=== PATIENT | male | born 1965 | race Caucasian/White ===

== ENCOUNTER 2021-05-13 19:44 | Emergency (ER) | payer MEDICAID, SELFPAY ==
--- NOTE | ~2021-05-13 | CT_ITS ---
EXAMINATION: CT ABDOMEN AND PELVIS WITHOUT CONTRAST CLINICAL INFORMATION: Pain COMPARISON: 12/14/2014 TECHNIQUE: Multidetector volumetric imaging was performed from the superior aspect of the liver through the pubic symphysis. Sagittal and coronal reformatted images were obtained on the technologist's workstation. This CT examination was performed using dose optimization techniques as appropriate, variously including the following: *Automated exposure control *Adjustment of mA and/or kV according to patient size (this includes techniques or standardized protocols for targeted exams where dose is matched to indication/reason for exam; i.e. extremities or head) *Use of iterative reconstruction technique DLP: 420 mGy-cm FINDINGS: LUNG BASES: The visualized lung bases are unremarkable. LIVER, GALLBLADDER, AND BILIARY TREE: The liver is normal in size, shape, and attenuation. No focal hepatic lesion or biliary ductal dilatation is present. Gallstone noted in the gallbladder PANCREAS: Unremarkable. SPLEEN: Unremarkable. ADRENAL GLANDS: Unremarkable. KIDNEYS AND URETERS: The kidneys are normal in size, shape, and attenuation. No hydronephrosis, hydroureter, or calculi seen. No perinephric stranding. BLADDER: Unremarkable. GASTROINTESTINAL TRACT: Nonobstructive bowel pattern. No free fluid. A normal appendix is not seen but no definitive suspicion around the cecum. ABDOMINAL WALL: No significant hernia is appreciated. Hernia repair on left noted LYMPH NODES: Normal. VASCULAR: Unremarkable. PELVIC VISCERA: Mildly prominent prostate OSSEOUS STRUCTURES: Unchanged. Degenerative change in the right hip CT/CT abdomen pelvis wo con IMPRESSION: No acute finding. The bowel pattern is nonobstructing. There is no free fluid. A normal appendix is not seen but no suspicion around the cecum No evidence of renal or ureteral stone or obstruction. Gallstone in the gallbladder. Fleischner guidelines were followed.
--- NOTE | ~2021-05-13 | XR_ITS ---
EXAMINATION: XR RIBS, RIGHT CLINICAL INFORMATION: Right chest wall pain COMPARISON: None TECHNIQUE: 3 views of the right ribs were obtained. Detail views of the right ribs FINDINGS: Chest film is demonstrating no evidence for pneumothorax. No effusion. The right lung is grossly clear. Mediastinal contours are within normal limits. Detail views the right ribs does not demonstrate evidence for fracture. XR/XR ribs RT min 3V w CXR1V IMPRESSION: No evidence for rib fracture. No effusion or pneumothorax. The underlying lung field is grossly clear.
[2021-05-13 19:52] VITALS: BP 124/72; PULSE 82; RESP 20; TEMP 36.3; O2SAT 99; BMI 31.6
[2021-05-13] MEDS: 0.9 % Sodium Chloride 1,000 ML 999 ML IVCONT (20:10)
[2021-05-13 20:14] LABS: MANUAL DIFF FLAG NO
[2021-05-13 20:16] LABS: Basophils Percent Auto 0.3 % (0-2); Eosinophils Absolute Auto 0.1 X10*3/uL (0.0-0.4); Eosinophils Percent Auto 0.9 % (0-4); Hematocrit 46.2 % (42.0-52.0); Imm Gran Abs Auto 0.04 X10*3/uL (0.00-0.03); Imm Gran Pct Auto 0.4 % (0.0-0.4); Lymphocytes Percent Auto 35.4 % (20-40); Mean Corpuscular HGB Conc 34.6 g/dl (31.0-36.0); Mean Corpuscular Hemoglobin 32.7 pg (27.0-33.0); Mean Corpuscular Volume 94.5 fL (80.0-98.0); Mean Platelet Volume 9.9 fL (9.4-12.4); Monocytes Absolute Auto 1.2 X10*3/uL (0.1-1.2); Monocytes Percent Auto 10.3 % (2-11); Neutrophils Absolute Auto 5.9 x10*3/uL (2.0-8.3); Neutrophils Percent Auto 52.7 % (45-73); Platelet Count 279 X10*3/uL (160-400); Red Blood Count 4.89 X10*6/uL (4.60-5.80); Red Cell Distribution Width 11.2 % (11.0-16.0); White Blood Count 11.2 X10*3/uL (4.8-10.8)
[2021-05-13] MEDS: Ketorolac Tromethamine 30 MG/ML VIAL IVPUSH (20:26)
--- NOTE | 2021-05-13 20:26 | ED.MALEGU ---
HPI - Male Genitourinary General Chief complaint: Urogenital-Male Stated complaint: rt side abd pain Time Seen by Provider: 05/13/21 19:52 Source: patient Mode of arrival: ambulatory Limitations: no limitations History of Present Illness HPI Narrative: 55-year-old male came in for evaluation of right flank pain. 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 No nausea, no vomiting, no fever, no chills. Related Data Previous Rx's Medication Instructions Recorded cyclobenzaprine 10 mg tablet 10 mg PO TID PRN #10 tab 05/13/21 ibuprofen 800 mg tablet 800 mg PO Q8H PRN #20 tab 05/13/21 Allergies Allergy/AdvReac Type Severity Reaction Status Date / Time No Known Allergies Allergy Unverified 02/22/20 16:30 Review of Systems Review of Systems: All other systems are reviewed and are negative Constitutional: Reports as per HPI and Reports no additional constitutional complaints Eyes: Reports as per HPI and Reports no additional eye complaints Reports system reviewed and no additional complaints, except as documented Cardiovascular: Reports as per HPI and Reports no additional cardiovascular complaints Respiratory: Reports as per HPI and Reports no additional respiratory complaints Gastrointestinal: Reports as per HPI and Reports no additional gastrointestinal complaints Genitourinary: Reports no additional female genitourinary complaints Musculoskeletal: Reports no additional musculoskeletal complaints Skin/Breast: Reports system reviewed and no additional complaints, except as docu Psychiatric: Reports no additional psychiatric complaints Endocrine: Reports no additional endocrine complaints Hematologic/Lymphatic: Reports no additional hematologic/lymphatic complaints Allergic/Immunologic: Reports no additional allergic/immunologic complaints Reports system reviewed and no additional complaints, except as documented and Reports Abnormal speech present [facility] Social History Social History Advance Directives: No Physical Exam Vital Signs: Vital Signs: Last Vital Signs Temp 97.4 F 05/13/21 19:52 Pulse 82 05/13/21 19:52 Resp 20 05/13/21 19:52 BP 124/72 05/13/21 19:52 Pulse Ox 99 05/13/21 19:52 BMI result Body Mass Index 31.6 Vital signs have been reviewed as appeared to be correct. Blood pressure normal. Heart rate normal. Respiration rate normal. Temperature normal. Oxygen saturation normal. Appearance: Alert. Oriented X3. No acute distress. Head: Normal external exam. Normocephalic. Atraumatic. No Pereyra signs noted. No raccoon eyes noted Eyes: PERRLA. EOMI. Conjunctiva and sclera normal. Eyelids normal. ENT: TM's Normal. Pharynx normal. Uvula midline. Moist mucous membranes. No trismus noted. No drooling noted. No muffled voice noted. Neck: Normal inspection. Neck supple. FROM. No adenopathy. Thyroid Normal. No meningeal signs. No neck mass noted. CVS: Normal heart rate and rhythm. Heart sound normal. No murmurs noted. Pulses normal throughout. Respiratory: No respiratory distress. Painless inspiration. Breath sounds normal. No wheezes/rales/rhonchi noted. Chest nontender. No accessory muscle usage noted or decreased air movement noted. Abdomen: Soft and nontender. Bowel sounds normal in all 4 quadrants. No distention noted. No organomegaly noted. No visible injury noted. Back: Right CVA tenderness. Full range of motion noted. Skin: Skin warm and dry. Normal skin color. Normal skin turgor. No rashes/lesions/lacerations noted. Extremities: No lower extremity edema. Extremities exhibit normal range of motion. Extremities nontender. Neuro: Oriented X 3. Cranial nerve exam: II-XII are grossly intact No motor deficit. No sensory deficit. Reflexes normal. Course Course Course Narrative: Assessment and plan. 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 Will discharge patient home on NSAIDs/muscle relaxant/rest. MDM - Male Genitourinary Medical Records Attestation: I reviewed the patient's medical records. Lab Data Attestation: I reviewed the patient's lab results. Result diagrams: 05/13/21 20:10 05/13/21 20:10 Labs: Lab Results 05/13/21 05/13/21 05/13/21 Range/Units 20:00 20:10 20:10 WBC 11.2 H (4.8-10.8) X10*3/uL RBC 4.89 (4.60-5.80) X10*6/uL Hgb 16.0 (14.0-18.0) g/dl Hct 46.2 (42.0-52.0) % MCV 94.5 (80.0-98.0) fL MCH 32.7 (27.0-33.0) pg MCHC 34.6 (31.0-36.0) g/dl RDW 11.2 (11.0-16.0) % Plt Count 279 (160-400) X10*3/uL MPV 9.9 (9.4-12.4) fL Immature Gran % (Auto) 0.4 (0.0-0.4) % Neut % (Auto) 52.7 (45-73) % Lymph % (Auto) 35.4 (20-40) % [place] % (Auto) 10.3 (2-11) % Eos % (Auto) 0.9 (0-4) % Baso % (Auto) 0.3 (0-2) % Lymph # (Auto) 4.0 (1.2-4.9) X10*3/uL [place] # (Auto) 1.2 (0.1-1.2) X10*3/uL Eos # (Auto) 0.1 (0.0-0.4) X10*3/uL Baso # (Auto) 0.0 (0.0-0.2) X10*3/uL Abs Immat Gran (auto) 0.04 H (0.00-0.03) X10*3/uL Absolute Neuts (auto) 5.9 (2.0-8.3) x10*3/uL Absolute Nucleated RBC 0.000 (0.0-0.012) X10*3/uL Nucleated RBC % (auto) 0.0 (0.0-0.2) /100WBC Sodium 137 (135-145) mmol/L Potassium 4.3 (3.3-5.1) mmol/L Chloride 105 (96-108) mmol/L Carbon Dioxide 21 L (22-29) mmol/L Anion Gap 15 (12-20) BUN 11 (9-16) mg/dL Creatinine 0.88 (0.5-1.4) mg/dL Estim Creat Clear Calc 96.8 Estimated GFR > 60 Random Glucose 241 H (60-115) mg/dL Calcium 9.8 (8.4-10.2) mg/dL Total Bilirubin 0.4 (0.0-1.0) mg/dL Direct Bilirubin 0.2 (0.0-0.5) mg/dL AST 18 (5-37) U/L ALT 14 (0-40) U/L Alkaline Phosphatase 82 (39-117) U/L Troponin I High Sens (<3.5-35.0) ng/L Total Protein 7.3 (6.5-8.0) g/dL Albumin 4.2 (3.5-5.0) g/dL Lipase 293 H (8-78) U/L Urine Color YELLOW Urine Appearance CLEAR Urine pH 6.0 (5.0-8.0) Ur Specific [place] >= 1.030 H (1.005-1.025) Urine Protein NEG (NEG-TRACE) MG/DL Urine Glucose (UA) >=1000 H (NEG) MG/DL Urine Ketones NEG (NEG) MG/DL Urine Blood NEG (NEG) Urine Nitrite NEG (NEG) Ur Leukocyte Esterase NEG (NEG) Urine RBC 0-2 (0) /HPF Urine WBC 0-2 (0-4) /HPF Ur Squamous Epith Cells TRACE /LPF Calcium Oxalate Crystal TRACE /LPF Urine Bacteria TRACE /LPF Urine Mucus TRACE /LPF 05/13/21 Range/Units 20:10 WBC (4.8-10.8) X10*3/uL RBC (4.60-5.80) X10*6/uL Hgb (14.0-18.0) g/dl Hct (42.0-52.0) % MCV (80.0-98.0) fL MCH (27.0-33.0) pg MCHC (31.0-36.0) g/dl RDW (11.0-16.0) % Plt Count (160-400) X10*3/uL MPV (9.4-12.4) fL Immature Gran % (Auto) (0.0-0.4) % Neut % (Auto) (45-73) % Lymph % (Auto) (20-40) % [place] % (Auto) (2-11) % Eos % (Auto) (0-4) % Baso % (Auto) (0-2) % Lymph # (Auto) (1.2-4.9) X10*3/uL [place] # (Auto) (0.1-1.2) X10*3/uL Eos # (Auto) (0.0-0.4) X10*3/uL Baso # (Auto) (0.0-0.2) X10*3/uL Abs Immat Gran (auto) (0.00-0.03) X10*3/uL Absolute Neuts (auto) (2.0-8.3) x10*3/uL Absolute Nucleated RBC (0.0-0.012) X10*3/uL Nucleated RBC % (auto) (0.0-0.2) /100WBC Sodium (135-145) mmol/L Potassium (3.3-5.1) mmol/L Chloride (96-108) mmol/L Carbon Dioxide (22-29) mmol/L Anion Gap (12-20) BUN (9-16) mg/dL Creatinine (0.5-1.4) mg/dL Estim Creat Clear Calc Estimated GFR Random Glucose (60-115) mg/dL Calcium (8.4-10.2) mg/dL Total Bilirubin (0.0-1.0) mg/dL Direct Bilirubin (0.0-0.5) mg/dL AST (5-37) U/L ALT (0-40) U/L Alkaline Phosphatase (39-117) U/L Troponin I High Sens < 3.5 (<3.5-35.0) ng/L Total Protein (6.5-8.0) g/dL Albumin (3.5-5.0) g/dL Lipase (8-78) U/L Urine Color Urine Appearance Urine pH (5.0-8.0) Ur Specific [place] (1.005-1.025) Urine Protein (NEG-TRACE) MG/DL Urine Glucose (UA) (NEG) MG/DL Urine Ketones (NEG) MG/DL Urine Blood (NEG) Urine Nitrite (NEG) Ur Leukocyte Esterase (NEG) Urine RBC (0) /HPF Urine WBC (0-4) /HPF Ur Squamous Epith Cells /LPF Calcium Oxalate Crystal /LPF Urine Bacteria /LPF Urine Mucus /LPF Imaging Data Chest x-ray: Radiologist's impression: No evidence for rib fracture. No effusion or pneumothorax. The underlying lung field is grossly clear. ? CT scan - abdomen: Radiologist's impression: No acute finding. The bowel pattern is nonobstructing. There is no free fluid. A normal appendix is not seen but no suspicion around the cecum ?No evidence of renal or ureteral stone or obstruction. Gallstone in the gallbladder. ? Discharge Plan Discharge Clinical Impression: Chest wall pain, Pulled muscle Patient Disposition: Home, Self-Care Instructions: Chest Wall Pain (ED) Prescriptions: New ibuprofen 800 mg tablet 800 mg PO Q8H PRN (Reason: pain) Qty: 20 RF: 0 cyclobenzaprine 10 mg tablet 10 mg PO TID PRN (Reason: muscle spasm) Qty: 10 RF: 0 Referrals: Aminata Jung DO [Primary Care Provider] - 2 days Stand Alone Forms: Work/School Release
[2021-05-13] MEDS: Morphine Sulfate 2 MG/ML CARTRIDGE 1 MG IVPUSH (20:27)
[2021-05-13 20:29] LABS: Appearance Urine CLEAR; Color Urine YELLOW; Glucose Urine UA >=1000 MG/DL (NEG); Leukocyte Esterase Urine NEG (NEG); Nitrite Urine NEG (NEG); Specific Gravity - Urine >= 1.030 (1.005-1.025); Urine Blood NEG (NEG); Urine Ketones NEG (NEG); Urine Protein NEG (NEG-TRACE)
[2021-05-13 20:40] LABS: Alanine Aminotransferase 14 U/L (0-40); Albumin Level 4.2 g/dL (3.5-5.0); Alkaline Phosphatase 82 U/L (39-117); Anion Gap 15 (12-20); Aspartate Amino Transferase 18 U/L (5-37); Bilirubin Direct 0.2 mg/dL (0.0-0.5); Bilirubin Total 0.4 mg/dL (0.0-1.0); Blood Urea Nitrogen 11 mg/dL (9-16); Calcium 9.8 mg/dL (8.4-10.2); Carbon Dioxide 21 mmol/L (22-29); Chloride 105 mmol/L (96-108); Creatinine Clr Calc Pharmacy 96.8; Estimated Glomerular Filt Rate > 60; Glucose Random 241 mg/dL (60-115); Lipase 293 U/L (8-78); Potassium 4.3 mmol/L (3.3-5.1); Sodium 137 mmol/L (135-145); Total Protein 7.3 g/dL (6.5-8.0); Troponin-I High Sensitivity < 3.5 ng/L (<3.5-35.0)
[2021-05-13 21:02] LABS: Bacteria Urine TRACE /LPF; Calcium Oxalate Crystals Urine TRACE /LPF; Mucus Urine TRACE /LPF; RBC Urine 0-2 /HPF (0); Squamous Epithelial Cell Urine TRACE /LPF; WBC Urine 0-2 /HPF (0-4)
== END 2021-05-13 23:05 | disposition home or self-care (01) ==
PROVIDERS: Emergency Provider Emergency Medicine; PCP Family Medicine
DX: R07.89 Other chest pain (principal); R07.81 Pleurodynia; R10.9 Unspecified abdominal pain; Z79.899 Other long term (current) drug therapy
CPT/HCPCS: 36415; 71101; 74176; 80048; 80076; 81001; 83690; 84484; 85025; 96361; 96374; 96375; 99283; 99284; J1885; J2270

== ENCOUNTER 2021-05-14 23:19 | Inpatient (IN) | payer MEDICAID, SELFPAY ==
--- NOTE | ~2021-05-14 | US_ITS ---
EXAMINATION: US ABDOMEN LIMITED CLINICAL INFORMATION: Right upper quadrant pain. COMPARISON: CT 05/13/2021 TECHNIQUE: Real-time imaging of the right upper quadrant abdominal viscera. FINDINGS: PANCREAS: Not well seen due to bowel gas. LIVER: Normal. The liver is normal in size. The liver contour is normal. Parenchymal echogenicity is normal. No focal hepatic lesion. There is no intrahepatic biliary duct dilatation seen. GALLBLADDER: The gallbladder wall is thick measuring up to 0.5 cm. Multiple gallstones are noted. These measure up to 0.6 cm. There is some ringdown artifact in the gallbladder wall suggestive of adenomyomatosis. No pericholecystic fluid. COMMON BILE DUCT: Normal in caliber measuring 0.3 cm in diameter. RIGHT KIDNEY: Normal. No hydronephrosis. No renal calculi or focal parenchymal lesions. The kidney measures 10.8 cm in maximum dimension. FREE FLUID: None. US/US abdomen limited IMPRESSION: Gallbladder wall thickening noted with gallstone, concerning for cholecystitis. Suggestion of adenomyomatosis of the gallbladder wall.
[2021-05-14 23:27] VITALS: BP 125/69; BP 134/81; PULSE 66; PULSE 76; RESP 22; TEMP 36.7; O2SAT 100; O2SAT 99; BMI 31.6
--- NOTE | 2021-05-14 23:30 | ED.ABDPAIN ---
HPI - Abdominal Pain General Chief Complaint: Abdominal Pain Stated Complaint: rt side abd pain Time Seen by Provider: 05/14/21 23:29 Source: patient Mode of arrival: ambulatory Limitations: no limitations History of Present Illness HPI narrative: Patient complaining of diffuse abdominal pain radiated to the back with nausea, vomiting for last 4 days was seen here yesterday and diagnosed as musculoskeletal pain and discharged on Flexeril and ibuprofen. had CT scan of the abdomen done which was which showed gallstones and lab showed elevated lipase of 283 patient is saying his pain is getting worse now unable to eat or drink anything patient denied any alcohol use no BHN melena no abdominal distension never had similar pain in the past Related Data Previous Rx's Medication Instructions Recorded cyclobenzaprine 10 mg tablet 10 mg PO TID PRN #10 tab 05/13/21 ibuprofen 800 mg tablet 800 mg PO Q8H PRN #20 tab 05/13/21 Allergies Allergy/AdvReac Type Severity Reaction Status Date / Time No Known Allergies Allergy Unverified 02/22/20 16:30 Review of Systems Review of Systems Yes all other systems are reviewed and are negative Physical Exam Vital Signs: Vital Signs: Last Vital Signs Temp 98.0 F 05/14/21 23:27 Pulse 66 05/14/21 23:27 Resp 20 05/14/21 23:50 BP 125/69 05/14/21 23:27 Pulse Ox 99 05/14/21 23:27 BMI result Body Mass Index 31.6 Appearance: Alert. Oriented X3. No acute distress. Eyes: No pallor/ icterus ENT: Pharynx normal. Oral Mucosa moist Neck: Normal inspection. Neck supple. CVS: Normal heart rate and rhythm. Pulses normal. Respiratory: No respiratory distress. Equal air entry bilateral, no wheezing/rales/rhonchi Abdomen: Soft , mid abdominal tenderness no rebound tenderness or guarding, Bowel sounds are present, no mass palpable, no CVA tenderness Skin: Skin warm and dry. Normal skin color. Normal skin turgor. Extremities: No lower extremity edema. No calf tenderness Neuro: Oriented X 3. MDM - Abdominal Pain MDM Narrative Medical decision making narrative: Patient diffuse abdominal pain more on the mid abdomen with elevated lipase with gallstones normal LFTs unable to eat or drink because of pain and vomiting all day will admit patient for pancreatitis for pain control and IV hydration patient denies use of alcohol has last year lipid profile normal etiology of pancreatitis likely idiopathic Differential Diagnosis Differential diagnosis: Likely abdominal pain Medical Records Attestation: I reviewed the patient's medical records. Lab Data Attestation: I reviewed the patient's lab results. Result diagrams: 05/15/21 00:05 05/15/21 00:05 Labs: Lab Results 05/15/21 05/15/21 Range/Units 00:05 00:05 WBC 8.4 (4.8-10.8) X10*3/uL RBC 4.64 (4.60-5.80) X10*6/uL Hgb 15.2 (14.0-18.0) g/dl Hct 44.0 (42.0-52.0) % MCV 94.8 (80.0-98.0) fL MCH 32.8 (27.0-33.0) pg MCHC 34.5 (31.0-36.0) g/dl RDW 11.2 (11.0-16.0) % Plt Count 226 (160-400) X10*3/uL MPV 9.8 (9.4-12.4) fL Immature Gran % (Auto) 0.2 (0.0-0.4) % Neut % (Auto) 61.6 (45-73) % Lymph % (Auto) 28.2 (20-40) % [place] % (Auto) 9.2 (2-11) % Eos % (Auto) 0.4 (0-4) % Baso % (Auto) 0.4 (0-2) % Lymph # (Auto) 2.4 (1.2-4.9) X10*3/uL [place] # (Auto) 0.8 (0.1-1.2) X10*3/uL Eos # (Auto) 0.0 (0.0-0.4) X10*3/uL Baso # (Auto) 0.0 (0.0-0.2) X10*3/uL Abs Immat Gran (auto) 0.02 (0.00-0.03) X10*3/uL Absolute Neuts (auto) 5.2 (2.0-8.3) x10*3/uL Absolute Nucleated RBC 0.000 (0.0-0.012) X10*3/uL Nucleated RBC % (auto) 0.0 (0.0-0.2) /100WBC Sodium 136 (135-145) mmol/L Potassium 3.9 (3.3-5.1) mmol/L Chloride 104 (96-108) mmol/L Carbon Dioxide 22 (22-29) mmol/L Anion Gap 14 (12-20) BUN 10 (9-16) mg/dL Creatinine 0.81 (0.5-1.4) mg/dL Estim Creat Clear Calc 105.2 Estimated GFR > 60 Random Glucose 231 H (60-115) mg/dL Calcium 9.2 D (8.4-10.2) mg/dL Total Bilirubin 0.6 (0.0-1.0) mg/dL AST 12 (5-37) U/L ALT 11 (0-40) U/L Alkaline Phosphatase 72 (39-117) U/L Total Protein 6.6 (6.5-8.0) g/dL Albumin 4.0 (3.5-5.0) g/dL Lipase 229 H (8-78) U/L Discharge Plan Discharge Clinical Impression: Pancreatitis Qualifiers: Chronicity: acute Pancreatitis type: idiopathic Acute pancreatitis complication: no infection or necrosis Qualified Code(s): K85.00 - Idiopathic acute pancreatitis without necrosis or infection Gallstone Qualifiers: Cholecystitis presence: without cholecystitis Biliary obstruction: without biliary obstruction Qualified Code(s): K80.20 - Calculus of gallbladder without cholecystitis without obstruction Patient Disposition: Admitted As Inpatient [facility] Social History Social History Advance Directives: No Advance Directives Information Provided: No
[2021-05-14 23:50] VITALS: RESP 20
[2021-05-14] MEDS: 0.9 % Sodium Chloride 1,000 ML 999 ML IVCONT (23:50)
[2021-05-14] MEDS: ondansetron HCL 4 MG/2 ML VIAL IVPUSH (23:50)
[2021-05-14] MEDS: Morphine Sulfate 4 MG/ML CARTRIDGE IVPUSH (23:50)
[2021-05-15] VITALS (9 sets, daily range): BP systolic 119–142; BP diastolic 55–75; PULSE 56–82; RESP 14–22; TEMP 36.3–36.4; O2SAT 96–100
[2021-05-15 00:10] LABS: Basophils Percent Auto 0.4 % (0-2); Eosinophils Percent Auto 0.4 % (0-4); Hemoglobin 15.2 g/dl (14.0-18.0); Imm Gran Abs Auto 0.02 X10*3/uL (0.00-0.03); Imm Gran Pct Auto 0.2 % (0.0-0.4); Lymphocytes Absolute Auto 2.4 X10*3/uL (1.2-4.9); Lymphocytes Percent Auto 28.2 % (20-40); MANUAL DIFF FLAG NO; Mean Corpuscular HGB Conc 34.5 g/dl (31.0-36.0); Mean Corpuscular Hemoglobin 32.8 pg (27.0-33.0); Mean Corpuscular Volume 94.8 fL (80.0-98.0); Mean Platelet Volume 9.8 fL (9.4-12.4); Monocytes Absolute Auto 0.8 X10*3/uL (0.1-1.2); Monocytes Percent Auto 9.2 % (2-11); Neutrophils Absolute Auto 5.2 x10*3/uL (2.0-8.3); Neutrophils Percent Auto 61.6 % (45-73); Platelet Count 226 X10*3/uL (160-400); Red Blood Count 4.64 X10*6/uL (4.60-5.80); Red Cell Distribution Width 11.2 % (11.0-16.0); White Blood Count 8.4 X10*3/uL (4.8-10.8)
[2021-05-15 00:41] LABS: Alanine Aminotransferase 11 U/L (0-40); Alkaline Phosphatase 72 U/L (39-117); Anion Gap 14 (12-20); Aspartate Amino Transferase 12 U/L (5-37); Bilirubin Total 0.6 mg/dL (0.0-1.0); Blood Urea Nitrogen 10 mg/dL (9-16); Calcium 9.2 mg/dL (8.4-10.2); Carbon Dioxide 22 mmol/L (22-29); Chloride 104 mmol/L (96-108); Creatinine Clr Calc Pharmacy 105.2; Estimated Glomerular Filt Rate > 60; Glucose Random 231 mg/dL (60-115); Lipase 229 U/L (8-78); Potassium 3.9 mmol/L (3.3-5.1); Sodium 136 mmol/L (135-145); Total Protein 6.6 g/dL (6.5-8.0)
--- NOTE | 2021-05-15 01:06 | PM.IMHP ---
History of Present Illness Date of Service: 05/15/21 Chief Complaint: abdominal pain 55-year-old male with a past medical history of diabetes presented to the hospital with a chief complaint of abdominal pain. Patient reports that over the past 4 days he has been having abdominal pain in the epigastrium, nonradiating associated with nausea and vomiting denies any blood in the vomitus. Denies any diarrhea. Denies any recent alcohol use. Mentioned that he is not able to eat anything and has reduced oral intake Presented to the hospital yesterday and had a CT abdomen done which showed no acute finding except for a Gall stone; subsequently discharged home. After he went home patient reported that he continued to have abdominal discomfort hence presented back to the hospital for further evaluation. denies any alcohol use. Denies any chest pain palpitations lightheadedness or dizziness. Review of all other systems is negative except mentioned above ER course: Per ER team patient noted a abdominal tenderness, no guarding noted he; lipase elevated in 200; admitted for acute pancreatitis PMFSH Pertinent family history: Reviewed Social History Advance Directives: No Advance Directives Information Provided: No Meds Allergies Allergy/AdvReac Type Severity Reaction Status Date / Time No Known Allergies Allergy Unverified 02/22/20 16:30 Physical Exam Vital Signs and Narrative: Vital Signs: Last Vital Signs Temp 98.0 F 05/14/21 23:27 Pulse 66 05/14/21 23:27 Resp 20 05/14/21 23:50 BP 125/69 05/14/21 23:27 Pulse Ox 99 05/14/21 23:27 BMI result Body Mass Index 31.6 Gen: Appears be in no acute distress HEENT: NCAT, Moist mucosa. Pulmonary: Vesicular breath sounds, fair air entry CVS: Normal S1-S2 Abdomen: BS+, Soft, tender in epigastrium, no guarding no rigidity. Extremities: Warm well perfused Neuro: Alert and awake. Results Labs CBC and Chem 7: 05/15/21 00:05 05/15/21 00:05 Labs: Laboratory Results - last 24 hr 05/15/21 05/15/21 00:05 00:05 MCV 94.8 MCH 32.8 MCHC 34.5 RDW 11.2 Plt Count 226 MPV 9.8 Immature Gran % (Auto) 0.2 Neut % (Auto) 61.6 Lymph % (Auto) 28.2 [place] % (Auto) 9.2 Eos % (Auto) 0.4 Baso % (Auto) 0.4 Lymph # (Auto) 2.4 [place] # (Auto) 0.8 Eos # (Auto) 0.0 Baso # (Auto) 0.0 Abs Immat Gran (auto) 0.02 Absolute Neuts (auto) 5.2 Absolute Nucleated RBC 0.000 Nucleated RBC % (auto) 0.0 Anion Gap 14 Estim Creat Clear Calc 105.2 Estimated GFR > 60 Random Glucose 231 H Calcium 9.2 D Total Bilirubin 0.6 AST 12 ALT 11 Alkaline Phosphatase 72 Total Protein 6.6 Albumin 4.0 Lipase 229 H Assessment and Plan (1) Pancreatitis: Qualifiers: Acute pancreatitis complication: no infection or necrosis Chronicity: acute Pancreatitis type: idiopathic Qualified Code(s): K85.00 - Idiopathic acute pancreatitis without necrosis or infection Status: Acute (2) Gallstone: Qualifiers: Biliary obstruction: without biliary obstruction Cholecystitis presence: without cholecystitis Qualified Code(s): K80.20 - Calculus of gallbladder without cholecystitis without obstruction Status: Acute (3) Diabetes: Status: Acute 55-year-old male with a past medical history of diabetes presented to the hospital with a chief complaint of abdominal pain. noted to elevated lipase. Admitted for acute pancreatitis. Acute pancreatitis: Patient denies alcohol use. Will obtain lipid panel to check for triglycerides. Calcium within normal limits. CT abdomen showed gallstone - question gallstone related. But LFTs within normal limits. Gastroenterology consult for further evaluation Pain control IV fluids History of diabetes: Insulin sliding scale. Monitor fingerstick glucose. DVT prophylaxis: SCD boots Code status: Full code Quality Stroke Does the patient have a stroke diagnosis?: No VTE Prior VTE?: No VTE Risk Level:: Medical - moderate - high VTE Device Contraindication: N/A - Device Ordered VTE Drug Contraindication: Treatment Not Indicated
[2021-05-15 01:22] LABS: COVID-19 Test Negative (Negative)
[2021-05-15] MEDS: Dextrose 5 % and 0.45 % NaCl 1,000 ML 100 ML IVCONT ×3 (01:25→23:43)
--- NOTE | 2021-05-15 02:11 | PC.NURSE ---
PT med rec completed using list of recent refills recorded in PT's medical record. PT able to confirm some meds, but admits that he does not know the names and doses of most of his meds.
[2021-05-15] MEDS: HYDROmorphone HCl 0.5 MG/0.5 ML SYRINGE IVPUSH ×3 (06:15→21:23)
[2021-05-15 07:38] LABS: Glucose, Whole Blood 211 mg/dL (60-115)
[2021-05-15 07:49] LABS: MANUAL DIFF FLAG NO
[2021-05-15 07:53] LABS: Basophils Percent Auto 0.2 % (0-2); Eosinophils Absolute Auto 0.1 X10*3/uL (0.0-0.4); Eosinophils Percent Auto 0.7 % (0-4); Hematocrit 44.7 % (42.0-52.0); Hemoglobin 15.1 g/dl (14.0-18.0); Imm Gran Abs Auto 0.03 X10*3/uL (0.00-0.03); Imm Gran Pct Auto 0.4 % (0.0-0.4); Lymphocytes Absolute Auto 2.2 X10*3/uL (1.2-4.9); Lymphocytes Percent Auto 27.5 % (20-40); Mean Corpuscular HGB Conc 33.8 g/dl (31.0-36.0); Mean Corpuscular Hemoglobin 32.4 pg (27.0-33.0); Mean Corpuscular Volume 95.9 fL (80.0-98.0); Monocytes Absolute Auto 0.8 X10*3/uL (0.1-1.2); Monocytes Percent Auto 9.7 % (2-11); Neutrophils Percent Auto 61.5 % (45-73); Platelet Count 237 X10*3/uL (160-400); Red Blood Count 4.66 X10*6/uL (4.60-5.80); Red Cell Distribution Width 11.1 % (11.0-16.0); White Blood Count 8.1 X10*3/uL (4.8-10.8)
--- NOTE | 2021-05-15 08:28 | MHC.CM.PN ---
pt reports that he is homeless and has been staying at [facility], friends of the homeless. he says that sometimes he stays at a freinds place but mostly at the nursing home. he reports he has no family in the area, no s.o. and does not have a car. he denies the need for vna at [place]. his pcp is Guido husain. he will need help c transportation back to the nursing home [place]. cm to cont. to follow.
[2021-05-15 08:32] LABS: Anion Gap 10 (12-20); Blood Urea Nitrogen 8 mg/dL (9-16); Calcium 9.3 mg/dL (8.4-10.2); Carbon Dioxide 25 mmol/L (22-29); Chloride 105 mmol/L (96-108); Cholesterol 171 mg/dL; Creatinine Clr Calc Pharmacy 103.9; Estimated Glomerular Filt Rate > 60; Glucose Random 241 mg/dL (60-115); HDL Cholesterol 31 mg/dL; LDL Cholesterol Calculated 119 mg/dl; Potassium 4.1 mmol/L (3.3-5.1); Sodium 136 mmol/L (135-145); Triglycerides 109 mg/dL
[2021-05-15] MEDS: Insulin Lispro 100 UNIT/ML 3 ML VIAL SUBCUT ×2 (08:45→20:24)
[2021-05-15] MEDS: HYDROmorphone HCl 1 MG/ML SYRINGE IVPUSH ×2 (09:31→16:49)
[2021-05-15 12:17] LABS: Glucose, Whole Blood 141 mg/dL (60-115)
--- NOTE | 2021-05-15 15:59 | P.EN_ITS ---
Event Note Date of Service: 05/15/21 Event Note: Continues with right upper quadrant pain requiring Dilaudid. Con tinues NPO status. Exam unchanged; abdomen tender right upper quadrant along the costal margin. Ultrasound demonstrates question of acute cholecystitis. Will await GI input and talar therapies based on findings.
[2021-05-15 16:35] LABS: Glucose, Whole Blood 137 mg/dL (60-115)
[2021-05-15] MEDS: 0.9 % Sodium Chloride Flush 3 ML SYRINGE IVFLUSH (16:57)
[2021-05-15] MEDS: ondansetron HCL 4 MG/2 ML VIAL IVPUSH (17:43)
[2021-05-15] MEDS: Nicotine 21 MG PATCH.TD24 TRANSDERMA (17:43)
[2021-05-15 17:52] LABS: Lipase 34 U/L (8-78)
[2021-05-15 19:58] LABS: Glucose, Whole Blood 201 mg/dL (60-115)
--- NOTE | 2021-05-15 21:34 | PC.NURSE ---
P patient vomited 200 ml of green liquid,c/o burning,stomache acidity I Dr. Simon notified,medicated for pain,repositioned E will monitor
[2021-05-15] MEDS: Famotidine/PF 20 MG/2 ML VIAL IVPUSH (21:54)
[2021-05-16] VITALS (11 sets, daily range): BP systolic 132–160; BP diastolic 54–77; PULSE 65–100; RESP 18–28; TEMP 36–37.2; O2SAT 97–99
[2021-05-16] MEDS: HYDROmorphone HCl 0.5 MG/0.5 ML SYRINGE IVPUSH ×3 (00:07→09:19)
[2021-05-16] MEDS: ondansetron HCL 4 MG/2 ML VIAL IVPUSH ×4 (02:02→18:29)
[2021-05-16 05:42] LABS: MANUAL DIFF FLAG NO
[2021-05-16 05:49] LABS: Basophils Percent Auto 0.1 % (0-2); Eosinophils Percent Auto 0.2 % (0-4); Hematocrit 44.8 % (42.0-52.0); Hemoglobin 15.4 g/dl (14.0-18.0); Imm Gran Abs Auto 0.03 X10*3/uL (0.00-0.03); Imm Gran Pct Auto 0.4 % (0.0-0.4); Lymphocytes Absolute Auto 1.7 X10*3/uL (1.2-4.9); Lymphocytes Percent Auto 20.5 % (20-40); Mean Corpuscular HGB Conc 34.4 g/dl (31.0-36.0); Mean Corpuscular Hemoglobin 32.6 pg (27.0-33.0); Mean Corpuscular Volume 94.7 fL (80.0-98.0); Mean Platelet Volume 9.9 fL (9.4-12.4); Monocytes Absolute Auto 0.7 X10*3/uL (0.1-1.2); Neutrophils Absolute Auto 5.6 x10*3/uL (2.0-8.3); Neutrophils Percent Auto 69.8 % (45-73); Platelet Count 233 X10*3/uL (160-400); Red Blood Count 4.73 X10*6/uL (4.60-5.80); Red Cell Distribution Width 10.8 % (11.0-16.0); White Blood Count 8.1 X10*3/uL (4.8-10.8)
[2021-05-16 06:25] LABS: Alanine Aminotransferase 11 U/L (0-40); Alkaline Phosphatase 68 U/L (39-117); Anion Gap 13 (12-20); Aspartate Amino Transferase 13 U/L (5-37); Bilirubin Total 0.8 mg/dL (0.0-1.0); Blood Urea Nitrogen 7 mg/dL (9-16); Calcium 9.6 mg/dL (8.4-10.2); Carbon Dioxide 24 mmol/L (22-29); Chloride 103 mmol/L (96-108); Creatinine Clr Calc Pharmacy 105.2; Estimated Glomerular Filt Rate > 60; Glucose Fasting 206 mg/dL (60-99); Potassium 3.9 mmol/L (3.3-5.1); Sodium 136 mmol/L (135-145); Total Protein 6.7 g/dL (6.5-8.0)
[2021-05-16 07:40] LABS: Glucose, Whole Blood 210 mg/dL (60-115)
[2021-05-16] MEDS: Nicotine 21 MG PATCH.TD24 TRANSDERMA (09:19)
[2021-05-16] MEDS: Famotidine/PF 20 MG/2 ML VIAL IVPUSH ×2 (09:19→19:48)
[2021-05-16] MEDS: Gabapentin 100 MG CAPSULE PO ×2 (09:20→19:48)
[2021-05-16] MEDS: Dextrose 5 % and 0.45 % NaCl 1,000 ML 100 ML IVCONT (09:34)
[2021-05-16 11:32] LABS: Glucose, Whole Blood 215 mg/dL (60-115)
[2021-05-16] MEDS: HYDROmorphone HCl 1 MG/ML SYRINGE IVPUSH (11:42)
--- NOTE | 2021-05-16 11:55 | PM.CNGS ---
History of Present Illness Consult details Consult date: 05/16/21 Reason for consult: gallstones Requesting physician: Lazaro Madsen Narrative: This is a 55-year-old gentleman with a history of diabetes mellitus who was feeling well until about a week ago when he had acute onset of right flank pain and abdominal pain associated with nausea and vomiting. He does not report fever, chills, dysuria or change in the color of his urine. He does not give a history of experiencing similar pain in the past. He presented to the emergency department for evaluation on 05/13/2021. A CT scan of the abdomen and pelvis was obtained. Demonstrated a stone within the gallbladder but no evidence of acute cholecystitis and no other acute changes. He ultimately was discharged home but returned the following day with the same complaint. Lipase was noted to be elevated and the possibility of gallstone pancreatitis was entertained, though CT scan done the previous day did not demonstrate any evidence of pancreatic or peripancreatic inflammatory change. Liver function studies were normal. White blood count was mildly elevated at 11.2 at the time of his presentation on 05/13/2021, with no left shift. The following day, when he return to the emergency department, white blood count was normal at 8.4. It has remained normal. Liver function studies have also remained normal. Follow-up imaging with ultrasound done yesterday demonstrated multiple gallstones measuring up to 0.6 cm, thickening of the gallbladder wall to 0.5 cm and evidence of some possible ring down artifact suggesting the presence of adenomyomatosis. The possibility of acute cholecystitis was also raised. Review of Systems Review of Systems: Yes all other systems are reviewed and are negative Cardiovascular: Cardiovascular: Reports dyspnea ( due to current pain) Respiratory: Respiratory: Reports dyspnea ( due to current pain) Gastrointestinal: Gastrointestinal: Reports as per HPI Genitourinary: Comments: urinary frequency Musculoskeletal: Comments: right shoulder pain Endocrine: Endocrine: Reports polyuria Hematologic/Lymphatic: Hematologic/Lymphatic: Denies easy bleeding Comments: no history of blood clots PMFSH Past Medical History Medical History (Updated 05/15/21 @ 17:23 by Yolanda Meza RN) Patient denies medical problems Surgical History Surgical History (Updated 05/15/21 @ 17:24 by Yolanda Meza RN) History of appendectomy History of hernia surgery Social History Social History Household Members: None Housing Other:: patient states homeless Do you presently have visiting nurse or other home services: No Patient Tobacco Use Status: Current everyday Tobacco user Tobacco use type: Cigarette Cigarette Packs Per Day: 1 Cigarettes Per Day: 20.0 Years Smoked: 30 Substance Use Type: Marijuana service: No Current occupational status: unemployed Meds Allergies Allergy/AdvReac Type Severity Reaction Status Date / Time No Known Allergies Allergy Verified 05/15/21 02:13 Active Medications: Current Medications Atorvastatin Calcium (Atorvastatin Calcium 20 Mg Tablet) 20 mg PO BEDTIME [facility] Baclofen (Baclofen 10 Mg Tablet) 10 mg PO TID PRN PRN Reason: muscle spasm Dextrose (Dextrose 50 % 25 Gm/50 Ml Vial) 25 gm IVPUSH Q15M PRN; Protocol PRN Reason: per Hypoglycemia Standing Ord. Dolutegravir Sodium (Dolutegravir Sodium 50 Mg Tablet) 50 mg PO DAILY [facility] Last Admin: 05/16/21 09:20 Dose: Not Given Documented by: Emtricitabine/Tenofovir Alafenamide (Emtricitabine/Tenofov Alafenam Tablet) 1 tab PO DAILY [facility] Last Admin: 05/16/21 09:20 Dose: Not Given Documented by: Famotidine (Famotidine/Pf 20 Mg/2 Ml Vial) 20 mg IVPUSH BID [facility] Last Admin: 05/16/21 09:19 Dose: 20 mg Documented by: Gabapentin (Gabapentin 100 Mg Capsule) 100 mg PO TID [facility] Last Admin: 05/16/21 09:20 Dose: 100 mg Documented by: Glipizide (Glipizide 10 Mg Tablet) 10 mg PO BID [facility] Last Admin: 05/16/21 09:20 Dose: Not Given Documented by: Glucose (Glucose Gel 15 Gm Gel..Gram.) 15 gm PO Q15M PRN; Protocol PRN Reason: per Hypoglycemia Standing Ord. Dextrose/Sodium Chloride (D51/2ns) 1,000 mls @ 100 mls/hr IVCONT .Q10H [facility] Last Admin: 05/16/21 09:34 Dose: 100 mls/hr Documented by: Piperacillin Sod/Tazobactam (Sod 3.375 gm/ Sodium Chloride) 100 mls @ 200 mls/hr IV Q6H [facility] Last Admin: 05/16/21 11:42 Dose: 200 mls/hr Documented by: Insulin Glargine (Insulin Glargine,Hum.Rec.Anlog 100 Unit/Ml 10 Ml Vial) 16 unit SUBCUT DAILY [facility] Last Admin: 05/16/21 09:20 Dose: Not Given Documented by: Insulin Human Lispro (Insulin Lispro 100 Unit/Ml 3 Ml Vial) 0 unit SUBCUT QIDACHS [facility]; Protocol Last Admin: 05/16/21 11:43 Dose: Not Given Documented by: Melatonin (Melatonin 3 Mg Tablet) 6 mg PO BEDTIME PRN PRN Reason: Insomnia Metformin HCl (Metformin Hcl 1,000 Mg Tablet) 1,000 mg PO BID [facility] Last Admin: 05/16/21 09:20 Dose: Not Given Documented by: Nicotine (Nicotine 21 Mg Patch.Td24) 21 mg TRANSDERMA DAILY [facility] Last Admin: 05/16/21 09:19 Dose: 21 mg Documented by: Ondansetron HCl (Ondansetron Hcl 4 Mg/2 Ml Vial) 4 mg IVPUSH Q4H PRN PRN Reason: Nausea and Vomiting Last Admin: 05/16/21 09:19 Dose: 4 mg Documented by: Senna (Sennosides 8.6 Mg Tablet) 17.2 mg PO BEDTIME PRN PRN Reason: Constipation Sodium Chloride (0.9 % Sodium Chloride Flush 3 Ml Syringe) 3 ml IVFLUSH QSHIFT [facility] Last Admin: 05/16/21 09:20 Dose: Not Given Documented by: Vitamin D (Cholecalciferol (Vitamin D3) 25 Mcg Tablet) 50 mcg PO DAILY [facility] Last Admin: 05/16/21 09:20 Dose: Not Given Documented by: Home Medications Medication Instructions Recorded Confirmed Last Taken Type atorvastatin 20 mg tablet 1 tab PO BEDTIME 05/15/21 05/15/21 Unknown History baclofen 10 mg tablet 1 tab PO TID PRN 05/15/21 05/15/21 Unknown History cholecalciferol (vitamin D3) 50 1 cap PO DAILY 05/15/21 05/15/21 Unknown History mcg (2,000 unit) capsule dolutegravir 50 mg tablet (Tivicay) 1 tab PO DAILY 05/15/21 05/15/21 Unknown History emtricitabine 200 mg-tenofovir 1 tab PO DAILY 05/15/21 05/15/21 Unknown History alafenamide fumarate 25 mg tablet (Descovy) gabapentin 100 mg capsule 1 cap PO TID 05/15/21 05/15/21 Unknown History glipizide 5 mg tablet 2 tab PO BID 05/15/21 05/15/21 Unknown History insulin glargine 100 unit/mL (3 16 unit SUBCUT DAILY 05/15/21 05/15/21 Unknown History mL) subcutaneous pen (Lantus Solostar U-100 Insulin) metformin 500 mg tablet 2 tab PO BID 05/15/21 05/15/21 Unknown History nystatin 100,000 unit/gram topical 1 appl TOPICAL TID PRN 05/15/21 05/15/21 Unknown History cream Physical Exam Vital Signs: Vital Signs: Last Vital Signs Temp 98 F 05/16/21 07:21 Pulse 65 05/16/21 07:21 Resp 18 05/16/21 07:21 BP 132/54 L 05/16/21 07:21 Pulse Ox 99 05/16/21 07:21 BMI result Body Mass Index 31.6 Const: General: cooperative, alert and anxious Orientation/consciousness: patient oriented x3 HENMT: Head: Yes atraumatic and Yes abrasion Eyes: General: appearance normal, both eyes and all related structures Neck: Neck: Yes trachea midline and Yes supple Resp: Effort & Inspection: normal respiratory effort Auscultation: clear to auscultation bilaterally Cardio: Rate: regular rate GI: Other: soft, nondistended, normal bowel sounds, no palpable masses, mild to moderatediffuse right-sided abdominal tenderness more significant and right upper quadrant, no rebound Rectal Exam - Male: Yes deferred Skin: Other: warm and dr General skin exam: no rashes or lesions noted Neuro: General: patient oriented x3 Results Labs Result diagrams: 05/16/21 05:14 05/16/21 05:14 Labs: Abnormal lab results 05/15/21 05/15/21 05/15/21 Range/Units 12:13 16:25 19:43 RDW (11.0-16.0) % BUN (9-16) mg/dL POC Glucose 141 H 137 H 201 H (60-115) mg/dL Fasting Glucose (60-99) mg/dL 05/16/21 05/16/21 05/16/21 Range/Units 05:14 05:14 07:19 RDW 10.8 L (11.0-16.0) % BUN 7 L (9-16) mg/dL POC Glucose 210 H (60-115) mg/dL Fasting Glucose 206 H (60-99) mg/dL 05/16/21 Range/Units 11:06 RDW (11.0-16.0) % BUN (9-16) mg/dL POC Glucose 215 H (60-115) mg/dL Fasting Glucose (60-99) mg/dL Short CBC 05/16/21 Range/Units 05:14 WBC 8.1 (4.8-10.8) X10*3/uL Hgb 15.4 (14.0-18.0) g/dl Hct 44.8 (42.0-52.0) % Plt Count 233 (160-400) X10*3/uL BMP 05/16/21 05:14 Sodium 136 Potassium 3.9 Chloride 103 Carbon Dioxide 24 BUN 7 L Creatinine 0.81 Calcium 9.6 Liver Function 05/16/21 Range/Units 05:14 Total Bilirubin 0.8 (0.0-1.0) mg/dL AST 13 (5-37) U/L ALT 11 (0-40) U/L Alkaline Phosphatase 68 (39-117) U/L Albumin 4.0 (3.5-5.0) g/dL All other labs normal. Imaging Abdomen CT scan report/results: report reviewed and image reviewed CT scan - pelvis: report reviewed and image reviewed Abdominal ultrasound report/results: report reviewed and image reviewed Assessment and Plan (1) Gallstone: Qualifiers: Biliary obstruction: without biliary obstruction Cholecystitis presence: without cholecystitis Qualified Code(s): K80.20 - Calculus of gallbladder without cholecystitis without obstruction Status: Acute (2) Pancreatitis: Qualifiers: Acute pancreatitis complication: no infection or necrosis Chronicity: acute Pancreatitis type: idiopathic Qualified Code(s): K85.00 - Idiopathic acute pancreatitis without necrosis or infection Status: Acute 55-year-old male presenting with right flank and right-sided abdominal pain and imaging findings of gallstones with some thickening of the gallbladder wall, which may be due to cholecystitis or adenomyomatosis. Lipase was elevated on presentation, as high as 293, but symptoms are persistent without imaging evidence of pancreatitis or dilated bile ducts. LFTs have been normal and lipase has normalized. His symptoms abdominal and flank pain have been persistent. Findings are consistent with symptomatic cholelithiasis and cholecystitis, unclear whether acute or chronic. Doubt gallstone pancreatitis. Have discussed treatment options including antibiotics and observation or surgery, laparoscopic cholecystectomy with potential need to convert to open cholecystectomy. He is at higher risk of requiring conversion based upon his history of ruptured appendicitis and laparotomy as well as subsequent repair of incisional hernias x2. We have reviewed the technique of surgery and anticipated course of recovery and have reviewed risks including but not limited to infection, bleeding, DVT and PE, chronic diarrhea, retained stones, bile duct stones, injuries to the bile ducts or adjacent structures potentially requiring further surgery and bile leak. He wishes to proceed with surgery. That has been planned for later today. Of note, he smokes marijuana routinely, and his nausea and vomiting could be related to this, but his symptoms of right-sided abdominal pain and flank pain are most suggestive of cholecystitis as the etiology and the nausea and vomiting most likely are related to this as well. Discussed with him. Case reviewed with Dr. Montalvo and Dr. Madsen. Procedures Date of Service Date of Service: 05/16/21
--- NOTE | 2021-05-16 14:14 | P.PNIM_ITS ---
Subjective Subjective Date of Service: 05/16/21 Interval History: continues to be any significant pain requiring IV Dilaudid. Nausea also a big factor. Remains NPO Review of Systems denies chest pain Denies shortness of breath Admits to cyclic nausea and vomiting Physical Exam Vital Signs: Vital Signs: Last Vital Signs Temp 98 F 05/16/21 07:21 Pulse 65 05/16/21 07:21 Resp 18 05/16/21 07:21 BP 132/54 L 05/16/21 07:21 Pulse Ox 99 05/16/21 07:21 BMI result Body Mass Index 31.6 Const: Other: awake uncomfortable Resp: Other: clear to auscultation bilaterally. No rales rhonchi or wheezes Cardio: Other: no S4; positive S1-S2; no S3 murmurs rubs down GI: Other: soft, normal bowel sounds all 4 quadrants; diffusely tender right upper quadrant right flank without rebound. Mild voluntary guarding Neuro: Other: cranial nerves 2-12 grossly intact as tested. Motor is 5/5 all extremities. Sensation intact. Gait stable. Cognition appropriate Extrem: Other: no edema bilaterally Objective Data Active Medications Atorvastatin Calcium (Atorvastatin Calcium 20 Mg Tablet) 20 mg PO BEDTIME [facility] Baclofen (Baclofen 10 Mg Tablet) 10 mg PO TID PRN PRN Reason: muscle spasm Dextrose (Dextrose 50 % 25 Gm/50 Ml Vial) 25 gm IVPUSH Q15M PRN; Protocol PRN Reason: per Hypoglycemia Standing Ord. Dolutegravir Sodium (Dolutegravir Sodium 50 Mg Tablet) 50 mg PO DAILY [facility] Last Admin: 05/16/21 09:20 Dose: Not Given Documented by: ALEKSANDR Non-Admin Reason: NPO Emtricitabine/Tenofovir Alafenamide (Emtricitabine/Tenofov Alafenam Tablet) 1 tab PO DAILY [facility] Last Admin: 05/16/21 09:20 Dose: Not Given Documented by: ALEKSANDR Non-Admin Reason: NPO Famotidine (Famotidine/Pf 20 Mg/2 Ml Vial) 20 mg IVPUSH BID [facility] Last Admin: 05/16/21 09:19 Dose: 20 mg Documented by: ALEKSANDR Gabapentin (Gabapentin 100 Mg Capsule) 100 mg PO TID [facility] Last Admin: 05/16/21 09:20 Dose: 100 mg Documented by: ALEKSANDR Glipizide (Glipizide 10 Mg Tablet) 10 mg PO BID [facility] Last Admin: 05/16/21 09:20 Dose: Not Given Documented by: ALEKSANDR Non-Admin Reason: NPO Glucose (Glucose Gel 15 Gm Gel..Gram.) 15 gm PO Q15M PRN; Protocol PRN Reason: per Hypoglycemia Standing Ord. Dextrose/Sodium Chloride (D51/2ns) 1,000 mls @ 100 mls/hr IVCONT .Q10H [facility] Last Admin: 05/16/21 09:34 Dose: 100 mls/hr Documented by: ALEKSANDR Piperacillin Sod/Tazobactam (Sod 3.375 gm/ Sodium Chloride) 50 mls @ 100 mls/hr IV Q6H [facility] Last Admin: 05/16/21 12:19 Dose: Not Given Documented by: ALEKSANDR Non-Admin Reason: Duplicate Order Insulin Glargine (Insulin Glargine,Hum.Rec.Anlog 100 Unit/Ml 10 Ml Vial) 16 unit SUBCUT DAILY [facility] Last Admin: 05/16/21 09:20 Dose: Not Given Documented by: ALEKSANDR Non-Admin Reason: NPO Insulin Human Lispro (Insulin Lispro 100 Unit/Ml 3 Ml Vial) 0 unit SUBCUT QIDACHS [facility]; Protocol Last Admin: 05/16/21 11:43 Dose: Not Given Documented by: ALEKSANDR Non-Admin Reason: NPO Melatonin (Melatonin 3 Mg Tablet) 6 mg PO BEDTIME PRN PRN Reason: Insomnia Metformin HCl (Metformin Hcl 1,000 Mg Tablet) 1,000 mg PO BID [facility] Last Admin: 05/16/21 09:20 Dose: Not Given Documented by: ALEKSANDR Non-Admin Reason: NPO Nicotine (Nicotine 21 Mg Patch.Td24) 21 mg TRANSDERMA DAILY [facility] Last Admin: 05/16/21 09:19 Dose: 21 mg Documented by: ALEKSANDR Ondansetron HCl (Ondansetron Hcl 4 Mg/2 Ml Vial) 4 mg IVPUSH Q4H PRN PRN Reason: Nausea and Vomiting Last Admin: 05/16/21 13:12 Dose: 4 mg Documented by: ALEKSANDR Senna (Sennosides 8.6 Mg Tablet) 17.2 mg PO BEDTIME PRN PRN Reason: Constipation Sodium Chloride (0.9 % Sodium Chloride Flush 3 Ml Syringe) 3 ml IVFLUSH QSHIFT [facility] Last Admin: 05/16/21 09:20 Dose: Not Given Documented by: ALEKSANDR Non-Admin Reason: IV Running Vitamin D (Cholecalciferol (Vitamin D3) 25 Mcg Tablet) 50 mcg PO DAILY [facility] Last Admin: 05/16/21 09:20 Dose: Not Given Documented by: ALEKSANDR Non-Admin Reason: NPO Labs CBC & Chem 7: 05/16/21 05:14 05/16/21 05:14 Labs: Laboratory Results - last 24 hr 05/15/21 05/15/21 05/15/21 16:25 17:18 19:43 MCV MCH MCHC RDW Plt Count MPV Immature Gran % (Auto) Neut % (Auto) Lymph % (Auto) [place] % (Auto) Eos % (Auto) Baso % (Auto) Lymph # (Auto) [place] # (Auto) Eos # (Auto) Baso # (Auto) Abs Immat Gran (auto) Absolute Neuts (auto) Absolute Nucleated RBC Nucleated RBC % (auto) Anion Gap Estim Creat Clear Calc Estimated GFR POC Glucose 137 H 201 H Fasting Glucose Calcium Total Bilirubin AST ALT Alkaline Phosphatase Total Protein Albumin Lipase 34 05/16/21 05/16/21 05/16/21 05:14 05:14 07:19 MCV 94.7 MCH 32.6 MCHC 34.4 RDW 10.8 L Plt Count 233 MPV 9.9 Immature Gran % (Auto) 0.4 Neut % (Auto) 69.8 Lymph % (Auto) 20.5 [place] % (Auto) 9.0 Eos % (Auto) 0.2 Baso % (Auto) 0.1 Lymph # (Auto) 1.7 [place] # (Auto) 0.7 Eos # (Auto) 0.0 Baso # (Auto) 0.0 Abs Immat Gran (auto) 0.03 Absolute Neuts (auto) 5.6 Absolute Nucleated RBC 0.000 Nucleated RBC % (auto) 0.0 Anion Gap 13 Estim Creat Clear Calc 105.2 Estimated GFR > 60 POC Glucose 210 H Fasting Glucose 206 H Calcium 9.6 Total Bilirubin 0.8 AST 13 ALT 11 Alkaline Phosphatase 68 Total Protein 6.7 Albumin 4.0 Lipase 05/16/21 11:06 MCV MCH MCHC RDW Plt Count MPV Immature Gran % (Auto) Neut % (Auto) Lymph % (Auto) [place] % (Auto) Eos % (Auto) Baso % (Auto) Lymph # (Auto) [place] # (Auto) Eos # (Auto) Baso # (Auto) Abs Immat Gran (auto) Absolute Neuts (auto) Absolute Nucleated RBC Nucleated RBC % (auto) Anion Gap Estim Creat Clear Calc Estimated GFR POC Glucose 215 H Fasting Glucose Calcium Total Bilirubin AST ALT Alkaline Phosphatase Total Protein Albumin Lipase Assessment and Plan (1) Acute cholecystitis: Status: Acute Assessment and Plan: 55-year-old male with a past medical history of diabetes presented to the hospital with a chief complaint of abdominal pain with mildly elevated lipase. Ultrasound consistent with acute / chronic cholecystitis. 1. Abd pain( Cholecystitis) Zosyn started. Seen by both surgery/GI. Decision made for cholecystectomy later today, Moderate but acceptable CV risk for planned procedure; no medically prohibitive issues. 2. DM II Continue SS as ordered. Adjust as indicated. DVT prophylaxis: SCD boots Code status: Full code Quality Stroke Does the patient have a stroke diagnosis?: No VTE Prior VTE?: No VTE Risk Level:: Medical - moderate - high VTE Device Contraindication: N/A - Device Ordered VTE Drug Contraindication: Treatment Not Indicated
--- NOTE | 2021-05-16 14:55 | CONS_ITS ---
DATE OF SERVICE: 05/16/2021 REFERRING PHYSICIAN: Richie Simon MD REASON FOR CONSULTATION: Abdominal pain and abnormal imaging of the gallbladder. HISTORY OF PRESENT ILLNESS: The patient is a pleasant 55-year-old man, who was admitted to the hospital on May 15 after presenting to the emergency room with abdominal pain. He states he had 4 days prior to admission developed epigastric pain and right upper quadrant pain with associated nausea and nonbloody vomitus. The pain seems worse after eating. He was seen in the emergency department and CT scanning was done, which was interpreted as showing no acute abnormalities. Laboratory studies at that time showed an elevated lipase without any changes of pancreatitis on CT scanning. He was discharged and returned the day of admission with recurrent symptoms of pain. Repeat laboratory studies again showed an elevated lipase. Liver function tests were normal. Imaging of the abdomen was obtained with ultrasound, which is reviewed as is a CT scan. This showed gallbladder wall thickening concerning for cholecystitis. No pericholecystic fluid was noted. Changes of adenomyomatosis were also reportedly present. The patient was admitted to the hospital and has had persistent symptoms. He has been seen in consultation by Dr. Burch and is planning to undergo cholecystectomy. The patient denies any prior history of pancreatitis. He states he does not drink alcohol or use substances except for marijuana. Imaging of his common bile duct with ultrasound was normal. The pancreas was not well seen. PAST MEDICAL HISTORY: 1. Diabetes mellitus. 2. HIV infection. 3. Neuropathy. 4. Elevated cholesterol. CURRENT MEDICATIONS: His current medication list is reviewed in the chart. ALLERGIES: THERE ARE NONE REPORTED. FAMILY HISTORY: This is reviewed with the patient and is positive for gallbladder disease. SOCIAL HISTORY: Marijuana use is positive. He denies tobacco, alcohol, and other substances. There was a history of substance abuse in the past. REVIEW OF SYSTEMS: SKIN: No pruritus. HEENT: Negative. CARDIOPULMONARY: No shortness of breath or chest pain. GASTROINTESTINAL: As above. GENITOURINARY: Negative. NEUROPSYCHIATRIC: Negative. PHYSICAL EXAMINATION: GENERAL: Shows a pleasant male, complaining of right upper quadrant pain. VITAL SIGNS: Reviewed in electronic medical record. SKIN: Anicteric. HEENT: Shows no scleral icterus. NECK: Without lymphadenopathy or thyromegaly. LUNGS: Clear. HEART: Shows a regular rate and rhythm. S1, S2. No murmur. ABDOMEN: Obese. Bowel sounds are present. There is tenderness to palpation on the right upper quadrant. There is no guarding or rebound. EXTREMITIES: Without edema. LABORATORY DATA: Shows a white blood cell count of 8.1. Chemistries show a normal liver profile and lipase of [address] scanning and ultrasound imaging reviewed with Dr. Caraballo IMPRESSION: Right upper quadrant abdominal pain. It seems likely that this is related to a gallbladder problem based on his imaging and studies. His elevated lipase may have reflected a passed gallstone prior to his initial ER evaluation on May 13, although this returned to normal quickly and his liver tests have remained normal as is his common duct on imaging. Therefore, I do not recommend ERCP at this time. He is on H2 receptor antagonist prophylaxis for stomach problems, but denies a prior history of peptic ulcer disease and does not use NSAIDs, alcohol or significant tobacco. Therefore, I think the possibility of peptic ulcer disease is less likely. Thanks for asking me to see him. I will follow him in the hospital with you. MD ARIANA Bose/CUCA / [phone]
[2021-05-16] MEDS: HYDROmorphone HCl 2 MG/ML VIAL 1.5 MG IVPUSH (15:03)
--- NOTE | 2021-05-16 15:21 | P.CONAN_ITS ---
[facility] Active Problems Active Problems: All Active Problems (Updated 05/16/21 @ 14:23 by Lazaro Madsen DO) Acute cholecystitis (Acute) Pancreatitis (Acute) Gallstone (Acute) Diabetes (Acute) Past Medical History Medical History Patient denies medical problems Functional capacity: independent ambulation Surgical History Surgical History (Updated 05/15/21 @ 17:24 by Yolanda Meza RN) History of appendectomy History of hernia surgery History of Problems with Anesthesia: No Social History Social History Household Members: None Housing Other:: patient states homeless Do you presently have visiting nurse or other home services: No Patient Tobacco Use Status: Current everyday Tobacco user Tobacco use type: Cigarette Cigarette Packs Per Day: 1 Cigarettes Per Day: 20.0 Years Smoked: 30 Substance Use Type: Marijuana service: No Current occupational status: unemployed Meds Allergies Allergy/AdvReac Type Severity Reaction Status Date / Time No Known Allergies Allergy Verified 05/15/21 02:13 Active Medications: Current Medications Atorvastatin Calcium (Atorvastatin Calcium 20 Mg Tablet) 20 mg PO BEDTIME [facility] Baclofen (Baclofen 10 Mg Tablet) 10 mg PO TID PRN PRN Reason: muscle spasm Dextrose (Dextrose 50 % 25 Gm/50 Ml Vial) 25 gm IVPUSH Q15M PRN; Protocol PRN Reason: per Hypoglycemia Standing Ord. Dolutegravir Sodium (Dolutegravir Sodium 50 Mg Tablet) 50 mg PO DAILY [facility] Last Admin: 05/16/21 09:20 Dose: Not Given Documented by: Emtricitabine/Tenofovir Alafenamide (Emtricitabine/Tenofov Alafenam Tablet) 1 tab PO DAILY [facility] Last Admin: 05/16/21 09:20 Dose: Not Given Documented by: Famotidine (Famotidine/Pf 20 Mg/2 Ml Vial) 20 mg IVPUSH BID [facility] Last Admin: 05/16/21 09:19 Dose: 20 mg Documented by: Gabapentin (Gabapentin 100 Mg Capsule) 100 mg PO TID [facility] Last Admin: 05/16/21 14:20 Dose: Not Given Documented by: Glipizide (Glipizide 10 Mg Tablet) 10 mg PO BID [facility] Last Admin: 05/16/21 09:20 Dose: Not Given Documented by: Glucose (Glucose Gel 15 Gm Gel..Gram.) 15 gm PO Q15M PRN; Protocol PRN Reason: per Hypoglycemia Standing Ord. Dextrose/Sodium Chloride (D51/2ns) 1,000 mls @ 100 mls/hr IVCONT .Q10H [facility] Last Admin: 05/16/21 09:34 Dose: 100 mls/hr Documented by: Piperacillin Sod/Tazobactam (Sod 3.375 gm/ Sodium Chloride) 50 mls @ 100 mls/hr IV Q6H [facility] Last Admin: 05/16/21 12:19 Dose: Not Given Documented by: Insulin Glargine (Insulin Glargine,Hum.Rec.Anlog 100 Unit/Ml 10 Ml Vial) 16 unit SUBCUT DAILY [facility] Last Admin: 05/16/21 09:20 Dose: Not Given Documented by: Insulin Human Lispro (Insulin Lispro 100 Unit/Ml 3 Ml Vial) 0 unit SUBCUT QIDACHS [facility]; Protocol Last Admin: 05/16/21 11:43 Dose: Not Given Documented by: Melatonin (Melatonin 3 Mg Tablet) 6 mg PO BEDTIME PRN PRN Reason: Insomnia Metformin HCl (Metformin Hcl 1,000 Mg Tablet) 1,000 mg PO BID [facility] Last Admin: 05/16/21 09:20 Dose: Not Given Documented by: Nicotine (Nicotine 21 Mg Patch.Td24) 21 mg TRANSDERMA DAILY [facility] Last Admin: 05/16/21 09:19 Dose: 21 mg Documented by: Ondansetron HCl (Ondansetron Hcl 4 Mg/2 Ml Vial) 4 mg IVPUSH Q4H PRN PRN Reason: Nausea and Vomiting Last Admin: 05/16/21 13:12 Dose: 4 mg Documented by: Senna (Sennosides 8.6 Mg Tablet) 17.2 mg PO BEDTIME PRN PRN Reason: Constipation Sodium Chloride (0.9 % Sodium Chloride Flush 3 Ml Syringe) 3 ml IVFLUSH QSHIFT [facility] Last Admin: 05/16/21 14:20 Dose: Not Given Documented by: Vitamin D (Cholecalciferol (Vitamin D3) 25 Mcg Tablet) 50 mcg PO DAILY [facility] Last Admin: 05/16/21 09:20 Dose: Not Given Documented by: Home Medications Medication Instructions Recorded Confirmed Last Taken Type atorvastatin 20 mg tablet 1 tab PO BEDTIME 05/15/21 05/15/21 Unknown History baclofen 10 mg tablet 1 tab PO TID PRN 05/15/21 05/15/21 Unknown History cholecalciferol (vitamin D3) 50 1 cap PO DAILY 05/15/21 05/15/21 Unknown History mcg (2,000 unit) capsule dolutegravir 50 mg tablet (Tivicay) 1 tab PO DAILY 05/15/21 05/15/21 Unknown History emtricitabine 200 mg-tenofovir 1 tab PO DAILY 05/15/21 05/15/21 Unknown History alafenamide fumarate 25 mg tablet (Descovy) gabapentin 100 mg capsule 1 cap PO TID 05/15/21 05/15/21 Unknown History glipizide 5 mg tablet 2 tab PO BID 05/15/21 05/15/21 Unknown History insulin glargine 100 unit/mL (3 16 unit SUBCUT DAILY 05/15/21 05/15/21 Unknown History mL) subcutaneous pen (Lantus Solostar U-100 Insulin) metformin 500 mg tablet 2 tab PO BID 05/15/21 05/15/21 Unknown History nystatin 100,000 unit/gram topical 1 appl TOPICAL TID PRN 05/15/21 05/15/21 Unknown History cream Exam Exam Date and Time: May 16, 2021 152 Height,Weight and Vital Signs: Height 5 ft 5 in Weight 86.183 kg Last Vital Signs Temp 98 F 05/16/21 07:21 Pulse 65 05/16/21 07:21 Resp 18 05/16/21 07:21 BP 132/54 L 05/16/21 07:21 Pulse Ox 99 05/16/21 07:21 Pertinent Lab Results Pertinent Lab Results: Laboratory Tests 05/15/21 05/15/21 05/15/21 00:05 00:05 00:58 WBC 8.4 RBC 4.64 Hgb 15.2 Hct 44.0 MCV 94.8 MCH 32.8 MCHC 34.5 RDW 11.2 Plt Count 226 MPV 9.8 Immature Gran % (Auto) 0.2 Neut % (Auto) 61.6 Lymph % (Auto) 28.2 [place] % (Auto) 9.2 Eos % (Auto) 0.4 Baso % (Auto) 0.4 Lymph # (Auto) 2.4 [place] # (Auto) 0.8 Eos # (Auto) 0.0 Baso # (Auto) 0.0 Abs Immat Gran (auto) 0.02 Absolute Neuts (auto) 5.2 Absolute Nucleated RBC 0.000 Nucleated RBC % (auto) 0.0 Sodium 136 Potassium 3.9 Chloride 104 Carbon Dioxide 22 Anion Gap 14 BUN 10 Creatinine 0.81 Estim Creat Clear Calc 105.2 Estimated GFR > 60 POC Glucose Random Glucose 231 H Fasting Glucose Calcium 9.2 D Total Bilirubin 0.6 AST 12 ALT 11 Alkaline Phosphatase 72 Total Protein 6.6 Albumin 4.0 Triglycerides Cholesterol LDL Cholesterol, Calc HDL Cholesterol Lipase 229 H COVID-19 ([facility]) Negative COVID-19 Clin Com See Note 05/15/21 05/15/21 05/15/21 07:22 07:22 07:22 WBC 8.1 RBC 4.66 Hgb 15.1 Hct 44.7 MCV 95.9 MCH 32.4 MCHC 33.8 RDW 11.1 Plt Count 237 MPV 10.0 Immature Gran % (Auto) 0.4 Neut % (Auto) 61.5 Lymph % (Auto) 27.5 [place] % (Auto) 9.7 Eos % (Auto) 0.7 Baso % (Auto) 0.2 Lymph # (Auto) 2.2 [place] # (Auto) 0.8 Eos # (Auto) 0.1 Baso # (Auto) 0.0 Abs Immat Gran (auto) 0.03 Absolute Neuts (auto) 5.0 Absolute Nucleated RBC 0.000 Nucleated RBC % (auto) 0.0 Sodium 136 Potassium 4.1 Chloride 105 Carbon Dioxide 25 Anion Gap 10 L BUN 8 L Creatinine 0.82 Estim Creat Clear Calc 103.9 Estimated GFR > 60 POC Glucose Random Glucose 241 H Fasting Glucose Calcium 9.3 Total Bilirubin AST ALT Alkaline Phosphatase Total Protein Albumin Triglycerides 109 Cholesterol 171 LDL Cholesterol, Calc 119 HDL Cholesterol 31 Lipase COVID-19 ([facility]) COVID-19 Clin Com 05/15/21 05/15/21 05/15/21 07:29 12:13 16:25 WBC RBC Hgb Hct MCV MCH MCHC RDW Plt Count MPV Immature Gran % (Auto) Neut % (Auto) Lymph % (Auto) [place] % (Auto) Eos % (Auto) Baso % (Auto) Lymph # (Auto) [place] # (Auto) Eos # (Auto) Baso # (Auto) Abs Immat Gran (auto) Absolute Neuts (auto) Absolute Nucleated RBC Nucleated RBC % (auto) Sodium Potassium Chloride Carbon Dioxide Anion Gap BUN Creatinine Estim Creat Clear Calc Estimated GFR POC Glucose 211 H 141 H 137 H Random Glucose Fasting Glucose Calcium Total Bilirubin AST ALT Alkaline Phosphatase Total Protein Albumin Triglycerides Cholesterol LDL Cholesterol, Calc HDL Cholesterol Lipase COVID-19 ([facility]) COVID-19 Clin Com 05/15/21 05/15/21 05/16/21 17:18 19:43 05:14 WBC 8.1 RBC 4.73 Hgb 15.4 Hct 44.8 MCV 94.7 MCH 32.6 MCHC 34.4 RDW 10.8 L Plt Count 233 MPV 9.9 Immature Gran % (Auto) 0.4 Neut % (Auto) 69.8 Lymph % (Auto) 20.5 [place] % (Auto) 9.0 Eos % (Auto) 0.2 Baso % (Auto) 0.1 Lymph # (Auto) 1.7 [place] # (Auto) 0.7 Eos # (Auto) 0.0 Baso # (Auto) 0.0 Abs Immat Gran (auto) 0.03 Absolute Neuts (auto) 5.6 Absolute Nucleated RBC 0.000 Nucleated RBC % (auto) 0.0 Sodium Potassium Chloride Carbon Dioxide Anion Gap BUN Creatinine Estim Creat Clear Calc Estimated GFR POC Glucose 201 H Random Glucose Fasting Glucose Calcium Total Bilirubin AST ALT Alkaline Phosphatase Total Protein Albumin Triglycerides Cholesterol LDL Cholesterol, Calc HDL Cholesterol Lipase 34 COVID-19 ([facility]) COVID-19 Clin Com 05/16/21 05/16/21 05/16/21 05:14 07:19 11:06 WBC RBC Hgb Hct MCV MCH MCHC RDW Plt Count MPV Immature Gran % (Auto) Neut % (Auto) Lymph % (Auto) [place] % (Auto) Eos % (Auto) Baso % (Auto) Lymph # (Auto) [place] # (Auto) Eos # (Auto) Baso # (Auto) Abs Immat Gran (auto) Absolute Neuts (auto) Absolute Nucleated RBC Nucleated RBC % (auto) Sodium 136 Potassium 3.9 Chloride 103 Carbon Dioxide 24 Anion Gap 13 BUN 7 L Creatinine 0.81 Estim Creat Clear Calc 105.2 Estimated GFR > 60 POC Glucose 210 H 215 H Random Glucose Fasting Glucose 206 H Calcium 9.6 Total Bilirubin 0.8 AST 13 ALT 11 Alkaline Phosphatase 68 Total Protein 6.7 Albumin 4.0 Triglycerides Cholesterol LDL Cholesterol, Calc HDL Cholesterol Lipase COVID-19 ([facility]) COVID-19 Clin Com Airway Mallampati Class: II TM Dist: >3cm Neck ROM: Full Heart: RRR Lungs: CTA Assessment and Plan Final Anesthetic Review History of Problems with Anesthesia: No NPO: Yes ASA Class: III and Emergency Patient Risk: Intermediate Procedure Risk: Intermediate Anesthetic Plan Anesthetic Plan: GA Disposition: Standard PACU
[2021-05-16 15:26] LABS: Glucose, Whole Blood 178 mg/dL (60-115)
[2021-05-16] MEDS: Lactated Ringers 1,000 ML 50 ML IVCONT (15:29)
--- NOTE | 2021-05-16 17:45 | W.PM.OPN ---
Operative Note Operative Note Date of Service: 05/16/21 Narrative: Preoperative diagnosis: Acute cholecystitis, cholelithiasis Postoperative diagnosis: Same Procedure: Laparoscopic cholecystectomy Infection Prevention Coordinator: Fidel Jiménez MD Anesthesia: General endotracheal Specimen: Gallbladder Estimated blood loss: 15 cc Immediate complications: None Indications Mr. Richardson is a 55-year-old with an approximately 1 week history of persistent right flank and right-sided abdominal pain, nausea and vomiting. Workup revealed gallstones and thickening of the gallbladder wall without pericholecystic fluid. Findings were consistent with cholecystitis, possibly acute versus adenomyomatosis, and cholelithiasis. After discussing treatment options, patient elected to proceed with surgery. Procedure in detail: With the patient in the supine position following the induction of adequate general anesthesia, the abdomen was prepped with ChloraPrep and was draped sterilely. A time-out procedure was performed. 2 g of cefotetan were infused for antibiotic prophylaxis and each trocar site was infiltrated with local anesthetic prior to making incisions. The patient had a history of perforated appendicitis and had an old short midline incision extending to just above the umbilicus. He had a history of incisional hernia repair using mesh. Initial trocar placement therefore was in the medial aspect of the right upper quadrant. A transverse incision was made just to the right of the midline about 4 cm below the xiphoid process. Incision was carried down to the level of the fascia which was split in a transverse fashion. The rectus muscle was then split in line with its fibers in the posterior sheath and peritoneum were elevated using chacon it clamps. The fashion peritoneum were incised in the peritoneal cavity was entered. The Tatyana trocar was positioned and the abdomen was insufflated with carbon dioxide to pressure 15 mmHg. The 0 degree 5 mm scope was inserted. The peritoneal cavity was visualized. The gallbladder appeared tensely distended and mildly inflamed. There were some adhesions to the midline and to the left abdominal wall, but the area of the umbilicus was clear. A 5 mm trocar was placed just to the right of the umbilicus through the patient's old scar and 2 5 mm trocars were placed in the right upper quadrant, 1 in the midclavicular line about 3 cm below the costal margin and 1 in the anterior axillary line just below the costal margin. the patient was positioned in reverse Trendelenburg and was rotated slightly left side down. The gallbladder was then grasped using a blunt grasper along the fundus. When this was done, the gallbladder wrap ruptured and bile was spilled. The grasper was repositioned to occlude the tear in the gallbladder wall and bile was suctioned out of the peritoneal cavity. A 2nd grasper was placed along the fundus. There were adhesions between omentum and gallbladder and these were taken down using gentle blunt dissection with the Frida dissector. The 2nd blunt grasper was then moved more proximally onto the infundibulum. Dissection then proceeded along the infundibulum moving medially to identify the gallbladder cystic duct junction. The junction was dissected free circumferentially along with adjacent portions of gallbladder and cystic duct. The cystic artery was identified running just superiorly to the cystic duct and was also dissected free circumferentially. Dissection was carried posteriorly and the critical view was obtained. A small amount of bleeding was encountered during posterior dissection and was controlled using the cautery. Once the critical view was obtained, the cystic duct was doubly clipped just medial to the junction with the gallbladder, singly clipped at the junction with the gallbladder and divided between clips. The cystic artery was treated in the same fashion. The gallbladder was then dissected free from the liver bed using a combination of blunt and cautery dissection. No significant bleeding was encountered. Once the gallbladder was completely freed from the liver bed, the specimen pouch was inserted through the Tatyana trocar and the gallbladder was placed into the pouch. The pouch was closed and withdrawn along with the Tatyana. The Tatyana was then reinserted and the operative site was visualized. clips were noted to be intact on the cystic duct and cystic artery stumps. There was no evidence of bleeding. The right upper quadrant was copiously irrigated with saline solution and was again inspected for bleeding. None was seen. The laparoscopic was placed through the Warner and 5 mm trocars removed under direct vision. There was no bleeding from trocar sites. Insufflation was discontinued. Patient was returned to the supine position. Gas was allowed to escape from the peritoneal cavity. The Tatyana trocar was then removed. Posterior sheath and peritoneum at the Tatyana site were closed with [id number] suture of 0 Polysorb. Anterior sheath was also closed with a [id number] suture of 0 Polysorb. Skin incisions were closed with subcuticular sutures of 4-0 Polysorb and Steri-Strips and dry sterile dressings were applied. He tolerated the procedure well and was transported to the recovery room in stable condition. There were no immediate complications.
[2021-05-16] MEDS: oxyCODONE HCl Immed Release 5 MG TABLET PO (18:10)
[2021-05-16] MEDS: Piperacillin Sodium/Tazobactam 3.375 GM in 0.9 % Sodium Chloride 50 ML IV (19:47)
[2021-05-16] MEDS: Atorvastatin Calcium 20 MG TABLET PO (19:48)
[2021-05-16 20:07] LABS: Glucose, Whole Blood 244 mg/dL (60-115)
[2021-05-16] MEDS: Melatonin 3 MG TABLET 6 MG PO (22:13)
[2021-05-16] MEDS: Morphine Sulfate 4 MG/ML CARTRIDGE IVPUSH (22:13)
[2021-05-17] VITALS: BP 147/66; PULSE 79; RESP 16; TEMP 36.8; O2SAT 98
[2021-05-17] MEDS: Piperacillin Sodium/Tazobactam 3.375 GM in 0.9 % Sodium Chloride 50 ML IV ×2 (00:56→06:01)
[2021-05-17] MEDS: Dextrose 5 % and 0.45 % NaCl 1,000 ML 100 ML IVCONT (00:58)
[2021-05-17 04:00] VITALS: BP 123/60; PULSE 72; RESP 16; TEMP 37.2; O2SAT 97
[2021-05-17] MEDS: Morphine Sulfate 4 MG/ML CARTRIDGE IVPUSH (06:00)
[2021-05-17] MEDS: Acetaminophen 325 MG TABLET 650 MG PO ×2 (06:09→12:07)
[2021-05-17 07:48] VITALS: BP 114/58; PULSE 92; RESP 18; TEMP 36.6; O2SAT 97
[2021-05-17 07:56] LABS: Glucose, Whole Blood 188 mg/dL (60-115)
[2021-05-17] MEDS: Nicotine 21 MG PATCH.TD24 TRANSDERMA (08:08)
[2021-05-17] MEDS: Famotidine/PF 20 MG/2 ML VIAL IVPUSH (08:08)
[2021-05-17] MEDS: 0.9 % Sodium Chloride Flush 3 ML SYRINGE IVFLUSH (08:08)
[2021-05-17] MEDS: Emtricitabine/Tenofov Alafenam TABLET 1 TAB PO (08:09)
[2021-05-17] MEDS: Dolutegravir Sodium 50 MG TABLET PO (08:09)
[2021-05-17] MEDS: Gabapentin 100 MG CAPSULE PO (08:09)
[2021-05-17] MEDS: Insulin Lispro 100 UNIT/ML 3 ML VIAL SUBCUT (08:09)
[2021-05-17] MEDS: metFORMIN HCl 1,000 MG TABLET 1000 MG PO (08:09)
[2021-05-17] MEDS: Cholecalciferol (Vitamin D3) 25 MCG TABLET 50 MCG PO (08:09)
[2021-05-17] MEDS: Insulin Glargine,Hum.rec.anlog 100 UNIT/ML 10 ML VIAL 16 UNIT SUBCUT (08:09)
[2021-05-17] MEDS: oxyCODONE HCl Immed Release 5 MG TABLET 10 MG PO (08:10)
[2021-05-17 08:27] LABS: MANUAL DIFF FLAG NO
[2021-05-17 08:31] LABS: Basophils Percent Auto 0.2 % (0-2); Eosinophils Percent Auto 0.2 % (0-4); Hematocrit 43.9 % (42.0-52.0); Imm Gran Abs Auto 0.04 X10*3/uL (0.00-0.03); Imm Gran Pct Auto 0.3 % (0.0-0.4); Mean Corpuscular HGB Conc 34.2 g/dl (31.0-36.0); Mean Corpuscular Hemoglobin 32.3 pg (27.0-33.0); Mean Corpuscular Volume 94.4 fL (80.0-98.0); Mean Platelet Volume 9.8 fL (9.4-12.4); Monocytes Absolute Auto 1.2 X10*3/uL (0.1-1.2); Neutrophils Absolute Auto 8.4 x10*3/uL (2.0-8.3); Neutrophils Percent Auto 72.3 % (45-73); Platelet Count 245 X10*3/uL (160-400); Red Blood Count 4.65 X10*6/uL (4.60-5.80); Red Cell Distribution Width 11.2 % (11.0-16.0); White Blood Count 11.7 X10*3/uL (4.8-10.8)
[2021-05-17 08:58] LABS: Alanine Aminotransferase 17 U/L (0-40); Albumin Level 3.8 g/dL (3.5-5.0); Alkaline Phosphatase 65 U/L (39-117); Anion Gap 13 (12-20); Aspartate Amino Transferase 24 U/L (5-37); Blood Urea Nitrogen 6 mg/dL (9-16); Carbon Dioxide 24 mmol/L (22-29); Chloride 105 mmol/L (96-108); Creatinine Clr Calc Pharmacy 95.7; Estimated Glomerular Filt Rate > 60; Glucose Fasting 193 mg/dL (60-99); Potassium 3.8 mmol/L (3.3-5.1); Sodium 138 mmol/L (135-145); Total Protein 6.3 g/dL (6.5-8.0)
--- NOTE | 2021-05-17 10:11 | MHC.CM.PN ---
PLAN IS FOR DISCHARGE TODAY - SELF CARE. MAY NEED TAXI VOUCHER WHICH WILL BE COMPLETED AND GIVEN TO RN.
--- NOTE | 2021-05-17 11:03 | PM.DS ---
DS: Providers Provider Date of Service: 05/17/21 Date of admission: 05/15/21 01:04 Date of discharge: 05/17/21 Primary care physician: Aminata Jung DO Consults: 05/16/21 08:37 Consult to Gastroenterology Routine Consulting Provider: Larry Montalvo Reason for consultation: Query gallstone pancreatitis Has provider been notified: No 05/16/21 10:01 Consult to General Surgery Routine Consulting Provider: Dawn Burch Reason for consultation: Query CCY Has provider been notified: Yes DS: Diagnosis Discharge Diagnosis (1) Acute cholecystitis: Status: Acute DS: Summary Hospital Course Hospital Course: The patient is a pleasant 55-year-old man, who was admitted to the hospital on May 15 after presenting to the emergency room with abdominal pain.? He states he had 4 days prior to admission developed epigastric pain and right upper quadrant pain with associated nausea and nonbloody vomitus.? The pain seems worse after eating.? He was seen in the emergency department and CT scanning was done, which was interpreted as showing no acute abnormalities. Laboratory studies at that time showed an elevated lipase without any changes of pancreatitis on CT scanning.? He was discharged and returned the day of admission with recurrent symptoms of pain.? Repeat laboratory studies again showed an elevated lipase.? Liver function tests were normal.? Imaging of the abdomen was obtained with ultrasound, which is reviewed as is a CT scan.? This showed gallbladder wall thickening concerning for cholecystitis.? No pericholecystic fluid was noted.? Changes of adenomyomatosis were also reportedly present.. hospital course: seen in consultation by Dr. Burch; underwent laparoscopic cholecystectomy 05/16/2021 without incident. On the morning of discharge, was seen by myself and Dr. Burch was deemed stable for discharge. Patient eagerly waiting same. He will be discharge with pain meds and ibuprofen to follow-up with PCP and Dr. Burch as an outpatient Status at Discharge Overall status at discharge: patient is back to baseline Time Spent with Patient Time attestation: Total time spent providing and/or coordinating discharge services: Discharge coordination time: Greater than 30 minutes Quality: Stroke Does the patient have a stroke diagnosis?: No Physical Exam Vital Signs: Vital Signs: Last Vital Signs Temp 97.8 F 05/17/21 07:48 Pulse 92 05/17/21 07:48 Resp 18 05/17/21 07:48 BP 114/58 L 05/17/21 07:48 Pulse Ox 97 05/17/21 07:48 BMI result Body Mass Index 31.6 Const: Other: awake uncomfortable Resp: Other: clear to auscultation bilaterally. No rales rhonchi or wheezes Cardio: Other: no S4; positive S1-S2; no S3 murmurs rubs down GI: Other: soft, normal bowel sounds all 4 quadrants; lap sites clean dry and intact Neuro: Other: cranial nerves 2-12 grossly intact as tested. Motor is 5/5 all extremities. Sensation intact. Gait stable. Cognition appropriate Extrem: Other: no edema bilaterally DS: Data Data Completed and Pending Pending studies at discharge: Pending at discharge 05/16/21 17:03 Surgical [PTH] Routine Labs on day of discharge: Laboratory Results - last 24 hr 05/16/21 05/16/21 05/16/21 11:06 15:23 19:16 WBC RBC Hgb Hct MCV MCH MCHC RDW Plt Count MPV Immature Gran % (Auto) Neut % (Auto) Lymph % (Auto) [place] % (Auto) Eos % (Auto) Baso % (Auto) Lymph # (Auto) [place] # (Auto) Eos # (Auto) Baso # (Auto) Abs Immat Gran (auto) Absolute Neuts (auto) Absolute Nucleated RBC Nucleated RBC % (auto) Sodium Potassium Chloride Carbon Dioxide Anion Gap BUN Creatinine Estim Creat Clear Calc Estimated GFR POC Glucose 215 H 178 H 244 H Fasting Glucose Calcium Total Bilirubin AST ALT Alkaline Phosphatase Total Protein Albumin 05/17/21 05/17/21 05/17/21 07:46 08:23 08:23 WBC 11.7 H RBC 4.65 Hgb 15.0 Hct 43.9 MCV 94.4 MCH 32.3 MCHC 34.2 RDW 11.2 Plt Count 245 MPV 9.8 Immature Gran % (Auto) 0.3 Neut % (Auto) 72.3 Lymph % (Auto) 17.0 L [place] % (Auto) 10.0 Eos % (Auto) 0.2 Baso % (Auto) 0.2 Lymph # (Auto) 2.0 [place] # (Auto) 1.2 Eos # (Auto) 0.0 Baso # (Auto) 0.0 Abs Immat Gran (auto) 0.04 H Absolute Neuts (auto) 8.4 H Absolute Nucleated RBC 0.000 Nucleated RBC % (auto) 0.0 Sodium 138 Potassium 3.8 Chloride 105 Carbon Dioxide 24 Anion Gap 13 BUN 6 L Creatinine 0.89 Estim Creat Clear Calc 95.7 Estimated GFR > 60 POC Glucose 188 H Fasting Glucose 193 H Calcium 9.0 D Total Bilirubin 1.0 AST 24 D ALT 17 Alkaline Phosphatase 65 Total Protein 6.3 L Albumin 3.8 Discharge Plan Discharge Patient Disposition: Home, Self-Care Discharge Diagnosis: Acute cholecystitis Referrals: Aminata Jung DO [Primary Care Provider] - 1 Week Discharge Medications: New oxycodone 5 mg tablet 5 mg PO Q6H PRN (Reason: pain) Qty: 20 RF: 0 ibuprofen 600 mg tablet 600 mg PO Q8H PRN (Reason: fever or pain) Qty: 30 RF: 0 Continued metformin 500 mg tablet 2 tab PO BID RF: 0 atorvastatin 20 mg tablet 1 tab PO BEDTIME RF: 0 baclofen 10 mg tablet 1 tab PO TID PRN (Reason: muscle spasm) RF: 0 nystatin 100,000 unit/gram cream 1 appl topical TID PRN (Reason: itch) RF: 0 gabapentin 100 mg capsule 1 cap PO TID RF: 0 glipizide 5 mg tablet 2 tab PO BID RF: 0 Lantus Solostar U-100 Insulin 100 unit/mL (3 mL) insulin pen 16 unit subcut DAILY RF: 0 cholecalciferol (vitamin D3) 50 mcg (2,000 unit) capsule 1 cap PO DAILY RF: 0 Tivicay 50 mg tablet 1 tab PO DAILY RF: 0 Descovy 200-25 mg tablet 1 tab PO DAILY RF: 0 Discharge Orders: Discharge Order (Routine); Ordered 05/17/21 Ordered By: Lazaro Madsen Diet: advance to usual diet Activity on Discharge: As tolerated Stand Alone Forms: Patient Portal Discharge page Care Plan Goals: follow-up as scheduled Health Concerns: low-fat diet Plan of Treatment: pain meds as needed Assessment: improved
--- NOTE | 2021-05-17 11:12 | PM.PNGS ---
Subjective Subjective Date of Service: 05/17/21 Interval history: Feels much better. He is having some incisional pain, but pain is significantly less than his preoperative pain. Tolerating a solid diet. Feels ready to go home. Physical Exam Vital Signs: Vital Signs: Last Vital Signs Temp 97.8 F 05/17/21 07:48 Pulse 92 05/17/21 07:48 Resp 18 05/17/21 07:48 BP 114/58 L 05/17/21 07:48 Pulse Ox 97 05/17/21 07:48 BMI result Body Mass Index 31.6 Const: General: cooperative, comfortable, alert and awake Resp: Effort & Inspection: normal respiratory effort Auscultation: clear to auscultation bilaterally Cardio: Rate: regular rate Rhythm: regular rhythm GI: Other: Soft, nondistended, bowel sounds active, dressings clean dry and intact. Appropriate incisional tenderness. Objective Data Active Medications Acetaminophen (Acetaminophen 325 Mg Tablet) 650 mg PO Q6H [facility] Last Admin: 05/17/21 06:09 Dose: 650 mg Documented by: AUDREY Atorvastatin Calcium (Atorvastatin Calcium 20 Mg Tablet) 20 mg PO BEDTIME [facility] Last Admin: 05/16/21 19:48 Dose: 20 mg Documented by: AUDREY Baclofen (Baclofen 10 Mg Tablet) 10 mg PO TID PRN PRN Reason: muscle spasm Dextrose (Dextrose 50 % 25 Gm/50 Ml Vial) 25 gm IVPUSH Q15M PRN; Protocol PRN Reason: per Hypoglycemia Standing Ord. Dolutegravir Sodium (Dolutegravir Sodium 50 Mg Tablet) 50 mg PO DAILY [facility] Last Admin: 05/17/21 08:09 Dose: 50 mg Documented by: CHRISTIANO Emtricitabine/Tenofovir Alafenamide (Emtricitabine/Tenofov Alafenam Tablet) 1 tab PO DAILY [facility] Last Admin: 05/17/21 08:09 Dose: 1 tab Documented by: CHRISTIANO Famotidine (Famotidine/Pf 20 Mg/2 Ml Vial) 20 mg IVPUSH BID [facility] Last Admin: 05/17/21 08:08 Dose: 20 mg Documented by: CHRISTIANO Gabapentin (Gabapentin 100 Mg Capsule) 100 mg PO TID [facility] Last Admin: 05/17/21 08:09 Dose: 100 mg Documented by: CHRISTIANO Glipizide (Glipizide 10 Mg Tablet) 10 mg PO BID [facility] Last Admin: 05/16/21 09:20 Dose: Not Given Documented by: ALEKSANDR Non-Admin Reason: NPO Glucose (Glucose Gel 15 Gm Gel..Gram.) 15 gm PO Q15M PRN; Protocol PRN Reason: per Hypoglycemia Standing Ord. Dextrose/Sodium Chloride (D51/2ns) 1,000 mls @ 100 mls/hr IVCONT .Q10H [facility] Last Infusion: 05/17/21 10:43 Dose: 0 mls/hr Documented by: CHRISTIANO Piperacillin Sod/Tazobactam (Sod 3.375 gm/ Sodium Chloride) 50 mls @ 100 mls/hr IV Q6H [facility] Last Infusion: 05/17/21 07:18 Dose: 0 mls/hr Documented by: CHRISTIANO Insulin Glargine (Insulin Glargine,Hum.Rec.Anlog 100 Unit/Ml 10 Ml Vial) 16 unit SUBCUT DAILY [facility] Last Admin: 05/17/21 08:09 Dose: 16 unit Documented by: CHRISTIANO Insulin Human Lispro (Insulin Lispro 100 Unit/Ml 3 Ml Vial) 0 unit SUBCUT QIDACHS [facility]; Protocol Last Admin: 05/17/21 08:09 Dose: 2 unit Documented by: CHRISTIANO Melatonin (Melatonin 3 Mg Tablet) 6 mg PO BEDTIME PRN PRN Reason: Insomnia Last Admin: 05/16/21 22:13 Dose: 6 mg Documented by: AUDREY Metformin HCl (Metformin Hcl 1,000 Mg Tablet) 1,000 mg PO BID [facility] Last Admin: 05/17/21 08:09 Dose: 1,000 mg Documented by: CHRISTIANO Morphine Sulfate (Morphine Sulfate 4 Mg/Ml Cartridge) 4 mg IVPUSH Q3H PRN; Protocol PRN Reason: Pain, Severe (Pain Scale 7-10) Last Admin: 05/17/21 06:00 Dose: 4 mg Documented by: ADUREY Nicotine (Nicotine 21 Mg Patch.Td24) 21 mg TRANSDERMA DAILY [facility] Last Admin: 05/17/21 08:08 Dose: 21 mg Documented by: CHRISTIANO Ondansetron HCl (Ondansetron Hcl 4 Mg/2 Ml Vial) 4 mg IVPUSH Q4H PRN PRN Reason: Nausea and Vomiting Last Admin: 05/16/21 18:29 Dose: 4 mg Documented by: TREVIN Oxycodone HCl (Oxycodone Hcl Immed Release 5 Mg Tablet) 10 mg PO Q4H PRN PRN Reason: Pain, Severe (Pain Scale 7-10) Last Admin: 05/17/21 08:10 Dose: 10 mg Documented by: CHRISTIANO Senna (Sennosides 8.6 Mg Tablet) 17.2 mg PO BEDTIME PRN PRN Reason: Constipation Sodium Chloride (0.9 % Sodium Chloride Flush 3 Ml Syringe) 3 ml IVFLUSH QSHIFT [facility] Last Admin: 05/17/21 08:08 Dose: 3 ml Documented by: CHRISTIANO Vitamin D (Cholecalciferol (Vitamin D3) 25 Mcg Tablet) 50 mcg PO DAILY [facility] Last Admin: 05/17/21 08:09 Dose: 50 mcg Documented by: CHRISTIANO Labs CBC & Chem 7: 05/17/21 08:23 05/17/21 08:23 Labs: Laboratory Results - last 24 hr 05/16/21 05/16/21 05/16/21 11:06 15:23 19:16 MCV MCH MCHC RDW Plt Count MPV Immature Gran % (Auto) Neut % (Auto) Lymph % (Auto) [place] % (Auto) Eos % (Auto) Baso % (Auto) Lymph # (Auto) [place] # (Auto) Eos # (Auto) Baso # (Auto) Abs Immat Gran (auto) Absolute Neuts (auto) Absolute Nucleated RBC Nucleated RBC % (auto) Anion Gap Estim Creat Clear Calc Estimated GFR POC Glucose 215 H 178 H 244 H Fasting Glucose Calcium Total Bilirubin AST ALT Alkaline Phosphatase Total Protein Albumin 05/17/21 05/17/21 05/17/21 07:46 08:23 08:23 MCV 94.4 MCH 32.3 MCHC 34.2 RDW 11.2 Plt Count 245 MPV 9.8 Immature Gran % (Auto) 0.3 Neut % (Auto) 72.3 Lymph % (Auto) 17.0 L [place] % (Auto) 10.0 Eos % (Auto) 0.2 Baso % (Auto) 0.2 Lymph # (Auto) 2.0 [place] # (Auto) 1.2 Eos # (Auto) 0.0 Baso # (Auto) 0.0 Abs Immat Gran (auto) 0.04 H Absolute Neuts (auto) 8.4 H Absolute Nucleated RBC 0.000 Nucleated RBC % (auto) 0.0 Anion Gap 13 Estim Creat Clear Calc 95.7 Estimated GFR > 60 POC Glucose 188 H Fasting Glucose 193 H Calcium 9.0 D Total Bilirubin 1.0 AST 24 D ALT 17 Alkaline Phosphatase 65 Total Protein 6.3 L Albumin 3.8 Procedures Date of Service Date of Service: 05/17/21 Progress Note: A&P Assessment and plan (1) Acute cholecystitis: Status: Acute (2) Gallstone: Status: Acute Assessment and Plan: He is doing well following laparoscopic cholecystectomy. Will be discharged today. Advised to follow up in the office with either Dr. Rodrigues or Dr. Jiménez in about [address] jackson. Fall Risk Details Current Medications: Current Medications Acetaminophen (Acetaminophen 325 Mg Tablet) 650 mg PO Q6H [facility] Last Admin: 05/17/21 06:09 Dose: 650 mg Documented by: Atorvastatin Calcium (Atorvastatin Calcium 20 Mg Tablet) 20 mg PO BEDTIME [facility] Last Admin: 05/16/21 19:48 Dose: 20 mg Documented by: Baclofen (Baclofen 10 Mg Tablet) 10 mg PO TID PRN PRN Reason: muscle spasm Dextrose (Dextrose 50 % 25 Gm/50 Ml Vial) 25 gm IVPUSH Q15M PRN; Protocol PRN Reason: per Hypoglycemia Standing Ord. Dolutegravir Sodium (Dolutegravir Sodium 50 Mg Tablet) 50 mg PO DAILY [facility] Last Admin: 05/17/21 08:09 Dose: 50 mg Documented by: Emtricitabine/Tenofovir Alafenamide (Emtricitabine/Tenofov Alafenam Tablet) 1 tab PO DAILY [facility] Last Admin: 05/17/21 08:09 Dose: 1 tab Documented by: Famotidine (Famotidine/Pf 20 Mg/2 Ml Vial) 20 mg IVPUSH BID [facility] Last Admin: 05/17/21 08:08 Dose: 20 mg Documented by: Gabapentin (Gabapentin 100 Mg Capsule) 100 mg PO TID [facility] Last Admin: 05/17/21 08:09 Dose: 100 mg Documented by: Glipizide (Glipizide 10 Mg Tablet) 10 mg PO BID [facility] Last Admin: 05/16/21 09:20 Dose: Not Given Documented by: Glucose (Glucose Gel 15 Gm Gel..Gram.) 15 gm PO Q15M PRN; Protocol PRN Reason: per Hypoglycemia Standing Ord. Dextrose/Sodium Chloride (D51/2ns) 1,000 mls @ 100 mls/hr IVCONT .Q10H [facility] Last Infusion: 05/17/21 10:43 Dose: 0 mls/hr Documented by: Piperacillin Sod/Tazobactam (Sod 3.375 gm/ Sodium Chloride) 50 mls @ 100 mls/hr IV Q6H [facility] Last Infusion: 05/17/21 07:18 Dose: Infused Documented by: Insulin Glargine (Insulin Glargine,Hum.Rec.Anlog 100 Unit/Ml 10 Ml Vial) 16 unit SUBCUT DAILY [facility] Last Admin: 05/17/21 08:09 Dose: 16 unit Documented by: Insulin Human Lispro (Insulin Lispro 100 Unit/Ml 3 Ml Vial) 0 unit SUBCUT QIDACHS [facility]; Protocol Last Admin: 05/17/21 08:09 Dose: 2 unit Documented by: Melatonin (Melatonin 3 Mg Tablet) 6 mg PO BEDTIME PRN PRN Reason: Insomnia Last Admin: 05/16/21 22:13 Dose: 6 mg Documented by: Metformin HCl (Metformin Hcl 1,000 Mg Tablet) 1,000 mg PO BID [facility] Last Admin: 05/17/21 08:09 Dose: 1,000 mg Documented by: Morphine Sulfate (Morphine Sulfate 4 Mg/Ml Cartridge) 4 mg IVPUSH Q3H PRN; Protocol PRN Reason: Pain, Severe (Pain Scale 7-10) Last Admin: 05/17/21 06:00 Dose: 4 mg Documented by: Nicotine (Nicotine 21 Mg Patch.Td24) 21 mg TRANSDERMA DAILY [facility] Last Admin: 05/17/21 08:08 Dose: 21 mg Documented by: Ondansetron HCl (Ondansetron Hcl 4 Mg/2 Ml Vial) 4 mg IVPUSH Q4H PRN PRN Reason: Nausea and Vomiting Last Admin: 05/16/21 18:29 Dose: 4 mg Documented by: Oxycodone HCl (Oxycodone Hcl Immed Release 5 Mg Tablet) 10 mg PO Q4H PRN PRN Reason: Pain, Severe (Pain Scale 7-10) Last Admin: 05/17/21 08:10 Dose: 10 mg Documented by: Senna (Sennosides 8.6 Mg Tablet) 17.2 mg PO BEDTIME PRN PRN Reason: Constipation Sodium Chloride (0.9 % Sodium Chloride Flush 3 Ml Syringe) 3 ml IVFLUSH QSHIFT [facility] Last Admin: 05/17/21 08:08 Dose: 3 ml Documented by: Vitamin D (Cholecalciferol (Vitamin D3) 25 Mcg Tablet) 50 mcg PO DAILY [facility] Last Admin: 05/17/21 08:09 Dose: 50 mcg Documented by: Time Spent With Patient Time: Total time spent is greater than 50% in coordination of care (as documented) at patient's floor/unit and/or counseling patient: Time with patient: 15 - 24 minutes Quality Stroke Does the patient have a stroke diagnosis?: No VTE Prior VTE?: No VTE Risk Level:: Medical - moderate - high VTE Device Contraindication: N/A - Device Ordered VTE Drug Contraindication: Treatment Not Indicated
--- NOTE | 2021-05-17 14:41 | HO.POSTANES ---
Post Anesthesia Evaluation Post Anesthesia Evaluation Vital Signs: Vital Signs Temp Pulse Resp BP Pulse Ox 05/17/21 07:48 97.8 F 92 18 114/58 L 97 05/17/21 04:00 98.9 F 72 16 123/60 97 Anesthesia: General Endotracheal-GETA Mental Status: Awake Pain Control: Satisfactory Nausea/Vomiting: None Hydration: Adequate Anesthesia-Related Issues: No Anes. Related Issues
== END 2021-05-17 12:17 | disposition home or self-care (01) | DRG 263 ==
LOC: HO.ED 05-15 00:51 → HO.EDOVER 05-15 01:11 → HO.S3 05-15 15:30
PROVIDERS: Surgery; Admitting Provider Hospitalist; Emergency Provider Internal Medicine; PCP Family Medicine; Visit Provider Hospitalist
PROC: 0FT44ZZ Resection of Gallbladder, Percutaneous Endoscopic Approach (ICD-10-PCS; CPT 47562; principal; 2021-05-16 15:20)
DX: K80.00 Calculus of gallbladder with acute cholecystitis without obstruction (principal); E11.40 Type 2 diabetes mellitus with diabetic neuropathy, unspecified; F17.210 Nicotine dependence, cigarettes, uncomplicated; Z20.822 Contact with and (suspected) exposure to COVID-19; Z59.02 Unsheltered homelessness; Z21 Asymptomatic human immunodeficiency virus [HIV] infection status; Z71.6 Tobacco abuse counseling; Z79.1 Long term (current) use of non-steroidal anti-inflammatories (NSAID); Z79.4 Long term (current) use of insulin; Z79.899 Other long term (current) drug therapy
CPT/HCPCS: 47562; 36415; 76705; 80048; 80053; 80061; 82947; 83690; 85025; 87635; 88304; 96361; 96374; 96375; 99024; 99218; 99285; J1170; J2250; J2270; J2370; J2405; J2543; J3010

== ENCOUNTER 2021-05-20 16:37 | Emergency (ER) | payer MEDICAID, SELFPAY ==
--- NOTE | ~2021-05-20 | CT_ITS ---
EXAMINATION: CT ABDOMEN AND PELVIS WITH CONTRAST CLINICAL INFORMATION: Right upper quadrant pain status post laparoscopic cholecystectomy 4 days ago COMPARISON: CT of the abdomen and pelvis 05/13/2021 and abdominal ultrasound 2020 TECHNIQUE: Multidetector volumetric images were obtained from the superior aspect of the liver through the pubic symphysis following administration 85 mL of Omnipaque 350 intravenous contrast. Sagittal and coronal reformatted images were obtained on the technologist's workstation. Oral contrast: No This CT examination was performed using dose optimization techniques as appropriate, variously including the following: *Automated exposure control *Adjustment of mA and/or kV according to patient size (this includes techniques or standardized protocols for targeted exams where dose is matched to indication/reason for exam; i.e. extremities or head) *Use of iterative reconstruction technique DLP: 677 mGy-cm FINDINGS: LUNG BASES: The visualized lung bases are unremarkable. LIVER, GALLBLADDER, AND BILIARY TREE: The liver is normal in size, shape, and attenuation. No focal hepatic lesion or biliary ductal dilatation is present. The gallbladder is surgically absent. There is some residual stranding in the gallbladder fossa. No drainable fluid collection. PANCREAS: Unremarkable. SPLEEN: Unremarkable. ADRENAL GLANDS: Unremarkable. KIDNEYS AND URETERS: The kidneys are normal in size, shape, and attenuation. No hydronephrosis, hydroureter, or calculi seen. No perinephric stranding. BLADDER: Unremarkable. GASTROINTESTINAL TRACT: The stomach and small bowel are not dilated. No evidence for bowel obstruction. There is a large amount of stool throughout the colon. No pericolonic inflammatory change. The appendix is not clearly identified. ABDOMINAL WALL: No significant hernia is appreciated. There is mild stranding of the subcutaneous tissues in the right upper abdomen as well as the midline (series 3, image 42 and series 3, image 56), likely construction representative of postsurgical change. LYMPH NODES: Normal. VASCULAR: Normal caliber of the abdominal aorta. Scattered atherosclerotic calcifications. PELVIC VISCERA: Unremarkable. OSSEOUS STRUCTURES: No acute or suspicious osseous abnormalities. Mild loss of height of the T11, T12, and L1 vertebral bodies, unchanged since prior studies. Multilevel degenerative changes of the spine and bilateral hips. CT/CT abdomen pelvis w con IMPRESSION: Postsurgical changes from cholecystectomy. Some residual mesenteric stranding in the gallbladder fossa. No drainable fluid collection. Postsurgical changes of the anterior abdominal wall. Other chronic findings as above. Fleischner guidelines were followed.
[2021-05-20 16:44] VITALS: BP 160/76; BP 160/90; PULSE 80; RESP 22; TEMP 37; O2SAT 100; O2SAT 99; BMI 31.6
--- NOTE | 2021-05-20 16:48 | ED_ITS ---
HPI - Abdominal Pain General Chief Complaint: General Medical <SEGUN Burr - Last Filed: 05/20/21 20:12> Stated Complaint: flank pain <SEGUN Burr - Last Filed: 05/20/21 20:12> Time Seen by Provider: 05/20/21 16:47 <SEGUN Burr - Last Filed: 05/20/21 20:12> Source: patient <SEGUN Burr - Last Filed: 05/20/21 20:12> Mode of arrival: EMS <SEGUN Burr Last Filed: 05/20/21 20:12> Limitations: no limitations <SEGUN Burr - Last Filed: 05/20/21 20:12> History of Present Illness HPI narrative: Is a 55-year-old male with past medical history of diabetes, hypertension, hyperlipidemia presents to the emergency department with severe right upper quadrant abdominal pain X2 days patient is 4 days status post lap cholecystectomy done here at [facility] by . Patient tells me since last night he has been having severe abdominal pain, localized to the right upper quadrant he tells me that the pain is constant stabbing in nature. Pain does not radiate. He tells me that the pain is worse when he takes a deep breath in, and when he touches the area. He has no other associated symptoms. He tells me that this is his only complaint. He tells me his taking oxycodone for pain at home, and it is not touching the pain. Patient reports that he has had a bowel movement since the surgery, has no urinary symptoms at this time. He denies any changes in bowel habits, fevers, chills, nausea, vomiting, abdominal pain, chest pain, shortness of breath. <SEGUN Burr - Last Filed: 05/20/21 20:12> MD elicited complaint: abdominal pain <SEGUN Burr - Last Filed: 05/20/21 20:12> Pertinent past history: other (Postop day 4 of laparoscopic cholecystectomy.) <SEGUN Burr Last Filed: 05/20/21 20:12> Onset (ago): day(s) (2) <SEGUN Burr - Last Filed: 05/20/21 20:12> Pain Consistency: constant <SEGUN Burr - Last Filed: 05/20/21 20:12> Location: RUQ and RLQ <SEGUN Burr - Last Filed: 05/20/21 20:12> Severity: severe <SEGUN Burr - Last Filed: 05/20/21 20:12> Pain scale (0-10): 11 <SEGUN Burr - Last Filed: 05/20/21 20:12> Quality: stabbing <SEGUN Burr - Last Filed: 05/20/21 20:12> Radiation: none <SEGUN Burr - Last Filed: 05/20/21 20:12> Migration to: no migration <SEGUN Burr - Last Filed: 05/20/21 20:12> Exacerbating factors: other (palpation, deep breath ) <SEGUN Burr - Last Filed: 05/20/21 20:12> Relieving factors: nothing <SEGUN Burr - Last Filed: 05/20/21 20:12> Context: recent surgery/procedure <SEGUN Burr - Last Filed: 05/20/21 20:12> Associated symptoms: denies other symptoms <SEGUN Burr - Last Filed: 05/20/21 20:12> Treatments prior to arrival: other (Oxycodone 5mg PRN ) <SEGUN Burr - Last Filed: 05/20/21 20:12> Related Data Home Medications: Home Medications Medication Instructions Recorded Confirmed atorvastatin 20 mg tablet 1 tab PO BEDTIME 05/15/21 05/15/21 baclofen 10 mg tablet 1 tab PO TID PRN 05/15/21 05/15/21 cholecalciferol (vitamin D3) 50 1 cap PO DAILY 05/15/21 05/15/21 mcg (2,000 unit) capsule dolutegravir 50 mg tablet (Tivicay) 1 tab PO DAILY 05/15/21 05/15/21 emtricitabine 200 mg-tenofovir 1 tab PO DAILY 05/15/21 05/15/21 alafenamide fumarate 25 mg tablet (Descovy) gabapentin 100 mg capsule 1 cap PO TID 05/15/21 05/15/21 glipizide 5 mg tablet 2 tab PO BID 05/15/21 05/15/21 insulin glargine 100 unit/mL (3 16 unit SUBCUT DAILY 05/15/21 05/15/21 mL) subcutaneous pen (Lantus Solostar U-100 Insulin) metformin 500 mg tablet 2 tab PO BID 05/15/21 05/15/21 nystatin 100,000 unit/gram topical 1 appl TOPICAL TID PRN 05/15/21 05/15/21 cream Previous Rx's Medication Instructions Recorded ibuprofen 600 mg tablet 600 mg PO Q8H PRN #30 tab 05/17/21 oxycodone 5 mg tablet 5 mg PO Q6H PRN #20 tab 05/17/21 <SEGUN Burr - Last Filed: 05/20/21 20:12> Allergies/Adverse Reactions: Allergies Allergy/AdvReac Type Severity Reaction Status Date / Time No Known Allergies Allergy Verified 05/15/21 02:13 <SEGUN Burr Last Filed: 05/20/21 20:12> Review of Systems Review of Systems Constitutional : No Weight loss, No Fever, No Chills, No Fatigue, No Malaise ENT/Mouth : No sore throat, No Rhinorrhea Eyes: No Eye Pain, No Swelling, No Redness Cardiovascular : No Chest Pain, No SOB, No Dyspnea on Exertion, No Orthopnea, No Edema, No Palpitations Respiratory : No Cough, No Sputum, No Wheezing Gastrointestinal : No Nausea, No Vomiting, No Diarrhea, No Constipation, + abdominal Pain, No Hematochezia, No Melena Genitourinary : No Dysuria, No Urinary Frequency, No Hematuria, Musculoskeletal : No joint pain, No Myalgias, No Joint Swelling Skin : No Skin Lesions, No rash Neuro : No Weakness, No Numbness, No Dizziness, No Headache All other systems reviewed and are negative <SEGUN Burr Last Filed: 05/20/21 20:12> Yes all other systems are reviewed and are negative <SEGUN Burr - Last Filed: 05/20/21 20:12> Physical Exam Vital Signs: Vital Signs: Last Vital Signs Temp 98.6 F 05/20/21 16:44 Pulse 80 05/20/21 16:44 Resp 22 H 05/20/21 16:44 BP 160/76 H 05/20/21 16:44 Pulse Ox 100 05/20/21 16:44 BMI result Body Mass Index 31.6 Patient noted to be hypertensive and tachypneic likely secondary to pain. <SEGUN Burr - Last Filed: 05/20/21 20:12> Vital Signs: Last Vital Signs Temp 98.6 F 05/20/21 16:44 Pulse 80 05/20/21 16:44 Resp 22 H 05/20/21 16:44 BP 160/76 H 05/20/21 16:44 Pulse Ox 100 05/20/21 16:44 BMI result Body Mass Index 31.6 <Rio Sheikh MD - Last Filed: 05/20/21 20:09> Appearance: Alert.? Oriented X3.? No acute distress.? Head: Normocephalic, atraumatic, no step-offs or deformities Eyes: Pupils equal, round and reactive to light.? ENT: Pharynx normal.? Neck: Normal inspection.? Neck supple.? CVS: Normal heart rate and rhythm.? Pulses normal.? Respiratory: No respiratory distress.? Breath sounds normal.? Abdomen: Soft and tender to right upper quadrant upon palpation, incision sites from laparoscopic cholecystectomy clean dry intact, no overlying erythema, calor or discharge from the area. Patient with normoactive bowel sounds Skin: Skin warm and dry.? Normal skin color.? Normal skin turgor.? Extremities: No lower extremity edema.? No calf ttp. 5/5 strength to bilateral upper and lower extremities Back: No midline tenderness, no C-spine tenderness, full range of motion, no CVA tenderness bilaterally Neuro: Oriented X 3.? No motor deficit.? No sensory deficit. <SEGUN Burr - Last Filed: 05/20/21 20:12> Course Reevaluation(s) Reevaluation #1: Laboratory studies without leukocytosis, a slight anemia is noted, no electrolyte abnormalities, lipase within normal limits, amylase within normal limits. Unlikely that this is pancreatitis. This appears to be post operative pain. No signs of postoperative infection. Urine is clean. CT with no significant findings. There are postsurgical changes, and some residual mesenteric stranding in the gallbladder fossa however there is no dr sargent fluid collection or abscess noted. At this time p.o. challenge will be done prior to patient's discharge. <SEGUN Burr - Last Filed: 05/20/21 20:12> Time: 20:00 <SEGUN Burr - Last Filed: 05/20/21 20:12> Reevaluation #2: Patient able to tolerate fluids, and solid food, patient passed p.o. challenge. At this time patient appears more comfortable after administration of morphine. He tells me that he is still having pain however I suspect that this is normal since patient is few days postoperative. I do not feel comfortable prescribing more narcotics as the patient had narcotics prescribed to him by his surgeon. Patient is safe for discharge home, I have advised patient to follow-up with PCP, and their surgeon. I have also advised him to return to the emergency department with new or worsening symptoms. <SEGUN Burr - Last Filed: 05/20/21 20:12> Time: 20:08 <SEGUN Burr - Last Filed: 05/20/21 20:12> Reevaluation #3: Discussed the history, plan, and all the results. Patient can be discharged home <Rio Sheikh MD - Last Filed: 05/20/21 20:09> Time: 20:08 <Rio Sheikh MD - Last Filed: 05/20/21 20:09> MDM - Abdominal Pain MDM Narrative Medical decision making narrative: 1750 55 yo m pmhx HTN,DM,HLD presents to the emergency department complaints of severe right upper quadrant pain x2 days he is 4 days status post laparoscopic cholecystectomy. Patient presented to the ED with severe abdominal painm nausea and vomiting on 05/14/2021 and was diagnosed with pancreatitis and cholecystitis. He was admitted to the hospital and had a laparoscopic cholesysectomy on 05/16/2021 without complications. He was discharged from the hospital on May 17, 2021 at that time he is feeling much better. Upon physical examination patient is noted to have tenderness to right upper quadrant, abdomen is soft, with normoactive bowel sounds. Incision sites clean, dry and intact. Lungs clear. Regular rate and rhythm. No focal neuro deficits. Plan at this time is to obtain a CT of the abdomen and pelvis, basic labs, medication with morphine for pain. <SEGUN Burr - Last Filed: 05/20/21 20:12> Medical Records Attestation: I reviewed the patient's medical records. <SEGUN Burr - Last Filed: 05/20/21 20:12> Lab Data Attestation: I reviewed the patient's lab results. <SEGUN Burr - Last Filed: 05/20/21 20:12> Result diagrams: : 05/20/21 17:12 05/20/21 17:12 <SEGUN Burr - Last Filed: 05/20/21 20:12> Labs: Lab Results 05/20/21 05/20/21 05/20/21 Range/Units 17:12 17:12 17:16 WBC 9.4 (4.8-10.8) X10*3/uL RBC 4.30 L (4.60-5.80) X10*6/uL Hgb 13.9 L (14.0-18.0) g/dl Hct 41.0 L (42.0-52.0) % MCV 95.3 (80.0-98.0) fL MCH 32.3 (27.0-33.0) pg MCHC 33.9 (31.0-36.0) g/dl RDW 11.2 (11.0-16.0) % Plt Count 247 (160-400) X10*3/uL MPV 9.8 (9.4-12.4) fL Immature Gran % (Auto) 0.3 (0.0-0.4) % Neut % (Auto) 54.9 (45-73) % Lymph % (Auto) 32.6 (20-40) % [place] % (Auto) 11.1 H (2-11) % Eos % (Auto) 0.9 (0-4) % Baso % (Auto) 0.2 (0-2) % Lymph # (Auto) 3.1 (1.2-4.9) X10*3/uL [place] # (Auto) 1.0 (0.1-1.2) X10*3/uL Eos # (Auto) 0.1 (0.0-0.4) X10*3/uL Baso # (Auto) 0.0 (0.0-0.2) X10*3/uL Abs Immat Gran (auto) 0.03 (0.00-0.03) X10*3/uL Absolute Neuts (auto) 5.1 (2.0-8.3) x10*3/uL Absolute Nucleated RBC 0.000 (0.0-0.012) X10*3/uL Nucleated RBC % (auto) 0.0 (0.0-0.2) /100WBC Sodium 137 (135-145) mmol/L Potassium 4.1 (3.3-5.1) mmol/L Chloride 102 (96-108) mmol/L Carbon Dioxide 27 (22-29) mmol/L Anion Gap 12 (12-20) BUN 11 D (9-16) mg/dL Creatinine 0.87 (0.5-1.4) mg/dL Estim Creat Clear Calc 97.9 Estimated GFR > 60 Random Glucose 240 H (60-115) mg/dL Calcium 9.5 (8.4-10.2) mg/dL Magnesium 1.6 (1.6-2.6) mg/dL Total Bilirubin 0.4 (0.0-1.0) mg/dL AST 14 D (5-37) U/L ALT 13 (0-40) U/L Alkaline Phosphatase 64 (39-117) U/L Total Protein 6.6 (6.5-8.0) g/dL Albumin 3.8 (3.5-5.0) g/dL Amylase 48 (28-100) U/L Lipase 27 (8-78) U/L Urine Color Urine Appearance Urine pH (5.0-8.0) Ur Specific [place] (1.005-1.025) Urine Protein (NEG-TRACE) MG/DL Urine Glucose (UA) (NEG) MG/DL Urine Ketones (NEG) MG/DL Urine Blood (NEG) Urine Nitrite (NEG) Ur Leukocyte Esterase (NEG) COVID-19 (MARY) Negative (Negative) COVID-19 Clin Com See Note 05/20/21 Range/Units 19:47 WBC (4.8-10.8) X10*3/uL RBC (4.60-5.80) X10*6/uL Hgb (14.0-18.0) g/dl Hct (42.0-52.0) % MCV (80.0-98.0) fL MCH (27.0-33.0) pg MCHC (31.0-36.0) g/dl RDW (11.0-16.0) % Plt Count (160-400) X10*3/uL MPV (9.4-12.4) fL Immature Gran % (Auto) (0.0-0.4) % Neut % (Auto) (45-73) % Lymph % (Auto) (20-40) % [place] % (Auto) (2-11) % Eos % (Auto) (0-4) % Baso % (Auto) (0-2) % Lymph # (Auto) (1.2-4.9) X10*3/uL [place] # (Auto) (0.1-1.2) X10*3/uL Eos # (Auto) (0.0-0.4) X10*3/uL Baso # (Auto) (0.0-0.2) X10*3/uL Abs Immat Gran (auto) (0.00-0.03) X10*3/uL Absolute Neuts (auto) (2.0-8.3) x10*3/uL Absolute Nucleated RBC (0.0-0.012) X10*3/uL Nucleated RBC % (auto) (0.0-0.2) /100WBC Sodium (135-145) mmol/L Potassium (3.3-5.1) mmol/L Chloride (96-108) mmol/L Carbon Dioxide (22-29) mmol/L Anion Gap (12-20) BUN (9-16) mg/dL Creatinine (0.5-1.4) mg/dL Estim Creat Clear Calc Estimated GFR Random Glucose (60-115) mg/dL Calcium (8.4-10.2) mg/dL Magnesium (1.6-2.6) mg/dL Total Bilirubin (0.0-1.0) mg/dL AST (5-37) U/L ALT (0-40) U/L Alkaline Phosphatase (39-117) U/L Total Protein (6.5-8.0) g/dL Albumin (3.5-5.0) g/dL Amylase (28-100) U/L Lipase (8-78) U/L Urine Color YELLOW Urine Appearance CLEAR Urine pH 5.5 (5.0-8.0) Ur Specific [place] 1.020 (1.005-1.025) Urine Protein NEG (NEG-TRACE) MG/DL Urine Glucose (UA) 500 H (NEG) MG/DL Urine Ketones NEG (NEG) MG/DL Urine Blood NEG (NEG) Urine Nitrite NEG (NEG) Ur Leukocyte Esterase NEG (NEG) COVID-19 (MARY) (Negative) COVID-19 Clin Com <SEGUN Burr - Last Filed: 05/20/21 20:12> Lab Results 05/20/21 05/20/21 05/20/21 Range/Units 17:12 17:12 17:16 WBC 9.4 (4.8-10.8) X10*3/uL RBC 4.30 L (4.60-5.80) X10*6/uL Hgb 13.9 L (14.0-18.0) g/dl Hct 41.0 L (42.0-52.0) % MCV 95.3 (80.0-98.0) fL MCH 32.3 (27.0-33.0) pg MCHC 33.9 (31.0-36.0) g/dl RDW 11.2 (11.0-16.0) % Plt Count 247 (160-400) X10*3/uL MPV 9.8 (9.4-12.4) fL Immature Gran % (Auto) 0.3 (0.0-0.4) % Neut % (Auto) 54.9 (45-73) % Lymph % (Auto) 32.6 (20-40) % [place] % (Auto) 11.1 H (2-11) % Eos % (Auto) 0.9 (0-4) % Baso % (Auto) 0.2 (0-2) % Lymph # (Auto) 3.1 (1.2-4.9) X10*3/uL [place] # (Auto) 1.0 (0.1-1.2) X10*3/uL Eos # (Auto) 0.1 (0.0-0.4) X10*3/uL Baso # (Auto) 0.0 (0.0-0.2) X10*3/uL Abs Immat Gran (auto) 0.03 (0.00-0.03) X10*3/uL Absolute Neuts (auto) 5.1 (2.0-8.3) x10*3/uL Absolute Nucleated RBC 0.000 (0.0-0.012) X10*3/uL Nucleated RBC % (auto) 0.0 (0.0-0.2) /100WBC Sodium 137 (135-145) mmol/L Potassium 4.1 (3.3-5.1) mmol/L Chloride 102 (96-108) mmol/L Carbon Dioxide 27 (22-29) mmol/L Anion Gap 12 (12-20) BUN 11 D (9-16) mg/dL Creatinine 0.87 (0.5-1.4) mg/dL Estim Creat Clear Calc 97.9 Estimated GFR > 60 Random Glucose 240 H (60-115) mg/dL Calcium 9.5 (8.4-10.2) mg/dL Magnesium 1.6 (1.6-2.6) mg/dL Total Bilirubin 0.4 (0.0-1.0) mg/dL AST 14 D (5-37) U/L ALT 13 (0-40) U/L Alkaline Phosphatase 64 (39-117) U/L Total Protein 6.6 (6.5-8.0) g/dL Albumin 3.8 (3.5-5.0) g/dL Amylase 48 (28-100) U/L Lipase 27 (8-78) U/L Urine Color Urine Appearance Urine pH (5.0-8.0) Ur Specific [place] (1.005-1.025) Urine Protein (NEG-TRACE) MG/DL Urine Glucose (UA) (NEG) MG/DL Urine Ketones (NEG) MG/DL Urine Blood (NEG) Urine Nitrite (NEG) Ur Leukocyte Esterase (NEG) COVID-19 (MARY) Negative (Negative) COVID-19 Clin Com See Note 05/20/21 Range/Units 19:47 WBC (4.8-10.8) X10*3/uL RBC (4.60-5.80) X10*6/uL Hgb (14.0-18.0) g/dl Hct (42.0-52.0) % MCV (80.0-98.0) fL MCH (27.0-33.0) pg MCHC (31.0-36.0) g/dl RDW (11.0-16.0) % Plt Count (160-400) X10*3/uL MPV (9.4-12.4) fL Immature Gran % (Auto) (0.0-0.4) % Neut % (Auto) (45-73) % Lymph % (Auto) (20-40) % [place] % (Auto) (2-11) % Eos % (Auto) (0-4) % Baso % (Auto) (0-2) % Lymph # (Auto) (1.2-4.9) X10*3/uL [place] # (Auto) (0.1-1.2) X10*3/uL Eos # (Auto) (0.0-0.4) X10*3/uL Baso # (Auto) (0.0-0.2) X10*3/uL Abs Immat Gran (auto) (0.00-0.03) X10*3/uL Absolute Neuts (auto) (2.0-8.3) x10*3/uL Absolute Nucleated RBC (0.0-0.012) X10*3/uL Nucleated RBC % (auto) (0.0-0.2) /100WBC Sodium (135-145) mmol/L Potassium (3.3-5.1) mmol/L Chloride (96-108) mmol/L Carbon Dioxide (22-29) mmol/L Anion Gap (12-20) BUN (9-16) mg/dL Creatinine (0.5-1.4) mg/dL Estim Creat Clear Calc Estimated GFR Random Glucose (60-115) mg/dL Calcium (8.4-10.2) mg/dL Magnesium (1.6-2.6) mg/dL Total Bilirubin (0.0-1.0) mg/dL AST (5-37) U/L ALT (0-40) U/L Alkaline Phosphatase (39-117) U/L Total Protein (6.5-8.0) g/dL Albumin (3.5-5.0) g/dL Amylase (28-100) U/L Lipase (8-78) U/L Urine Color YELLOW Urine Appearance CLEAR Urine pH 5.5 (5.0-8.0) Ur Specific [place] 1.020 (1.005-1.025) Urine Protein NEG (NEG-TRACE) MG/DL Urine Glucose (UA) 500 H (NEG) MG/DL Urine Ketones NEG (NEG) MG/DL Urine Blood NEG (NEG) Urine Nitrite NEG (NEG) Ur Leukocyte Esterase NEG (NEG) COVID-19 (MARY) (Negative) COVID-19 Clin Com <Rio Sheikh MD - Last Filed: 05/20/21 20:09> Imaging Data CT scan - abdomen: Attestation: I personally reviewed and interpreted this imaging study as follows: <SEGUN Burr - Last Filed: 05/20/21 20:12> Radiologist's impression: CT/CT abdomen pelvis w con IMPRESSION: Postsurgical changes from cholecystectomy. Some residual mesenteric stranding in the gallbladder fossa. No drainable fluid collection. ? Postsurgical changes of the anterior abdominal wall. ? Other chronic findings as above.? ? Fleischner guidelines were followed. <SEGUN Burr - Last Filed: 05/20/21 20:12> Critical Care Time Critical Care Time Critical Care Time: No <SEGUN Burr - Last Filed: 05/20/21 20:12> Discharge Plan Discharge Clinical Impression: Post-operative pain, Abdominal pain <SEGUN Burr - Last Filed: 05/20/21 20:12> Patient Disposition: Home, Self-Care <SEGUN Burr - Last Filed: 05/20/21 20:12> Instructions: Abdominal Pain (ED) <SEGUN Burr - Last Filed: 05/20/21 20:12> Additional Instructions: Take your medications as prescribed. Follow-up with your primary care provider this week. Follow up with your surgeon Your CT scan looked good. Urine showed no infection. Labs showed no infection or electrolyte abnormalities. Return to the emergency department with new or worsening symptoms. In case of emergency call 911 <SEGUN Burr - Last Filed: 05/20/21 20:12> Prescriptions: No Action metformin 500 mg tablet 2 tab PO BID RF: 0 atorvastatin 20 mg tablet 1 tab PO BEDTIME RF: 0 baclofen 10 mg tablet 1 tab PO TID PRN (Reason: muscle spasm) RF: 0 nystatin 100,000 unit/gram cream 1 appl topical TID PRN (Reason: itch) RF: 0 gabapentin 100 mg capsule 1 cap PO TID RF: 0 glipizide 5 mg tablet 2 tab PO BID RF: 0 Lantus Solostar U-100 Insulin 100 unit/mL (3 mL) insulin pen 16 unit subcut DAILY RF: 0 cholecalciferol (vitamin D3) 50 mcg (2,000 unit) capsule 1 cap PO DAILY RF: 0 Tivicay 50 mg tablet 1 tab PO DAILY RF: 0 Descovy 200-25 mg tablet 1 tab PO DAILY RF: 0 oxycodone 5 mg tablet 5 mg PO Q6H PRN (Reason: pain) Qty: 20 RF: 0 ibuprofen 600 mg tablet 600 mg PO Q8H PRN (Reason: fever or pain) Qty: 30 RF: 0 <SEGUN Burr - Last Filed: 05/20/21 20:12> Referrals: Physician,Unknown J [Primary Care Provider] - 2 days <SEGUN Burr - Last Filed: 05/20/21 20:12> [facility] Past Medical History Attestation statement: The following information was validated with the patient. <SEGUN Burr - Last Filed: 05/20/21 20:12> Source: old records reviewed and nursing notes reviewed <SEGUN Burr - Last Filed: 05/20/21 20:12> Medical History: Medical History (Updated 05/20/21 @ 20:02 by SEGUN Burr) Diabetes Patient denies medical problems <SEGUN Burr - Last Filed: 05/20/21 20:12> Surgical History: Surgical History History of appendectomy History of hernia surgery <SEGUN Burr - Last Filed: 05/20/21 20:12> Social History Social History: Social History Household Members: None Housing Other:: patient states homeless Do you presently have visiting nurse or other home services: No Patient Tobacco Use Status: Current everyday Tobacco user Tobacco use type: Cigarette Cigarette Packs Per Day: 1 Cigarettes Per Day: 20.0 Years Smoked: 30 Substance Use Type: Marijuana Advance Directives: No Advance Directives Information Provided: Yes service: No Current occupational status: unemployed <SEGUN Burr - Last Filed: 05/20/21 20:12>
[2021-05-20 17:18] LABS: MANUAL DIFF FLAG NO
[2021-05-20 17:21] LABS: Basophils Percent Auto 0.2 % (0-2); Eosinophils Absolute Auto 0.1 X10*3/uL (0.0-0.4); Eosinophils Percent Auto 0.9 % (0-4); Hemoglobin 13.9 g/dl (14.0-18.0); Imm Gran Abs Auto 0.03 X10*3/uL (0.00-0.03); Imm Gran Pct Auto 0.3 % (0.0-0.4); Lymphocytes Absolute Auto 3.1 X10*3/uL (1.2-4.9); Lymphocytes Percent Auto 32.6 % (20-40); Mean Corpuscular HGB Conc 33.9 g/dl (31.0-36.0); Mean Corpuscular Hemoglobin 32.3 pg (27.0-33.0); Mean Corpuscular Volume 95.3 fL (80.0-98.0); Mean Platelet Volume 9.8 fL (9.4-12.4); Monocytes Percent Auto 11.1 % (2-11); Neutrophils Absolute Auto 5.1 x10*3/uL (2.0-8.3); Neutrophils Percent Auto 54.9 % (45-73); Platelet Count 247 X10*3/uL (160-400); Red Cell Distribution Width 11.2 % (11.0-16.0); White Blood Count 9.4 X10*3/uL (4.8-10.8)
[2021-05-20] MEDS: Morphine Sulfate 4 MG/ML CARTRIDGE IVPUSH (17:22)
[2021-05-20] MEDS: ondansetron HCL 4 MG/2 ML VIAL IVPUSH (17:22)
[2021-05-20 17:41] LABS: COVID-19 Test Negative (Negative); IDNOW Serial# 9DD0AD1C
[2021-05-20 17:42] LABS: Alanine Aminotransferase 13 U/L (0-40); Albumin Level 3.8 g/dL (3.5-5.0); Alkaline Phosphatase 64 U/L (39-117); Anion Gap 12 (12-20); Aspartate Amino Transferase 14 U/L (5-37); Bilirubin Total 0.4 mg/dL (0.0-1.0); Blood Urea Nitrogen 11 mg/dL (9-16); Calcium 9.5 mg/dL (8.4-10.2); Carbon Dioxide 27 mmol/L (22-29); Chloride 102 mmol/L (96-108); Creatinine Clr Calc Pharmacy 97.9; Estimated Glomerular Filt Rate > 60; Glucose Random 240 mg/dL (60-115); Lipase 27 U/L (8-78); Magnesium 1.6 mg/dL (1.6-2.6); Potassium 4.1 mmol/L (3.3-5.1); Sodium 137 mmol/L (135-145); Total Protein 6.6 g/dL (6.5-8.0)
[2021-05-20 17:55] LABS: Amylase 48 U/L (28-100)
[2021-05-20 19:55] LABS: Appearance Urine CLEAR; Color Urine YELLOW; Glucose Urine UA 500 MG/DL (NEG); Leukocyte Esterase Urine NEG (NEG); Nitrite Urine NEG (NEG); PH 5.5 (5.0-8.0); Urine Blood NEG (NEG); Urine Ketones NEG (NEG); Urine Protein NEG (NEG-TRACE)
[2021-05-20 20:04] LABS: Mucus Urine TRACE /LPF
[2021-05-20 20:05] LABS: Squamous Epithelial Cell Urine TRACE /LPF
[2021-05-20 20:08] LABS: RBC Urine 0 /HPF (0)
== END 2021-05-20 20:29 | disposition home or self-care (01) ==
PROVIDERS: Physician Assistant; Emergency Provider Emergency Medicine
DX: G89.18 Other acute postprocedural pain (principal); R10.9 Unspecified abdominal pain; Z90.49 Acquired absence of other specified parts of digestive tract; Z20.822 Contact with and (suspected) exposure to COVID-19; E11.9 Type 2 diabetes mellitus without complications; I10 Essential (primary) hypertension; E78.5 Hyperlipidemia, unspecified; F17.200 Nicotine dependence, unspecified, uncomplicated; Z79.4 Long term (current) use of insulin; Z79.899 Other long term (current) drug therapy
CPT/HCPCS: 36415; 74177; 80053; 81001; 82150; 83690; 83735; 85025; 87635; 96374; 96375; 99283; 99284; J2270; J2405

== ENCOUNTER → 2021-05-27 10:28 | Outpatient (BNVA) | payer MEDICAID, SELFPAY | PROVIDERS: PCP Family Medicine; Referring Provider Family Medicine; Visit Provider Surgery | DX: Z48.815 Encounter for surgical aftercare following surgery on the digestive system (principal); Z90.49 Acquired absence of other specified parts of digestive tract | CPT/HCPCS: 99212 ==

== ENCOUNTER → 2021-06-27 14:45 | Outpatient (BNVA) | payer MEDICAID, SELFPAY | PROVIDERS: Visit Provider Physician Assistant Medical | DX: F17.210 Nicotine dependence, cigarettes, uncomplicated (principal) | CPT/HCPCS: G0296 ==

== ENCOUNTER 2022-01-14 23:41 | Emergency (ER) | payer MEDICAID, SELFPAY ==
--- NOTE | ~2022-01-14 | XR_ITS ---
EXAMINATION: XR CHEST CLINICAL INFORMATION: Short of breath COMPARISON: 05/13/2021 TECHNIQUE: Frontal view of the chest was obtained. FINDINGS: The lungs are well expanded. There is no focal consolidation, edema, or effusion. No pneumothorax. The cardiomediastinal silhouette is within normal limits. No acute osseous abnormality. XR/XR chest 1V IMPRESSION: No acute pulmonary finding.
[2022-01-15 00:24] VITALS: BP 133/65; PULSE 80; RESP 22; TEMP 36.8; O2SAT 97; BMI 31.6
[2022-01-15 02:10] VITALS: BP 134/88; PULSE 89; RESP 18; O2SAT 99
--- NOTE | 2022-01-15 03:33 | ED.GENADULT ---
HPI - General Adult General Chief complaint: General Medical Stated complaint: difficulty breathing Time Seen by Provider: 01/15/22 03:10 Source: patient and EMS Limitations: no limitations History of Present Illness HPI narrative: Patient comes to the emergency room complaining of nasal congestion when he goes to sleep. Patient states that he gets anxious when his nose gets stuffy. Patient has had symptoms for 2 months. Patient denies coughing, no chest pain, no shortness of breath other than the nasal stuffiness sensation Related Data Home Medications Medication Instructions Recorded Confirmed atorvastatin 20 mg tablet 1 tab PO BEDTIME 05/15/21 05/27/21 baclofen 10 mg tablet 1 tab PO TID PRN muscle spasm 05/15/21 05/27/21 cholecalciferol (vitamin D3) 50 1 cap PO DAILY 05/15/21 05/27/21 mcg (2,000 unit) capsule dolutegravir 50 mg tablet (Tivicay) 1 tab PO DAILY 05/15/21 05/27/21 emtricitabine 200 mg-tenofovir 1 tab PO DAILY 05/15/21 05/27/21 alafenamide fumarate 25 mg tablet (Descovy) gabapentin 100 mg capsule 1 cap PO TID 05/15/21 05/27/21 glipizide 5 mg tablet 2 tab PO BID 05/15/21 05/27/21 insulin glargine 100 unit/mL (3 16 unit subcut DAILY 05/15/21 05/27/21 mL) subcutaneous pen (Lantus Solostar U-100 Insulin) metformin 500 mg tablet 2 tab PO BID 05/15/21 05/27/21 nystatin 100,000 unit/gram topical 1 appl topical TID PRN itch 05/15/21 05/27/21 cream Previous Rx's Medication Instructions Recorded ibuprofen 600 mg tablet 600 mg PO Q8H PRN fever or pain 05/17/21 #30 tabs bisacodyl 5 mg tablet,delayed 5 mg PO .COMPLEX 1 day #2 tabs 05/21/21 release (Dulcolax (bisacodyl)) amoxicillin 500 mg-potassium 1 tab PO Q8H #30 tabs 05/27/21 clavulanate 125 mg tablet oxycodone 5 mg tablet 5 mg PO Q6H PRN pain #15 tabs 05/27/21 diphenhydramine HCl 25 mg capsule 25 mg PO BEDTIME #10 caps 01/15/22 (Benadryl) fluticasone propionate 50 1 spray intranasal DAILY #16 grams 01/15/22 mcg/actuation nasal spray,suspension (Flonase Allergy Relief) Allergies Allergy/AdvReac Type Severity Reaction Status Date / Time No Known Allergies Allergy Verified 05/15/21 02:13 Review of Systems Review of Systems: Constitutional : No Weight loss, No Fever, No Chills, No Night Sweats, No Fatigue, No Malaise ENT/Mouth : No Hearing loss, No Ear Pain, complaining of Nasal Congestion only when he is sleeping, No Sinus Pain, No Hoarseness, No sore throat, No Rhinorrhea, No Swallowing Difficulty Eyes: No Eye Pain, No Swelling, No Redness, No Foreign Body, No Discharge, No Vision Changes Cardiovascular : No Chest Pain, No SOB, No Dyspnea on Exertion, No Orthopnea, No Edema, No Palpitations Respiratory : No Cough, No Sputum, No Wheezing, No Smoke Exposure, No Dyspnea Gastrointestinal : No Nausea, No Vomiting, No Diarrhea, No Constipation, No abdominal Pain, No Hematochezia, No Melena Genitourinary : no irregular bleeding, No Dysuria, No Urinary Frequency, No Hematuria, No Urinary Incontinence, No Urgency, No Flank Pain, No Urinary Flow Changes, No Hesitancy Musculoskeletal : No joint pain, No Myalgias, No Joint Swelling Skin : No Skin Lesions, No rash Neuro : No Weakness, No Numbness, No Paresthesias, No Loss of Consciousness, No Dizziness, No Headache Psych : No Anxiety/Panic, No Depression, No SI/HI/AH/VH, No Social Issues, Heme/Lymph: No Bruising, No Bleeding,No Lymphadenopathy Endocrine : No Polyuria, No Polydipsia, No Temperature Intolerance [facility] Past Medical History Medical History Diabetes Personal history of nicotine dependence Surgical History History of appendectomy History of incisional hernia repair (~2014) History of laparoscopic cholecystectomy (~2020) History of umbilical hernia repair (~2008) Social History Social History Household Members: None Housing Other:: patient states homeless Do you presently have visiting nurse or other home services: No Patient Tobacco Use Status: Current everyday Tobacco user Tobacco use type: Cigarette Cigarette Packs Per Day: 1 Cigarettes Per Day: 20.0 Years Smoked: 30 Substance Use Type: Marijuana Advance Directives: No Advance Directives Information Provided: Yes service: No Current occupational status: unemployed Physical Exam ED Vital Signs: Vital Signs - 24 hr 01/15/22 00:24 01/15/22 02:10 Temperature 98.2 F Pulse Rate 80 89 Respiratory Rate 22 H 18 Blood Pressure 133/65 134/88 Pulse Oximetry 97 99 Oxygen Delivery Method Room Air Room Air BMI result Body Mass Index 31.6 Const Other: Appearance: Alert. Oriented X3. No acute distress. Eyes: Pupils equal, round and reactive to light. ENT: Pharynx normal. Neck: Normal inspection. Neck supple. No lymph nodes noted. No crepitus CVS: Normal heart rate and rhythm. Pulses normal. Normal S1 and S2 Respiratory: No respiratory distress. Breath sounds normal. No Wheezing. No rales Abdomen: Soft and nontender. No rigidity. No distention. Skin: Skin warm and dry. Normal skin color. Normal skin turgor. Extremities: No lower extremity edema. No Lacerations. No Rash Neuro: Oriented X 3. No motor deficit. No sensory deficit. Moving all extremities. No slurred speech. CN 2 through 12 grossly intact Psych: calm, cooperative, normal affect Course Course Course Narrative: Physical exam is normal. Patient's symptoms only occur when he is sleeping. I discussed with the patient he likely has postnasal drip. Medical Decision Making Lab Data Labs: Lab Results 01/15/22 Range/Units 00:16 COVID-19 ([facility]) Negative (Negative) COVID-19 Clin Com See Note Imaging Data Chest x-ray: Radiologist's impression: The lungs are well expanded. There is no focal consolidation, edema, or effusion. No pneumothorax. The cardiomediastinal silhouette is within normal limits. No acute osseous abnormality. XR/XR chest 1V IMPRESSION: No acute pulmonary finding. ? Discharge Plan Discharge Clinical Impression: Postnasal drip Patient Disposition: Home, Self-Care Instructions: Postnasal Drip (DC) Additional Instructions: Please follow-up with your primary care physician tomorrow. If you have any worsening or new symptoms, please return to the emergency room or call 911 Prescriptions: New diphenhydramine HCl [Benadryl] 25 mg capsule 25 mg PO BEDTIME Qty: 10 0RF fluticasone propionate [Flonase Allergy Relief] 50 mcg/actuation spray,suspension 1 spray intranasal DAILY Qty: 16 0RF Rx Instructions: administer into each nostril No Action bisacodyl [Dulcolax (bisacodyl)] 5 mg tablet,delayed release (DR/EC) 5 mg PO .COMPLEX 1 Days Qty: 2 0RF Rx Instructions: 5 mg PO Take one tablet for constipation. If no bowel movement after 4 hours, take another tablet.; metformin 500 mg tablet 2 tab PO BID atorvastatin 20 mg tablet 1 tab PO BEDTIME baclofen 10 mg tablet 1 tab PO TID PRN (Reason: muscle spasm) nystatin 100,000 unit/gram cream 1 appl topical TID PRN (Reason: itch) gabapentin 100 mg capsule 1 cap PO TID glipizide 5 mg tablet 2 tab PO BID [place] Soljimboar U-100 Insulin 100 unit/mL (3 mL) insulin pen 16 unit subcut DAILY cholecalciferol (vitamin D3) 50 mcg (2,000 unit) capsule 1 cap PO DAILY Tivicay 50 mg tablet 1 tab PO DAILY Descovy 200-25 mg tablet 1 tab PO DAILY ibuprofen 600 mg tablet 600 mg PO Q8H PRN (Reason: fever or pain) Qty: 30 0RF oxycodone 5 mg tablet 5 mg PO Q6H PRN (Reason: pain) Qty: 15 0RF amoxicillin-pot clavulanate 500-125 mg tablet 1 tab PO Q8H Qty: 30 0RF
--- NOTE | 2022-01-15 03:50 | PC.NURSE ---
pt a&o, no sign for sob or chest pain. Reviewed discharge instructions . Pt verbalized understanding.
== END 2022-01-15 03:51 | disposition home or self-care (01) ==
PROVIDERS: Emergency Provider Emergency Medicine
DX: R09.82 Postnasal drip (principal); Z20.822 Contact with and (suspected) exposure to COVID-19; E11.9 Type 2 diabetes mellitus without complications; F17.210 Nicotine dependence, cigarettes, uncomplicated; F12.90 Cannabis use, unspecified, uncomplicated; Z79.4 Long term (current) use of insulin
CPT/HCPCS: 71045; 87635; 99283

== ENCOUNTER 2022-04-21 | Outpatient (REF) | payer MEDICAID, SELFPAY | END 2022-04-21 00:01 | disposition home or self-care (01) | LOC: HO.HOSX | PROVIDERS: Visit Provider Physician Assistant | DX: Z13.89 Encounter for screening for other disorder (principal) ==

== ENCOUNTER 2022-07-24 13:33 | Outpatient (RCR) | payer MEDICAID, SELFPAY | END 2022-09-15 12:04 | disposition home or self-care (01) | LOC: HO.PT 13:33 | PROVIDERS: PCP Family Medicine; Visit Provider Family Medicine | DX: M54.50 Low back pain, unspecified (principal) | CPT/HCPCS: 97110; 97161; 97535 ==

== ENCOUNTER 2023-05-08 18:10 | Emergency (ER) | payer MEDICAID, SELFPAY ==
[2023-05-08 18:18] VITALS: BP 164/92; PULSE 120; O2SAT 99
[2023-05-08 18:32] VITALS: BP 177/77; PULSE 71; RESP 18; TEMP 36.4; O2SAT 100; BMI 30.8
--- NOTE | 2023-05-08 18:32 | ED.GENADULT ---
HPI - General Adult General Chief complaint: Abdominal Pain Stated complaint: nausea x2days,lethargic Time Seen by Provider: 05/08/23 18:28 Source: patient Mode of arrival: ambulatory Limitations: no limitations History of Present Illness HPI narrative: Patient diabetic homeless comes in for 2 days of nausea vomiting unable to eat anything solid no diarrhea diffuse abdominal pain no fever no chills feels weak and tired been checking his blood sugar less than 200 EMS checked the sugar was 128 no upper respiratory symptoms no alcohol abuse no substance abuse Related Data Home Medications Medication Instructions Recorded Confirmed atorvastatin 20 mg tablet 1 tab PO BEDTIME 05/15/21 05/27/21 baclofen 10 mg tablet 1 tab PO TID PRN muscle spasm 05/15/21 05/27/21 cholecalciferol (vitamin D3) 50 1 cap PO DAILY 05/15/21 05/27/21 mcg (2,000 unit) capsule dolutegravir 50 mg tablet (Tivicay) 1 tab PO DAILY 05/15/21 05/27/21 emtricitabine 200 mg-tenofovir 1 tab PO DAILY 05/15/21 05/27/21 alafenamide fumarate 25 mg tablet (Descovy) gabapentin 100 mg capsule 1 cap PO TID 05/15/21 05/27/21 glipizide 5 mg tablet 2 tab PO BID 05/15/21 05/27/21 insulin glargine 100 unit/mL (3 16 unit subcut DAILY 05/15/21 05/27/21 mL) subcutaneous pen (Lantus Solostar U-100 Insulin) metformin 500 mg tablet 2 tab PO BID 05/15/21 05/27/21 nystatin 100,000 unit/gram topical 1 appl topical TID PRN itch 05/15/21 05/27/21 cream Previous Rx's Medication Instructions Recorded ibuprofen 600 mg tablet 600 mg PO Q8H PRN fever or pain 05/17/21 #30 tabs bisacodyl 5 mg tablet,delayed 5 mg PO .COMPLEX 1 day #2 tabs 05/21/21 release (Dulcolax (bisacodyl)) amoxicillin 500 mg-potassium 1 tab PO Q8H #30 tabs 05/27/21 clavulanate 125 mg tablet oxycodone 5 mg tablet 5 mg PO Q6H PRN pain #15 tabs 05/27/21 diphenhydramine HCl 25 mg capsule 25 mg PO BEDTIME #10 caps 01/15/22 (Benadryl) fluticasone propionate 50 1 spray intranasal DAILY #16 grams 01/15/22 mcg/actuation nasal spray,suspension (Flonase Allergy Relief) ondansetron 4 mg disintegrating 4 mg PO Q6-8H PRN nausea and 05/08/23 tablet vomiting #7 tabs Allergies Allergy/AdvReac Type Severity Reaction Status Date / Time No Known Allergies Allergy Verified 05/08/23 18:35 Review of Systems Review of Systems: Yes all other systems are reviewed and are negative [facility] Past Medical History Medical History Personal history of nicotine dependence Diabetes Surgical History History of laparoscopic cholecystectomy (~2020) History of incisional hernia repair (~2014) History of umbilical hernia repair (~2008) History of appendectomy Social History Social History Household Members: None Housing Other:: patient states homeless Do you presently have visiting nurse or other home services: No Patient Tobacco Use Status: Current everyday Tobacco user Tobacco use type: Cigarette Cigarette Packs Per Day: 1 Cigarettes Per Day: 20.0 Years Smoked: 30 Smoked in Last 30 Days: Yes Use of substances other than those prescribed or required for medical reasons: No Substance Use Type: Marijuana Advance Directives: No Advance Directives Information Provided: No service: No Current occupational status: unemployed Physical Exam ED Vital Signs: Vital Signs - 24 hr 05/08/23 18:32 05/08/23 19:53 05/08/23 20:53 Temperature 97.6 F 98.1 F Pulse Rate 71 111 H 98 Respiratory Rate 18 22 H 16 Blood Pressure 177/77 H 166/82 H 166/79 H Pulse Oximetry 100 96 98 Oxygen Delivery Method Room Air Room Air Room Air BMI result Body Mass Index 30.8 Appearance: Alert. Oriented X3. No acute distress. Eyes: PERRLA, no pallor/icterus ENT: Pharynx normal. Oral Mucosa dry Neck: Normal inspection. Neck supple. CVS: Normal heart rate and rhythm. Pulses normal. Respiratory: No respiratory distress. Equal air entry bilateral, no wheezing/rales/rhonchi Abdomen: Soft, mildly diffuse tenderness no rebound tenderness or guarding Bowel sounds are present, no mass palpable, no CVA tenderness Skin: Skin warm and dry. Normal skin color. Normal skin turgor. Extremities: No lower extremity edema. No calf tenderness Neuro: Oriented X 3. No motor deficit. No sensory deficit.No cerebellar signs , cranial nerves II-XII intact Medications Administered Discontinued Medications Generic Name Dose Route Start Last Admin Trade Name Cjq PRN Reason Stop Dose Admin Sodium Chloride 1,000 mls @ 999 mls/hr 05/08/23 19:02 05/08/23 20:55 Ns IV 05/08/23 20:02 Infused .Q1H1M ONE Infusion Ondansetron HCl 4 mg 05/08/23 19:03 05/08/23 19:18 Ondansetron Hcl 4 Mg/2 Ml Vial IVPUSH 05/08/23 19:04 4 mg ONCE ONE Administration Medical Decision Making Medical Decision Making [facility] Narrative: Patient with Acute gastroenteritis taking p.o. fluids now feeling much better labs are stable discharge patient home Differential Diagnosis Differential Diagnoses: The differential diagnosis associated with the presentation includes Gastroenteritis/viral syndrome Lab Data [facility] Lab Attestation statement: I reviewed the patient's lab results. 05/08/23 19:17 05/08/23 19:17 Labs: Lab Results 05/08/23 05/08/23 Range/Units 19:10 19:17 WBC 13.2 H (4.8-10.8) X10*3/uL RBC 5.01 (4.60-5.80) X10*6/uL Hgb 16.3 (14.0-18.0) g/dl Hct 48.4 (42.0-52.0) % MCV 96.6 (80.0-98.0) fL MCH 32.5 (27.0-33.0) pg MCHC 33.7 (31.0-36.0) g/dl RDW 12.2 (11.0-16.0) % Plt Count 280 (160-400) X10*3/uL MPV 9.0 L (9.4-12.4) fL Immature Gran % (Auto) Cancelled Neut % (Auto) Cancelled Lymph % (Auto) Cancelled Rowan % (Auto) Cancelled Eos % (Auto) Cancelled Baso % (Auto) Cancelled Lymph # (Auto) Cancelled Rowan # (Auto) Cancelled Eos # (Auto) Cancelled Baso # (Auto) Cancelled Abs Immat Gran (auto) Cancelled Absolute Neuts (auto) Cancelled Absolute Nucleated RBC 0.000 (0.0-0.012) X10*3/uL Nucleated RBC % (auto) 0.0 (0.0-0.2) /100WBC Neutrophils % (Manual) 86 H (45-73) % Band Neutrophils % 0 L (3-5) % Lymphocytes % (Manual) 8 L (20-40) % Monocytes % (Manual) 6 (2-11) % Abs Neuts (Manual) 11.4 H (2.0-8.3) X10*3/uL Lymphocytes # (Manual) 1.1 L (1.2-4.9) X10*3/uL Monocytes # (Manual) 0.8 (0.1-1.2) X10*3/uL Platelet Estimate NORMAL (NORMAL) Plt Morphology Comment NORMAL RBC Morphology NORMAL Sodium 141 (135-145) mmol/L Potassium 3.6 (3.3-5.1) mmol/L Chloride 102 (96-108) mmol/L Carbon Dioxide 28 (22-29) mmol/L Anion Gap 15 (12-20) BUN 18 H (9-16) mg/dL Creatinine 0.98 (0.5-1.4) mg/dL Estim Creat Clear Calc 83.8 Estimated GFR > 60 POC Glucose 140 H (60-115) mg/dL Random Glucose 148 H (60-115) mg/dL Calcium 10.6 H D (8.4-10.2) mg/dL Total Bilirubin 0.8 (0.0-1.0) mg/dL AST 19 (5-37) U/L ALT 16 (0-40) U/L Alkaline Phosphatase 74 (39-117) U/L Total Protein 7.9 (6.5-8.0) g/dL Albumin 4.5 (3.5-5.0) g/dL Lipase 17 (8-78) U/L COVID-19 ([facility]) Negative (Negative) COVID-19 Clin Com See Note Discharge Plan Discharge Clinical Impression: Gastroenteritis Patient Disposition: Home, Self-Care Instructions: Gastroenteritis (ED) Additional Instructions: Drink plenty of fluid Medicine for nausea as prescribed Follow with PCP as needed Prescriptions: New ondansetron 4 mg tablet,disintegrating 4 mg PO Q6-8H PRN (Reason: nausea and vomiting) Qty: 7 0RF No Action bisacodyl [Dulcolax (bisacodyl)] 5 mg tablet,delayed release (DR/EC) 5 mg PO .COMPLEX 1 Days Qty: 2 0RF Rx Instructions: 5 mg PO Take one tablet for constipation. If no bowel movement after 4 hours, take another tablet.; metformin 500 mg tablet 2 tab PO BID atorvastatin 20 mg tablet 1 tab PO BEDTIME baclofen 10 mg tablet 1 tab PO TID PRN (Reason: muscle spasm) nystatin 100,000 unit/gram cream 1 appl topical TID PRN (Reason: itch) gabapentin 100 mg capsule 1 cap PO TID glipizide 5 mg tablet 2 tab PO BID Lantus Solostar U-100 Insulin 100 unit/mL (3 mL) insulin pen 16 unit subcut DAILY cholecalciferol (vitamin D3) 50 mcg (2,000 unit) capsule 1 cap PO DAILY Tivicay 50 mg tablet 1 tab PO DAILY Descovy 200-25 mg tablet 1 tab PO DAILY ibuprofen 600 mg tablet 600 mg PO Q8H PRN (Reason: fever or pain) Qty: 30 0RF diphenhydramine HCl [Benadryl] 25 mg capsule 25 mg PO BEDTIME Qty: 10 0RF fluticasone propionate [Flonase Allergy Relief] 50 mcg/actuation spray,suspension 1 spray intranasal DAILY Qty: 16 0RF Rx Instructions: administer into each nostril oxycodone 5 mg tablet 5 mg PO Q6H PRN (Reason: pain) Qty: 15 0RF amoxicillin-pot clavulanate 500-125 mg tablet 1 tab PO Q8H Qty: 30 0RF Interventions: ED Discharge Assessment Last Done: 05/08/23 22:32 Discharge Date/Time: 05/08/23 22:53
[2023-05-08 19:14] LABS: Glucose, Whole Blood 140 mg/dL (60-115)
[2023-05-08] MEDS: 0.9 % Sodium Chloride 1,000 ML 999 ML IV (19:18)
[2023-05-08] MEDS: ondansetron HCL 4 MG/2 ML VIAL IVPUSH (19:18)
[2023-05-08 19:23] LABS: Hematocrit 48.4 % (42.0-52.0); Hemoglobin 16.3 g/dl (14.0-18.0); Mean Corpuscular HGB Conc 33.7 g/dl (31.0-36.0); Mean Corpuscular Hemoglobin 32.5 pg (27.0-33.0); Mean Corpuscular Volume 96.6 fL (80.0-98.0); Platelet Count 280 X10*3/uL (160-400); Red Blood Count 5.01 X10*6/uL (4.60-5.80); Red Cell Distribution Width 12.2 % (11.0-16.0)
[2023-05-08 19:24] LABS: WBC ABN SCTR FOR CBC 1
[2023-05-08 19:42] LABS: Alanine Aminotransferase 16 U/L (0-40); Albumin Level 4.5 g/dL (3.5-5.0); Alkaline Phosphatase 74 U/L (39-117); Anion Gap 15 (12-20); Aspartate Amino Transferase 19 U/L (5-37); Bilirubin Total 0.8 mg/dL (0.0-1.0); Blood Urea Nitrogen 18 mg/dL (9-16); Calcium 10.6 mg/dL (8.4-10.2); Carbon Dioxide 28 mmol/L (22-29); Chloride 102 mmol/L (96-108); Creatinine Clr Calc Pharmacy 83.8; Estimated Glomerular Filt Rate > 60; Glucose Random 148 mg/dL (60-115); Lipase 17 U/L (8-78); Potassium 3.6 mmol/L (3.3-5.1); Sodium 141 mmol/L (135-145); Total Protein 7.9 g/dL (6.5-8.0)
[2023-05-08 19:53] VITALS: BP 166/82; PULSE 111; RESP 22; TEMP 36.7; O2SAT 96
[2023-05-08 19:53] LABS: Band Neutrophils Percent 0 % (3-5); Lymphocytes Percent Manual 8 % (20-40); Monocytes Percent Manual 6 % (2-11); Neutrophils Percent Manual 86 % (45-73)
[2023-05-08 19:55] LABS: Lymphocytes Absolute Manual 1.1 X10*3/uL (1.2-4.9); Monocytes Absolute Manual 0.8 X10*3/uL (0.1-1.2); Neutrophils Absolute Manual 11.4 X10*3/uL (2.0-8.3); Platelet Estimate NORMAL (NORMAL); Platelet Morphology Comment NORMAL; RBC Morphology NORMAL; White Blood Count 13.2 X10*3/uL (4.8-10.8)
[2023-05-08 20:00] LABS: IDNOW Serial# 08D9AD1C
[2023-05-08 20:01] LABS: COVID-19 Test Negative (Negative)
[2023-05-08 20:53] VITALS: BP 166/79; PULSE 98; RESP 16; O2SAT 98
--- NOTE | 2023-05-08 20:53 | PC.NURSE ---
patient provided with crackers and water for PO challenge
--- NOTE | 2023-05-08 22:32 | PC.NURSE ---
Patient verbalizes concern about discharge, feels he is not ready. This RN educated patient that all of his labs and imaging were clear and there was no clear etiology to his pain. Pt states he is homeless and just needs to sleep somewhere for the night. This RN educated patient that he cannot sleep here. Pts IV removed
== END 2023-05-08 22:53 | disposition home or self-care (01) ==
PROVIDERS: Emergency Provider Internal Medicine
DX: K52.9 Noninfective gastroenteritis and colitis, unspecified (principal); R11.2 Nausea with vomiting, unspecified; Z11.52 Encounter for screening for COVID-19; E11.9 Type 2 diabetes mellitus without complications; F17.210 Nicotine dependence, cigarettes, uncomplicated; F12.90 Cannabis use, unspecified, uncomplicated; Z79.02 Long term (current) use of antithrombotics/antiplatelets; Z79.4 Long term (current) use of insulin; Z79.899 Other long term (current) drug therapy
CPT/HCPCS: 80053; 82947; 83690; 85007; 85027; 87635; 96361; 96374; 99284; J2405

== ENCOUNTER 2023-07-02 12:43 | Outpatient (REF) | payer MEDICAID, SELFPAY ==
--- NOTE | ~2023-07-02 | XR_ITS ---
EXAMINATION: XR HIP, LEFT CLINICAL INFORMATION: Left hip pain for months COMPARISON: None available. TECHNIQUE: Two views of the left hip. FINDINGS: There is loss of left hip joint space with mild periarticular spurring. No bony erosive changes or loose body seen. No visible acute fracture or dislocation. The soft tissues are normal. XR/XR hip LT min 2V IMPRESSION: Mild degenerative changes left hip joint. No visible acute fracture or dislocation seen.
[2023-07-02 16:19] LABS: MANUAL DIFF FLAG NO
[2023-07-02 16:24] LABS: Basophils Absolute Auto 0.1 X10*3/uL (0.0-0.2); Basophils Percent Auto 0.6 % (0-2); Eosinophils Percent Auto 0.5 % (0-4); Hematocrit 46.9 % (42.0-52.0); Hemoglobin 15.4 g/dl (14.0-18.0); Imm Gran Abs Auto 0.04 X10*3/uL (0.00-0.03); Imm Gran Pct Auto 0.5 % (0.0-0.4); Lymphocytes Absolute Auto 2.5 X10*3/uL (1.2-4.9); Lymphocytes Percent Auto 30.2 % (20-40); Mean Corpuscular HGB Conc 32.8 g/dl (31.0-36.0); Mean Corpuscular Hemoglobin 33.1 pg (27.0-33.0); Mean Corpuscular Volume 100.9 fL (80.0-98.0); Mean Platelet Volume 10.3 fL (9.4-12.4); Monocytes Absolute Auto 0.9 X10*3/uL (0.1-1.2); Monocytes Percent Auto 10.3 % (2-11); Neutrophils Absolute Auto 4.8 x10*3/uL (2.0-8.3); Neutrophils Percent Auto 57.9 % (45-73); Platelet Count 284 X10*3/uL (160-400); Red Blood Count 4.65 X10*6/uL (4.60-5.80); Red Cell Distribution Width 12.2 % (11.0-16.0); White Blood Count 8.3 X10*3/uL (4.8-10.8)
[2023-07-02 16:44] LABS: Alanine Aminotransferase 14 U/L (0-40); Albumin Level 4.2 g/dL (3.5-5.0); Alkaline Phosphatase 69 U/L (39-117); Anion Gap 15 (12-20); Aspartate Amino Transferase 16 U/L (5-37); Bilirubin Total 0.8 mg/dL (0.0-1.0); Blood Urea Nitrogen 15 mg/dL (9-16); Calcium 9.8 mg/dL (8.4-10.2); Carbon Dioxide 24 mmol/L (22-29); Chloride 105 mmol/L (96-108); Estimated Glomerular Filt Rate > 60; Glucose Random 130 mg/dL (60-115); Potassium 3.9 mmol/L (3.3-5.1); Sodium 140 mmol/L (135-145); Total Protein 7.2 g/dL (6.5-8.0)
[2023-07-02 16:51] LABS: Amylase 123 U/L (28-100)
[2023-07-05 04:03] LABS: HBS Num1 2.03 mIU/mL (0-7.99); HBc Num1 0.29 S/CO (0.00-0.79); HBsAGNum1 0.31 S/CO (0.00-0.99); Hepatitis A Antibody IgM 0.13 Index (0-0.79); Hepatitis B Core Antibody Nonreactive (Nonreactive); Hepatitis B Surface Antigen Negative (Negative); ~Hepatitis A Antibody IgM Nonreactive (Nonreactive); ~Hepatitis B Surface Antibody NONREACTIVE (Nonreactive); ~Hepatitis C Antibody Nonreactive (Nonreactive)
== END 2023-07-02 12:44 | disposition home or self-care (01) ==
LOC: HO.HHCL 12:43
PROVIDERS: Visit Provider Emergency Medicine
DX: M25.552 Pain in left hip (principal); R11.10 Vomiting, unspecified
CPT/HCPCS: 36415; 73502; 80053; 82150; 85025; 86704; 86706; 86709; 86803; 87340

== ENCOUNTER 2024-02-23 16:11 | Emergency (ER) | payer MEDICAID, SELFPAY ==
--- NOTE | ~2024-02-23 | XR_ITS ---
EXAMINATION: XR CHEST CLINICAL INFORMATION: Chest pain COMPARISON: None available. TECHNIQUE: 2 views of the chest were obtained. FINDINGS: No significant abnormality is noted involving the heart, lungs, mediastinum, bony thorax or soft tissues. XR/XR chest 2V IMPRESSION: Unremarkable examination. Electronically signed by: León Benjamin MD 02/23/2024 05:55 PM EDT RP
--- NOTE | ~2024-02-23 | CT_ITS ---
EXAMINATION: CT ABDOMEN AND PELVIS WITH CONTRAST CLINICAL INFORMATION: Abdominal pain. Nausea and vomiting. COMPARISON: May 20, 2021 TECHNIQUE: Multidetector volumetric images were obtained from the superior aspect of the liver through the pubic symphysis following administration 85 mL of Omnipaque 350 intravenous contrast. Sagittal and coronal reformatted images were obtained on the technologist's workstation. Oral contrast: No This CT examination was performed using dose optimization techniques as appropriate, variously including the following: *Automated exposure control *Adjustment of mA and/or kV according to patient size (this includes techniques or standardized protocols for targeted exams where dose is matched to indication/reason for exam; i.e. extremities or head) *Use of iterative reconstruction technique DLP: 735 mGy-cm FINDINGS: LUNG BASES: The visualized lung bases are unremarkable. LIVER, GALLBLADDER, AND BILIARY TREE: The liver is normal in size, shape, and attenuation. No focal hepatic lesion or biliary ductal dilatation is present. There has been a prior cholecystectomy. PANCREAS: Unremarkable. SPLEEN: Unremarkable. ADRENAL GLANDS: Unremarkable. KIDNEYS AND URETERS: The kidneys are normal in size, shape, and attenuation. No hydronephrosis, hydroureter, or calculi seen. No perinephric stranding. BLADDER: Unremarkable. GASTROINTESTINAL TRACT: The small and large bowel are unremarkable. The appendix is not seen. There is moderate thickening of the visualized distal esophagus. ABDOMINAL WALL: No significant hernia is appreciated. LYMPH NODES: Normal. VASCULAR: There is atherosclerotic plaque of the abdominal aorta. PELVIC VISCERA: The prostate gland is mildly enlarged. OSSEOUS STRUCTURES: There is diffuse mild thoracolumbar degenerative change. There is bilateral hip degenerative change. CT/CT abdomen pelvis w IV con IMPRESSION: 1. There is moderate thickening of the visualized distal esophagus. This could be seen with esophagitis. 2. There is no bowel obstruction. 3. There has been a prior cholecystectomy. 4. There is diffuse mild thoracolumbar degenerative change. There is bilateral hip degenerative change. Fleischner guidelines were followed. Electronically signed by: Zoltan Rubio MD 02/24/2024 12:07 AM EDT
[2024-02-23 16:19] VITALS: BP 140/72; PULSE 121; O2SAT 97
--- NOTE | 2024-02-23 16:29 | ED.GENADULT ---
HPI - General Adult General Chief complaint: General Medical Stated complaint: vomiting since last night, l arm pain Time Seen by Provider: 02/23/24 22:37 Source: patient Mode of arrival: ambulatory Limitations: no limitations History of Present Illness ED Provider: Dr. Cralene Cullen HPI narrative: Patient comes to the emergency room complaining of abdominal pain that started approximately 22 hours ago. Patient states that he has been having diffuse abdominal pain, nausea and vomiting, no diarrhea. Related Data Home Medications ?Medication ?Instructions ?Recorded ?Confirmed atorvastatin 20 mg tablet 1 tab PO BEDTIME 05/15/21 05/27/21 baclofen 10 mg tablet 1 tab PO TID PRN muscle spasm 05/15/21 05/27/21 cholecalciferol (vitamin D3) 50 1 cap PO DAILY 05/15/21 05/27/21 mcg (2,000 unit) capsule dolutegravir 50 mg tablet (Tivicay) 1 tab PO DAILY 05/15/21 05/27/21 emtricitabine 200 mg-tenofovir 1 tab PO DAILY 05/15/21 05/27/21 alafenamide fumarate 25 mg tablet (Descovy) gabapentin 100 mg capsule 1 cap PO TID 05/15/21 05/27/21 glipizide 5 mg tablet 2 tab PO BID 05/15/21 05/27/21 insulin glargine 100 unit/mL (3 16 unit subcut DAILY 05/15/21 05/27/21 mL) subcutaneous pen (Lantus Solostar U-100 Insulin) metformin 500 mg tablet 2 tab PO BID 05/15/21 05/27/21 nystatin 100,000 unit/gram topical 1 appl topical TID PRN itch 05/15/21 05/27/21 cream Previous Rx's ?Medication ?Instructions ?Recorded ibuprofen 600 mg tablet 600 mg PO Q8H PRN fever or pain 05/17/21 #30 tabs bisacodyl 5 mg tablet,delayed 5 mg PO .COMPLEX 1 day #2 tabs 05/21/21 release (Dulcolax (bisacodyl)) amoxicillin 500 mg-potassium 1 tab PO Q8H #30 tabs 05/27/21 clavulanate 125 mg tablet oxycodone 5 mg tablet 5 mg PO Q6H PRN pain #15 tabs 05/27/21 diphenhydramine HCl 25 mg capsule 25 mg PO BEDTIME #10 caps 01/15/22 (Benadryl) fluticasone propionate 50 1 spray intranasal DAILY #16 grams 01/15/22 mcg/actuation nasal spray,suspension (Flonase Allergy Relief) ondansetron 4 mg disintegrating 4 mg PO Q6-8H PRN nausea and 05/08/23 tablet vomiting #7 tabs omeprazole 40 mg capsule,delayed 40 mg PO DAILY #30 caps 02/24/24 release Allergies Allergy/AdvReac Type Severity Reaction Status Date / Time No Known Allergies Allergy Verified 02/23/24 16:35 Review of Systems Review of Systems: Constitutional : No Weight loss, No Fever, No Chills, No Night Sweats, No Fatigue, No Malaise ENT/Mouth : No Hearing loss, No Ear Pain, No Nasal Congestion, No Sinus Pain, No Hoarseness, No sore throat, No Rhinorrhea, No Swallowing Difficulty Eyes: No Eye Pain, No Swelling, No Redness, No Foreign Body, No Discharge, No Vision Changes Cardiovascular : No Chest Pain, No SOB, No Dyspnea on Exertion, No Orthopnea, No Edema, No Palpitations Respiratory : No Cough, No Sputum, No Wheezing, No Smoke Exposure, No Dyspnea Gastrointestinal : Complaining of nausea vomiting, no diarrhea, complaining of diffuse abdominal pain Genitourinary : no irregular bleeding, No Dysuria, No Urinary Frequency, No Hematuria, No Urinary Incontinence, No Urgency, No Flank Pain, No Urinary Flow Changes, No Hesitancy Musculoskeletal : No joint pain, No Myalgias, No Joint Swelling Skin : No Skin Lesions, No rash Neuro : No Weakness, No Numbness, No Paresthesias, No Loss of Consciousness, No Dizziness, No Headache Psych : No Anxiety/Panic, No Depression, No SI/HI/AH/VH, No Social Issues, Heme/Lymph: No Bruising, No Bleeding,No Lymphadenopathy Endocrine : No Polyuria, No Polydipsia, No Temperature Intolerance [facility] Past Medical History Medical History Personal history of nicotine dependence Diabetes Surgical History History of laparoscopic cholecystectomy (~2020) History of incisional hernia repair (~2014) History of umbilical hernia repair (~2008) History of appendectomy Social History Social History (System 07/02/23 @ 13:07 by Miguelina Castro) Household Members: None Housing Other:: patient states homeless Do you presently have visiting nurse or other home services: No Patient Tobacco Use Status: Current everyday Tobacco user Tobacco use type: Cigarette Cigarette Packs Per Day: 1 Cigarettes Per Day: 20.0 Years Smoked: 30 Smoked in Last 30 Days: Yes Use of substances other than those prescribed or required for medical reasons: No Substance Use Type: Marijuana Advance Directives: No Advance Directives Information Provided: No service: No Current occupational status: unemployed Physical Exam ED Vital Signs: Vital Signs - 24 hr 02/23/24 16:32 02/24/24 00:18 Temperature 98.3 F 98.3 F Pulse Rate 105 H 88 Respiratory Rate 20 20 Blood Pressure 148/80 H 134/72 Pulse Oximetry 99 97 Oxygen Delivery Method Room Air Room Air BMI result Body Mass Index 31.6 Const Other: Appearance: Alert. it is uncomfortable, actively vomiting. Eyes: Pupils equal, round and reactive to light. ENT: Pharynx normal. Neck: Normal inspection. Neck supple. No lymph nodes noted. No crepitus CVS: Normal heart rate and rhythm. Pulses normal. Normal S1 and S2 Respiratory: No respiratory distress. Breath sounds normal. No Wheezing. No rales Abdomen: Soft , diffuse tenderness to palpation Skin: Skin warm and dry. Normal skin color. Normal skin turgor. Extremities: No lower extremity edema. No Lacerations. No Rash . Patient has left arm pain within normal limits, normal range of motion, no signs of cellulitis. No swelling. Complaining to palpation on the lateral aspect of the arm. Patient states the pain has been present for over a week. Neuro: Oriented X 3. No motor deficit. No sensory deficit. Moving all extremities. No slurred speech. CN 2 through 12 grossly intact Psych: Yelling, crying, belligerent Course Course Course Narrative: This is a rapid medical exam performed by Aida Zapata NP: Additional HPI, ROS, PE not included below will be deferred to primary provider. Patient is a 58-year-old male with history of DM, HTN, HLD presenting to the ED via EMS with complaint of nausea and vomiting. Attempted to triage patient, but he stated that he needs to lay down and walked out of triage office. Patient later returned to triage office complaining of dehydration, 10/10 left arm pain. Plan: viral swabs, labs, EKG Medications Administered Discontinued Medications Generic Name Dose Route Start Last Admin Trade Name Jason PRN Reason Stop Dose Admin Famotidine 20 mg 02/24/24 00:11 02/24/24 00:40 Famotidine/Pf 20 Mg/2 Ml Vial IVPUSH 02/24/24 00:12 20 mg ONCE ONE Administration Sodium Chloride 1,000 mls @ 999 mls/hr 02/23/24 22:43 02/24/24 01:14 Ns IVCONT 02/23/24 23:43 Infused .Q1H1M ONE Infusion Magnesium Sulfate/Dextrose 1 gm in 100 mls @ 100 mls/hr 02/23/24 23:26 02/24/24 01:40 Magnesium Sulfate/D5w IV 02/24/24 00:25 Infused ONCE ONE Infusion Iohexol 85 ml 02/23/24 23:44 02/23/24 23:47 Iohexol 350 Mg/Ml 100 Ml Infus..Btl IV 02/23/24 23:45 85 ml ONCE ONE Administration Lorazepam 2 mg 02/23/24 22:50 02/23/24 23:13 Lorazepam 2 Mg/Ml Vial IVPUSH 02/23/24 22:51 2 mg ONCE ONE Administration Morphine Sulfate 4 mg 02/23/24 22:43 02/23/24 23:13 Morphine Sulfate 4 Mg/Ml Cartridge IVPUSH 02/23/24 22:44 4 mg ONCE ONE Administration Protocol Ondansetron HCl 4 mg 02/23/24 19:05 02/23/24 19:17 Ondansetron Odt 4 Mg Tab.Rapdis TRANSLINGU 02/23/24 19:06 4 mg ONCE ONE Administration Ondansetron HCl 4 mg 02/23/24 22:43 02/23/24 23:13 Ondansetron Hcl 4 Mg/2 Ml Vial IVPUSH 02/23/24 22:44 4 mg ONCE ONE Administration Medical Decision Making Medical Decision Making [facility] Narrative: my interpretation of EKG: Sinus rhythm with marked arrhythmia, heart rate 90, no ST segment depression or elevation, no T-wave inversion, QTC 415 - patient's white blood cell count 18.2, no significant electrolyte abnormality, LFTs normal, magnesium slightly decreased 1.5, serology negative for influenza RSV COVID and strep - patient looks very uncomfortable, receiving IV fluids, Zofran, morphine in 2 mg of IV Ativan for severe anxiety - my interpretation of CT scan, no obvious small bowel obstruction, no obvious pathology for patient's symptoms. - patient's CT scan of the abdomen: possible esophagitis - since patient received IV fluids and medication, patient feeling better. No longer vomiting. - Upon discharge, patient complaining of chronic arthritis pain. Patient complaining of chronic left hand pain from playing handball, complaining of left shoulder pain from previous falls months ago. Complaining that he had stitches done in his palm of the hand several months ago and now that same area is hurting and it is pain medication to alleviate the pain. Patient was offered acetaminophen. Patient states that he will not take acetaminophen , states that he needs something stronger and will not take anything else. I discussed with the patient that narcotics are not indicated for chronic arthritis pain. Patient upset - patient instructed to follow-up with his primary care physician. Differential Diagnosis Differential Diagnoses: The differential diagnosis associated with the presentation includes ( small-bowel obstruction, choledocholithiasis, bowel perforation , esophagitis, peptic ulcer disease) Admission/Observation Consideration of admission/observation: Escalation of care including admission/observation considered Lab Data MDM Lab Attestation statement: I reviewed the patient's lab results. 02/23/24 17:08 02/23/24 17:08 Labs: Lab Results 02/23/24 02/23/24 02/23/24 Range/Units 17:03 17:04 17:08 WBC 18.2 H (4.8-10.8) X10*3/uL RBC 5.15 (4.60-5.80) X10*6/uL Hgb 16.5 (14.0-18.0) g/dl Hct 46.9 (42.0-52.0) % MCV 91.1 (80.0-98.0) fL MCH 32.0 (27.0-33.0) pg MCHC 35.2 (31.0-36.0) g/dl RDW 11.9 (11.0-16.0) % Plt Count 287 (160-400) X10*3/uL MPV 9.5 (9.4-12.4) fL Immature Gran % (Auto) 0.6 H (0.0-0.4) % Neut % (Auto) 83.8 H (45-73) % Lymph % (Auto) 9.2 L (20-40) % Williamson % (Auto) 6.1 (2-11) % Eos % (Auto) 0.1 (0-4) % Baso % (Auto) 0.2 (0-2) % Lymph # (Auto) 1.7 (1.2-4.9) X10*3/uL Williamson # (Auto) 1.1 (0.1-1.2) X10*3/uL Eos # (Auto) 0.0 (0.0-0.4) X10*3/uL Baso # (Auto) 0.0 (0.0-0.2) X10*3/uL Abs Immat Gran (auto) 0.11 H (0.00-0.03) X10*3/uL Absolute Neuts (auto) 15.3 H (2.0-8.3) x10*3/uL Absolute Nucleated RBC 0.000 (0.0-0.012) X10*3/uL Nucleated RBC % (auto) 0.0 (0.0-0.2) /100WBC Sodium 139 (135-145) mmol/L Potassium 3.6 (3.3-5.1) mmol/L Chloride 106 (96-108) mmol/L Carbon Dioxide 21 L (22-29) mmol/L Anion Gap 16 (12-20) BUN 17 H (9-16) mg/dL Creatinine 0.86 (0.5-1.4) mg/dL Estim Creat Clear Calc 95.6 Estimated GFR > 60 POC Glucose (60-115) mg/dL Random Glucose 178 H (60-115) mg/dL Calcium 10.3 H (8.4-10.2) mg/dL Magnesium 1.5 L (1.6-2.6) mg/dL Total Bilirubin 0.7 (0.0-1.0) mg/dL AST 16 (5-37) U/L ALT 17 (0-40) U/L Alkaline Phosphatase 73 (39-117) U/L Troponin I High Sens < 2.7 (<3.5-35.0) ng/L Total Protein 8.4 H (6.5-8.0) g/dL Albumin 4.4 (3.5-5.0) g/dL Beta-Hydroxybutyrate 0.19 (0.02-0.27) mmol/L Influenza Type A (PCR) NEGATIVE (Negative) Influenza Type B (PCR) NEGATIVE (Negative) RSV RNA Qual (PCR) NEGATIVE (Negative) SARS-CoV-2 RNA (RT-PCR) NEGATIVE (Negative) S. pyogenes GrpA STEPHEN Negative (Negative) 02/23/24 Range/Units 19:14 WBC (4.8-10.8) X10*3/uL RBC (4.60-5.80) X10*6/uL Hgb (14.0-18.0) g/dl Hct (42.0-52.0) % MCV (80.0-98.0) fL MCH (27.0-33.0) pg MCHC (31.0-36.0) g/dl RDW (11.0-16.0) % Plt Count (160-400) X10*3/uL MPV (9.4-12.4) fL Immature Gran % (Auto) (0.0-0.4) % Neut % (Auto) (45-73) % Lymph % (Auto) (20-40) % Williamson % (Auto) (2-11) % Eos % (Auto) (0-4) % Baso % (Auto) (0-2) % Lymph # (Auto) (1.2-4.9) X10*3/uL Williamson # (Auto) (0.1-1.2) X10*3/uL Eos # (Auto) (0.0-0.4) X10*3/uL Baso # (Auto) (0.0-0.2) X10*3/uL Abs Immat Gran (auto) (0.00-0.03) X10*3/uL Absolute Neuts (auto) (2.0-8.3) x10*3/uL Absolute Nucleated RBC (0.0-0.012) X10*3/uL Nucleated RBC % (auto) (0.0-0.2) /100WBC Sodium (135-145) mmol/L Potassium (3.3-5.1) mmol/L Chloride (96-108) mmol/L Carbon Dioxide (22-29) mmol/L Anion Gap (12-20) BUN (9-16) mg/dL Creatinine (0.5-1.4) mg/dL Estim Creat Clear Calc Estimated GFR POC Glucose 132 H (60-115) mg/dL Random Glucose (60-115) mg/dL Calcium (8.4-10.2) mg/dL Magnesium (1.6-2.6) mg/dL Total Bilirubin (0.0-1.0) mg/dL AST (5-37) U/L ALT (0-40) U/L Alkaline Phosphatase (39-117) U/L Troponin I High Sens (<3.5-35.0) ng/L Total Protein (6.5-8.0) g/dL Albumin (3.5-5.0) g/dL Beta-Hydroxybutyrate (0.02-0.27) mmol/L Influenza Type A (PCR) (Negative) Influenza Type B (PCR) (Negative) RSV RNA Qual (PCR) (Negative) SARS-CoV-2 RNA (RT-PCR) (Negative) S. pyogenes GrpA STEPHEN (Negative) Independent Interpretation I performed an independent interpretation of an: CT Scan Radiology Impression Discussion of test interpretation with radiology: I have reviewed the radiologist's reading. Radiologist Impression: FINDINGS: LUNG BASES: The visualized lung bases are unremarkable. LIVER, GALLBLADDER, AND BILIARY TREE: The liver is normal in size, shape, and attenuation. No focal hepatic lesion or biliary ductal dilatation is present. There has been a prior cholecystectomy. PANCREAS: Unremarkable. SPLEEN: Unremarkable. ADRENAL GLANDS: Unremarkable. KIDNEYS AND URETERS: The kidneys are normal in size, shape, and attenuation. No hydronephrosis, hydroureter, or calculi seen. No perinephric stranding. BLADDER: Unremarkable. GASTROINTESTINAL TRACT: The small and large bowel are unremarkable. The appendix is not seen. There is moderate thickening of the visualized distal esophagus. ABDOMINAL WALL: No significant hernia is appreciated. LYMPH NODES: Normal. VASCULAR: There is atherosclerotic plaque of the abdominal aorta. PELVIC VISCERA: The prostate gland is mildly enlarged. OSSEOUS STRUCTURES: There is diffuse mild thoracolumbar degenerative change. There is bilateral hip degenerative change. CT/CT abdomen pelvis w IV con IMPRESSION: 1. There is moderate thickening of the visualized distal esophagus. This could be seen with esophagitis. 2. There is no bowel obstruction. 3. There has been a prior cholecystectomy. 4. There is diffuse mild thoracolumbar degenerative change. There is bilateral hip degenerative change. Critical Care Time Critical Care Time Critical Care Time: Yes Total Critical Care Time: 60 Attestation: I have personally provided critical care time. Time includes review of lab data, radiology results, discussion with consultants, and monitoring for potential decompensation. Intervention performed as documented. Discharge Plan Discharge Clinical Impression: Nausea & vomiting, Esophagitis Patient Disposition: Home, Self-Care Instructions: Acute Abdominal Pain (ED), Esophagitis (ED) Additional Instructions: Please follow-up with your primary care physician tomorrow. If you have any worsening or new symptoms, please return to the emergency room or call 911 Prescriptions: New omeprazole 40 mg capsule,delayed release(DR/EC) 40 mg PO DAILY Qty: 30 2RF No Action bisacodyl [Dulcolax (bisacodyl)] 5 mg tablet,delayed release (DR/EC) 5 mg PO .COMPLEX 1 Days Qty: 2 0RF Rx Instructions: 5 mg PO Take one tablet for constipation. If no bowel movement after 4 hours, take another tablet.; metformin 500 mg tablet 2 tab PO BID atorvastatin 20 mg tablet 1 tab PO BEDTIME baclofen 10 mg tablet 1 tab PO TID PRN (Reason: muscle spasm) nystatin 100,000 unit/gram cream 1 appl topical TID PRN (Reason: itch) gabapentin 100 mg capsule 1 cap PO TID glipizide 5 mg tablet 2 tab PO BID Lantus Solostar U-100 Insulin 100 unit/mL (3 mL) insulin pen 16 unit subcut DAILY cholecalciferol (vitamin D3) 50 mcg (2,000 unit) capsule 1 cap PO DAILY Tivicay 50 mg tablet 1 tab PO DAILY Descovy 200-25 mg tablet 1 tab PO DAILY ibuprofen 600 mg tablet 600 mg PO Q8H PRN (Reason: fever or pain) Qty: 30 0RF diphenhydramine HCl [Benadryl] 25 mg capsule 25 mg PO BEDTIME Qty: 10 0RF fluticasone propionate [Flonase Allergy Relief] 50 mcg/actuation spray,suspension 1 spray intranasal DAILY Qty: 16 0RF Rx Instructions: administer into each nostril ondansetron 4 mg tablet,disintegrating 4 mg PO Q6-8H PRN (Reason: nausea and vomiting) Qty: 7 0RF oxycodone 5 mg tablet 5 mg PO Q6H PRN (Reason: pain) Qty: 15 0RF amoxicillin-pot clavulanate 500-125 mg tablet 1 tab PO Q8H Qty: 30 0RF Print Language: Chadian
[2024-02-23 16:32] VITALS: BP 148/80; PULSE 105; RESP 20; TEMP 36.8; O2SAT 99; BMI 31.6
--- NOTE | 2024-02-23 16:34 | ECG_ITS ---
Test Reason : CHEST PAIN Blood Pressure : / mmHG Vent. Rate : 090 BPM Atrial Rate : 090 BPM P-R Int : 124 ms QRS Dur : 084 ms QT Int : 340 ms P-R-T Axes : 058 -52 037 degrees QTc Int : 415 ms Sinus rhythm with marked sinus arrhythmia Left axis deviation Abnormal ECG When compared with ECG of 20-APR-2018 22:59, No significant change was found Referred By: Radhika Zapata Electronically Signed By:JEAN MARIE DAMON
[2024-02-23 17:13] LABS: MANUAL DIFF FLAG NO
[2024-02-23 17:21] LABS: IDNOW Serial# 58CA691E; Strep A Nucleic Acid Negative (Negative)
[2024-02-23 17:23] LABS: Basophils Percent Auto 0.2 % (0-2); Eosinophils Percent Auto 0.1 % (0-4); Hematocrit 46.9 % (42.0-52.0); Hemoglobin 16.5 g/dl (14.0-18.0); Imm Gran Abs Auto 0.11 X10*3/uL (0.00-0.03); Imm Gran Pct Auto 0.6 % (0.0-0.4); Lymphocytes Absolute Auto 1.7 X10*3/uL (1.2-4.9); Lymphocytes Percent Auto 9.2 % (20-40); Mean Corpuscular HGB Conc 35.2 g/dl (31.0-36.0); Mean Corpuscular Volume 91.1 fL (80.0-98.0); Mean Platelet Volume 9.5 fL (9.4-12.4); Monocytes Absolute Auto 1.1 X10*3/uL (0.1-1.2); Monocytes Percent Auto 6.1 % (2-11); Neutrophils Absolute Auto 15.3 x10*3/uL (2.0-8.3); Neutrophils Percent Auto 83.8 % (45-73); Platelet Count 287 X10*3/uL (160-400); Red Blood Count 5.15 X10*6/uL (4.60-5.80); Red Cell Distribution Width 11.9 % (11.0-16.0); White Blood Count 18.2 X10*3/uL (4.8-10.8)
[2024-02-23 17:35] LABS: Alanine Aminotransferase 17 U/L (0-40); Albumin Level 4.4 g/dL (3.5-5.0); Alkaline Phosphatase 73 U/L (39-117); Anion Gap 16 (12-20); Aspartate Amino Transferase 16 U/L (5-37); Beta-Hydroxybutyrate 0.19 mmol/L (0.02-0.27); Bilirubin Total 0.7 mg/dL (0.0-1.0); Blood Urea Nitrogen 17 mg/dL (9-16); Calcium 10.3 mg/dL (8.4-10.2); Carbon Dioxide 21 mmol/L (22-29); Chloride 106 mmol/L (96-108); Creatinine Clr Calc Pharmacy 95.6; Estimated Glomerular Filt Rate > 60; Glucose Random 178 mg/dL (60-115); Magnesium 1.5 mg/dL (1.6-2.6); Potassium 3.6 mmol/L (3.3-5.1); Sodium 139 mmol/L (135-145); Total Protein 8.4 g/dL (6.5-8.0)
[2024-02-23 17:55] LABS: Troponin-I High Sensitivity < 2.7 ng/L (<3.5-35.0)
[2024-02-23 17:55] LABS: Influenza A PCR NEGATIVE (Negative); Influenza B PCR NEGATIVE (Negative); Resp Syncy Virus RNA Qual PCR NEGATIVE (Negative); SARS COV2 PCR INHOUSE NEGATIVE (Negative)
[2024-02-23] MEDS: Ondansetron ODT 4 MG TAB.RAPDIS TRANSLINGU (19:17)
[2024-02-23 19:19] LABS: Glucose, Whole Blood 132 mg/dL (60-115)
--- NOTE | 2024-02-23 19:29 | PC.NURSE ---
Pt medicated with Zofran sublingual 4mg. Vomited 200mL thin brown colored emesis into bag.
[2024-02-23] MEDS: 0.9 % Sodium Chloride 1,000 ML 999 ML IVCONT (23:13)
[2024-02-23] MEDS: LORazepam 2 MG/ML VIAL IVPUSH (23:13)
[2024-02-23] MEDS: Morphine Sulfate 4 MG/ML CARTRIDGE IVPUSH (23:13)
[2024-02-23] MEDS: ondansetron HCL 4 MG/2 ML VIAL IVPUSH (23:13)
--- NOTE | 2024-02-23 23:26 | PC.NURSE ---
at 2300, pt from brijesh, assume care of pt at this time
[2024-02-23] MEDS: iohexoL 350 MG/ML 100 ML INFUS..BTL 85 ML IV (23:47)
[2024-02-24 00:18] VITALS: BP 134/72; PULSE 88; RESP 20; TEMP 36.8; O2SAT 97
[2024-02-24] MEDS: Magnesium Sulfate/D5W 1 GM/100 ML PIGGYBACK IV (00:40)
[2024-02-24] MEDS: Famotidine/PF 20 MG/2 ML VIAL IVPUSH (00:40)
[2024-02-24 01:57] LABS: Lipase 18 U/L (8-78)
[2024-02-24] MEDS: Acetaminophen 325 MG TABLET 975 MG PO (02:06)
[2024-02-24] MEDS: Lidocaine HCl Viscous 2 % 15 ML SOLUTION MUCOUS MEM (02:06)
[2024-02-24] MEDS: Magnesium Hydrox/Alum Hydrox 30 ML ORAL.SUSP PO (02:06)
[2024-02-24 02:13] VITALS: BP 128/68; PULSE 88; RESP 16; TEMP 36.9; O2SAT 97
== END 2024-02-24 02:17 | disposition home or self-care (01) ==
PROVIDERS: Registered Nurse Emergency; Emergency Provider Emergency Medicine
DX: K20.90 Esophagitis, unspecified without bleeding (principal); R11.2 Nausea with vomiting, unspecified; R07.89 Other chest pain; I49.8 Other specified cardiac arrhythmias; F17.210 Nicotine dependence, cigarettes, uncomplicated; Z03.818 Encounter for observation for suspected exposure to other biological agents ruled out; Z79.4 Long term (current) use of insulin; Z79.899 Other long term (current) drug therapy
CPT/HCPCS: 0241U; 36415; 71046; 74177; 80053; 82010; 82947; 83690; 83735; 84484; 85025; 87651; 93005; 96361; 96374; 96375; 99285; J2060; J2270; J2405; J3475; Q9967

== ENCOUNTER 2024-05-11 21:52 | Emergency (ER) | payer MEDICAID, SELFPAY ==
[2024-05-11 21:58] VITALS: BP 100/53; BP 198/90; PULSE 88; PULSE 95; RESP 17; TEMP 37.1; O2SAT 97; O2SAT 98; BMI 32.5
--- NOTE | 2024-05-11 22:10 | PC.NURSE ---
pt biba from the street, a&ox4, respirations even and unlabored. reporting his legs gave out and reports grabbing onto his bike and pulling his arm. pt reporting left arm pain, left back pain and left hip pain. pt reports he has been homeless for 5 years and reports he often walks a lot. pt denies loc, thinners and head strike.
--- NOTE | 2024-05-11 22:11 | ED.FALL ---
HPI - Fall General Chief Complaint: Fall Stated Complaint: legs gave out, pinching pain in L arm Time Seen by Provider: 05/11/24 22:03 Source: patient Mode of arrival: EMS Limitations: no limitations History of Present Illness ED Provider: HPI Narrative: Patient homeless for 5 years comes here for multiple complaints says that he almost fell in his legs gave out started falling grabbed the bike complaining of pain in the left hip and left arm Related Data Home Medications ?Medication ?Instructions ?Recorded ?Confirmed atorvastatin 20 mg tablet 1 tab PO BEDTIME 05/15/21 05/27/21 baclofen 10 mg tablet 1 tab PO TID PRN muscle spasm 05/15/21 05/27/21 cholecalciferol (vitamin D3) 50 1 cap PO DAILY 05/15/21 05/27/21 mcg (2,000 unit) capsule dolutegravir 50 mg tablet (Tivicay) 1 tab PO DAILY 05/15/21 05/27/21 emtricitabine 200 mg-tenofovir 1 tab PO DAILY 05/15/21 05/27/21 alafenamide fumarate 25 mg tablet (Descovy) gabapentin 100 mg capsule 1 cap PO TID 05/15/21 05/27/21 glipizide 5 mg tablet 2 tab PO BID 05/15/21 05/27/21 insulin glargine 100 unit/mL (3 16 unit subcut DAILY 05/15/21 05/27/21 mL) subcutaneous pen (Lantus Solostar U-100 Insulin) metformin 500 mg tablet 2 tab PO BID 05/15/21 05/27/21 nystatin 100,000 unit/gram topical 1 appl topical TID PRN itch 05/15/21 05/27/21 cream Previous Rx's ?Medication ?Instructions ?Recorded ibuprofen 600 mg tablet 600 mg PO Q8H PRN fever or pain 05/17/21 #30 tabs bisacodyl 5 mg tablet,delayed 5 mg PO .COMPLEX 1 day #2 tabs 05/21/21 release (Dulcolax (bisacodyl)) amoxicillin 500 mg-potassium 1 tab PO Q8H #30 tabs 05/27/21 clavulanate 125 mg tablet oxycodone 5 mg tablet 5 mg PO Q6H PRN pain #15 tabs 05/27/21 diphenhydramine HCl 25 mg capsule 25 mg PO BEDTIME #10 caps 01/15/22 (Benadryl) fluticasone propionate 50 1 spray intranasal DAILY #16 grams 01/15/22 mcg/actuation nasal spray,suspension (Flonase Allergy Relief) ondansetron 4 mg disintegrating 4 mg PO Q6-8H PRN nausea and 05/08/23 tablet vomiting #7 tabs omeprazole 40 mg capsule,delayed 40 mg PO DAILY #30 caps 02/24/24 release ondansetron 4 mg disintegrating 4 mg PO Q6H PRN nausea and 02/24/24 tablet vomiting #14 tabs naproxen 500 mg tablet (Naprosyn) 500 mg PO BID PRN pain #20 tabs 05/11/24 Allergies Allergy/AdvReac Type Severity Reaction Status Date / Time No Known Allergies Allergy Verified 05/11/24 22:01 Review of Systems Review of Systems: Yes all other systems are reviewed and are negative [facility] Past Medical History Medical History Personal history of nicotine dependence Diabetes Surgical History History of laparoscopic cholecystectomy (~2020) History of incisional hernia repair (~2014) History of umbilical hernia repair (~2008) History of appendectomy Social History Social History Household Members: None Housing Other:: patient states homeless Do you presently have visiting nurse or other home services: No Patient Tobacco Use Status: Current everyday Tobacco user Tobacco use type: Cigarette Cigarette Packs Per Day: 1 Cigarettes Per Day: 20.0 Years Smoked: 30 Substance Use Type: Marijuana Do you have a plan to hurt others: No Plan service: No Current occupational status: unemployed Physical Exam Vital Signs: Vital Signs: Last Vital Signs Temp 98.8 F 05/11/24 21:58 Pulse 88 05/11/24 21:58 Resp 17 05/11/24 21:58 BP 100/53 L 05/11/24 21:58 Pulse Ox 98 05/11/24 21:58 O2 Del Method Room Air 05/11/24 21:58 BMI result Body Mass Index 32.5 Appearance: Alert. Oriented X3. No acute distress. Eyes: PERRLA, No Nystagmus ENT: Pharynx normal. Oral Mucosa moist Neck: Normal inspection. Neck supple. CVS: Normal heart rate and rhythm. Pulses normal. Respiratory: No respiratory distress. Equal air entry bilateral, no wheezing/rales/rhonchi Abdomen: Soft and nontender. Bowel sounds are present, no mass palpable, no CVA tenderness Skin: Skin warm and dry. Normal skin color. Normal skin turgor. Extremities: No lower extremity edema. No calf tenderness diffuse tenderness in left hip muscles and left arm patient is ambulatory otherwise no signs of significant trauma Neuro: Oriented X 3. No motor deficit. No sensory deficit.No cerebellar signs , cranial nerves II-XII intact Medical Decision Making Medical Decision Making MDM Narrative: Patient is homeless with multiple complaints no signs of significant injuries discharge patient Discharge Plan Discharge Clinical Impression: Hip pain Patient Disposition: Home, Self-Care Instructions: Hip Pain (ED) Additional Instructions: Ibuprofen/naproxen for pain as needed Prescriptions: New naproxen [Naprosyn] 500 mg tablet 500 mg PO BID PRN (Reason: pain) Qty: 20 0RF No Action bisacodyl [Dulcolax (bisacodyl)] 5 mg tablet,delayed release (DR/EC) 5 mg PO .COMPLEX 1 Days Qty: 2 0RF Rx Instructions: 5 mg PO Take one tablet for constipation. If no bowel movement after 4 hours, take another tablet.; metformin 500 mg tablet 2 tab PO BID atorvastatin 20 mg tablet 1 tab PO BEDTIME baclofen 10 mg tablet 1 tab PO TID PRN (Reason: muscle spasm) nystatin 100,000 unit/gram cream 1 appl topical TID PRN (Reason: itch) gabapentin 100 mg capsule 1 cap PO TID glipizide 5 mg tablet 2 tab PO BID Lantus Solostar U-100 Insulin 100 unit/mL (3 mL) insulin pen 16 unit subcut DAILY cholecalciferol (vitamin D3) 50 mcg (2,000 unit) capsule 1 cap PO DAILY Tivicay 50 mg tablet 1 tab PO DAILY Descovy 200-25 mg tablet 1 tab PO DAILY ibuprofen 600 mg tablet 600 mg PO Q8H PRN (Reason: fever or pain) Qty: 30 0RF diphenhydramine HCl [Benadryl] 25 mg capsule 25 mg PO BEDTIME Qty: 10 0RF fluticasone propionate [Flonase Allergy Relief] 50 mcg/actuation spray,suspension 1 spray intranasal DAILY Qty: 16 0RF Rx Instructions: administer into each nostril omeprazole 40 mg capsule,delayed release(DR/EC) 40 mg PO DAILY Qty: 30 2RF ondansetron 4 mg tablet,disintegrating 4 mg PO Q6H PRN (Reason: nausea and vomiting) Qty: 14 0RF ondansetron 4 mg tablet,disintegrating 4 mg PO Q6-8H PRN (Reason: nausea and vomiting) Qty: 7 0RF oxycodone 5 mg tablet 5 mg PO Q6H PRN (Reason: pain) Qty: 15 0RF amoxicillin-pot clavulanate 500-125 mg tablet 1 tab PO Q8H Qty: 30 0RF Print Language: Afghan
[2024-05-11] MEDS: NaPROXEN 500 MG TABLET PO (22:21)
[2024-05-11 22:26] VITALS: BP 100/53; PULSE 88; RESP 17; TEMP 37.1; O2SAT 98
--- NOTE | 2024-05-11 22:26 | PC.NURSE ---
pt medicated per aug, tolerated well with water, pt given food at this time.
== END 2024-05-11 22:38 | disposition home or self-care (01) ==
PROVIDERS: Emergency Provider Internal Medicine
DX: M25.552 Pain in left hip (principal); M79.602 Pain in left arm; F17.210 Nicotine dependence, cigarettes, uncomplicated; Z79.899 Other long term (current) drug therapy; Z59.00 Homelessness unspecified
CPT/HCPCS: 99284

== ENCOUNTER 2024-05-12 22:28 | Emergency (ER) | payer MEDICAID, SELFPAY ==
--- NOTE | ~2024-05-12 | XR_ITS ---
EXAMINATION: XR PELVIS CLINICAL INFORMATION: b/lhip pain COMPARISON: None available. TECHNIQUE: AP view of the pelvis. FINDINGS: The bone mineralization is normal. There is bilateral mild to moderate hip degenerative change with loss of joint space, and subchondral sclerosis. There is an exostosis along the lateral right acetabular margin which was seen on prior studies. There is no acute fracture. There are two tubular radiopaque structures along the medial upper thigh. XR/XR pelvis 1-2V IMPRESSION: 1. Mild to moderate bilateral hip degenerative change. 2. No acute fracture or dislocation. 3. There are two tubular radiopaque structures along the medial upper thigh. Electronically signed by: Zoltan Rubio MD 05/13/2024 02:11 AM FAVIOLA
[2024-05-12 22:30] VITALS: BP 140/90; PULSE 86; RESP 18; TEMP 37.2; O2SAT 97; BMI 35.0
--- NOTE | 2024-05-12 23:07 | PC.NURSE ---
pt ambulatory from waiting room with steady gait,reports he was seen here yesterday for lower extremity pain and discharge medications have not been helping. pt reports the pain has increased and he has been feeling weak. no swelling noted to bilateral lower extremities at this time.
--- NOTE | 2024-05-12 23:15 | ED_ITS ---
HPI - General Adult General Chief complaint: Extremity Problem Stated complaint: arm back pain Time Seen by Provider: 05/12/24 23:14 Source: patient Mode of arrival: ambulatory Limitations: no limitations History of Present Illness ED Provider: HPI narrative: Patient was seen here yesterday for multiple complaints comes here again now saying she has a bilateral hip pain patient is homeless for last 5 years no recent trauma or fall Related Data Home Medications ?Medication ?Instructions ?Recorded ?Confirmed atorvastatin 20 mg tablet 1 tab PO BEDTIME 05/15/21 05/27/21 baclofen 10 mg tablet 1 tab PO TID PRN muscle spasm 05/15/21 05/27/21 cholecalciferol (vitamin D3) 50 1 cap PO DAILY 05/15/21 05/27/21 mcg (2,000 unit) capsule dolutegravir 50 mg tablet (Tivicay) 1 tab PO DAILY 05/15/21 05/27/21 emtricitabine 200 mg-tenofovir 1 tab PO DAILY 05/15/21 05/27/21 alafenamide fumarate 25 mg tablet (Descovy) gabapentin 100 mg capsule 1 cap PO TID 05/15/21 05/27/21 glipizide 5 mg tablet 2 tab PO BID 05/15/21 05/27/21 insulin glargine 100 unit/mL (3 16 unit subcut DAILY 05/15/21 05/27/21 mL) subcutaneous pen (Lantus Solostar U-100 Insulin) metformin 500 mg tablet 2 tab PO BID 05/15/21 05/27/21 nystatin 100,000 unit/gram topical 1 appl topical TID PRN itch 05/15/21 05/27/21 cream Previous Rx's ?Medication ?Instructions ?Recorded ibuprofen 600 mg tablet 600 mg PO Q8H PRN fever or pain 05/17/21 #30 tabs bisacodyl 5 mg tablet,delayed 5 mg PO .COMPLEX 1 day #2 tabs 05/21/21 release (Dulcolax (bisacodyl)) amoxicillin 500 mg-potassium 1 tab PO Q8H #30 tabs 05/27/21 clavulanate 125 mg tablet oxycodone 5 mg tablet 5 mg PO Q6H PRN pain #15 tabs 05/27/21 diphenhydramine HCl 25 mg capsule 25 mg PO BEDTIME #10 caps 01/15/22 (Benadryl) fluticasone propionate 50 1 spray intranasal DAILY #16 grams 01/15/22 mcg/actuation nasal spray,suspension (Flonase Allergy Relief) ondansetron 4 mg disintegrating 4 mg PO Q6-8H PRN nausea and 05/08/23 tablet vomiting #7 tabs omeprazole 40 mg capsule,delayed 40 mg PO DAILY #30 caps 02/24/24 release ondansetron 4 mg disintegrating 4 mg PO Q6H PRN nausea and 02/24/24 tablet vomiting #14 tabs naproxen 500 mg tablet (Naprosyn) 500 mg PO BID PRN pain #20 tabs 05/11/24 tramadol 50 mg tablet 50 mg PO Q6H PRN pain #20 tabs 05/13/24 Allergies Allergy/AdvReac Type Severity Reaction Status Date / Time No Known Allergies Allergy Verified 05/12/24 22:33 Review of Systems Review of Systems: Yes all other systems are reviewed and are negative [facility] Past Medical History Medical History Personal history of nicotine dependence Diabetes Surgical History History of laparoscopic cholecystectomy (~2020) History of incisional hernia repair (~2014) History of umbilical hernia repair (~2008) History of appendectomy Social History Social History Household Members: None Housing Other:: patient states homeless Do you presently have visiting nurse or other home services: No Patient Tobacco Use Status: Current everyday Tobacco user Tobacco use type: Cigarette Cigarette Packs Per Day: 1 Cigarettes Per Day: 20.0 Years Smoked: 30 Smoked in Last 30 Days: Yes Use of substances other than those prescribed or required for medical reasons: Yes Substance Use Type: Marijuana Advance Directives: No Advance Directives Information Provided: Yes Do you have a plan to hurt others: No Plan service: No Current occupational status: unemployed Physical Exam ED Vital Signs: Vital Signs - 24 hr 05/12/24 22:30 05/13/24 00:27 05/13/24 00:31 Temperature 98.9 F 98.1 F 98.1 F Pulse Rate 86 70 70 Respiratory Rate 18 14 14 Blood Pressure 118/56 L 118/56 L Pulse Oximetry 97 99 99 Oxygen Delivery Method Room Air Room Air Room Air BMI result Body Mass Index 35.0 Appearance: Alert. Oriented X3. No acute distress. Eyes: PERRLA, No Nystagmus ENT: Pharynx normal. Oral Mucosa moist Neck: Normal inspection. Neck supple. CVS: Normal heart rate and rhythm. Pulses normal. Respiratory: No respiratory distress. Equal air entry bilateral, no wheezing/rales/rhonchi Abdomen: Soft and nontender. Bowel sounds are present, no mass palpable, no CVA tenderness Skin: Skin warm and dry. Normal skin color. Normal skin turgor. Extremities: No lower extremity edema. No calf tenderness diffuse tenderness in the hip patient is ambulatory in steady gait otherwise Neuro: Oriented X 3. No motor deficit. No sensory deficit.No cerebellar signs , cranial nerves II-XII intact Medications Administered Discontinued Medications Generic Name Dose Route Start Last Admin Trade Name Freq PRN Reason Stop Dose Admin Oxycodone HCl 10 mg 05/12/24 23:34 05/13/24 00:08 Oxycodone Hcl Immed Release 5 Mg Tablet PO 05/12/24 23:35 10 mg ONCE ONE Administration Medical Decision Making Medical Decision Making MDM Narrative: Patient is homeless with multiple complaints with arthritis of the hip give tramadol advised have rest and follow with the Independent Interpretation I performed an independent interpretation of an: Plain X-Ray Interpretation: NAD Discharge Plan Discharge Clinical Impression: Arthritis of hip Patient Disposition: Home, Self-Care Instructions: Osteoarthritis (ED) Additional Instructions: Take ibuprofen for pain Tramadol for severe pain Follow with your PCP Prescriptions: New tramadol 50 mg tablet 50 mg PO Q6H PRN (Reason: pain) Qty: 20 0RF No Action bisacodyl [Dulcolax (bisacodyl)] 5 mg tablet,delayed release (DR/EC) 5 mg PO .COMPLEX 1 Days Qty: 2 0RF Rx Instructions: 5 mg PO Take one tablet for constipation. If no bowel movement after 4 hours, take another tablet.; metformin 500 mg tablet 2 tab PO BID atorvastatin 20 mg tablet 1 tab PO BEDTIME baclofen 10 mg tablet 1 tab PO TID PRN (Reason: muscle spasm) nystatin 100,000 unit/gram cream 1 appl topical TID PRN (Reason: itch) gabapentin 100 mg capsule 1 cap PO TID glipizide 5 mg tablet 2 tab PO BID Lantus Solostar U-100 Insulin 100 unit/mL (3 mL) insulin pen 16 unit subcut DAILY cholecalciferol (vitamin D3) 50 mcg (2,000 unit) capsule 1 cap PO DAILY Tivicay 50 mg tablet 1 tab PO DAILY Descovy 200-25 mg tablet 1 tab PO DAILY ibuprofen 600 mg tablet 600 mg PO Q8H PRN (Reason: fever or pain) Qty: 30 0RF diphenhydramine HCl [Benadryl] 25 mg capsule 25 mg PO BEDTIME Qty: 10 0RF fluticasone propionate [Flonase Allergy Relief] 50 mcg/actuation spray,suspension 1 spray intranasal DAILY Qty: 16 0RF Rx Instructions: administer into each nostril omeprazole 40 mg capsule,delayed release(DR/EC) 40 mg PO DAILY Qty: 30 2RF ondansetron 4 mg tablet,disintegrating 4 mg PO Q6H PRN (Reason: nausea and vomiting) Qty: 14 0RF ondansetron 4 mg tablet,disintegrating 4 mg PO Q6-8H PRN (Reason: nausea and vomiting) Qty: 7 0RF naproxen [Naprosyn] 500 mg tablet 500 mg PO BID PRN (Reason: pain) Qty: 20 0RF oxycodone 5 mg tablet 5 mg PO Q6H PRN (Reason: pain) Qty: 15 0RF amoxicillin-pot clavulanate 500-125 mg tablet 1 tab PO Q8H Qty: 30 0RF Interventions: ED Discharge Assessment Last Done: 05/13/24 00:31 Print Language: Slovak
[2024-05-13] MEDS: oxyCODONE HCl Immed Release 5 MG TABLET 10 MG PO (00:08)
--- NOTE | 2024-05-13 00:09 | PC.NURSE ---
pt medicated per mar, tolerated well with water.
[2024-05-13 00:27] VITALS: BP 118/56; PULSE 70; RESP 14; TEMP 36.7; O2SAT 99
[2024-05-13 00:31] VITALS: BP 118/56; PULSE 70; RESP 14; TEMP 36.7; O2SAT 99
--- NOTE | 2024-05-13 01:34 | PC.NURSE ---
per charge attendant, okay for pt to rest in stretcher at this time.
[2024-05-13 04:58] VITALS: BP 125/68; PULSE 78; RESP 17; TEMP 36.2; O2SAT 95
--- NOTE | 2024-05-13 06:10 | PC.NURSE ---
pt awake and ambulatory with steady gait to bathroom at this time.
--- OUTSIDE RECORDS SUMMARY | 2024-05-17 11:31 | XMS_ITS | Continuity of Care Document ---
Author Organization [facility] Address [address] [place] [address] Phone Care Team Providers Care Clinical Outcomes Manager Name Role Phone Nurse RN, Visit [...] Diagnoses Date Provider Providers Copied on Encounter [facility], [address] [place] [address], [id number], tel:[phone] [facility] Covid vaccine (chief complaint) No Information Nurse Visit. . Referring Provider: Quinton Tran, [address] [place] [address], [address]. tel:[phone] [facility], [address] [place] [address], [id number], tel:[phone] [facility] covid vaccine (chief complaint) No Information Nurse Visit. . Referring Provider: Quinton Tran, [address] [place], [place] [address] [address] [place] [address], [address]. tel:[phone] Family History Family Member Type Diagnosis Age At Onset No Information Immunizations Vaccine Date Status Comments SARS-COV 2 (COVID-19) Moderna administere d Note: Vaccine Administered by Mj Lowe RN ; Source: New Immunization Record SARS-COV-2 (COVID-19) vaccin e, mRNA, spike protein, LNP, preservative free, 100 mcg/0.5mL dose (a) administered Note: administe red by Daisy Tubbs RN ; Source: New Immunization Record Payers Payer name Insurance type Covered green party ID Authoriza tion(s) [employer] [id number] [employer] [id number] [employer] [id number] Social History Type Description Quantity Date Captured Comments Alcohol Use Details Unknown Caffeine Use Details Unknown Tobacco Use Status No Information Smoking Status No Information Sex Male Chief Complaint And Reason For Visit From encounter dated 08/29/2020 11:31'. Covid vaccine (chief complaint) Reason For Referral Reason For Referral No Information Plan Of Treatment Date Type Action Status Goal Hemoglobin A1c. Due on due Goal Sigmoidoscopy. Due on due Goal Td vaccine. Due on due Goal FOBT. Due on due Goal Colonoscopy. Due on due Goal PPD (TST). Due on due Goal Depression screening. Due on due Goal Tdap. Due on due Goal Influenza vaccine. Due on due Goal Td vaccine. Due on due Goal FOBT. Due on due Goal Colonoscopy. Due on due Goal PPD (TST). Due on 1 due Goal Depression screening. Due on due Goal Tdap. Due on due Goal Influenza vaccine. Due on due Goal Lipid panel. Due on due Goal Sigmoidoscopy. Due on due Goal Hemoglobin A1c. Due on due History Of Present Illness Encounter Date Complaint History Of Prese nt Illness Covid vaccine covid vaccine Functional Status Date Functional Assessmen t No Information Instructions Date Instruction Additional Infor mation No Information Assessments Type Assessment Date No Information Patient Care Teams Name Effective Dates (start - stop) Status Members No Information
--- OUTSIDE RECORDS SUMMARY | 2024-05-17 11:31 | XMS_ITS | Continuity of Care Document ---
Author Organization [facility] Address [address] [place] [address] Phone Care Team Providers Care Rug Renovator Name Role Phone Jennifer [place] DOd Unavailable [...] [facility], [address], [place], [place], [id number], [place] tel:[phone] [facility] sore throat (chief complaint) Nasal congestionPain in throatPostnasal dripChronic rhinitis [id number], [place], [place], [id number], [place]. tel:[phone] OV, Estab Pt, Level IV [facility], [address], [place], [place], [id number], [place] tel:[phone] [facility] Ringing in ears (chief complaint) Other specified disorders of Eustachian tube, bilateralChronic rhinitisPulsatile tinnitus, right ear 4 Ort MD Chaudhry. [address], [place], [place], [id number], [place]. tel:[phone] [facility], [address], [place], [place], [id number], [place] tel:[phone] [facility] No Information 3 Michel Emmanuel. [address], [place], [place], [id number], [place]. tel:[phone] Referring Provider: Km Garcia, [address], [place], [address] . tel:[phone] OV, New Pt, Level III [facility], [address], [place], [place], [id number], [place] tel:[phone] [facility] Ringing in ears (chief complaint) Stapedial myoclonusOther specified disorders of Eustachian tube, bilateral [address], [place], [place], [id number], [place]. tel:[phone] [facility], [address], [place], [place], [id number], [place] tel:[phone] [facility] Unspecified hearing loss, unspecified ear 3 Michel Emmanuel. [address], [place], [place], [id number], [place]. tel:[phone] Referring Provider: Km [place] DO Diego, [address], [place], [address] . tel:[phone] Family History Family Member Type Diagnosis Age [...] Unspecified Payers Payer name Insurance type Covered constitution party ID Authorlisaa fermin(s) [facility] [place] BS [place] PPO BL [id number] Social History Type Description Quantity Date Captured [...] improved with fluticasone use Ringing in ears Ringing in ears (comments) right pulse TINNonset early 04/29 - pulsing, not correlated c heart beat. typically brief rapid runshx congestion/PND. 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 Patient Care Teams Name Effective Dates (start - stop) Status Members No Information
== END 2024-05-13 06:17 | disposition home or self-care (01) ==
PROVIDERS: Emergency Provider Internal Medicine
DX: M16.0 Bilateral primary osteoarthritis of hip (principal); E11.9 Type 2 diabetes mellitus without complications; F17.210 Nicotine dependence, cigarettes, uncomplicated; Z59.00 Homelessness unspecified
CPT/HCPCS: 72170; 99283; 99284

== ENCOUNTER 2024-05-19 22:10 | Emergency (ER) | payer MEDICAID, SELFPAY ==
[2024-05-19 22:13] VITALS: BP 160/100; PULSE 74; O2SAT 100
[2024-05-19 23:29] VITALS: BP 112/64; PULSE 78; RESP 16; TEMP 37.4; O2SAT 97; BMI 31.7
== END 2024-05-20 00:15 | disposition left against medical advice (07) ==
PROVIDERS: Emergency Provider Internal Medicine
DX: R53.1 Weakness (principal); R52 Pain, unspecified; Z59.00 Homelessness unspecified; Z53.21 Procedure and treatment not carried out due to patient leaving prior to being seen by health care provider
CPT/HCPCS: 99281

== ENCOUNTER 2024-05-20 04:42 | Emergency (ER) | payer MEDICAID, SELFPAY ==
--- NOTE | ~2024-05-20 | XR_ITS ---
EXAMINATION: XR CHEST CLINICAL INFORMATION: dyspnea COMPARISON: 02/23/2024 and selected priors TECHNIQUE: AP view of the chest was obtained. FINDINGS: No significant abnormality is noted involving the heart, lungs, mediastinum, bony thorax or soft tissues. XR/XR chest 1V IMPRESSION: Unremarkable examination. Electronically signed by: Fidel Nettles MD 05/20/2024 11:13 AM [facility]
--- OUTSIDE RECORDS SUMMARY | 2024-05-20 04:44 | XMS_ITS | Continuity of Care Document ---
Author Organization [facility] Address [address] [place] [address] Phone Care Team Providers Care Guest House Manager Name Role Phone Nurse RN, Visit [...] Diagnoses Date Provider Providers Copied on [facility]counter [facility], [address] [place] [address], [id number], tel:[phone] [facility] Covid vaccine (chief complaint) No Information Nurse Visit. . Referring Provider: Quinton Tran, [address] [place] [address], [address]. tel:[phone] [facility], [address] [place] [address], [id number], tel:[phone] [facility] covid vaccine (chief complaint) No Information Nurse Visit. . Referring Provider: Quinton Tran, [address] [place] [address] [address] [place] [address], [address]. tel:[phone] Family History Family Member Type Diagnosis Age [...] alliance party ID Authoriza tion(s) [employer] CI [id number] [employer] [id number] [employer] [id number] Social History Type Description Quantity Date Captured [...]
--- OUTSIDE RECORDS SUMMARY | 2024-05-20 04:44 | XMS_ITS | Continuity of Care Document ---
Author Organization [facility] Address [address] [place] [address] Phone Care Team Providers Care Tool Specialist Name Role Phone Jennifer [place] DOd Unavailable [...] [facility], [address], [place], [place], [id number], [place] tel:[phone] [facility] sore throat (chief complaint) Nasal congestionPain in throatPostnasal dripChronic rhinitis [address], [place], [place], [address], [place]. tel:[phone] OV, Estab Pt, Level IV [facility], [address], [place], [place], [id number], [place] tel:[phone] [facility] Ringing in ears (chief complaint) Other specified disorders of Eustachian tube, bilateralChronic rhinitisPulsatile tinnitus, right ear 4 Ort MD Chaudh[address]. [address], [place], [place], [address], [place]. tel:[phone] [facility], [address], [place], [place], [id number], [place] tel:[phone] [facility] No Information 3 Michel Emmanuel. [address], [place], [place], [id number], [place]. tel:[phone] Referring Provider: Km Garcia, [address], [place], [address] . tel:[phone] OV, New Pt, Level III [facility], [address], [place], [place], [id number], [place] tel:[phone] [facility] Ringing in ears (chief complaint) Stapedial myoclonusOther specified disorders of Eustachian tube, bilateral [address], [place], [place], [address], [place]. tel:[phone] [facility], [address], [place], [place], [id number], [place] tel:[phone] [facility] Unspecified hearing loss, unspecified ear 3 Michel Emmanuel. [address], [place], [place], [id number], [place]. tel:[phone] Referring Provider: Km [place] DO Diego, [address], [place], [address] . tel:[phone] Family History Family Member Type Diagnosis Age [...] Insurance type Covered democrat ID Authorlisaa fermin(s) [facility], [place] BS [place] PPO BL [id number] Social History Type Description Quantity Date Captured [...] Mental Status Date Cognitive Assessment Orientation - [place] ed to time, place, person, situation. Patient Care Teams Name Effective Dates (start - stop) Status Members No Information
[2024-05-20 04:48] VITALS: BP 125/45; PULSE 80; RESP 18; TEMP 36.9; O2SAT 98; BMI 33.3
[2024-05-20 07:17] VITALS: BP 132/62; PULSE 77; RESP 16; O2SAT 98
--- OUTSIDE RECORDS SUMMARY | 2024-05-20 07:25 | XMS_ITS | Continuity of Care Document ---
Author Organization [facility] Address [address] [place] [address] Phone Care Team Providers Care Child Care Cook Name Role Phone Jennifer [place] DOd Unavailable [...] [facility], [address], [place], [place], [id number], [place] tel:[phone] [facility] sore throat (chief complaint) Nasal congestionPain in throatPostnasal dripChronic rhinitis [address], [place], [place], [address], [place]. tel:[phone] OV, Estab Pt, Level IV [facility], [address], [place], [place], [id number], [place] tel:[phone] [facility] Ringing in ears (chief complaint) Other specified disorders of Eustachian tube, bilateralChronic rhinitisPulsatile tinnitus, right ear 4 Ort MD [address]. [address], [place], [place], [id number], [place]. tel:[phone] [facility], [address], [place], [place], [id number], [place] tel:[phone] [facility] No Information 3 Michel Emmanuel. [address], [place], [place], [id number], [place]. tel:[phone] Referring Provider: Km Garcia, [address], [place], [address] . tel:[phone] OV, New Pt, Level III [facility], [address], [place], [place], [address], [place] tel:[phone] [facility] Ringing in ears (chief complaint) Stapedial myoclonusOther specified disorders of Eustachian tube, bilateral [address], [place], [place], [address], [place]. tel:[phone] [facility], [address], [place], [place], [address], [place] tel:[phone] [facility] Unspecified hearing loss, unspecified ear 3 Michel Emmanuel. [address], [place], [place], [address], [place]. tel:[phone] Referring Provider: Km [place] DO Diego, [address], [place], [address] . tel:[phone] Family History Family Member Type Diagnosis Age [...] Unspecified Payers Payer name Insurance type Covered alliance party ID Authorlisaa fermin(s) [facility], [place], [facility] [place] P[place] BL [id number] Social History Type Description Quantity Date Captured [...] Mental Status Date Cognitive Assessment Orientation - [place] ed to time, place, person, situation. Patient Care Teams Name Effective Dates (start - stop) Status Members No Information
--- OUTSIDE RECORDS SUMMARY | 2024-05-20 07:25 | XMS_ITS | Continuity of Care Document ---
Author Organization [facility] Address [address] [place] [address] Phone Care Team Providers Care Associate Pathologist Name Role Phone Nurse RN, Visit Unavailable [...] Diagnoses Date Provider Providers [facility], [address] [place] [address], [id number], tel:[phone] [facility] Covid vaccine (chief complaint) No Information Nurse Visit. . Referring Provider: Quinton Tran, [address] [place] [address], [address]. tel:[phone] [facility], [address] [place] [address], [id number], tel:[phone] [facility] covid vaccine (chief complaint) No Information Nurse Visit. . Referring Provider: Quinton Tran, [address] [place], [place] [address] [address] [place] [address], [address]. tel:[phone] Family History Family Member Type Diagnosis Age [...] constitution party ID Authoriza tion(s) [employer] [id number] [employer] [id number] [employer] CI [id number] Social History Type Description Quantity Date Captured [...] PPD (TST). Due on 1 due Goal Colonoscopy. Due on 021 due Goal FOBT. Due on due Goal Td vaccine. Due on 21 due History Of Present Illness Encounter Date Complaint History Of Prese nt Illness Covid vaccine covid vaccine Functional Status Date Functional Assessmen t No Information Instructions Date Instruction Additional Infor mation No Information Assessments Type Assessment Date No Information Patient Care Teams Name Effective Dates (start - stop) Status Members No Information
[2024-05-20] MEDS: traMADoL HCL 50 MG TABLET PO (07:52)
--- NOTE | 2024-05-20 07:55 | PC.NURSE ---
ferry captain&ox3, vitals previously stable, pt medicated per order for generalized pain, pt awaiting provider, call hawk within reach, will continue to monitor
[2024-05-20 08:03] LABS: MANUAL DIFF FLAG NO
[2024-05-20 08:05] LABS: Basophils Percent Auto 0.4 % (0-2); Eosinophils Absolute Auto 0.1 X10*3/uL (0.0-0.4); Eosinophils Percent Auto 1.7 % (0-4); Hematocrit 42.5 % (42.0-52.0); Hemoglobin 14.1 g/dl (14.0-18.0); Imm Gran Abs Auto 0.03 X10*3/uL (0.00-0.03); Imm Gran Pct Auto 0.4 % (0.0-0.4); Lymphocytes Absolute Auto 1.7 X10*3/uL (1.2-4.9); Lymphocytes Percent Auto 23.9 % (20-40); Mean Corpuscular HGB Conc 33.2 g/dl (31.0-36.0); Mean Corpuscular Hemoglobin 32.2 pg (27.0-33.0); Mean Platelet Volume 9.2 fL (9.4-12.4); Monocytes Absolute Auto 0.9 X10*3/uL (0.1-1.2); Monocytes Percent Auto 12.6 % (2-11); Neutrophils Absolute Auto 4.2 x10*3/uL (2.0-8.3); Platelet Count 203 X10*3/uL (160-400); Red Blood Count 4.38 X10*6/uL (4.60-5.80); Red Cell Distribution Width 12.2 % (11.0-16.0)
[2024-05-20 08:20] LABS: Anion Gap 11 (12-20); Blood Urea Nitrogen 13 mg/dL (9-16); Calcium 9.1 mg/dL (8.4-10.2); Carbon Dioxide 22 mmol/L (22-29); Chloride 109 mmol/L (96-108); Creatinine Clr Calc Pharmacy 96.9; Estimated Glomerular Filt Rate > 60; Glucose Random 133 mg/dL (60-115); Magnesium 1.7 mg/dL (1.6-2.6); Potassium 4.2 mmol/L (3.3-5.1); Sodium 138 mmol/L (135-145)
--- NOTE | 2024-05-20 08:39 | ED.GENADULT ---
HPI - General Adult General Chief complaint: General Medical Stated complaint: weakness, arthritis pain Time Seen by Provider: 05/20/24 07:10 Source: patient Mode of arrival: ambulatory Limitations: no limitations History of Present Illness ED Provider: ALBERTO HPI narrative: 58 yo male with PMH of DM, HLD, HTN, homelessness, here with c/o hand pain, hip pain and feeling weak. He also reports some intermittent shortness of breath but no CP/cough/fever. He was sleeping in the waiting room for a long time. He denies hx of RA. He reports motrin doesn't work and he needs something stronger. No trauma or falls, no hx of seizures MD complaint: arthralgia Onset (ago): month(s) Location: left, right, upper extremity and lower extremity Radiation: non-radiation Severity: moderate Quality: aching Pain Consistency: intermittent Relieving factors: rest Exacerbating factors: movement Associated symptoms: shortness of breath Treatments prior to arrival: none Related Data Home Medications ?Medication ?Instructions ?Recorded ?Confirmed atorvastatin 20 mg tablet 1 tab PO BEDTIME 05/15/21 05/27/21 baclofen 10 mg tablet 1 tab PO TID PRN muscle spasm 05/15/21 05/27/21 cholecalciferol (vitamin D3) 50 1 cap PO DAILY 05/15/21 05/27/21 mcg (2,000 unit) capsule dolutegravir 50 mg tablet (Tivicay) 1 tab PO DAILY 05/15/21 05/27/21 emtricitabine 200 mg-tenofovir 1 tab PO DAILY 05/15/21 05/27/21 alafenamide fumarate 25 mg tablet (Descovy) gabapentin 100 mg capsule 1 cap PO TID 05/15/21 05/27/21 glipizide 5 mg tablet 2 tab PO BID 05/15/21 05/27/21 insulin glargine 100 unit/mL (3 16 unit subcut DAILY 05/15/21 05/27/21 mL) subcutaneous pen (Lantus Solostar U-100 Insulin) metformin 500 mg tablet 2 tab PO BID 05/15/21 05/27/21 nystatin 100,000 unit/gram topical 1 appl topical TID PRN itch 05/15/21 05/27/21 cream Previous Rx's ?Medication ?Instructions ?Recorded ibuprofen 600 mg tablet 600 mg PO Q8H PRN fever or pain 05/17/21 #30 tabs bisacodyl 5 mg tablet,delayed 5 mg PO .COMPLEX 1 day #2 tabs 05/21/21 release (Dulcolax (bisacodyl)) amoxicillin 500 mg-potassium 1 tab PO Q8H #30 tabs 05/27/21 clavulanate 125 mg tablet oxycodone 5 mg tablet 5 mg PO Q6H PRN pain #15 tabs 05/27/21 diphenhydramine HCl 25 mg capsule 25 mg PO BEDTIME #10 caps 01/15/22 (Benadryl) fluticasone propionate 50 1 spray intranasal DAILY #16 grams 01/15/22 mcg/actuation nasal spray,suspension (Flonase Allergy Relief) ondansetron 4 mg disintegrating 4 mg PO Q6-8H PRN nausea and 05/08/23 tablet vomiting #7 tabs omeprazole 40 mg capsule,delayed 40 mg PO DAILY #30 caps 02/24/24 release ondansetron 4 mg disintegrating 4 mg PO Q6H PRN nausea and 02/24/24 tablet vomiting #14 tabs naproxen 500 mg tablet (Naprosyn) 500 mg PO BID PRN pain #20 tabs 05/11/24 tramadol 50 mg tablet 50 mg PO Q6H PRN pain #20 tabs 05/13/24 tramadol 50 mg tablet 50 mg PO Q8H PRN pain #14 tabs 05/20/24 Allergies Allergy/AdvReac Type Severity Reaction Status Date / Time No Known Allergies Allergy Verified 05/20/24 04:50 Review of Systems Review of Systems: Constitutional : No Fever, No Chills ENT/Mouth : No Ear Pain, No Hoarseness, No sore throat Eyes: No Eye Pain, No Swelling, No Redness, No Foreign Body Cardiovascular : No Chest Pain, pos SOB Respiratory : No Cough, No Dyspnea Gastrointestinal : No Nausea, No Vomiting, No Diarrhea, No abdominal Pain Genitourinary : No Dysuria, No Hematuria Musculoskeletal : positive joint pain, No Myalgias, No Joint Swelling Skin : No Skin lacerations, No rash Neuro : No Weakness, No Numbness, No Loss of Consciousness, No Dizziness, No Headache All other systems reviewed and are negative PMFSH Past Medical History Attestation statement: The following information was validated with the patient. Source: old records reviewed Medical History Personal history of nicotine dependence Diabetes Surgical History History of laparoscopic cholecystectomy (~2020) History of incisional hernia repair (~2014) History of umbilical hernia repair (~2008) History of appendectomy Social History Social History Household Members: None Housing Other:: patient states homeless Do you presently have visiting nurse or other home services: No Patient Tobacco Use Status: Current everyday Tobacco user Tobacco use type: Cigarette Cigarette Packs Per Day: 1 Cigarettes Per Day: 20.0 Years Smoked: 30 Substance Use Type: Marijuana Advance Directives: No Advance Directives Information Provided: No Do you have a plan to hurt others: No Plan service: No Current occupational status: unemployed Physical Exam ED Vital Signs: Vital Signs - 24 hr 05/20/24 04:48 05/20/24 07:17 05/20/24 11:18 Temperature 98.5 F 98.2 F Pulse Rate 80 77 82 Respiratory Rate 18 16 16 Blood Pressure 125/45 L 132/62 133/68 Pulse Oximetry 98 98 97 Oxygen Delivery Method Room Air Room Air Room Air BMI result Body Mass Index 33.3 Appearance: Alert. Oriented X3. No acute distress. Eyes: Pupils equal, round and reactive to light. ENT: Pharynx normal. Neck: Normal inspection. Neck supple. CVS: Normal heart rate and rhythm. Pulses normal. Respiratory: No respiratory distress. Breath sounds normal. Abdomen: Soft and nontender. Skin: Skin warm and dry. Normal skin color. Normal skin turgor. he notes cramping pain in L hand no signs of redness, warmth, infection - pulses intact in ext Extremities: No lower extremity edema. Neuro: Oriented X 3. No motor deficit. No sensory deficit. Medications Administered Discontinued Medications Generic Name Dose Route Start Last Admin Trade Name Freq PRN Reason Stop Dose Admin Tramadol HCl 50 mg 05/20/24 07:42 05/20/24 07:52 Tramadol Hcl 50 Mg Tablet PO 05/20/24 07:43 50 mg ONCE ONE Administration Medical Decision Making Medical Decision Making MDM Narrative: 58 yo male with PMH of DM, HLD, HTN, homelessness, here with c/o arthralgias and intermittent dyspnea at times but no CP/fevers/cough. He is NV intact at this time suspect arthritis and he has no signs of pneumonia. He has no signs of edema either. No CP to suggest ACS. At this time basic labs, pain control and CXR. Differential Diagnosis Differential Diagnoses: The differential diagnosis associated with the presentation includes arthralgia, viral syndrome, reactive airway ds from residential smoking no other symptoms or signs to suggest ACS or VTE Admission/Observation Consideration of admission/observation: Escalation of care including admission/observation considered work up reassuring stable for DC Lab Data MDM Lab Attestation statement: I reviewed the patient's lab results. 05/20/24 07:57 05/20/24 07:57 Labs: Lab Results 05/20/24 05/20/24 Range/Units 07:57 09:00 WBC 7.0 (4.8-10.8) X10*3/uL RBC 4.38 L (4.60-5.80) X10*6/uL Hgb 14.1 (14.0-18.0) g/dl Hct 42.5 (42.0-52.0) % MCV 97.0 (80.0-98.0) fL MCH 32.2 (27.0-33.0) pg MCHC 33.2 (31.0-36.0) g/dl RDW 12.2 (11.0-16.0) % Plt Count 203 D (160-400) X10*3/uL MPV 9.2 L (9.4-12.4) fL Immature Gran % (Auto) 0.4 (0.0-0.4) % Neut % (Auto) 61.0 (45-73) % Lymph % (Auto) 23.9 (20-40) % Solano % (Auto) 12.6 H (2-11) % Eos % (Auto) 1.7 (0-4) % Baso % (Auto) 0.4 (0-2) % Lymph # (Auto) 1.7 (1.2-4.9) X10*3/uL Sol[place] # (Auto) 0.9 (0.1-1.2) X10*3/uL Eos # (Auto) 0.1 (0.0-0.4) X10*3/uL Baso # (Auto) 0.0 (0.0-0.2) X10*3/uL Abs Immat Gran (auto) 0.03 (0.00-0.03) X10*3/uL Absolute Neuts (auto) 4.2 (2.0-8.3) x10*3/uL Absolute Nucleated RBC 0.000 (0.0-0.012) X10*3/uL Nucleated RBC % (auto) 0.0 (0.0-0.2) /100WBC Sodium 138 (135-145) mmol/L Potassium 4.2 (3.3-5.1) mmol/L Chloride 109 H (96-108) mmol/L Carbon Dioxide 22 (22-29) mmol/L Anion Gap 11 L (12-20) BUN 13 (9-16) mg/dL Creatinine 0.87 (0.5-1.4) mg/dL Estim Creat Clear Calc 96.9 Estimated GFR > 60 Random Glucose 133 H (60-115) mg/dL Calcium 9.1 D (8.4-10.2) mg/dL Magnesium 1.7 (1.6-2.6) mg/dL Total Creatine Kinase 78 (38-174) U/L COVID-19 (MARY) Negative (Negative) COVID-19 Clin Com See Note Independent Interpretation I performed an independent interpretation of an: Plain X-Ray (normal) Radiology Impression Discussion of test interpretation with radiology: I have reviewed the radiologist's reading. External Record Review External record reviewed: Outpatient record Prescription Management I considered prescription management with: Pain Medication Discharge Plan Discharge Clinical Impression: Polyarthralgia Patient Disposition: Home, Self-Care Instructions: Arthralgia (ED) Additional Instructions: labs reassuring Vital signs are normal chest xray normal given your worsening joint complaints please follow up with your primary care doctor as soon as possible return for any worsening symptoms or concerns Prescriptions: New tramadol 50 mg tablet 50 mg PO Q8H PRN (Reason: pain) Qty: 14 0RF No Action bisacodyl [Dulcolax (bisacodyl)] 5 mg tablet,delayed release (DR/EC) 5 mg PO .COMPLEX 1 Days Qty: 2 0RF Rx Instructions: 5 mg PO Take one tablet for constipation. If no bowel movement after 4 hours, take another tablet.; metformin 500 mg tablet 2 tab PO BID atorvastatin 20 mg tablet 1 tab PO BEDTIME baclofen 10 mg tablet 1 tab PO TID PRN (Reason: muscle spasm) nystatin 100,000 unit/gram cream 1 appl topical TID PRN (Reason: itch) gabapentin 100 mg capsule 1 cap PO TID glipizide 5 mg tablet 2 tab PO BID Lantus Solostar U-100 Insulin 100 unit/mL (3 mL) insulin pen 16 unit subcut DAILY cholecalciferol (vitamin D3) 50 mcg (2,000 unit) capsule 1 cap PO DAILY Tivicay 50 mg tablet 1 tab PO DAILY Descovy 200-25 mg tablet 1 tab PO DAILY ibuprofen 600 mg tablet 600 mg PO Q8H PRN (Reason: fever or pain) Qty: 30 0RF diphenhydramine HCl [Benadryl] 25 mg capsule 25 mg PO BEDTIME Qty: 10 0RF fluticasone propionate [Flonase Allergy Relief] 50 mcg/actuation spray,suspension 1 spray intranasal DAILY Qty: 16 0RF Rx Instructions: administer into each nostril omeprazole 40 mg capsule,delayed release(DR/EC) 40 mg PO DAILY Qty: 30 2RF ondansetron 4 mg tablet,disintegrating 4 mg PO Q6H PRN (Reason: nausea and vomiting) Qty: 14 0RF ondansetron 4 mg tablet,disintegrating 4 mg PO Q6-8H PRN (Reason: nausea and vomiting) Qty: 7 0RF naproxen [Naprosyn] 500 mg tablet 500 mg PO BID PRN (Reason: pain) Qty: 20 0RF tramadol 50 mg tablet 50 mg PO Q6H PRN (Reason: pain) Qty: 20 0RF oxycodone 5 mg tablet 5 mg PO Q6H PRN (Reason: pain) Qty: 15 0RF amoxicillin-pot clavulanate 500-125 mg tablet 1 tab PO Q8H Qty: 30 0RF Interventions: ED Discharge Assessment Last Done: 05/20/24 11:18 Discharge Date/Time: 05/20/24 11:29 Print Language: Marshallese
[2024-05-20 09:24] LABS: COVID-19 Test Negative (Negative); IDNOW Serial# 55D5AD1C
[2024-05-20 11:18] VITALS: BP 133/68; PULSE 82; RESP 16; TEMP 36.8; O2SAT 97
== END 2024-05-20 11:29 | disposition home or self-care (01) ==
PROVIDERS: Emergency Provider Emergency Medicine
DX: M25.542 Pain in joints of left hand (principal); R06.02 Shortness of breath; R53.1 Weakness; E11.9 Type 2 diabetes mellitus without complications; I10 Essential (primary) hypertension; E78.5 Hyperlipidemia, unspecified; F17.210 Nicotine dependence, cigarettes, uncomplicated; Z59.00 Homelessness unspecified; Z11.52 Encounter for screening for COVID-19
CPT/HCPCS: 36415; 71045; 80048; 82550; 83735; 85025; 87635; 99283

== ENCOUNTER 2024-05-20 21:36 | Emergency (ER) | payer MEDICAID, SELFPAY ==
[2024-05-20 21:45] VITALS: BP 116/61; BP 152/86; PULSE 106; PULSE 77; RESP 20; TEMP 37; O2SAT 95; O2SAT 96; BMI 33.3
--- OUTSIDE RECORDS SUMMARY | 2024-05-20 21:48 | XMS_ITS | Continuity of Care Document ---
Author Organization [facility] Address [address] [place] [address] Phone Care Team Providers Care Tiller Man Name Role Phone Jennifer Williamson DOd Unavailable [...] [facility], [address], [place], [place], [id number], [place] tel:[phone] [facility] sore throat (chief complaint) Nasal congestionPain in throatPostnasal dripChronic rhinitis [id number], [place], [place], [id number], [place]. tel:[phone] OV, Estab Pt, Level IV [facility], [address], [place], [place], [id number], [place] tel:[phone] [facility] Ringing in ears (chief complaint) Other specified disorders of Eustachian tube, bilateralChronic rhinitisPulsatile tinnitus, right ear 4 Ort MD Chaudhry. [address], [place], [place], [id number], [place]. tel:[phone] [facility], [address], [place], [place], [id number], [place] tel:[phone] [facility] No Information 3 Michel Emmanuel. [address], [place], [place], [id number], [place]. tel:[phone] Referring Provider: Km Garcia, [id number], [place], [address] . tel:[phone] OV, New Pt, Level III [facility], [address], [place], [place], [id number], [place] tel:[phone] [facility] Ringing in ears (chief complaint) Stapedial myoclonusOther specified disorders of Eustachian tube, bilateral [id number], [place], [place], [id number], [place]. tel:[phone] [facility], [address], [place], [place], [id number], [place] tel:[phone] [facility] Unspecified hearing loss, unspecified ear 3 Michel Emmanuel. [address], [place], [place], [id number], [place]. tel:[phone] Referring Provider: Km Williamson DO [place], [id number], [place], [address] . tel:[phone] Family History Family Member Type Diagnosis Age [...] Unspecified Payers Payer name Insurance type Covered republican ID Authorilsaa fermin(s) [facility] BS [place] PPO BL [id number] Social History Type Description Quantity Date Captured [...] Mental Status Date Cognitive Assessment Orientation - Mertens ed to time, place, person, situation. Patient Care Teams Name Effective Dates (start - stop) Status Members No Information
--- OUTSIDE RECORDS SUMMARY | 2024-05-20 21:48 | XMS_ITS | Continuity of Care Document ---
[facility] Address [address] [place] [id number] Phone Care Team Providers Care Senior Research Fellow Name Role Phone Nurse RN, Visit Unavailable [...] Diagnoses Date Provider Providers [facility] on [facility], [address] [place] [address], [id number], tel:[phone] [facility] Covid vaccine (chief complaint) No Information Nurse Visit. . Referring Provider: Quinton Tran, [address] [place] [address], [address]. tel:[phone] [facility], [address] [place] [address], [id number], tel:[phone] [facility] covid vaccine (chief complaint) No Information Nurse Visit. . Referring Provider: Quinton Tran, [address] [place], [place] [address] [address] [place] [address], [address]. tel:[phone] Family History Family Member Type Diagnosis Age [...] Covered democrat ID Authoriza tion(s) [employer] [id number] [employer] [id number] [employer] [id number] Social History Type Description Quantity Date Captured [...]
--- NOTE | 2024-05-20 22:11 | ED.NAVMDI ---
HPI - Nausea/Vomiting/Diarrhea General Chief complaint: Nausea/Vomiting/Diarrhea Stated complaint: N/V weakness no diarrhea, diabetic Time Seen by Provider: 05/20/24 22:01 Source: patient and EMS Mode of arrival: EMS Limitations: no limitations History of Present Illness ED Provider: Dr. Carlene Cullen HPI Narrative: Patient comes to the emergency room complaining of nausea and vomiting. Patient states that earlier today he was seen here, diagnosed with arthritis. Patient states that after he was discharged, he went back to his [facility] where he lives, and since then he has had multiple episodes of nausea and vomiting, denies any diarrhea, complaining of abdominal pain from vomiting so much. Denies fever chills, denies flank pain or UTI symptoms Related Data Home Medications ?Medication ?Instructions ?Recorded ?Confirmed atorvastatin 20 mg tablet 1 tab PO BEDTIME 05/15/21 05/27/21 baclofen 10 mg tablet 1 tab PO TID PRN muscle spasm 05/15/21 05/27/21 cholecalciferol (vitamin D3) 50 1 cap PO DAILY 05/15/21 05/27/21 mcg (2,000 unit) capsule dolutegravir 50 mg tablet (Tivicay) 1 tab PO DAILY 05/15/21 05/27/21 emtricitabine 200 mg-tenofovir 1 tab PO DAILY 05/15/21 05/27/21 alafenamide fumarate 25 mg tablet (Descovy) gabapentin 100 mg capsule 1 cap PO TID 05/15/21 05/27/21 glipizide 5 mg tablet 2 tab PO BID 05/15/21 05/27/21 insulin glargine 100 unit/mL (3 16 unit subcut DAILY 05/15/21 05/27/21 mL) subcutaneous pen (Lantus Solostar U-100 Insulin) metformin 500 mg tablet 2 tab PO BID 05/15/21 05/27/21 nystatin 100,000 unit/gram topical 1 appl topical TID PRN itch 05/15/21 05/27/21 cream Previous Rx's ?Medication ?Instructions ?Recorded ibuprofen 600 mg tablet 600 mg PO Q8H PRN fever or pain 05/17/21 #30 tabs bisacodyl 5 mg tablet,delayed 5 mg PO .COMPLEX 1 day #2 tabs 05/21/21 release (Dulcolax (bisacodyl)) amoxicillin 500 mg-potassium 1 tab PO Q8H #30 tabs 05/27/21 clavulanate 125 mg tablet oxycodone 5 mg tablet 5 mg PO Q6H PRN pain #15 tabs 05/27/21 diphenhydramine HCl 25 mg capsule 25 mg PO BEDTIME #10 caps 01/15/22 (Benadryl) fluticasone propionate 50 1 spray intranasal DAILY #16 grams 01/15/22 mcg/actuation nasal spray,suspension (Flonase Allergy Relief) ondansetron 4 mg disintegrating 4 mg PO Q6-8H PRN nausea and 05/08/23 tablet vomiting #7 tabs omeprazole 40 mg capsule,delayed 40 mg PO DAILY #30 caps 02/24/24 release ondansetron 4 mg disintegrating 4 mg PO Q6H PRN nausea and 02/24/24 tablet vomiting #14 tabs naproxen 500 mg tablet (Naprosyn) 500 mg PO BID PRN pain #20 tabs 05/11/24 tramadol 50 mg tablet 50 mg PO Q6H PRN pain #20 tabs 05/13/24 ondansetron 4 mg disintegrating 4 mg PO Q6H PRN nausea and 05/20/24 tablet vomiting #10 tabs tramadol 50 mg tablet 50 mg PO Q8H PRN pain #14 tabs 05/20/24 Allergies Allergy/AdvReac Type Severity Reaction Status Date / Time No Known Allergies Allergy Verified 05/20/24 21:47 Review of Systems Review of Systems: Constitutional : No Weight loss, No Fever, No Chills, No Night Sweats, No Fatigue, No Malaise ENT/Mouth : No Hearing loss, No Ear Pain, No Nasal Congestion, No Sinus Pain, No Hoarseness, No sore throat, No Rhinorrhea, No Swallowing Difficulty Eyes: No Eye Pain, No Swelling, No Redness, No Foreign Body, No Discharge, No Vision Changes Cardiovascular : No Chest Pain, No SOB, No Dyspnea on Exertion, No Orthopnea, No Edema, No Palpitations Respiratory : No Cough, No Sputum, No Wheezing, No Smoke Exposure, No Dyspnea Gastrointestinal : Complaining of nausea and vomiting, No Diarrhea, No Constipation, complaining of abdominal muscular pain from vomiting so much,, No Hematochezia, No Melena Genitourinary : no irregular bleeding, No Dysuria, No Urinary Frequency, No Hematuria, No Urinary Incontinence, No Urgency, No Flank Pain, No Urinary Flow Changes, No Hesitancy Musculoskeletal : No joint pain, No Myalgias, No Joint Swelling Skin : No Skin Lesions, No rash Neuro : No Weakness, No Numbness, No Paresthesias, No Loss of Consciousness, No Dizziness, No Headache Psych : No Anxiety/Panic, No Depression, No SI/HI/AH/VH, No Social Issues, Heme/Lymph: No Bruising, No Bleeding,No Lymphadenopathy Endocrine : No Polyuria, No Polydipsia, No Temperature Intolerance [facility] Past Medical History Medical History (Updated 05/20/24 @ 23:18 by Carlene Cullen MD) Homeless Personal history of nicotine dependence Diabetes Surgical History History of laparoscopic cholecystectomy (~2020) History of incisional hernia repair (~2014) History of umbilical hernia repair (~2008) History of appendectomy Social History Social History Household Members: None Housing Other:: patient states homeless Do you presently have visiting nurse or other home services: No Patient Tobacco Use Status: Current everyday Tobacco user Tobacco use type: Cigarette Cigarette Packs Per Day: 1 Cigarettes Per Day: 20.0 Years Smoked: 30 Smoked in Last 30 Days: Yes Use of substances other than those prescribed or required for medical reasons: Yes Substance Use Type: Marijuana Advance Directives: No Advance Directives Information Provided: No service: No Current occupational status: unemployed Physical Exam Vital Signs: Vital Signs: Last Vital Signs Temp 98.6 F 05/20/24 21:45 Pulse 77 05/20/24 21:45 Resp 20 05/20/24 21:45 BP 116/61 05/20/24 21:45 Pulse Ox 96 05/20/24 21:45 O2 Del Method Room Air 05/20/24 21:45 BMI result Body Mass Index 33.3 Const: Other: Appearance: Alert. Oriented X3. No acute distress. Well-appearing Eyes: Pupils equal, round and reactive to light. ENT: Pharynx normal. Normal oral mucosa Neck: Normal inspection. Neck supple. No lymph nodes noted. No crepitus CVS: Normal heart rate and rhythm. Pulses normal. Normal S1 and S2 Respiratory: No respiratory distress. Breath sounds normal. No Wheezing. No rales Abdomen: Soft and nontender. No rigidity. No distention. Skin: Skin warm and dry. Normal skin color. Normal skin turgor. Extremities: No lower extremity edema. No Lacerations. No Rash Neuro: Oriented X 3. No motor deficit. No sensory deficit. Moving all extremities. No slurred speech. CN 2 through 12 grossly intact Psych: calm, cooperative, normal affect Course Course Course Narrative: Patient's labs are being repeated. Patient was given under the tongue Zofran. Here in the emergency room, patient has not had any episodes of vomiting. Patient's vitals within normal limits Medications Administered Discontinued Medications Generic Name Dose Route Start Last Admin Trade Name Freq PRN Reason Stop Dose Admin Ondansetron HCl 4 mg 05/20/24 22:11 05/20/24 22:17 Ondansetron Odt 4 Mg Tab.Rapdis TRANSLINGU 05/20/24 22:12 4 mg ONCE ONE Administration Medical Decision Making Medical Decision Making [facility] Narrative: Patient well-appearing. My interpretation of labs, patient's white blood cell count 12.6, likely reactive leukocytosis. Patient states that he has been vomiting nonstop. However, patient does not seem dehydrated, labs look normal. Here in the emergency room patient has not vomited at all. Physical exam was unremarkable, patient did not have any abdominal pain -patient resting comfortably. For discharge Differential Diagnosis Differential Diagnoses: The differential diagnosis associated with the presentation includes (Gastritis, gastroenteritis, peptic ulcer disease, viral illness) Lab Data [facility] Lab Attestation statement: I reviewed the patient's lab results. 05/20/24 22:22 05/20/24 22:22 Labs: Lab Results 05/20/24 05/20/24 Range/Units 22:22 23:05 WBC 12.6 H (4.8-10.8) X10*3/uL RBC 4.35 L (4.60-5.80) X10*6/uL Hgb 14.1 (14.0-18.0) g/dl Hct 41.6 L (42.0-52.0) % MCV 95.6 (80.0-98.0) fL MCH 32.4 (27.0-33.0) pg MCHC 33.9 (31.0-36.0) g/dl RDW 12.2 (11.0-16.0) % Plt Count 219 (160-400) X10*3/uL MPV 9.5 (9.4-12.4) fL Immature Gran % (Auto) 0.4 (0.0-0.4) % Neut % (Auto) 79.9 H (45-73) % Lymph % (Auto) 9.8 L (20-40) % [place] % (Auto) 9.5 (2-11) % Eos % (Auto) 0.2 (0-4) % Baso % (Auto) 0.2 (0-2) % Lymph # (Auto) 1.2 (1.2-4.9) X10*3/uL [place] # (Auto) 1.2 (0.1-1.2) X10*3/uL Eos # (Auto) 0.0 (0.0-0.4) X10*3/uL Baso # (Auto) 0.0 (0.0-0.2) X10*3/uL Abs Immat Gran (auto) 0.05 H (0.00-0.03) X10*3/uL Absolute Neuts (auto) 10.0 H (2.0-8.3) x10*3/uL Absolute Nucleated RBC 0.000 (0.0-0.012) X10*3/uL Nucleated RBC % (auto) 0.0 (0.0-0.2) /100WBC Sodium 139 (135-145) mmol/L Potassium 3.7 (3.3-5.1) mmol/L Chloride 106 (96-108) mmol/L Carbon Dioxide 27 (22-29) mmol/L Anion Gap 10 L (12-20) BUN 13 (9-16) mg/dL Creatinine 0.81 (0.5-1.4) mg/dL Estim Creat Clear Calc 104.1 Estimated GFR > 60 Random Glucose 69 (60-115) mg/dL Calcium 9.5 (8.4-10.2) mg/dL Total Bilirubin 0.6 (0.0-1.0) mg/dL Direct Bilirubin 0.2 (0.0-0.5) mg/dL AST 26 (5-37) U/L ALT 16 (0-40) U/L Alkaline Phosphatase 60 (39-117) U/L Total Protein 7.4 (6.5-8.0) g/dL Albumin 3.9 (3.5-5.0) g/dL Lipase 33 (8-78) U/L Urine Color Dark Yellow Urine Appearance Clear Urine pH 5.5 (5.0-9.0) Ur Specific [place] >= 1.030 H (1.005-1.025) Urine Protein Trace (Neg-Trace) mg/dL Urine Glucose (UA) Negative (Negative) mg/dL Urine Ketones Trace (Negative) mg/dL Urine Blood Negative (Negative) Urine Nitrite Negative (Negative) Ur Leukocyte Esterase Small (1+) H (Negative) Ethyl Alcohol < 10 mg/dL Discharge Plan Discharge Clinical Impression: Nausea & vomiting Patient Disposition: Home, Self-Care Instructions: Acute Nausea and Vomiting (ED) Additional Instructions: Please follow-up with your primary care physician tomorrow. If you have any worsening or new symptoms, please return to the emergency room or call 911 Prescriptions: New ondansetron 4 mg tablet,disintegrating 4 mg PO Q6H PRN (Reason: nausea and vomiting) Qty: 10 0RF No Action bisacodyl [Dulcolax (bisacodyl)] 5 mg tablet,delayed release (DR/EC) 5 mg PO .COMPLEX 1 Days Qty: 2 0RF Rx Instructions: 5 mg PO Take one tablet for constipation. If no bowel movement after 4 hours, take another tablet.; metformin 500 mg tablet 2 tab PO BID atorvastatin 20 mg tablet 1 tab PO BEDTIME baclofen 10 mg tablet 1 tab PO TID PRN (Reason: muscle spasm) nystatin 100,000 unit/gram cream 1 appl topical TID PRN (Reason: itch) gabapentin 100 mg capsule 1 cap PO TID glipizide 5 mg tablet 2 tab PO BID Lantus Solostar U-100 Insulin 100 unit/mL (3 mL) insulin pen 16 unit subcut DAILY cholecalciferol (vitamin D3) 50 mcg (2,000 unit) capsule 1 cap PO DAILY Tivicay 50 mg tablet 1 tab PO DAILY Descovy 200-25 mg tablet 1 tab PO DAILY ibuprofen 600 mg tablet 600 mg PO Q8H PRN (Reason: fever or pain) Qty: 30 0RF diphenhydramine HCl [Benadryl] 25 mg capsule 25 mg PO BEDTIME Qty: 10 0RF fluticasone propionate [Flonase Allergy Relief] 50 mcg/actuation spray,suspension 1 spray intranasal DAILY Qty: 16 0RF Rx Instructions: administer into each nostril omeprazole 40 mg capsule,delayed release(DR/EC) 40 mg PO DAILY Qty: 30 2RF ondansetron 4 mg tablet,disintegrating 4 mg PO Q6H PRN (Reason: nausea and vomiting) Qty: 14 0RF tramadol 50 mg tablet 50 mg PO Q8H PRN (Reason: pain) Qty: 14 0RF ondansetron 4 mg tablet,disintegrating 4 mg PO Q6-8H PRN (Reason: nausea and vomiting) Qty: 7 0RF naproxen [Naprosyn] 500 mg tablet 500 mg PO BID PRN (Reason: pain) Qty: 20 0RF tramadol 50 mg tablet 50 mg PO Q6H PRN (Reason: pain) Qty: 20 0RF oxycodone 5 mg tablet 5 mg PO Q6H PRN (Reason: pain) Qty: 15 0RF amoxicillin-pot clavulanate 500-125 mg tablet 1 tab PO Q8H Qty: 30 0RF Print Language: [place]
[2024-05-20] MEDS: Ondansetron ODT 4 MG TAB.RAPDIS TRANSLINGU (22:17)
[2024-05-20 22:28] LABS: Basophils Percent Auto 0.2 % (0-2); Eosinophils Percent Auto 0.2 % (0-4); Hematocrit 41.6 % (42.0-52.0); Hemoglobin 14.1 g/dl (14.0-18.0); Imm Gran Abs Auto 0.05 X10*3/uL (0.00-0.03); Imm Gran Pct Auto 0.4 % (0.0-0.4); Lymphocytes Absolute Auto 1.2 X10*3/uL (1.2-4.9); Lymphocytes Percent Auto 9.8 % (20-40); MANUAL DIFF FLAG NO; Mean Corpuscular HGB Conc 33.9 g/dl (31.0-36.0); Mean Corpuscular Hemoglobin 32.4 pg (27.0-33.0); Mean Corpuscular Volume 95.6 fL (80.0-98.0); Mean Platelet Volume 9.5 fL (9.4-12.4); Monocytes Absolute Auto 1.2 X10*3/uL (0.1-1.2); Monocytes Percent Auto 9.5 % (2-11); Neutrophils Percent Auto 79.9 % (45-73); Platelet Count 219 X10*3/uL (160-400); Red Blood Count 4.35 X10*6/uL (4.60-5.80); Red Cell Distribution Width 12.2 % (11.0-16.0); White Blood Count 12.6 X10*3/uL (4.8-10.8)
[2024-05-20 22:43] LABS: Alanine Aminotransferase 16 U/L (0-40); Albumin Level 3.9 g/dL (3.5-5.0); Alkaline Phosphatase 60 U/L (39-117); Anion Gap 10 (12-20); Aspartate Amino Transferase 26 U/L (5-37); Bilirubin Direct 0.2 mg/dL (0.0-0.5); Bilirubin Total 0.6 mg/dL (0.0-1.0); Blood Urea Nitrogen 13 mg/dL (9-16); Calcium 9.5 mg/dL (8.4-10.2); Carbon Dioxide 27 mmol/L (22-29); Chloride 106 mmol/L (96-108); Creatinine Clr Calc Pharmacy 104.1; Estimated Glomerular Filt Rate > 60; Ethanol < 10 mg/dL; Glucose Random 69 mg/dL (60-115); Lipase 33 U/L (8-78); Potassium 3.7 mmol/L (3.3-5.1); Sodium 139 mmol/L (135-145); Total Protein 7.4 g/dL (6.5-8.0)
[2024-05-20 23:12] LABS: Appearance Urine Clear; Color Urine Dark Yellow; Glucose Urine UA Negative (Negative); Leukocyte Esterase Urine Small (1+) (Negative); Nitrite Urine Negative (Negative); PH 5.5 (5.0-9.0); Specific Gravity - Urine >= 1.030 (1.005-1.025); UMIC TRIGGER UACC YES; Urine Blood Negative (Negative); Urine Ketones Trace mg/dL (Negative); Urine Protein Trace mg/dL (Neg-Trace)
[2024-05-20 23:17] LABS: Bacteria Urine None Seen (None Seen); Hyaline Casts Urine 0-2 /LPF (0-2); RBC Urine 0-2 /HPF (0-2); Squamous Epithelial Cell Urine 0-2 /HPF (0-2); UACC Culture Trigger YES
[2024-05-20 23:20] LABS: Amphetamine Screen Urine Not Detected (Not Detect); Barbiturates, Urine Not Detected (Not Detect); Benzodiazepines Screen Urine Not Detected (Not Detect); Buprenorphine Scr Not Detected (Not Detect); Cannabinoid Screen Urine POSITIVE (Not Detect); Cocaine Screen Urine Not Detected (Not Detect); Fentanyl, urine Not Detected (Not Detect); Methadone Screen, Urine Not Detected (Not Detect); Opiate Screen Urine Not Detected (Not Detect); Oxycodone Screen Urine Not Detected (Not Detect); Phencyclidine Screen Urine Not Detected (Not Detect)
[2024-05-20 23:29] VITALS: BP 116/71; PULSE 76; RESP 20; TEMP 36.6
--- NOTE | 2024-05-20 23:33 | PC.NURSE ---
T/w at bedside for discharge. Pt sleeping, wakes easily. Pt reports feeling unwell, states he is so weak he can barely walk. Pt not feeling safe to be discharged. VSS. aware.
[2024-05-21 06:41] VITALS: BP 116/71; PULSE 76; RESP 20; TEMP 36.6
== END 2024-05-21 06:41 | disposition home or self-care (01) ==
PROVIDERS: Emergency Provider Emergency Medicine; PCP Family Medicine
DX: R11.2 Nausea with vomiting, unspecified (principal); E11.9 Type 2 diabetes mellitus without complications; F17.210 Nicotine dependence, cigarettes, uncomplicated; F12.90 Cannabis use, unspecified, uncomplicated; Z59.00 Homelessness unspecified; Z79.84 Long term (current) use of oral hypoglycemic drugs; Z79.02 Long term (current) use of antithrombotics/antiplatelets; Z79.899 Other long term (current) drug therapy
CPT/HCPCS: 36415; 80048; 80076; 80307; 81001; 83690; 85025; 87086; 99283; 99284

== ENCOUNTER 2024-05-25 22:33 | Emergency (ER) | payer MEDICAID, SELFPAY ==
--- NOTE | 2024-05-25 | ECG_ITS ---
Test Reason : CHEST PAIN Blood Pressure : / mmHG Vent. Rate : 076 BPM Atrial Rate : 076 BPM P-R Int : 120 ms QRS Dur : 076 ms QT Int : 362 ms P-R-T Axes : 076 -28 068 degrees QTc Int : 407 ms Normal sinus rhythm Normal ECG When compared with ECG of 23-FEB-2024 16:53, Criteria for Inferior infarct are no longer Present Referred By: Generic ED Physician Electronically Signed By:AMOL MORALES
--- NOTE | ~2024-05-25 | XR_ITS ---
EXAMINATION: XR CHEST CLINICAL INFORMATION: cp/sob COMPARISON: May 20, 2024 TECHNIQUE: Frontal view of the chest was obtained. FINDINGS: The lung volumes are low. The cardiomediastinal silhouette is normal. There is no focal lung consolidation or pleural effusions. The bony structures and the soft tissues are unremarkable. XR/XR chest 1V IMPRESSION: Low lung volumes. No acute cardiopulmonary process. Electronically signed by: Zoltan Rubio MD 05/25/2024 11:56 PM [facility]
[2024-05-25 22:38] VITALS: BP 106/65; PULSE 74; O2SAT 98
[2024-05-25 22:45] VITALS: BP 105/56; PULSE 72; RESP 14; TEMP 36.6; O2SAT 97; BMI 29.3
[2024-05-25 22:51] VITALS: PULSE 72
[2024-05-25 22:58] LABS: Basophils Percent Auto 0.5 % (0-2); Eosinophils Absolute Auto 0.1 X10*3/uL (0.0-0.4); Eosinophils Percent Auto 1.8 % (0-4); Hematocrit 41.1 % (42.0-52.0); Hemoglobin 13.8 g/dl (14.0-18.0); Imm Gran Abs Auto 0.04 X10*3/uL (0.00-0.03); Imm Gran Pct Auto 0.5 % (0.0-0.4); Lymphocytes Absolute Auto 2.2 X10*3/uL (1.2-4.9); Lymphocytes Percent Auto 27.8 % (20-40); MANUAL DIFF FLAG NO; Mean Corpuscular HGB Conc 33.6 g/dl (31.0-36.0); Mean Corpuscular Hemoglobin 32.3 pg (27.0-33.0); Mean Corpuscular Volume 96.3 fL (80.0-98.0); Mean Platelet Volume 9.4 fL (9.4-12.4); Monocytes Percent Auto 12.1 % (2-11); Neutrophils Absolute Auto 4.5 x10*3/uL (2.0-8.3); Neutrophils Percent Auto 57.3 % (45-73); Platelet Count 217 X10*3/uL (160-400); Red Blood Count 4.27 X10*6/uL (4.60-5.80); Red Cell Distribution Width 12.3 % (11.0-16.0); White Blood Count 7.8 X10*3/uL (4.8-10.8)
[2024-05-25 23:13] LABS: Alanine Aminotransferase 14 U/L (0-40); Albumin Level 3.7 g/dL (3.5-5.0); Alkaline Phosphatase 65 U/L (39-117); Anion Gap 12 (12-20); Aspartate Amino Transferase 19 U/L (5-37); Bilirubin Total 0.4 mg/dL (0.0-1.0); Blood Urea Nitrogen 16 mg/dL (9-16); Calcium 8.5 mg/dL (8.4-10.2); Carbon Dioxide 22 mmol/L (22-29); Chloride 111 mmol/L (96-108); Creatinine Clr Calc Pharmacy 87.9; Estimated Glomerular Filt Rate > 60; Glucose Random 174 mg/dL (60-115); Sodium 141 mmol/L (135-145); Total Protein 7.1 g/dL (6.5-8.0)
[2024-05-25 23:22] LABS: Troponin-I High Sensitivity < 2.7 ng/L (<3.5-35.0)
--- NOTE | 2024-05-25 23:51 | ED_ITS ---
HPI - Chest Pain General Chief Complaint: Chest Pain Stated Complaint: Chest pain Time Seen by Provider: 05/25/24 23:51 Source: patient Mode of arrival: ambulatory Limitations: no limitations History of Present Illness ED Provider: HPI narrative: Patient has chronic back pain and arm pain comes chest and back which is going on for long time also complaining of nasal congestion with difficulty in breathing patient has been on baclofen and tramadol for the pain has not seen his PCP Related Data Home Medications ?Medication ?Instructions ?Recorded ?Confirmed atorvastatin 20 mg tablet 1 tab PO BEDTIME 05/15/21 05/27/21 baclofen 10 mg tablet 1 tab PO TID PRN muscle spasm 05/15/21 05/27/21 cholecalciferol (vitamin D3) 50 1 cap PO DAILY 05/15/21 05/27/21 mcg (2,000 unit) capsule dolutegravir 50 mg tablet (Tivicay) 1 tab PO DAILY 05/15/21 05/27/21 emtricitabine 200 mg-tenofovir 1 tab PO DAILY 05/15/21 05/27/21 alafenamide fumarate 25 mg tablet (Descovy) gabapentin 100 mg capsule 1 cap PO TID 05/15/21 05/27/21 glipizide 5 mg tablet 2 tab PO BID 05/15/21 05/27/21 insulin glargine 100 unit/mL (3 16 unit subcut DAILY 05/15/21 05/27/21 mL) subcutaneous pen (Lantus Solostar U-100 Insulin) metformin 500 mg tablet 2 tab PO BID 05/15/21 05/27/21 nystatin 100,000 unit/gram topical 1 appl topical TID PRN itch 05/15/21 05/27/21 cream Previous Rx's ?Medication ?Instructions ?Recorded ibuprofen 600 mg tablet 600 mg PO Q8H PRN fever or pain 05/17/21 #30 tabs bisacodyl 5 mg tablet,delayed 5 mg PO .COMPLEX 1 day #2 tabs 05/21/21 release (Dulcolax (bisacodyl)) amoxicillin 500 mg-potassium 1 tab PO Q8H #30 tabs 05/27/21 clavulanate 125 mg tablet oxycodone 5 mg tablet 5 mg PO Q6H PRN pain #15 tabs 05/27/21 diphenhydramine HCl 25 mg capsule 25 mg PO BEDTIME #10 caps 01/15/22 (Benadryl) fluticasone propionate 50 1 spray intranasal DAILY #16 grams 01/15/22 mcg/actuation nasal spray,suspension (Flonase Allergy Relief) ondansetron 4 mg disintegrating 4 mg PO Q6-8H PRN nausea and 05/08/23 tablet vomiting #7 tabs omeprazole 40 mg capsule,delayed 40 mg PO DAILY #30 caps 02/24/24 release ondansetron 4 mg disintegrating 4 mg PO Q6H PRN nausea and 02/24/24 tablet vomiting #14 tabs naproxen 500 mg tablet (Naprosyn) 500 mg PO BID PRN pain #20 tabs 05/11/24 tramadol 50 mg tablet 50 mg PO Q6H PRN pain #20 tabs 05/13/24 ondansetron 4 mg disintegrating 4 mg PO Q6H PRN nausea and 05/20/24 tablet vomiting #10 tabs tramadol 50 mg tablet 50 mg PO Q8H PRN pain #14 tabs 05/20/24 amoxicillin 875 mg-potassium 1 tab PO BID #20 tabs 05/26/24 clavulanate 125 mg tablet gabapentin 300 mg capsule 300 mg PO BEDTIME #30 caps 05/26/24 prednisone 20 mg tablet 40 mg (2 x 20 mg) PO DAILY #10 tabs 05/26/24 Allergies Allergy/AdvReac Type Severity Reaction Status Date / Time No Known Allergies Allergy Verified 05/25/24 22:46 Review of Systems 2 Review of Systems: Yes all other systems are reviewed and are negative PMFSH Past Medical History Medical History Homeless Personal history of nicotine dependence Diabetes Surgical History History of laparoscopic cholecystectomy (~2020) History of incisional hernia repair (~2014) History of umbilical hernia repair (~2008) History of appendectomy Social History Social History Household Members: None Housing Other:: patient states homeless Do you presently have visiting nurse or other home services: No Patient Tobacco Use Status: Current everyday Tobacco user Tobacco use type: Cigarette Cigarette Packs Per Day: 1 Cigarettes Per Day: 20.0 Years Smoked: 30 Smoked in Last 30 Days: Yes Use of substances other than those prescribed or required for medical reasons: No Substance Use Type: Marijuana Advance Directives: No Advance Directives Information Provided: Yes Do you have a plan to hurt others: No Plan service: No Current occupational status: unemployed Physical Exam 2 Vital Signs: Vital Signs: Last Vital Signs Temp 97.8 F 05/25/24 22:45 Pulse 72 05/25/24 22:45 Resp 14 05/25/24 22:45 BP 105/56 L 05/25/24 22:45 Pulse Ox 97 05/25/24 22:45 O2 Del Method Room Air 05/25/24 22:45 BMI result Body Mass Index 29.3 Appearance: Alert. Oriented X3. No acute distress. Eyes: No pallor or icterus ENT: Pharynx normal. Oral Mucosa moist inflamed nasal turbinate Neck: Normal inspection. Neck supple. CVS: Normal heart rate and rhythm. Pulses normal. Diffuse chest wall tenderness Respiratory: No respiratory distress. Equal air entry bilateral, no wheezing/rales/rhonchi Abdomen: Soft and nontender. Bowel sounds are present, no mass palpable, no CVA tenderness Skin: Skin warm and dry. Normal skin color. Normal skin turgor. Extremities: No lower extremity edema. No calf tenderness back: Diffuse tenderness lumbosacral area no midline tenderness Neuro: Oriented X 3 Medications Administered Discontinued Medications Generic Name Dose Route Start Last Admin Trade Name Freq PRN Reason Stop Dose Admin Amoxicillin/Clavulanate Potassium 875 mg 05/25/24 23:59 05/26/24 00:10 Amoxicillin/Potassium Clav 875 Mg Tablet PO 05/26/24 00:00 875 mg ONCE ONE Administration Gabapentin 300 mg 05/25/24 23:58 05/26/24 00:11 Gabapentin 300 Mg Capsule PO 05/25/24 23:59 300 mg ONCE ONE Administration Prednisone 40 mg 05/25/24 23:59 05/26/24 00:10 Prednisone 20 Mg Tablet PO 05/26/24 00:00 40 mg ONCE ONE Administration Tramadol HCl 50 mg 05/25/24 23:58 05/26/24 00:11 Tramadol Hcl 50 Mg Tablet PO 05/25/24 23:59 50 mg ONCE ONE Administration Medical Decision Making Medical Decision Making MDM Narrative: Patient has chronic pain with multiple complaints labs are stable discharge patient home on gabapentin advised to follow up with pain clinic/PCP Lab Data [facility] Lab Attestation statement: I reviewed the patient's lab results. 05/25/24 22:53 05/25/24 22:53 Labs: Lab Results 05/25/24 Range/Units 22:53 WBC 7.8 (4.8-10.8) X10*3/uL RBC 4.27 L (4.60-5.80) X10*6/uL Hgb 13.8 L (14.0-18.0) g/dl Hct 41.1 L (42.0-52.0) % MCV 96.3 (80.0-98.0) fL MCH 32.3 (27.0-33.0) pg MCHC 33.6 (31.0-36.0) g/dl RDW 12.3 (11.0-16.0) % Plt Count 217 (160-400) X10*3/uL MPV 9.4 (9.4-12.4) fL Immature Gran % (Auto) 0.5 H (0.0-0.4) % Neut % (Auto) 57.3 (45-73) % Lymph % (Auto) 27.8 (20-40) % [place] % (Auto) 12.1 H (2-11) % Eos % (Auto) 1.8 (0-4) % Baso % (Auto) 0.5 (0-2) % Lymph # (Auto) 2.2 (1.2-4.9) X10*3/uL [place] # (Auto) 1.0 (0.1-1.2) X10*3/uL Eos # (Auto) 0.1 (0.0-0.4) X10*3/uL Baso # (Auto) 0.0 (0.0-0.2) X10*3/uL Abs Immat Gran (auto) 0.04 H (0.00-0.03) X10*3/uL Absolute Neuts (auto) 4.5 (2.0-8.3) x10*3/uL Absolute Nucleated RBC 0.000 (0.0-0.012) X10*3/uL Nucleated RBC % (auto) 0.0 (0.0-0.2) /100WBC Sodium 141 (135-145) mmol/L Potassium 4.0 (3.3-5.1) mmol/L Chloride 111 H (96-108) mmol/L Carbon Dioxide 22 (22-29) mmol/L Anion Gap 12 (12-20) BUN 16 (9-16) mg/dL Creatinine 1.06 (0.5-1.4) mg/dL Estim Creat Clear Calc 87.9 Estimated GFR > 60 Random Glucose 174 H (60-115) mg/dL Calcium 8.5 D (8.4-10.2) mg/dL Total Bilirubin 0.4 (0.0-1.0) mg/dL AST 19 (5-37) U/L ALT 14 (0-40) U/L Alkaline Phosphatase 65 (39-117) U/L Troponin I High Sens < 2.7 (<3.5-35.0) ng/L Total Protein 7.1 (6.5-8.0) g/dL Albumin 3.7 (3.5-5.0) g/dL Independent Interpretation I performed an independent interpretation of an: EKG Interpretation: Normal sinus rhythm heart rate 76 beats per minute normal interval normal axis no acute STT changes impression normal EKG Discharge Plan Discharge Clinical Impression: Atypical chest pain, Chronic pain, Chronic sinusitis Patient Disposition: Home, Self-Care Instructions: Chronic Pain (ED), Rhinosinusitis (ED), Chest Wall Pain (ED) Additional Instructions: Take pain medication as prescribed Follow with pain clinic Antibiotic and prednisone for sinus infection Prescriptions: New prednisone 20 mg tablet 40 mg PO DAILY Qty: 10 0RF amoxicillin-pot clavulanate 875-125 mg tablet 1 tab PO BID Qty: 20 0RF gabapentin 300 mg capsule 300 mg PO BEDTIME Qty: 30 0RF No Action bisacodyl [Dulcolax (bisacodyl)] 5 mg tablet,delayed release (DR/EC) 5 mg PO .COMPLEX 1 Days Qty: 2 0RF Rx Instructions: 5 mg PO Take one tablet for constipation. If no bowel movement after 4 hours, take another tablet.; metformin 500 mg tablet 2 tab PO BID atorvastatin 20 mg tablet 1 tab PO BEDTIME baclofen 10 mg tablet 1 tab PO TID PRN (Reason: muscle spasm) nystatin 100,000 unit/gram cream 1 appl topical TID PRN (Reason: itch) gabapentin 100 mg capsule 1 cap PO TID glipizide 5 mg tablet 2 tab PO BID Lantus Solostar U-100 Insulin 100 unit/mL (3 mL) insulin pen 16 unit subcut DAILY cholecalciferol (vitamin D3) 50 mcg (2,000 unit) capsule 1 cap PO DAILY Tivicay 50 mg tablet 1 tab PO DAILY [place]covy 200-25 mg tablet 1 tab PO DAILY ibuprofen 600 mg tablet 600 mg PO Q8H PRN (Reason: fever or pain) Qty: 30 0RF diphenhydramine HCl [Benadryl] 25 mg capsule 25 mg PO BEDTIME Qty: 10 0RF fluticasone propionate [Flonase Allergy Relief] 50 mcg/actuation spray,suspension 1 spray intranasal DAILY Qty: 16 0RF Rx Instructions: administer into each nostril omeprazole 40 mg capsule,delayed release(DR/EC) 40 mg PO DAILY Qty: 30 2RF ondansetron 4 mg tablet,disintegrating 4 mg PO Q6H PRN (Reason: nausea and vomiting) Qty: 14 0RF tramadol 50 mg tablet 50 mg PO Q8H PRN (Reason: pain) Qty: 14 0RF ondansetron 4 mg tablet,disintegrating 4 mg PO Q6H PRN (Reason: nausea and vomiting) Qty: 10 0RF ondansetron 4 mg tablet,disintegrating 4 mg PO Q6-8H PRN (Reason: nausea and vomiting) Qty: 7 0RF naproxen [Naprosyn] 500 mg tablet 500 mg PO BID PRN (Reason: pain) Qty: 20 0RF tramadol 50 mg tablet 50 mg PO Q6H PRN (Reason: pain) Qty: 20 0RF oxycodone 5 mg tablet 5 mg PO Q6H PRN (Reason: pain) Qty: 15 0RF amoxicillin-pot clavulanate 500-125 mg tablet 1 tab PO Q8H Qty: 30 0RF Print Language: Khmer
[2024-05-26] MEDS: predniSONE 20 MG TABLET 40 MG PO (00:10)
[2024-05-26] MEDS: Amoxicillin/Potassium Clav 875 MG TABLET PO (00:10)
[2024-05-26] MEDS: traMADoL HCL 50 MG TABLET PO (00:11)
[2024-05-26] MEDS: Gabapentin 300 MG CAPSULE PO (00:11)
[2024-05-26 00:34] VITALS: BP 110/50; PULSE 76; RESP 25; O2SAT 96
[2024-05-26 00:38] VITALS: BP 110/50; PULSE 76; RESP 18; TEMP 36.8; O2SAT 96
== END 2024-05-26 00:42 | disposition home or self-care (01) ==
PROVIDERS: Emergency Provider Internal Medicine
DX: J32.9 Chronic sinusitis, unspecified (principal); R07.9 Chest pain, unspecified; M79.603 Pain in arm, unspecified; R06.02 Shortness of breath; M54.9 Dorsalgia, unspecified; Z79.899 Other long term (current) drug therapy
CPT/HCPCS: 36415; 71045; 80053; 84484; 85025; 93005; 99283; 99285

== ENCOUNTER → 2024-05-25 22:44 | Outpatient (BNV) | payer MEDICAID, SELFPAY | PROVIDERS: Emergency Provider Internal Medicine; Visit Provider Internal Medicine | DX: R07.9 Chest pain, unspecified (principal) | CPT/HCPCS: 93010 ==

== ENCOUNTER 2024-09-12 20:19 | Emergency (ER) | payer MEDICAID, SELFPAY ==
--- NOTE | ~2024-09-12 | XR_ITS ---
CLINICAL HISTORY: fall 3 view, pelvis and left hip Comparison: X-ray of the pelvis from 05/12/2024 Findings: Worsening and essentially severe osteoarthritis of the left hip with worsening sclerosis and chronic appearing deformity of the proximal femur. Additional sclerosis may reflect avascular necrosis. Severe osteoarthritis of the of the right hip. Deformity of the pubic rami appear old and unchanged. Sacrum and SI joints are partly obscured. Moderate stool burden present. IMPRESSION: 1. No displaced fracture or dislocation by radiographs. 2. Severe osteoarthritis of the left hip with avascular necrosis. This document has been electronically signed by: Grady Carter MD on 09/12/2024 21:42:31
--- NOTE | ~2024-09-12 | XR_ITS ---
CLINICAL HISTORY: fall 3 view left shoulder Comparison: None Findings: [id number] osteoarthritis of the left AC joint. Mild-moderate osteoarthritis of the left glenohumeral joint with osteophytes. No acute displaced fracture. Moderate effusion present. No dislocation. Mild atelectasis in the [id number]. No radiopaque retained foreign body. IMPRESSION: 1. No acute fracture or dislocation. 2. Osteoarthritis of the left shoulder. This document has been electronically signed by: Grady Carter MD on 09/12/2024 21:20:45
[2024-09-12 20:23] VITALS: BP 112/63; PULSE 97; O2SAT 97
[2024-09-12 20:31] VITALS: BP 126/79; PULSE 88; RESP 18; TEMP 36.8; O2SAT 95; BMI 33.3
--- OUTSIDE RECORDS SUMMARY | 2024-09-12 21:05 | XMS_ITS | Continuity of Care Document ---
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 . Referring Provider: Quinton Tran, [address] [place] [address], [address]. tel:[phone] [facility], [address] [place] [address], [id number], tel:[phone] [facility] covid vaccine (chief complaint) No Information Nurse Visit. . Referring Provider: Quinton Tran, [address] [place], [place] [address] [address] [place] [address], [address]. tel:[phone] Family History Family Member Type Diagnosis Age [...] Record Payers Payer name Insurance type Covered libertarian ID Authoriza tion(s) [employer] [id number] [employer] [id number] [employer] [id number] Social History Type Description Quantity Date Captured [...]
--- OUTSIDE RECORDS SUMMARY | 2024-09-12 21:05 | XMS_ITS | Continuity of Care Document ---
Author Organization [facility] Address 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, [place], [place], [id number], [place] tel:[phone] [facility] sore throat (chief complaint) Nasal congestionPain in throatPostnasal dripChronic rhinitis [address], [place], [place], [id number], [place]. tel:[phone] OV, Estab Pt, Level IV [facility], [address], [place], [place], [id number], [place] tel:[phone] [facility] Ringing in ears (chief complaint) Other specified disorders of Eustachian tube, bilateralChronic rhinitisPulsatile tinnitus, right ear 4 Ort MD Chaudhry. [address], [place], [place], [id number], [place]. tel:[phone] [facility], [address], [place], [place], [id number], [place] tel:[phone] [facility] No Information 3 Michel Emmanuel. [address], [place], [place], [id number], [place]. tel:[phone] Referring Provider: Km Garcia, [id number], [place], [address] . tel:[phone] OV, New Pt, Level III [facility], [address], [place], [place], [id number], [place] tel:[phone] [facility] Ringing in ears (chief complaint) Stapedial myoclonusOther specified disorders of Eustachian tube, bilateral [id number], [place], [place], [id number], [place]. tel:[phone] [facility], [address], [place], [place], [id number], [place] tel:[phone] [facility] Unspecified hearing loss, unspecified ear 3 Michel Emmanuel. [address], [place], [place], [id number], [place]. tel:[phone] Referring Provider: Km Williamson DO Diego, [address], [place], [address] . tel:[phone] Family History Family Member Type Diagnosis Age [...] Payer name Insurance type Covered republican ID Authorlisaa fermin(s) [facility] BS [place] PPO BL [id number] Social History Type Description Quantity Date Captured [...] Mental Status Date Cognitive Assessment Orientation - Bath ed to time, place, person, situation. Patient Care Teams Name Effective Dates (start - stop) Status Members No Information
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
[2024-09-12 22:00] VITALS: BP 126/79; PULSE 88; RESP 18; TEMP 36.8; O2SAT 95
--- NOTE | 2024-09-12 22:20 | MHC.CM.ED ---
CM met with patient at the request of Dr. Zepeda. Pt is A&Ox3. States was living with friends, but is now homeless. Pt is living on the streets. Sleeps at the [facility]. Has a storage unit with his belongings. Denies any family or friends that my help him. Denies drug use. States he is originally from [place]. PCP is at [facility]. States he hasn't seen her in about 2 years. C/O severe arthritis in hips and shoulder. Xrays verify severe osteoarthritis in both hips, but no FX. Pt states fell twice today. Having difficulty walking. Denies any services or DME. PT is pending. Will make local referrals pending PT evaluation. No HCP on file. Patient states he has no one to appoint as proxy. Pt given sandwich/juice. CM will follow.
--- NOTE | 2024-09-12 22:49 | PC.NURSE ---
Pt. given sandwich and drink to eat.
--- NOTE | 2024-09-12 23:25 | PC.NURSE ---
Report given to RUBY Scanlon.
[2024-09-12] MEDS: oxyCODONE HCl Immed Release 5 MG TABLET PO (23:35)
[2024-09-12] MEDS: Ibuprofen 600 MG TABLET PO (23:35)
--- NOTE | 2024-09-13 04:02 | PC.NURSE ---
this RN resumed care of pt at 0300. pt currently asleep in no apparent distress. on RA w/o difficulty. no sob/wob noted. respirations even/unlabored. pt seen by CM, currently pending PT evaluation. plan of care ongoing.
--- NOTE | 2024-09-13 05:17 | PC.NURSE ---
1:1 assist w/ wheelchair for assistive device to assist patient to the restroom. pt had normal, soft, formed, BM. pt assisted back into bed/repositioned to comfort. diet order placed.
--- NOTE | 2024-09-13 06:33 | PC.NURSE ---
pt requesting to be assessed d/t rash on upper extremities bilaterally as well as trunk of abdomen. spots noted to be darker in color, nonraised, and not itchy. no open areas noted. denies fever/chills. provider notified/aware. provider states he has already evaluated upon arrival to ED. no new orders.
[2024-09-13 07:43] LABS: Glucose, Whole Blood 118 mg/dL (60-115)
--- NOTE | 2024-09-13 08:37 | PC.NURSE ---
swabs obtained/sent to lab.
[2024-09-13 09:29] LABS: Influenza A PCR NEGATIVE (Negative); Influenza B PCR NEGATIVE (Negative); Resp Syncy Virus RNA Qual PCR NEGATIVE (Negative); SARS COV2 PCR INHOUSE NEGATIVE (Negative)
[2024-09-13 09:36] VITALS: BP 126/79; PULSE 88; O2SAT 95
--- NOTE | 2024-09-13 09:37 | PC.NURSE ---
PT eval being completed at this time.
--- NOTE | 2024-09-13 09:37 | MHC.CM.ED ---
Patient remains in ER. Passed physical therapy. Will be d/c'd. Patient is homeless and knows where he will go. Danielle CAST aware.
[2024-09-13 11:02] VITALS: BP 102/63; PULSE 81; RESP 16; TEMP 37; O2SAT 98
[2024-09-13 11:50] LABS: Glucose, Whole Blood 87 mg/dL (60-115)
[2024-09-13 12:22] VITALS: BP 102/63; PULSE 81; RESP 16; TEMP 37; O2SAT 98
[2024-09-13 12:23] VITALS: BP 102/63; PULSE 81; RESP 16; TEMP 37; O2SAT 98
== END 2024-09-13 12:24 | disposition home or self-care (01) ==
PROVIDERS: Emergency Provider Emergency Medicine; PCP Family Medicine
DX: R29.6 Repeated falls (principal); M16.12 Unilateral primary osteoarthritis, left hip; R21 Rash and other nonspecific skin eruption; M25.512 Pain in left shoulder; Z59.00 Homelessness unspecified; Z91.81 History of falling; E11.9 Type 2 diabetes mellitus without complications; F17.210 Nicotine dependence, cigarettes, uncomplicated; F12.90 Cannabis use, unspecified, uncomplicated; Z03.818 Encounter for observation for suspected exposure to other biological agents ruled out; Z79.84 Long term (current) use of oral hypoglycemic drugs; Z79.4 Long term (current) use of insulin; Z79.899 Other long term (current) drug therapy
CPT/HCPCS: 0241U; 73030; 73502; 82947; 97161; 99284

== ENCOUNTER → 2024-09-12 20:50 | Outpatient (BNV) | payer MEDICAID, SELFPAY | PROVIDERS: Emergency Provider Emergency Medicine; Visit Provider Radiology Neuroradiology | DX: M16.12 Unilateral primary osteoarthritis, left hip (principal); M19.012 Primary osteoarthritis, left shoulder | CPT/HCPCS: 73030; 73502 ==

== ENCOUNTER 2024-09-20 21:28 | Emergency (ER) | payer MEDICAID, SELFPAY ==
[2024-09-20 21:36] VITALS: BP 166/64; PULSE 75; O2SAT 97
[2024-09-20 21:53] VITALS: BP 112/50; PULSE 87; RESP 20; TEMP 36.7; O2SAT 95; BMI 32.6
[2024-09-20 22:08] LABS: Glucose, Whole Blood 55 mg/dL (60-115)
[2024-09-20 22:13] LABS: MANUAL DIFF FLAG NO
[2024-09-20 22:14] LABS: Basophils Percent Auto 0.5 % (0-2); Eosinophils Absolute Auto 0.1 X10*3/uL (0.0-0.4); Hematocrit 43.2 % (42.0-52.0); Hemoglobin 14.2 g/dl (14.0-18.0); Imm Gran Abs Auto 0.04 X10*3/uL (0.00-0.03); Imm Gran Pct Auto 0.5 % (0.0-0.4); Lymphocytes Absolute Auto 2.5 X10*3/uL (1.2-4.9); Lymphocytes Percent Auto 32.2 % (20-40); Mean Corpuscular HGB Conc 32.9 g/dl (31.0-36.0); Mean Corpuscular Hemoglobin 31.4 pg (27.0-33.0); Mean Corpuscular Volume 95.6 fL (80.0-98.0); Mean Platelet Volume 9.5 fL (9.4-12.4); Monocytes Absolute Auto 1.1 X10*3/uL (0.1-1.2); Monocytes Percent Auto 13.5 % (2-11); Neutrophils Absolute Auto 4.1 x10*3/uL (2.0-8.3); Neutrophils Percent Auto 52.3 % (45-73); Platelet Count 234 X10*3/uL (160-400); Red Blood Count 4.52 X10*6/uL (4.60-5.80); Red Cell Distribution Width 12.6 % (11.0-16.0); White Blood Count 7.9 X10*3/uL (4.8-10.8)
--- NOTE | 2024-09-20 22:26 | PC.NURSE ---
Pt a&ox4, no signs of distress Pt reports 10/ body pain, states its my arthritis. I have it all over Plan of care ongoing.
[2024-09-20 22:31] LABS: Alanine Aminotransferase 13 U/L (0-40); Albumin Level 3.9 g/dL (3.5-5.0); Alkaline Phosphatase 68 U/L (39-117); Anion Gap 11 (12-20); Aspartate Amino Transferase 23 U/L (5-37); Bilirubin Total 0.4 mg/dL (0.0-1.0); Blood Urea Nitrogen 17 mg/dL (9-16); Calcium 9.2 mg/dL (8.4-10.2); Carbon Dioxide 24 mmol/L (22-29); Chloride 109 mmol/L (96-108); Creatinine Clr Calc Pharmacy 88.6; Estimated Glomerular Filt Rate > 60; Glucose Random 51 mg/dL (60-115); Potassium 4.2 mmol/L (3.3-5.1); Sodium 140 mmol/L (135-145); Total Protein 7.4 g/dL (6.5-8.0)
--- OUTSIDE RECORDS SUMMARY | 2024-09-20 22:35 | XMS_ITS | Continuity of Care Document ---
Author Organization [facility] Address [address] [place] [address] Phone Care Team Providers Care Operating Room Orderly Name Role Phone Jennifer Williamson DOd Unavailable [...] [facility], [address], [place], [place], [id number], [place] tel:[phone] [facility] sore throat (chief complaint) Nasal congestionPain in throatPostnasal dripChronic rhinitis [address], [place], [place], [id number], [place]. tel:[phone] OV, Estab Pt, Level IV [facility], [address], [place], [place], [id number], [place] tel:[phone] [facility] Ringing in ears (chief complaint) Other specified disorders of Eustachian tube, bilateralChronic rhinitisPulsatile tinnitus, right ear 4 Ort MD Chaud[address]. [address], [place], [place], [id number], [place]. tel:[phone] [facility], [address], [place], [place], [id number], [place] tel:[phone] [facility] No Information 3 Michel Emmanuel. [address], [place], [place], [id number], [place]. tel:[phone] Referring Provider: Km Garcia, [address], [place], [address] . tel:[phone] OV, New Pt, Level III [facility], [address], [place], [place], [id number], [place] tel:[phone] [facility] Ringing in ears (chief complaint) Stapedial myoclonusOther specified disorders of Eustachian tube, bilateral [address], [place], [place], [id number], [place]. tel:[phone] [facility], [address], [place], [place], [id number], [place] tel:[phone] [facility] Unspecified hearing loss, unspecified ear 3 Michel Emmanuel. [address], [place], [place], [id number], [place]. tel:[phone] Referring Provider: Km Williamson DO Diego, [address], [place], [address] . tel:[phone] Family History Family Member Type Diagnosis Age [...] Insurance type Covered democrat ID Authorlisaa fermin(s) [facility] BS [place] PPO BL [id number] Social History Type Description Quantity Date Captured [...] Mental Status Date Cognitive Assessment Orientation - Frazer ed to time, place, person, situation. Patient Care Teams Name Effective Dates (start - stop) Status Members No Information
--- OUTSIDE RECORDS SUMMARY | 2024-09-20 22:35 | XMS_ITS | Continuity of Care Document ---
[facility] Address [address] [place] [phone] Phone Care Team Providers Care Business Services Tech Name Role Phone Nurse RN, Visit Unavailable [...] Date Provider Providers Copied on Encounter [facility], [address] [place] [address], [id number], tel:[phone] [facility] Covid vaccine (chief complaint) No Information Nurse Visit. . Referring Provider: Quinton Tran, [address] [place] [address], [id number]. tel:[phone] [facility], [address] [place] [address], [id number], tel:[phone] [facility] covid vaccine (chief complaint) No Information Nurse Visit. . Referring Provider: Quinton Tran, [address] [place], [place] [address] [address] [place] [address], [id number]. tel:[phone] Family History Family Member Type Diagnosis Age [...] democrat ID Authoriza tion(s) [employer] [id number] [employer] [id number] [employer] [id number] Social History Type Description Quantity Date Captured [...]
[2024-09-20 22:48] LABS: Glucose, Whole Blood 102 mg/dL (60-115)
[2024-09-20 22:51] LABS: Influenza A PCR NEGATIVE (Negative); Influenza B PCR NEGATIVE (Negative); Resp Syncy Virus RNA Qual PCR NEGATIVE (Negative); SARS COV2 PCR INHOUSE NEGATIVE (Negative)
[2024-09-21 01:42] LABS: Glucose, Whole Blood 120 mg/dL (60-115)
--- NOTE | 2024-09-21 02:03 | ED_ITS ---
HPI - General Adult General Chief complaint: General Medical Stated complaint: cold d/t being outside, pain all over body Time Seen by Provider: 09/20/24 23:31 Source: patient Mode of arrival: ambulatory Limitations: no limitations History of Present Illness ED Provider: Dr. Carlene Cullen HPI narrative: Patient comes to the emergency room complaining of pain all over. Patient states that he has history of arthritis. Patient called EMS. When EMS arrived, patient's glucose was ?low?, patient was given p.o. glucose. On arrival, point of care 69. Patient states that he is homeless and has been unable to get food. Patient denies any recent trauma or falls. Related Data Home Medications ?Medication ?Instructions ?Recorded ?Confirmed atorvastatin 20 mg tablet 1 tab PO BEDTIME 05/15/21 05/27/21 baclofen 10 mg tablet 1 tab PO TID PRN muscle spasm 05/15/21 05/27/21 cholecalciferol (vitamin D3) 50 1 cap PO DAILY 05/15/21 05/27/21 mcg (2,000 unit) capsule dolutegravir 50 mg tablet (Tivicay) 1 tab PO DAILY 05/15/21 05/27/21 emtricitabine 200 mg-tenofovir 1 tab PO DAILY 05/15/21 05/27/21 alafenamide fumarate 25 mg tablet (Descovy) gabapentin 100 mg capsule 1 cap PO TID 05/15/21 05/27/21 glipizide 5 mg tablet 2 tab PO BID 05/15/21 05/27/21 insulin glargine 100 unit/mL (3 16 unit subcut DAILY 05/15/21 05/27/21 mL) subcutaneous pen (Lantus Solostar U-100 Insulin) metformin 500 mg tablet 2 tab PO BID 05/15/21 05/27/21 nystatin 100,000 unit/gram topical 1 appl topical TID PRN itch 05/15/21 05/27/21 cream Previous Rx's ?Medication ?Instructions ?Recorded ibuprofen 600 mg tablet 600 mg PO Q8H PRN fever or pain 05/17/21 #30 tabs bisacodyl 5 mg tablet,delayed 5 mg PO .COMPLEX 1 day #2 tabs 05/21/21 release (Dulcolax (bisacodyl)) amoxicillin 500 mg-potassium 1 tab PO Q8H #30 tabs 05/27/21 clavulanate 125 mg tablet oxycodone 5 mg tablet 5 mg PO Q6H PRN pain #15 tabs 05/27/21 diphenhydramine HCl 25 mg capsule 25 mg PO BEDTIME #10 caps 01/15/22 (Benadryl) fluticasone propionate 50 1 spray intranasal DAILY #16 grams 01/15/22 mcg/actuation nasal spray,suspension (Flonase Allergy Relief) ondansetron 4 mg disintegrating 4 mg PO Q6-8H PRN nausea and 05/08/23 tablet vomiting #7 tabs omeprazole 40 mg capsule,delayed 40 mg PO DAILY #30 caps 02/24/24 release ondansetron 4 mg disintegrating 4 mg PO Q6H PRN nausea and 02/24/24 tablet vomiting #14 tabs naproxen 500 mg tablet (Naprosyn) 500 mg PO BID PRN pain #20 tabs 05/11/24 tramadol 50 mg tablet 50 mg PO Q6H PRN pain #20 tabs 05/13/24 ondansetron 4 mg disintegrating 4 mg PO Q6H PRN nausea and 05/20/24 tablet vomiting #10 tabs tramadol 50 mg tablet 50 mg PO Q8H PRN pain #14 tabs 05/20/24 amoxicillin 875 mg-potassium 1 tab PO BID #20 tabs 05/26/24 clavulanate 125 mg tablet gabapentin 300 mg capsule 300 mg PO BEDTIME #30 caps 05/26/24 prednisone 20 mg tablet 40 mg (2 x 20 mg) PO DAILY #10 tabs 05/26/24 acetaminophen 650 mg 650 mg PO Q8H PRN pain #30 tabs 09/13/24 tablet,extended release (Tylenol 8 Hour) hydrocortisone 1 % topical cream 1 appl topical TID PRN allergic 09/13/24 (Cortisone (hydrocortisone)) reaction 2 weeks #28.35 grams lidocaine 4 % topical patch 1 patch topical DAILY PRN pain #30 09/13/24 (AsperFlex (lidocaine)) ea loratadine 10 mg tablet (Claritin) 10 mg PO DAILY #30 tabs 09/13/24 diclofenac sodium 1 % topical gel 4 g topical QID PRN pain #100 grams 09/21/24 (Voltaren Arthritis Pain) Allergies Allergy/AdvReac Type Severity Reaction Status Date / Time No Known Allergies Allergy Verified 09/20/24 21:55 Review of Systems 2 Review of Systems: Constitutional : No Weight loss, No Fever, No Chills, No Night Sweats, No Fatigue, No Malaise ENT/Mouth : No Hearing loss, No Ear Pain, No Nasal Congestion, No Sinus Pain, No Hoarseness, No sore throat, No Rhinorrhea, No Swallowing Difficulty Eyes: No Eye Pain, No Swelling, No Redness, No Foreign Body, No Discharge, No Vision Changes Cardiovascular : No Chest Pain, No SOB, No Dyspnea on Exertion, No Orthopnea, No Edema, No Palpitations Respiratory : No Cough, No Sputum, No Wheezing, No Smoke Exposure, No Dyspnea Gastrointestinal : No Nausea, No Vomiting, No Diarrhea, No Constipation, No abdominal Pain, No Hematochezia, No Melena Genitourinary : no irregular bleeding, No Dysuria, No Urinary Frequency, No Hematuria, No Urinary Incontinence, No Urgency, No Flank Pain, No Urinary Flow Changes, No Hesitancy Musculoskeletal : Complaining of diffuse pain in all joints Skin : No Skin Lesions, No rash Neuro : No Weakness, No Numbness, No Paresthesias, No Loss of Consciousness, No Dizziness, No Headache Psych : No Anxiety/Panic, No Depression, No SI/HI/AH/VH, patient is homeless Heme/Lymph: No Bruising, No Bleeding,No Lymphadenopathy Endocrine : No Polyuria, No Polydipsia, No Temperature Intolerance [facility] Past Medical History Medical History Homeless Personal history of nicotine dependence Diabetes Surgical History History of laparoscopic cholecystectomy (~2020) History of incisional hernia repair (~2014) History of umbilical hernia repair (~2008) History of appendectomy Social History Social History Household Members: None Housing Other:: patient states homeless Do you presently have visiting nurse or other home services: No Alcohol intake: never Patient Tobacco Use Status: Current everyday Tobacco user Tobacco use type: Cigarette Cigarette Packs Per Day: 1 Cigarettes Per Day: 20.0 Years Smoked: 30 Substance Use Type: Marijuana Advance Directives: No Advance Directives Information Provided: No Do you have a plan to hurt others: No Plan service: No Current occupational status: unemployed Physical Exam ED Vital Signs: Vital Signs - 24 hr 09/20/24 21:53 Temperature 98.1 F Pulse Rate 87 Respiratory Rate 20 Blood Pressure 112/50 L Pulse Oximetry 95 Oxygen Delivery Method Room Air BMI result Body Mass Index 32.6 Const Other: Appearance: Alert. Oriented X3. No acute distress. Eyes: Pupils equal, round and reactive to light. ENT: Pharynx normal. Neck: Normal inspection. Neck supple. No lymph nodes noted. No crepitus CVS: Normal heart rate and rhythm. Pulses normal. Normal S1 and S2 Respiratory: No respiratory distress. Breath sounds normal. No Wheezing. No rales Abdomen: Soft and nontender. No rigidity. No distention. Skin: Skin warm and dry. Normal skin color. Normal skin turgor. Extremities: No lower extremity edema. No Lacerations. No Rash Neuro: Oriented X 3. No motor deficit. No sensory deficit. Moving all extremities. No slurred speech. CN 2 through 12 grossly intact Psych: calm, cooperative, normal affect Medical Decision Making Medical Decision Making [facility] Narrative: My interpretation of labs: Patient's hematology at baseline, chemistry does not show any acute abnormality other than a glucose of 51. Patient was given food, glucose improved to 102. Check couple of hours later, now 120. Patient does not have any other symptoms other than diffuse joint pain Lab Data [facility] Lab Attestation statement: I reviewed the patient's lab results. 09/20/24 22:08 09/20/24 22:08 Labs: Lab Results 09/20/24 09/20/24 09/20/24 Range/Units 22:02 22:08 22:43 WBC 7.9 (4.8-10.8) X10*3/uL RBC 4.52 L (4.60-5.80) X10*6/uL Hgb 14.2 (14.0-18.0) g/dl Hct 43.2 (42.0-52.0) % MCV 95.6 (80.0-98.0) fL MCH 31.4 (27.0-33.0) pg MCHC 32.9 (31.0-36.0) g/dl RDW 12.6 (11.0-16.0) % Plt Count 234 (160-400) X10*3/uL MPV 9.5 (9.4-12.4) fL Immature Gran % (Auto) 0.5 H (0.0-0.4) % Neut % (Auto) 52.3 (45-73) % Lymph % (Auto) 32.2 (20-40) % [place] % (Auto) 13.5 H (2-11) % Eos % (Auto) 1.0 (0-4) % Baso % (Auto) 0.5 (0-2) % Lymph # (Auto) 2.5 (1.2-4.9) X10*3/uL [place] # (Auto) 1.1 (0.1-1.2) X10*3/uL Eos # (Auto) 0.1 (0.0-0.4) X10*3/uL Baso # (Auto) 0.0 (0.0-0.2) X10*3/uL Abs Immat Gran (auto) 0.04 H (0.00-0.03) X10*3/uL Absolute Neuts (auto) 4.1 (2.0-8.3) x10*3/uL Absolute Nucleated RBC 0.000 (0.0-0.012) X10*3/uL Nucleated RBC % (auto) 0.0 (0.0-0.2) /100WBC Sodium 140 (135-145) mmol/L Potassium 4.2 (3.3-5.1) mmol/L Chloride 109 H (96-108) mmol/L Carbon Dioxide 24 (22-29) mmol/L Anion Gap 11 L (12-20) BUN 17 H (9-16) mg/dL Creatinine 0.93 (0.5-1.4) mg/dL Estim Creat Clear Calc 88.6 Estimated GFR > 60 POC Glucose 55 L* 102 (60-115) mg/dL Random Glucose 51 L* (60-115) mg/dL Calcium 9.2 D (8.4-10.2) mg/dL Total Bilirubin 0.4 (0.0-1.0) mg/dL AST 23 (5-37) U/L ALT 13 (0-40) U/L Alkaline Phosphatase 68 (39-117) U/L Total Protein 7.4 (6.5-8.0) g/dL Albumin 3.9 (3.5-5.0) g/dL Influenza Type A (PCR) NEGATIVE (Negative) Influenza Type B (PCR) NEGATIVE (Negative) RSV RNA Qual (PCR) NEGATIVE (Negative) SARS-CoV-2 RNA (RT-PCR) NEGATIVE (Negative) 09/21/24 Range/Units 01:38 WBC (4.8-10.8) X10*3/uL RBC (4.60-5.80) X10*6/uL Hgb (14.0-18.0) g/dl Hct (42.0-52.0) % MCV (80.0-98.0) fL MCH (27.0-33.0) pg MCHC (31.0-36.0) g/dl RDW (11.0-16.0) % Plt Count (160-400) X10*3/uL MPV (9.4-12.4) fL Immature Gran % (Auto) (0.0-0.4) % Neut % (Auto) (45-73) % Lymph % (Auto) (20-40) % [place] % (Auto) (2-11) % Eos % (Auto) (0-4) % Baso % (Auto) (0-2) % Lymph # (Auto) (1.2-4.9) X10*3/uL [place] # (Auto) (0.1-1.2) X10*3/uL Eos # (Auto) (0.0-0.4) X10*3/uL Baso # (Auto) (0.0-0.2) X10*3/uL Abs Immat Gran (auto) (0.00-0.03) X10*3/uL Absolute Neuts (auto) (2.0-8.3) x10*3/uL Absolute Nucleated RBC (0.0-0.012) X10*3/uL Nucleated RBC % (auto) (0.0-0.2) /100WBC Sodium (135-145) mmol/L Potassium (3.3-5.1) mmol/L Chloride (96-108) mmol/L Carbon Dioxide (22-29) mmol/L Anion Gap (12-20) BUN (9-16) mg/dL Creatinine (0.5-1.4) mg/dL Estim Creat Clear Calc Estimated GFR POC Glucose 120 H (60-115) mg/dL Random Glucose (60-115) mg/dL Calcium (8.4-10.2) mg/dL Total Bilirubin (0.0-1.0) mg/dL AST (5-37) U/L ALT (0-40) U/L Alkaline Phosphatase (39-117) U/L Total Protein (6.5-8.0) g/dL Albumin (3.5-5.0) g/dL Influenza Type A (PCR) (Negative) Influenza Type B (PCR) (Negative) RSV RNA Qual (PCR) (Negative) SARS-CoV-2 RNA (RT-PCR) (Negative) Discharge Plan Discharge Clinical Impression: Arthritis, Hypoglycemia Patient Disposition: Home, Self-Care Instructions: Osteoarthritis (DC), Hypoglycemia in a Person with Diabetes (ED) Additional Instructions: Please follow-up with your primary care physician tomorrow. If you have any worsening or new symptoms, please return to the emergency room or call 911 Prescriptions: New diclofenac sodium [Voltaren Arthritis Pain] 1 % gel 4 g topical QID PRN (Reason: pain) Qty: 100 0RF Rx Instructions: apply to single knee, ankle, foot; for foot includes sole/toes/top of foot No Action bisacodyl [Dulcolax (bisacodyl)] 5 mg tablet,delayed release (DR/EC) 5 mg PO .COMPLEX 1 Days Qty: 2 0RF Rx Instructions: 5 mg PO Take one tablet for constipation. If no bowel movement after 4 hours, take another tablet.; metformin 500 mg tablet 2 tab PO BID atorvastatin 20 mg tablet 1 tab PO BEDTIME baclofen 10 mg tablet 1 tab PO TID PRN (Reason: muscle spasm) nystatin 100,000 unit/gram cream 1 appl topical TID PRN (Reason: itch) gabapentin 100 mg capsule 1 cap PO TID glipizide 5 mg tablet 2 tab PO BID Lantus Solostar U-100 Insulin 100 unit/mL (3 mL) insulin pen 16 unit subcut DAILY cholecalciferol (vitamin D3) 50 mcg (2,000 unit) capsule 1 cap PO DAILY Tivicay 50 mg tablet 1 tab PO DAILY Descovy 200-25 mg tablet 1 tab PO DAILY ibuprofen 600 mg tablet 600 mg PO Q8H PRN (Reason: fever or pain) Qty: 30 0RF diphenhydramine HCl [Benadryl] 25 mg capsule 25 mg PO BEDTIME Qty: 10 0RF fluticasone propionate [Flonase Allergy Relief] 50 mcg/actuation spray,suspension 1 spray intranasal DAILY Qty: 16 0RF Rx Instructions: administer into each nostril omeprazole 40 mg capsule,delayed release(DR/EC) 40 mg PO DAILY Qty: 30 2RF ondansetron 4 mg tablet,disintegrating 4 mg PO Q6H PRN (Reason: nausea and vomiting) Qty: 14 0RF tramadol 50 mg tablet 50 mg PO Q8H PRN (Reason: pain) Qty: 14 0RF ondansetron 4 mg tablet,disintegrating 4 mg PO Q6H PRN (Reason: nausea and vomiting) Qty: 10 0RF prednisone 20 mg tablet 40 mg PO DAILY Qty: 10 0RF amoxicillin-pot clavulanate 875-125 mg tablet 1 tab PO BID Qty: 20 0RF gabapentin 300 mg capsule 300 mg PO BEDTIME Qty: 30 0RF loratadine [Claritin] 10 mg tablet 10 mg PO DAILY Qty: 30 0RF hydrocortisone [Cortisone (hydrocortisone)] 1 % cream 1 appl topical TID PRN (Reason: allergic reaction) 14 Days Qty: 28.35 0RF lidocaine [AsperFlex (lidocaine)] 4 % adhesive patch,medicated 1 patch topical DAILY PRN (Reason: pain) Qty: 30 0RF acetaminophen [Tylenol 8 Hour] 650 mg tablet extended release 650 mg PO Q8H PRN (Reason: pain) Qty: 30 0RF ondansetron 4 mg tablet,disintegrating 4 mg PO Q6-8H PRN (Reason: nausea and vomiting) Qty: 7 0RF naproxen [Naprosyn] 500 mg tablet 500 mg PO BID PRN (Reason: pain) Qty: 20 0RF tramadol 50 mg tablet 50 mg PO Q6H PRN (Reason: pain) Qty: 20 0RF oxycodone 5 mg tablet 5 mg PO Q6H PRN (Reason: pain) Qty: 15 0RF amoxicillin-pot clavulanate 500-125 mg tablet 1 tab PO Q8H Qty: 30 0RF Print Language: Mongolian
== END 2024-09-21 06:41 | disposition home or self-care (01) ==
PROVIDERS: Emergency Medicine; Emergency Provider Emergency Medicine
DX: E11.649 Type 2 diabetes mellitus with hypoglycemia without coma (principal); M19.91 Primary osteoarthritis, unspecified site; F17.210 Nicotine dependence, cigarettes, uncomplicated; Z03.818 Encounter for observation for suspected exposure to other biological agents ruled out; Z79.02 Long term (current) use of antithrombotics/antiplatelets; Z79.4 Long term (current) use of insulin; Z79.84 Long term (current) use of oral hypoglycemic drugs; Z79.899 Other long term (current) drug therapy
CPT/HCPCS: 0241U; 80053; 82947; 85025; 99284

== ENCOUNTER 2024-09-21 11:37 | Outpatient (REF) | payer MEDICAID, SELFPAY ==
[2024-09-21 13:16] LABS: MANUAL DIFF FLAG NO
[2024-09-21 13:28] LABS: Prothrombin Time 11.8 SEC (10.9-12.4)
[2024-09-21 13:29] LABS: Basophils Percent Auto 0.4 % (0-2); Eosinophils Percent Auto 0.6 % (0-4); Hemoglobin 14.5 g/dl (14.0-18.0); Imm Gran Abs Auto 0.04 X10*3/uL (0.00-0.03); Imm Gran Pct Auto 0.6 % (0.0-0.4); Lymphocytes Absolute Auto 1.8 X10*3/uL (1.2-4.9); Lymphocytes Percent Auto 26.5 % (20-40); Mean Corpuscular Hemoglobin 31.7 pg (27.0-33.0); Mean Corpuscular Volume 96.3 fL (80.0-98.0); Mean Platelet Volume 10.3 fL (9.4-12.4); Monocytes Absolute Auto 0.8 X10*3/uL (0.1-1.2); Monocytes Percent Auto 12.1 % (2-11); Neutrophils Percent Auto 59.8 % (45-73); Platelet Count 241 X10*3/uL (160-400); Red Blood Count 4.57 X10*6/uL (4.60-5.80); Red Cell Distribution Width 12.6 % (11.0-16.0); White Blood Count 6.7 X10*3/uL (4.8-10.8)
[2024-09-21 13:31] LABS: Estimated Average Glucose 97 mg/dL; Hemoglobin A1C 120.9545 umol/L; Total Hemoglobin (HGBA1C) 3888.6116 umol/L
[2024-09-21 13:56] LABS: Alanine Aminotransferase 12 U/L (0-40); Albumin Level 3.9 g/dL (3.5-5.0); Anion Gap 10 (12-20); Aspartate Amino Transferase 22 U/L (5-37); Bilirubin Direct 0.2 mg/dL (0.0-0.5); Bilirubin Total 0.5 mg/dL (0.0-1.0); Blood Urea Nitrogen 14 mg/dL (9-16); Calcium 9.5 mg/dL (8.4-10.2); Carbon Dioxide 25 mmol/L (22-29); Chloride 108 mmol/L (96-108); Estimated Glomerular Filt Rate > 60; Glucose Random 66 mg/dL (60-115); Potassium 4.3 mmol/L (3.3-5.1); Sodium 139 mmol/L (135-145); Total Protein 7.8 g/dL (6.5-8.0)
[2024-09-21 14:09] LABS: Alkaline Phosphatase 72 U/L (39-117)
--- OUTSIDE RECORDS SUMMARY | 2024-09-21 14:32 | XMS_ITS | Continuity of Care Document ---
Author [facility] Address [address] [place] [phone] Phone Care Team Providers Care Cardiac Technologist Name Role Phone Nurse RN, Visit Unavailable [...] Diagnoses Date Provider Providers [facility]ied [facility] Encounter [facility], [address] [place] [address], [id number], tel:[phone] [facility] Covid vaccine (chief complaint) No Information Nurse Visit. . Referring Provider: Quinton Tran, [address] [place] [address], [id number]. tel:[phone] [facility], [address] [place] [address], [id number], tel:[phone] [facility] covid vaccine (chief complaint) No Information Nurse Visit. . Referring Provider: Quinton Tran, [address] [place], [place] [address] [address] [place] [address], [id number]. tel:[phone] Family History Family Member Type Diagnosis Age [...] Record Payers Payer name Insurance type Covered republican ID Authoriza tion(s) [employer] CI [id number] [employer] [id number] [employer] [id number] Social History Type Description Quantity Date Captured [...] Goal Lipid panel. Due on due Goal Hemoglobin A1c. Due on due Goal Sigmoidoscopy. Due on due History Of Present Illness Encounter Date Complaint History Of Prese nt Illness Covid vaccine covid vaccine Functional Status Date Functional Assessmen t No Information Instructions Date Instruction Additional Infor mation No Information Assessments Type Assessment Date No Information Patient Care Teams Name Effective Dates (start - stop) Status Members No Information
[2024-09-21 16:26] LABS: CT PCR NOT DETECTED (Not Detect.); NG PCR NOT DETECTED (Not Detect.)
[2024-09-22 08:14] LABS: HBsAGNum1 0.33 S/CO (0.00-0.99); Hepatitis B Surface Antigen Negative (Negative); ~HepC Num1 0.32 S/CO (0.00-0.79); ~Hepatitis C Antibody Nonreactive (Nonreactive)
[2024-09-22 15:23] LABS: HIV RNA PCR Qn Copies 4560 copies/mL (NOT DETECTED); HIV RNA PCR Qn Log Copies 3.66 (NOT DETECTED)
[2024-09-23 22:34] LABS: TS Negative Control Passed; TS Panel A 0; TS Panel B 0; TS Positive Control Passed; TSpotTB Negative (Negative)
[2024-09-24 14:13] LABS: RPR Rapid Plasma Reagin NON-REACTIVE (NON-REACTIVE)
== END 2024-09-21 11:38 | disposition home or self-care (01) ==
LOC: HO.HHCL 11:37
PROVIDERS: Visit Provider Internal Medicine
DX: Z21 Asymptomatic human immunodeficiency virus [HIV] infection status (principal)
CPT/HCPCS: 80053; 82248; 82550; 83036; 85025; 85610; 86481; 86592; 86803; 87340; 87491; 87536; 87591

== ENCOUNTER 2024-09-25 20:39 | Emergency (ER) | payer MEDICAID, SELFPAY ==
--- NOTE | ~2024-09-25 | XR_ITS ---
CLINICAL HISTORY: fall, pain 2 view left humerus Comparison: CR - XR SHOULDER LT MIN 2V - 09/12/24 20:56 EDT Findings: No fractures or dislocations. No significant arthritic change. No radiopaque foreign body. IMPRESSION: 1. Normal left humerus This document has been electronically signed by: Lorrie Mayberry MD on 09/25/2024 21:58:37
--- NOTE | ~2024-09-25 | CT_ITS ---
CLINICAL HISTORY: hip pain CT left hip without contrast Comparison: CR - XR HIP LT W [id number] - 09/25/24 21:16 EDT Findings: There is no left hip fracture. There is no fracture in the visualized left hemipelvis. There is no hematoma. Joint alignment is normal. No effusion is seen. There is moderate to severe left hip osteoarthritis. There is no suspicious lytic or sclerotic lesion. There is partially visualized lower lumbar facet osteoarthritis. IMPRESSION: 1. No acute findings. 2. Moderate to severe left hip osteoarthritis. This document has been electronically signed by: Alejandro Fuentes MD on 09/26/2024 01:07:23
--- NOTE | ~2024-09-25 | XR_ITS ---
CLINICAL HISTORY: fall, pain 3 view left hand Comparison: None Findings: No fractures or dislocations. No significant arthritic change. No erosions. No radiopaque foreign body. IMPRESSION: 1. No acute findings This document has been electronically signed by: Lorrie Mayberry MD on 09/25/2024 21:59:29
--- NOTE | ~2024-09-25 | XR_ITS ---
CLINICAL HISTORY: pain after fall 3 view, pelvis and left hip Comparison: None Findings: No acute fracture or dislocation. Moderate to severe degenerative disease with joint space narrowing and osteophytosis of both hips. The soft tissues are unremarkable. IMPRESSION: No acute findings. Moderate to severe DJD of both hips. This document has been electronically signed by: Lorrie Mayberry MD on 09/25/2024 22:04:22
--- NOTE | ~2024-09-25 | XR_ITS ---
CLINICAL HISTORY: fall, pain 2 view left forearm Comparison: None Findings: No fractures or dislocations. No joint effusion. No significant arthritic change. No radiopaque foreign body. IMPRESSION: 1. Normal left forearm This document has been electronically signed by: Lorrie Mayberry MD on 09/25/2024 22:04:23
--- NOTE | ~2024-09-25 | XR_ITS ---
CLINICAL HISTORY: PAIN 4 view left wrist Comparison: None Findings: No fractures or dislocations. No significant arthritic change or erosions. No radiopaque foreign body. IMPRESSION: 1. No acute findings This document has been electronically signed by: Lorrie Mayberry MD on 09/25/2024 22:02:39
[2024-09-25 20:49] VITALS: BP 138/78; PULSE 84; O2SAT 97
[2024-09-25 20:50] VITALS: BP 112/47; PULSE 70; RESP 16; TEMP 36.5; O2SAT 98; BMI 31.6
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
--- NOTE | 2024-09-26 00:13 | ED_ITS ---
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 Question fall. Patient denies any fever chills. Complaining of pain and arthritis to the left hip area that is been ongoing for months. Related Data Home Medications ?Medication ?Instructions ?Recorded ?Confirmed atorvastatin 20 mg tablet 1 tab PO BEDTIME 05/15/21 05/27/21 baclofen 10 mg tablet 1 tab PO TID PRN muscle spasm 05/15/21 05/27/21 cholecalciferol (vitamin D3) 50 1 cap PO DAILY 05/15/21 05/27/21 mcg (2,000 unit) capsule dolutegravir 50 mg tablet (Tivicay) 1 tab PO DAILY 05/15/21 05/27/21 emtricitabine 200 mg-tenofovir 1 tab PO DAILY 05/15/21 05/27/21 alafenamide fumarate 25 mg tablet (Descovy) gabapentin 100 mg capsule 1 cap PO TID 05/15/21 05/27/21 glipizide 5 mg tablet 2 tab PO BID 05/15/21 05/27/21 insulin glargine 100 unit/mL (3 16 unit subcut DAILY 05/15/21 05/27/21 mL) subcutaneous pen (Lantus Solostar U-100 Insulin) metformin 500 mg tablet 2 tab PO BID 05/15/21 05/27/21 nystatin 100,000 unit/gram topical 1 appl topical TID PRN itch 05/15/21 05/27/21 cream Previous Rx's ?Medication ?Instructions ?Recorded ibuprofen 600 mg tablet 600 mg PO Q8H PRN fever or pain 05/17/21 #30 tabs bisacodyl 5 mg tablet,delayed 5 mg PO .COMPLEX 1 day #2 tabs 05/21/21 release (Dulcolax (bisacodyl)) amoxicillin 500 mg-potassium 1 tab PO Q8H #30 tabs 05/27/21 clavulanate 125 mg tablet oxycodone 5 mg tablet 5 mg PO Q6H PRN pain #15 tabs 05/27/21 diphenhydramine HCl 25 mg capsule 25 mg PO BEDTIME #10 caps 01/15/22 (Benadryl) fluticasone propionate 50 1 spray intranasal DAILY #16 grams 01/15/22 mcg/actuation nasal spray,suspension (Flonase Allergy Relief) ondansetron 4 mg disintegrating 4 mg PO Q6-8H PRN nausea and 05/08/23 tablet vomiting #7 tabs omeprazole 40 mg capsule,delayed 40 mg PO DAILY #30 caps 02/24/24 release ondansetron 4 mg disintegrating 4 mg PO Q6H PRN nausea and 02/24/24 tablet vomiting #14 tabs naproxen 500 mg tablet (Naprosyn) 500 mg PO BID PRN pain #20 tabs 05/11/24 tramadol 50 mg tablet 50 mg PO Q6H PRN pain #20 tabs 05/13/24 ondansetron 4 mg disintegrating 4 mg PO Q6H PRN nausea and 05/20/24 tablet vomiting #10 tabs tramadol 50 mg tablet 50 mg PO Q8H PRN pain #14 tabs 05/20/24 amoxicillin 875 mg-potassium 1 tab PO BID #20 tabs 05/26/24 clavulanate 125 mg tablet gabapentin 300 mg capsule 300 mg PO BEDTIME #30 caps 05/26/24 prednisone 20 mg tablet 40 mg (2 x 20 mg) PO DAILY #10 tabs 05/26/24 acetaminophen 650 mg 650 mg PO Q8H PRN pain #30 tabs 09/13/24 tablet,extended release (Tylenol 8 Hour) hydrocortisone 1 % topical cream 1 appl topical TID PRN allergic 09/13/24 (Cortisone (hydrocortisone)) reaction 2 weeks #28.35 grams lidocaine 4 % topical patch 1 patch topical DAILY PRN pain #30 09/13/24 (AsperFlex (lidocaine)) ea loratadine 10 mg tablet (Claritin) 10 mg PO DAILY #30 tabs 09/13/24 diclofenac sodium 1 % topical gel 4 g topical QID PRN pain #100 grams 09/21/24 (Voltaren Arthritis Pain) Allergies Allergy/AdvReac Type Severity Reaction Status Date / Time No Known Allergies Allergy Verified 09/25/24 20:54 Review of Systems Review of Systems: Positive pain to the left hip area. No bowel urinary incontinence. No weakness. PMFSH Past Medical History Medical History Homeless Personal history of nicotine dependence Diabetes Surgical History History of laparoscopic cholecystectomy (~2020) History of incisional hernia repair (~2014) History of umbilical hernia repair (~2008) History of appendectomy Social History Social History Household Members: None Housing Other:: patient states homeless Do you presently have visiting nurse or other home services: No Alcohol intake: never Patient Tobacco Use Status: Current everyday Tobacco user Tobacco use type: Cigarette Cigarette Packs Per Day: 1 Cigarettes Per Day: 20.0 Years Smoked: 30 Substance Use Type: Marijuana Advance Directives: No Advance Directives Information Provided: Yes Do you have a plan to hurt others: No Plan service: No Current occupational status: unemployed Physical Exam ED Vital Signs: Vital Signs - 24 hr 09/25/24 20:50 Temperature 97.7 F Pulse Rate 70 Respiratory Rate 16 Blood Pressure 112/47 L Pulse Oximetry 98 Oxygen Delivery Method Room Air BMI result Body Mass Index 31.6 Medical Decision Making Medical Decision Making [facility] Narrative: Positive left hip pain. Question fall. Patient is homeless. Will get a CT scan of the hip is the x-ray grossly showed no acute fracture. CT scan of the hip showed no acute fracture will discharge patient home no distr ess no bowel urinary incontinence no signs of cauda equina syndrome comfortable Differential Diagnosis Differential Diagnoses: The differential diagnosis associated with the presentation includes Hip fracture, cauda equinus syndrome, abscess Admission/Observation Consideration of admission/observation: Escalation of care including admission/observation considered Lab Data [facility] Lab Attestation statement: I reviewed the patient's lab results. Independent Interpretation I performed an independent interpretation of an: Plain X-Ray (X-ray showed no fracture) and CT Scan (No fracture) Radiology Impression Discussion of test interpretation with radiology: I have reviewed the radiologist's reading. Social Determinants Patient?s care significantly limited by Social Determinants of Health including: Inadequate housing, Problems related to primary support group and Unemployment Discharge Plan Discharge Clinical Impression: Homeless, Arthritis Patient Disposition: Home, Self-Care Instructions: Osteoarthritis (DC) Prescriptions: No Action bisacodyl [Dulcolax (bisacodyl)] 5 mg tablet,delayed release (DR/EC) 5 mg PO .COMPLEX 1 Days Qty: 2 0RF Rx Instructions: 5 mg PO Take one tablet for constipation. If no bowel movement after 4 hours, take another tablet.; metformin 500 mg tablet 2 tab PO BID atorvastatin 20 mg tablet 1 tab PO BEDTIME baclofen 10 mg tablet 1 tab PO TID PRN (Reason: muscle spasm) nystatin 100,000 unit/gram cream 1 appl topical TID PRN (Reason: itch) gabapentin 100 mg capsule 1 cap PO TID glipizide 5 mg tablet 2 tab PO BID Lantus Solostar U-100 Insulin 100 unit/mL (3 mL) insulin pen 16 unit subcut DAILY cholecalciferol (vitamin D3) 50 mcg (2,000 unit) capsule 1 cap PO DAILY Tivicay 50 mg tablet 1 tab PO DAILY Descovy 200-25 mg tablet 1 tab PO DAILY ibuprofen 600 mg tablet 600 mg PO Q8H PRN (Reason: fever or pain) Qty: 30 0RF diphenhydramine HCl [Benadryl] 25 mg capsule 25 mg PO BEDTIME Qty: 10 0RF fluticasone propionate [Flonase Allergy Relief] 50 mcg/actuation spray,suspension 1 spray intranasal DAILY Qty: 16 0RF Rx Instructions: administer into each nostril omeprazole 40 mg capsule,delayed release(DR/EC) 40 mg PO DAILY Qty: 30 2RF ondansetron 4 mg tablet,disintegrating 4 mg PO Q6H PRN (Reason: nausea and vomiting) Qty: 14 0RF tramadol 50 mg tablet 50 mg PO Q8H PRN (Reason: pain) Qty: 14 0RF ondansetron 4 mg tablet,disintegrating 4 mg PO Q6H PRN (Reason: nausea and vomiting) Qty: 10 0RF prednisone 20 mg tablet 40 mg PO DAILY Qty: 10 0RF amoxicillin-pot clavulanate 875-125 mg tablet 1 tab PO BID Qty: 20 0RF gabapentin 300 mg capsule 300 mg PO BEDTIME Qty: 30 0RF loratadine [Claritin] 10 mg tablet 10 mg PO DAILY Qty: 30 0RF hydrocortisone [Cortisone (hydrocortisone)] 1 % cream 1 appl topical TID PRN (Reason: allergic reaction) 14 Days Qty: 28.35 0RF lidocaine [AsperFlex (lidocaine)] 4 % adhesive patch,medicated 1 patch topical DAILY PRN (Reason: pain) Qty: 30 0RF acetaminophen [Tylenol 8 Hour] 650 mg tablet extended release 650 mg PO Q8H PRN (Reason: pain) Qty: 30 0RF ondansetron 4 mg tablet,disintegrating 4 mg PO Q6-8H PRN (Reason: nausea and vomiting) Qty: 7 0RF naproxen [Naprosyn] 500 mg tablet 500 mg PO BID PRN (Reason: pain) Qty: 20 0RF tramadol 50 mg tablet 50 mg PO Q6H PRN (Reason: pain) Qty: 20 0RF diclofenac sodium [Voltaren Arthritis Pain] 1 % gel 4 g topical QID PRN (Reason: pain) Qty: 100 0RF Rx Instructions: apply to single knee, ankle, foot; for foot includes sole/toes/top of foot oxycodone 5 mg tablet 5 mg PO Q6H PRN (Reason: pain) Qty: 15 0RF amoxicillin-pot clavulanate 500-125 mg tablet 1 tab PO Q8H Qty: 30 0RF Referrals: [facility] [Other] - 09/28/24 Print Language: Syriac
[2024-09-26 01:51] VITALS: BP 115/50; PULSE 72; RESP 16; TEMP 36.6; O2SAT 98
[2024-09-26 01:56] VITALS: BP 115/50; PULSE 72; RESP 16; TEMP 36.6; O2SAT 98
== END 2024-09-26 02:04 | disposition home or self-care (01) ==
PROVIDERS: Emergency Provider Emergency Medicine Emergency Medical Services
DX: M15.9 Polyosteoarthritis, unspecified (principal); M79.602 Pain in left arm; M79.605 Pain in left leg; M25.552 Pain in left hip; M79.642 Pain in left hand; Z79.899 Other long term (current) drug therapy
CPT/HCPCS: 73060; 73090; 73110; 73130; 73502; 73700; 99283; 99284

== ENCOUNTER → 2024-09-25 20:51 | Outpatient (BNV) | payer MEDICAID, SELFPAY | PROVIDERS: Visit Provider Student in an Organized Health Care Education/Training Program | DX: M16.0 Bilateral primary osteoarthritis of hip (principal); M25.532 Pain in left wrist; M79.642 Pain in left hand; M79.632 Pain in left forearm; M79.622 Pain in left upper arm; W19.XXXA Unspecified fall, initial encounter | CPT/HCPCS: 73060; 73090; 73110; 73130; 73502 ==

== ENCOUNTER → 2024-09-26 00:16 | Outpatient (BNV) | payer MEDICAID, SELFPAY | PROVIDERS: Emergency Provider Emergency Medicine Emergency Medical Services; Visit Provider Radiology Diagnostic Radiology | DX: M16.12 Unilateral primary osteoarthritis, left hip (principal) | CPT/HCPCS: 73700 ==

== ENCOUNTER 2024-10-25 20:19 | Emergency (ER) | payer MEDICAID, SELFPAY ==
[2024-10-25 20:26] VITALS: BP 146/84; PULSE 88
[2024-10-25 20:29] VITALS: BP 113/53; PULSE 79; RESP 16; TEMP 36.3; O2SAT 98
[2024-10-25 21:46] LABS: Influenza A PCR NEGATIVE (Negative); Influenza B PCR NEGATIVE (Negative); Resp Syncy Virus RNA Qual PCR NEGATIVE (Negative); SARS COV2 PCR INHOUSE NEGATIVE (Negative)
--- NOTE | 2024-10-25 22:33 | ED.GENADULT ---
HPI - General Adult General Chief complaint: Back Pain/Injury Stated complaint: SHARP BACK PAIN PER EMS Time Seen by Provider: 10/25/24 22:12 Source: patient Mode of arrival: ambulatory Limitations: no limitations History of Present Illness ED Provider: Dr. Carlene Cullen HPI narrative: Patient comes to the emergency room complaining of pain all over. Patient denies any falls, denies any injuries. Patient also reports a rash that has been there for months. However, patient states that it is not present at this time. Patient states that he used has been trying to control the arthritis pain with ibuprofen and Tylenol and it does not work. Related Data Home Medications ?Medication ?Instructions ?Recorded ?Confirmed atorvastatin 20 mg tablet 1 tab PO BEDTIME 05/15/21 05/27/21 baclofen 10 mg tablet 1 tab PO TID PRN muscle spasm 05/15/21 05/27/21 cholecalciferol (vitamin D3) 50 1 cap PO DAILY 05/15/21 05/27/21 mcg (2,000 unit) capsule dolutegravir 50 mg tablet (Tivicay) 1 tab PO DAILY 05/15/21 05/27/21 emtricitabine 200 mg-tenofovir 1 tab PO DAILY 05/15/21 05/27/21 alafenamide fumarate 25 mg tablet (Descovy) gabapentin 100 mg capsule 1 cap PO TID 05/15/21 05/27/21 glipizide 5 mg tablet 2 tab PO BID 05/15/21 05/27/21 insulin glargine 100 unit/mL (3 16 unit subcut DAILY 05/15/21 05/27/21 mL) subcutaneous pen (Lantus Solostar U-100 Insulin) metformin 500 mg tablet 2 tab PO BID 05/15/21 05/27/21 nystatin 100,000 unit/gram topical 1 appl topical TID PRN itch 05/15/21 05/27/21 cream Previous Rx's ?Medication ?Instructions ?Recorded ibuprofen 600 mg tablet 600 mg PO Q8H PRN fever or pain 05/17/21 #30 tabs bisacodyl 5 mg tablet,delayed 5 mg PO .COMPLEX 1 day #2 tabs 05/21/21 release (Dulcolax (bisacodyl)) amoxicillin 500 mg-potassium 1 tab PO Q8H #30 tabs 05/27/21 clavulanate 125 mg tablet oxycodone 5 mg tablet 5 mg PO Q6H PRN pain #15 tabs 05/27/21 diphenhydramine HCl 25 mg capsule 25 mg PO BEDTIME #10 caps 01/15/22 (Benadryl) fluticasone propionate 50 1 spray intranasal DAILY #16 grams 01/15/22 mcg/actuation nasal spray,suspension (Flonase Allergy Relief) ondansetron 4 mg disintegrating 4 mg PO Q6-8H PRN nausea and 05/08/23 tablet vomiting #7 tabs omeprazole 40 mg capsule,delayed 40 mg PO DAILY #30 caps 02/24/24 release ondansetron 4 mg disintegrating 4 mg PO Q6H PRN nausea and 02/24/24 tablet vomiting #14 tabs naproxen 500 mg tablet (Naprosyn) 500 mg PO BID PRN pain #20 tabs 05/11/24 tramadol 50 mg tablet 50 mg PO Q6H PRN pain #20 tabs 05/13/24 ondansetron 4 mg disintegrating 4 mg PO Q6H PRN nausea and 05/20/24 tablet vomiting #10 tabs tramadol 50 mg tablet 50 mg PO Q8H PRN pain #14 tabs 05/20/24 amoxicillin 875 mg-potassium 1 tab PO BID #20 tabs 05/26/24 clavulanate 125 mg tablet gabapentin 300 mg capsule 300 mg PO BEDTIME #30 caps 05/26/24 prednisone 20 mg tablet 40 mg (2 x 20 mg) PO DAILY #10 tabs 05/26/24 acetaminophen 650 mg 650 mg PO Q8H PRN pain #30 tabs 09/13/24 tablet,extended release (Tylenol 8 Hour) hydrocortisone 1 % topical cream 1 appl topical TID PRN allergic 09/13/24 (Cortisone (hydrocortisone)) reaction 2 weeks #28.35 grams lidocaine 4 % topical patch 1 patch topical DAILY PRN pain #30 09/13/24 (AsperFlex (lidocaine)) ea loratadine 10 mg tablet (Claritin) 10 mg PO DAILY #30 tabs 09/13/24 diclofenac sodium 1 % topical gel 4 g topical QID PRN pain #100 grams 09/21/24 (Voltaren Arthritis Pain) naproxen 375 mg tablet 375 mg PO BID PRN pain #20 tabs 10/25/24 Allergies Allergy/AdvReac Type Severity Reaction Status Date / Time No Known Allergies Allergy Verified 10/25/24 20:37 Review of Systems Review of Systems: Constitutional : No Weight loss, No Fever, No Chills, No Night Sweats, No Fatigue, No Malaise ENT/Mouth : No Hearing loss, No Ear Pain, No Nasal Congestion, No Sinus Pain, No Hoarseness, No sore throat, No Rhinorrhea, No Swallowing Difficulty Eyes: No Eye Pain, No Swelling, No Redness, No Foreign Body, No Discharge, No Vision Changes Cardiovascular : No Chest Pain, No SOB, No Dyspnea on Exertion, No Orthopnea, No Edema, No Palpitations Respiratory : No Cough, No Sputum, No Wheezing, No Smoke Exposure, No Dyspnea Gastrointestinal : No Nausea, No Vomiting, No Diarrhea, No Constipation, No abdominal Pain, No Hematochezia, No Melena Genitourinary : no irregular bleeding, No Dysuria, No Urinary Frequency, No Hematuria, No Urinary Incontinence, No Urgency, No Flank Pain, No Urinary Flow Changes, No Hesitancy Musculoskeletal : Complaining of diffuse arthralgias Skin : No Skin Lesions, No rash Neuro : No Weakness, No Numbness, No Paresthesias, No Loss of Consciousness, No Dizziness, No Headache Psych : No Anxiety/Panic, No Depression, No SI/HI/AH/VH, No Social Issues, Heme/Lymph: No Bruising, No Bleeding,No Lymphadenopathy Endocrine : No Polyuria, No Polydipsia, No Temperature Intolerance PMFSH Past Medical History Medical History Homeless Personal history of nicotine dependence Diabetes Surgical History History of laparoscopic cholecystectomy (~2020) History of incisional hernia repair (~2014) History of umbilical hernia repair (~2008) History of appendectomy Social History Social History Household Members: None Housing Other:: patient states homeless Do you presently have visiting nurse or other home services: No Alcohol intake: never Patient Tobacco Use Status: Current everyday Tobacco user Tobacco use type: Cigarette Cigarette Packs Per Day: 1 Cigarettes Per Day: 20.0 Years Smoked: 30 Use of substances other than those prescribed or required for medical reasons: No Substance Use Type: Marijuana Advance Directives: No Advance Directives Information Provided: Yes Do you have a plan to hurt others: No Plan service: No Current occupational status: unemployed Physical Exam ED Vital Signs: Vital Signs - 24 hr 10/25/24 20:29 Temperature 97.3 F Pulse Rate 79 Respiratory Rate 16 Blood Pressure 113/53 L Pulse Oximetry 98 Oxygen Delivery Method Room Air BMI result Body Mass Index 30.0 Const Other: Appearance: Alert. Oriented X3. No acute distress. Eyes: Pupils equal, round and reactive to light. ENT: Pharynx normal. Neck: Normal inspection. Neck supple. No lymph nodes noted. No crepitus CVS: Normal heart rate and rhythm. Pulses normal. Normal S1 and S2 Respiratory: No respiratory distress. Breath sounds normal. No Wheezing. No rales Abdomen: Soft and nontender. No rigidity. No distention. Skin: Skin warm and dry. Normal skin color. Normal skin turgor. Extremities: No lower extremity edema. No Lacerations. No Rash able to flex and extend all joints. No swelling, no erythema Neuro: Oriented X 3. No motor deficit. No sensory deficit. Moving all extremities. No slurred speech. CN 2 through 12 grossly intact Psych: calm, cooperative, normal affect Medical Decision Making Medical Decision Making [facility] Narrative: Patient has been evaluated multiple times for arthritis pain. Patient states that Tylenol/Motrin does not work. Patient was given a prescription for naproxen. Serology test negative. Patient's vitals normal, no fever On physical exam, there are no signs of septic joint, gout/pseudogout, or significant inflammation/swelling of any of the joints Lab Data [facility] Lab Attestation statement: I reviewed the patient's lab results. Labs: Lab Results 10/25/24 Range/Units 21:03 Influenza Type A (PCR) NEGATIVE (Negative) Influenza Type B (PCR) NEGATIVE (Negative) RSV RNA Qual (PCR) NEGATIVE (Negative) SARS-CoV-2 RNA (RT-PCR) NEGATIVE (Negative) Discharge Plan Discharge Clinical Impression: Arthritis Patient Disposition: Home, Self-Care Instructions: Osteoarthritis (ED) Additional Instructions: Please follow-up with your primary care physician tomorrow. If you have any worsening or new symptoms, please return to the emergency room or call 911 Prescriptions: New naproxen 375 mg tablet 375 mg PO BID PRN (Reason: pain) Qty: 20 0RF No Action bisacodyl [Dulcolax (bisacodyl)] 5 mg tablet,delayed release (DR/EC) 5 mg PO .COMPLEX 1 Days Qty: 2 0RF Rx Instructions: 5 mg PO Take one tablet for constipation. If no bowel movement after 4 hours, take another tablet.; metformin 500 mg tablet 2 tab PO BID atorvastatin 20 mg tablet 1 tab PO BEDTIME baclofen 10 mg tablet 1 tab PO TID PRN (Reason: muscle spasm) nystatin 100,000 unit/gram cream 1 appl topical TID PRN (Reason: itch) gabapentin 100 mg capsule 1 cap PO TID glipizide 5 mg tablet 2 tab PO BID Lantus Solostar U-100 Insulin 100 unit/mL (3 mL) insulin pen 16 unit subcut DAILY cholecalciferol (vitamin D3) 50 mcg (2,000 unit) capsule 1 cap PO DAILY Tivicay 50 mg tablet 1 tab PO DAILY Descovy 200-25 mg tablet 1 tab PO DAILY ibuprofen 600 mg tablet 600 mg PO Q8H PRN (Reason: fever or pain) Qty: 30 0RF diphenhydramine HCl [Benadryl] 25 mg capsule 25 mg PO BEDTIME Qty: 10 0RF fluticasone propionate [Flonase Allergy Relief] 50 mcg/actuation spray,suspension 1 spray intranasal DAILY Qty: 16 0RF Rx Instructions: administer into each nostril omeprazole 40 mg capsule,delayed release(DR/EC) 40 mg PO DAILY Qty: 30 2RF ondansetron 4 mg tablet,disintegrating 4 mg PO Q6H PRN (Reason: nausea and vomiting) Qty: 14 0RF tramadol 50 mg tablet 50 mg PO Q8H PRN (Reason: pain) Qty: 14 0RF ondansetron 4 mg tablet,disintegrating 4 mg PO Q6H PRN (Reason: nausea and vomiting) Qty: 10 0RF prednisone 20 mg tablet 40 mg PO DAILY Qty: 10 0RF amoxicillin-pot clavulanate 875-125 mg tablet 1 tab PO BID Qty: 20 0RF gabapentin 300 mg capsule 300 mg PO BEDTIME Qty: 30 0RF loratadine [Claritin] 10 mg tablet 10 mg PO DAILY Qty: 30 0RF hydrocortisone [Cortisone (hydrocortisone)] 1 % cream 1 appl topical TID PRN (Reason: allergic reaction) 14 Days Qty: 28.35 0RF lidocaine [AsperFlex (lidocaine)] 4 % adhesive patch,medicated 1 patch topical DAILY PRN (Reason: pain) Qty: 30 0RF acetaminophen [Tylenol 8 Hour] 650 mg tablet extended release 650 mg PO Q8H PRN (Reason: pain) Qty: 30 0RF ondansetron 4 mg tablet,disintegrating 4 mg PO Q6-8H PRN (Reason: nausea and vomiting) Qty: 7 0RF naproxen [Naprosyn] 500 mg tablet 500 mg PO BID PRN (Reason: pain) Qty: 20 0RF tramadol 50 mg tablet 50 mg PO Q6H PRN (Reason: pain) Qty: 20 0RF diclofenac sodium [Voltaren Arthritis Pain] 1 % gel 4 g topical QID PRN (Reason: pain) Qty: 100 0RF Rx Instructions: apply to single knee, ankle, foot; for foot includes sole/toes/top of foot oxycodone 5 mg tablet 5 mg PO Q6H PRN (Reason: pain) Qty: 15 0RF amoxicillin-pot clavulanate 500-125 mg tablet 1 tab PO Q8H Qty: 30 0RF Print Language: Nicaraguan
[2024-10-25 22:39] VITALS: BP 120/82; PULSE 79; RESP 16; TEMP 36.3; O2SAT 98
== END 2024-10-25 22:40 | disposition home or self-care (01) ==
PROVIDERS: Physician Assistant; Emergency Provider Emergency Medicine
DX: M54.50 Low back pain, unspecified (principal); Z79.899 Other long term (current) drug therapy; Z03.818 Encounter for observation for suspected exposure to other biological agents ruled out
CPT/HCPCS: 0241U; 99283; 99284

== ENCOUNTER 2024-11-28 21:46 | Emergency (ER) | payer MEDICAID, SELFPAY ==
--- NOTE | 2024-11-28 | ECG_ITS ---
Test Reason : WEAKNESS Blood Pressure : */* mmHG Vent. Rate : 81 BPM Atrial Rate : 81 BPM P-R Int : 124 ms QRS Dur : 84 ms QT Int : 346 ms P-R-T Axes : 63 -41 34 degrees QTcB Int : 401 ms Normal sinus rhythm Left axis deviation Abnormal ECG When compared with ECG of 25-May-2024 22:44, No significant change was found Referred By: Generic ED Physician Electronically Signed By: AMOL MORALES
[2024-11-28 21:53] VITALS: BP 122/68; PULSE 92; O2SAT 96
[2024-11-28 21:55] VITALS: BP 97/54; PULSE 90; RESP 12; TEMP 37; O2SAT 98; BMI 31.6
[2024-11-28 22:03] VITALS: BP 110/79; PULSE 86; RESP 19; O2SAT 95
[2024-11-28 22:21] LABS: Hematocrit 42.5 % (42.0-52.0); Hemoglobin 14.4 g/dl (14.0-18.0); Mean Corpuscular HGB Conc 33.9 g/dl (31.0-36.0); Mean Corpuscular Hemoglobin 32.2 pg (27.0-33.0); Mean Corpuscular Volume 95.1 fL (80.0-98.0); Mean Platelet Volume 9.4 fL (9.4-12.4); Platelet Count 252 X10*3/uL (160-400); Red Blood Count 4.47 X10*6/uL (4.60-5.80); Red Cell Distribution Width 12.8 % (11.0-16.0); White Blood Count 10.8 X10*3/uL (4.8-10.8)
--- NOTE | 2024-11-28 22:50 | ED.WEAKNESS ---
HPI - Weakness General Chief complaint: Weakness Stated complaint: WEAKNESS Time Seen by Provider: 11/28/24 22:16 History of Present Illness ED Provider: Shawn Wilson MD HPI Narrative: [age] male who complains of pain all over for 2 days nausea vomiting feeling unwell. No difficulty breathing denies abdominal pain vomiting is nonbloody nonbilious. Denies diarrhea smokes marijuana daily. He is a smoker, diabetic Related Data Home Medications ?Medication ?Instructions ?Recorded ?Confirmed atorvastatin 20 mg tablet 1 tab PO BEDTIME 05/15/21 05/27/21 baclofen 10 mg tablet 1 tab PO TID PRN muscle spasm 05/15/21 05/27/21 cholecalciferol (vitamin D3) 50 1 cap PO DAILY 05/15/21 05/27/21 mcg (2,000 unit) capsule dolutegravir 50 mg tablet (Tivicay) 1 tab PO DAILY 05/15/21 05/27/21 emtricitabine 200 mg-tenofovir 1 tab PO DAILY 05/15/21 05/27/21 alafenamide fumarate 25 mg tablet (Descovy) gabapentin 100 mg capsule 1 cap PO TID 05/15/21 05/27/21 glipizide 5 mg tablet 2 tab PO BID 05/15/21 05/27/21 insulin glargine 100 unit/mL (3 16 unit subcut DAILY 05/15/21 05/27/21 mL) subcutaneous pen (Lantus Solostar U-100 Insulin) metformin 500 mg tablet 2 tab PO BID 05/15/21 05/27/21 nystatin 100,000 unit/gram topical 1 appl topical TID PRN itch 05/15/21 05/27/21 cream Previous Rx's ?Medication ?Instructions ?Recorded ibuprofen 600 mg tablet 600 mg PO Q8H PRN fever or pain 05/17/21 #30 tabs bisacodyl 5 mg tablet,delayed 5 mg PO .COMPLEX 1 day #2 tabs 05/21/21 release (Dulcolax (bisacodyl)) amoxicillin 500 mg-potassium 1 tab PO Q8H #30 tabs 05/27/21 clavulanate 125 mg tablet oxycodone 5 mg tablet 5 mg PO Q6H PRN pain #15 tabs 05/27/21 diphenhydramine HCl 25 mg capsule 25 mg PO BEDTIME #10 caps 01/15/22 (Benadryl) fluticasone propionate 50 1 spray intranasal DAILY #16 grams 01/15/22 mcg/actuation nasal spray,suspension (Flonase Allergy Relief) ondansetron 4 mg disintegrating 4 mg PO Q6-8H PRN nausea and 05/08/23 tablet vomiting #7 tabs omeprazole 40 mg capsule,delayed 40 mg PO DAILY #30 caps 02/24/24 release ondansetron 4 mg disintegrating 4 mg PO Q6H PRN nausea and 02/24/24 tablet vomiting #14 tabs naproxen 500 mg tablet (Naprosyn) 500 mg PO BID PRN pain #20 tabs 05/11/24 tramadol 50 mg tablet 50 mg PO Q6H PRN pain #20 tabs 05/13/24 ondansetron 4 mg disintegrating 4 mg PO Q6H PRN nausea and 05/20/24 tablet vomiting #10 tabs tramadol 50 mg tablet 50 mg PO Q8H PRN pain #14 tabs 05/20/24 amoxicillin 875 mg-potassium 1 tab PO BID #20 tabs 05/26/24 clavulanate 125 mg tablet gabapentin 300 mg capsule 300 mg PO BEDTIME #30 caps 05/26/24 prednisone 20 mg tablet 40 mg (2 x 20 mg) PO DAILY #10 tabs 05/26/24 acetaminophen 650 mg 650 mg PO Q8H PRN pain #30 tabs 09/13/24 tablet,extended release (Tylenol 8 Hour) hydrocortisone 1 % topical cream 1 appl topical TID PRN allergic 09/13/24 (Cortisone (hydrocortisone)) reaction 2 weeks #28.35 grams lidocaine 4 % topical patch 1 patch topical DAILY PRN pain #30 09/13/24 (AsperFlex (lidocaine)) ea loratadine 10 mg tablet (Claritin) 10 mg PO DAILY #30 tabs 09/13/24 diclofenac sodium 1 % topical gel 4 g topical QID PRN pain #100 grams 09/21/24 (Voltaren Arthritis Pain) naproxen 375 mg tablet 375 mg PO BID PRN pain #20 tabs 10/25/24 Allergies Allergy/AdvReac Type Severity Reaction Status Date / Time No Known Allergies Allergy Verified 11/28/24 21:56 [facility] Past Medical History Medical History (Updated 11/30/24 @ 00:01 by Vivian Manzanares) Nicotine dependence, cigarettes, uncomplicated Homeless Diabetes Surgical History History of laparoscopic cholecystectomy (~2020) History of incisional hernia repair (~2014) History of umbilical hernia repair (~2008) History of appendectomy Social History Social History Household Members: None Housing Other:: patient states homeless Do you presently have visiting nurse or other home services: No Alcohol intake: never Patient Tobacco Use Status: Current everyday Tobacco user Tobacco use type: Cigarette Cigarette Packs Per Day: 1 Cigarettes Per Day: 20.0 Years Smoked: 30 Smoked in Last 30 Days: Yes Use of substances other than those prescribed or required for medical reasons: Yes Substance Use Type: Marijuana Advance Directives: No Advance Directives Information Provided: No service: No Current occupational status: unemployed Physical Exam Vital Signs: Vital Signs: Last Vital Signs Temp 97.8 F 11/29/24 01:35 Pulse 66 11/29/24 01:35 Resp 14 11/29/24 01:35 BP 125/75 11/29/24 01:35 Pulse Ox 98 11/29/24 01:35 O2 Del Method Room Air 11/29/24 01:35 BMI result Body Mass Index 31.6 Const: Other: EXAM: Gen: Alert, awake, well appearing, well hydrated. Head: Atraumatic Eyes: Anicteric, Normal conjunctiva. ENT: Moist mucosa, no pallor. ? Neck: Supple. Skin: ?No observable rash or bruising on exposed or examined skin Respiratory: Breathing comfortably, No distress.Clear to auscultation bilaterally, symmetric chest expansion, No wheeze, rales, ronchi. Cardiovascular: Regular rate and rhythm. No murmurs or rub. Well perfused periphery, warm extremities. No edema. ? Abdominal: No FOCAL TENDERNESS. Soft, no objective distension. No palpable masses or obvious organomegaly. ?No guarding, no rebound tenderness or other peritoneal findings. : No flank tenderness. Neuro: Alert. Gross movement of all extremities intact. ? Psych: Calm. Cooperative. MSK: No grossly visible deformity. Vital signs: See flowsheet Medications Administered Discontinued Medications Generic Name Dose Route Start Last Admin Trade Name Freq PRN Reason Stop Dose Admin Acetaminophen 975 mg 06/24/25 22:51 11/28/24 23:08 Acetaminophen 325 Mg Tablet PO 11/28/24 22:52 975 mg ONCE ONE Administration Sodium Chloride 1,000 mls @ 999 mls/hr 11/28/24 23:00 11/29/24 01:21 Ns IV 11/29/24 00:00 Infused .Q1H1M ANU Infusion Ketorolac Tromethamine 15 mg 11/28/24 22:51 11/28/24 23:08 Ketorolac Tromethamine 15 Mg/Ml Vial IVPUSH 11/28/24 22:52 15 mg ONCE ONE Administration Ondansetron HCl 4 mg 11/28/24 22:51 11/28/24 23:08 Ondansetron Hcl 4 Mg/2 Ml Vial IVPUSH 11/28/24 22:52 4 mg ONCE ONE Administration Medical Decision Making Medical Decision Making [facility] Narrative: 59-year-old male with multiple constitutional symptoms mostly generalized malaise nausea diffuse joint pains. He has no focal signs of abdominal tenderness, joint swelling or effusion, abnormal lung sounds or any distress. His vital signs are stable. Viral panel is negative. He is p.o. tolerant and does not look ill or toxic. This could be viral syndrome initially thought he may have a gastroenteritis or dehydration or electrolyte derangement. Lab work is reassuring patient can be discharged home supportive therapy strict return precautions described Lab Data 11/28/24 22:16 11/28/24 22:34 Labs: Lab Results 11/28/24 11/28/24 11/28/24 Range/Units 22:16 22:34 23:16 WBC 10.8 (4.8-10.8) X10*3/uL RBC 4.47 L (4.60-5.80) X10*6/uL Hgb 14.4 (14.0-18.0) g/dl Hct 42.5 (42.0-52.0) % MCV 95.1 (80.0-98.0) fL MCH 32.2 (27.0-33.0) pg MCHC 33.9 (31.0-36.0) g/dl RDW 12.8 (11.0-16.0) % Plt Count 252 (160-400) X10*3/uL MPV 9.4 (9.4-12.4) fL Absolute Nucleated RBC 0.000 (0.0-0.012) X10*3/uL Nucleated RBC % (auto) 0.0 (0.0-0.2) /100WBC Sodium 138 (135-145) mmol/L Potassium 3.6 (3.3-5.1) mmol/L Chloride 109 H (96-108) mmol/L Carbon Dioxide 20 L (22-29) mmol/L Anion Gap 13 (12-20) BUN 22 H (9-16) mg/dL Creatinine 1.09 (0.5-1.4) mg/dL Estim Creat Clear Calc 74.5 Estimated GFR > 60 Random Glucose 82 (60-115) mg/dL Calcium 9.7 (8.4-10.2) mg/dL Magnesium 1.8 (1.6-2.6) mg/dL Total Bilirubin 0.8 (0.0-1.0) mg/dL Direct Bilirubin 0.2 (0.0-0.5) mg/dL AST 25 (5-37) U/L ALT 18 (0-40) U/L Alkaline Phosphatase 65 (39-117) U/L Total Protein 7.5 (6.5-8.0) g/dL Albumin 3.9 (3.5-5.0) g/dL Triglycerides 79 (<150) mg/dL Cholesterol 106 (<200) mg/dL LDL Cholesterol, Calc 57 (<100) mg/dL HDL Cholesterol 34 L (>40) mg/dL Influenza Type A (PCR) NEGATIVE (Negative) Influenza Type B (PCR) NEGATIVE (Negative) RSV RNA Qual (PCR) NEGATIVE (Negative) SARS-CoV-2 RNA (RT-PCR) NEGATIVE (Negative) Independent Interpretation I performed an independent interpretation of an: EKG (Rhythm strip shows sinus rhythm no tachycardia) Discharge Plan Discharge Clinical Impression: Malaise Patient Disposition: Home, Self-Care Instructions: Fatigue (ED) Additional Instructions: You were evaluated for malaise, generalized weakness and vomiting. Your examination was reassuring. You had normal reassuring blood work. Your viral testing for RSV/Covid/Flu was negative. Drink plenty of fluids. Prescriptions: No Action bisacodyl [Dulcolax (bisacodyl)] 5 mg tablet,delayed release (DR/EC) 5 mg PO .COMPLEX 1 Days Qty: 2 0RF Rx Instructions: 5 mg PO Take one tablet for constipation. If no bowel movement after 4 hours, take another tablet.; metformin 500 mg tablet 2 tab PO BID atorvastatin 20 mg tablet 1 tab PO BEDTIME baclofen 10 mg tablet 1 tab PO TID PRN (Reason: muscle spasm) nystatin 100,000 unit/gram cream 1 appl topical TID PRN (Reason: itch) gabapentin 100 mg capsule 1 cap PO TID glipizide 5 mg tablet 2 tab PO BID Lantus Solostar U-100 Insulin 100 unit/mL (3 mL) insulin pen 16 unit subcut DAILY cholecalciferol (vitamin D3) 50 mcg (2,000 unit) capsule 1 cap PO DAILY Tivicay 50 mg tablet 1 tab PO DAILY Descovy 200-25 mg tablet 1 tab PO DAILY ibuprofen 600 mg tablet 600 mg PO Q8H PRN (Reason: fever or pain) Qty: 30 0RF diphenhydramine HCl [Benadryl] 25 mg capsule 25 mg PO BEDTIME Qty: 10 0RF fluticasone propionate [Flonase Allergy Relief] 50 mcg/actuation spray,suspension 1 spray intranasal DAILY Qty: 16 0RF Rx Instructions: administer into each nostril omeprazole 40 mg capsule,delayed release(DR/EC) 40 mg PO DAILY Qty: 30 2RF ondansetron 4 mg tablet,disintegrating 4 mg PO Q6H PRN (Reason: nausea and vomiting) Qty: 14 0RF tramadol 50 mg tablet 50 mg PO Q8H PRN (Reason: pain) Qty: 14 0RF ondansetron 4 mg tablet,disintegrating 4 mg PO Q6H PRN (Reason: nausea and vomiting) Qty: 10 0RF prednisone 20 mg tablet 40 mg PO DAILY Qty: 10 0RF amoxicillin-pot clavulanate 875-125 mg tablet 1 tab PO BID Qty: 20 0RF gabapentin 300 mg capsule 300 mg PO BEDTIME Qty: 30 0RF loratadine [Claritin] 10 mg tablet 10 mg PO DAILY Qty: 30 0RF hydrocortisone [Cortisone (hydrocortisone)] 1 % cream 1 appl topical TID PRN (Reason: allergic reaction) 14 Days Qty: 28.35 0RF lidocaine [AsperFlex (lidocaine)] 4 % adhesive patch,medicated 1 patch topical DAILY PRN (Reason: pain) Qty: 30 0RF acetaminophen [Tylenol 8 Hour] 650 mg tablet extended release 650 mg PO Q8H PRN (Reason: pain) Qty: 30 0RF naproxen 375 mg tablet 375 mg PO BID PRN (Reason: pain) Qty: 20 0RF ondansetron 4 mg tablet,disintegrating 4 mg PO Q6-8H PRN (Reason: nausea and vomiting) Qty: 7 0RF naproxen [Naprosyn] 500 mg tablet 500 mg PO BID PRN (Reason: pain) Qty: 20 0RF tramadol 50 mg tablet 50 mg PO Q6H PRN (Reason: pain) Qty: 20 0RF diclofenac sodium [Voltaren Arthritis Pain] 1 % gel 4 g topical QID PRN (Reason: pain) Qty: 100 0RF Rx Instructions: apply to single knee, ankle, foot; for foot includes sole/toes/top of foot oxycodone 5 mg tablet 5 mg PO Q6H PRN (Reason: pain) Qty: 15 0RF amoxicillin-pot clavulanate 500-125 mg tablet 1 tab PO Q8H Qty: 30 0RF Interventions: ED Discharge Assessment Last Done: 11/29/24 01:35 Discharge Date/Time: 11/29/24 01:36 Print Language: Fijian
[2024-11-28 22:53] LABS: Alanine Aminotransferase 18 U/L (0-40); Albumin Level 3.9 g/dL (3.5-5.0); Alkaline Phosphatase 65 U/L (39-117); Anion Gap 13 (12-20); Aspartate Amino Transferase 25 U/L (5-37); Bilirubin Direct 0.2 mg/dL (0.0-0.5); Bilirubin Total 0.8 mg/dL (0.0-1.0); Blood Urea Nitrogen 22 mg/dL (9-16); Calcium 9.7 mg/dL (8.4-10.2); Carbon Dioxide 20 mmol/L (22-29); Chloride 109 mmol/L (96-108); Cholesterol 106 mg/dL (<200); Creatinine Clr Calc Pharmacy 74.5; Estimated Glomerular Filt Rate > 60; Glucose Random 82 mg/dL (60-115); HDL Cholesterol 34 mg/dL (>40); LDL Cholesterol Calculated 57 mg/dL (<100); Magnesium 1.8 mg/dL (1.6-2.6); Potassium 3.6 mmol/L (3.3-5.1); Sodium 138 mmol/L (135-145); Total Protein 7.5 g/dL (6.5-8.0); Triglycerides 79 mg/dL (<150)
[2024-11-28] MEDS: ondansetron HCL 4 MG/2 ML VIAL IVPUSH (23:08)
[2024-11-28] MEDS: Acetaminophen 325 MG TABLET 975 MG PO (23:08)
[2024-11-28] MEDS: Ketorolac Tromethamine 15 MG/ML VIAL IVPUSH (23:08)
[2024-11-28] MEDS: 0.9 % Sodium Chloride 1,000 ML 999 ML IV (23:08)
[2024-11-28 23:59] LABS: Influenza A PCR NEGATIVE (Negative); Influenza B PCR NEGATIVE (Negative); Resp Syncy Virus RNA Qual PCR NEGATIVE (Negative); SARS COV2 PCR INHOUSE NEGATIVE (Negative)
[2024-11-29] VITALS: BP 117/68; PULSE 68; RESP 21; TEMP 36.8; O2SAT 98
[2024-11-29 01:26] VITALS: BP 125/75; PULSE 66; RESP 14; TEMP 36.6; O2SAT 98
[2024-11-29 01:35] VITALS: BP 125/75; PULSE 66; RESP 14; TEMP 36.6; O2SAT 98
== END 2024-11-29 01:36 | disposition home or self-care (01) ==
PROVIDERS: Emergency Provider Emergency Medicine; PCP Family Medicine
DX: F12.90 Cannabis use, unspecified, uncomplicated (principal); E11.9 Type 2 diabetes mellitus without complications; F17.210 Nicotine dependence, cigarettes, uncomplicated; Z59.00 Homelessness unspecified; Z79.02 Long term (current) use of antithrombotics/antiplatelets; Z79.899 Other long term (current) drug therapy; Z79.4 Long term (current) use of insulin; Z79.84 Long term (current) use of oral hypoglycemic drugs
CPT/HCPCS: 0241U; 36415; 80053; 80061; 82248; 83735; 85027; 93005; 96361; 96374; 96375; 99284; 99285; J1885; J2405

== ENCOUNTER → 2024-11-28 21:54 | Outpatient (BNV) | payer MEDICAID, SELFPAY | PROVIDERS: Emergency Provider Emergency Medicine; PCP Family Medicine; Visit Provider Internal Medicine | DX: R94.31 Abnormal electrocardiogram [ECG] [EKG] (principal); R53.1 Weakness | CPT/HCPCS: 93010 ==

== ENCOUNTER 2024-12-11 19:34 | Inpatient (IN) | payer MEDICAID, SELFPAY ==
--- NOTE | ~2024-12-11 | CT_ITS ---
CLINICAL HISTORY: abscess? abnormal growth left buttocks groin CT abdomen and pelvis with contrast Comparison: CT/SR - CT HIP LT WO IV CON - 09/26/24 00:[address]/SR - CT ABDOMEN PELVIS W IV CON - 02/23/24 23:30 EDT Findings: No consolidation or effusion. Gallbladder is surgically absent. No focal hepatic lesion. Pancreas, spleen and adrenal glands are within normal limits. Kidneys enhance symmetrically and are non hydronephrotic. No bowel obstruction, pneumoperitoneum, or pneumatosis. The appendix is not visualized. The bones are intact. Extensive subcutaneous fat stranding or edema in the medial left thigh to left gluteal cleft region. No drainable or organized fluid collection identified. IMPRESSION: Extensive subcutaneous fat stranding in the medial left gluteal region, edema or cellulitic change. No drainable or organized fluid collection identified. This document has been electronically signed by: Angelo Tellez MD, PHD on 12/12/2024 04:51:29
--- NOTE | ~2024-12-11 | XR_ITS ---
CLINICAL HISTORY: flu symptoms 1 view chest x-ray Comparison: Chest x-ray from 05/25/2024 Findings: New pulmonary opacities are nonspecific within interstitial predominance as can be seen with pulmonary edema and pneumonitis. Low lung volumes with mild atelectasis of the partial obscuration of the lung bases. No definite pneumothorax or pleural effusion. Imaged mediastinum appears unchanged. Degenerative changes include imaged AC joints. IMPRESSION: Low lung volumes with mild interstitial opacities as can be seen with pulmonary edema and pneumonitis. This document has been electronically signed by: Grady Carter MD on 12/11/2024 21:36:46
[2024-12-11 19:42] VITALS: BP 115/60; BP 139/75; PULSE 120; PULSE 125; RESP 18; TEMP 39.9; O2SAT 96; BMI 33.3
[2024-12-11 19:50] VITALS: BP 115/60; PULSE 120; RESP 30; TEMP 39.9; O2SAT 96
[2024-12-11 20:18] LABS: Hematocrit 41.4 % (42.0-52.0); Hemoglobin 14.0 g/dl (14.0-18.0); Mean Corpuscular HGB Conc 33.8 g/dl (31.0-36.0); Mean Corpuscular Hemoglobin 32.6 pg (27.0-33.0); Mean Corpuscular Volume 96.3 fL (80.0-98.0); NRBC Abs Auto 0.000 X10*3/uL (0.0-0.012); NRBC Pct Auto 0.0 /100WBC (0.0-0.2); Platelet Count 223 X10*3/uL (160-400); Red Blood Count 4.30 X10*6/uL (4.60-5.80); White Blood Count 27.1 X10*3/uL (4.8-10.8)
[2024-12-11 20:22] LABS: Alanine Aminotransferase 13 U/L (0-40); Albumin Level 3.7 g/dL (3.5-5.0); Alkaline Phosphatase 58 U/L (39-117); Anion Gap 10 (12-20); Aspartate Amino Transferase 19 U/L (5-37); Blood Urea Nitrogen 16 mg/dL (9-16); Calcium 8.3 mg/dL (8.4-10.2); Carbon Dioxide 22 mmol/L (22-29); Chloride 104 mmol/L (96-108); Creatinine Clr Calc Pharmacy 86.8; Estimated Glomerular Filt Rate > 60; Potassium 3.4 mmol/L (3.3-5.1); Sodium 133 mmol/L (135-145); Total Protein 7.0 g/dL (6.5-8.0)
[2024-12-11 20:43] LABS: Resp Syncy Virus RNA Qual PCR NEGATIVE (Negative); SARS COV2 PCR INHOUSE NEGATIVE (Negative)
--- NOTE | 2024-12-11 20:44 | ED.GENADULT ---
HPI - General Adult General Chief complaint: General Medical Stated complaint: FLU-LIKE SYMPTOMS Time Seen by Provider: 12/11/24 20:35 Source: patient Limitations: no limitations History of Present Illness ED Provider: Danika Nicholas PA-C HPI narrative: 59-year-old male with a history of tobacco abuse, HIV unclear if on HAART, diabetes, housing and security who presents with flu-like symptoms. Patient states he has been having nausea vomiting diarrhea, body aches and a fever since yesterday. He also complains of tenderness along the left lower buttock cheek. Denies active drainage from the site. Denies purulent drainage, rectal pain or blood from the rectum. Denies abdominal pain. Denies sick contacts with same symptoms. Denies recent hospitalization, use of antibiotics or travel. Denies cough cold symptoms. Related Data Home Medications ?Medication ?Instructions ?Recorded ?Confirmed atorvastatin 20 mg tablet 1 tab PO BEDTIME 05/15/21 05/27/21 baclofen 10 mg tablet 1 tab PO TID PRN muscle spasm 05/15/21 05/27/21 cholecalciferol (vitamin D3) 50 1 cap PO DAILY 05/15/21 05/27/21 mcg (2,000 unit) capsule dolutegravir 50 mg tablet (Tivicay) 1 tab PO DAILY 05/15/21 05/27/21 emtricitabine 200 mg-tenofovir 1 tab PO DAILY 05/15/21 05/27/21 alafenamide fumarate 25 mg tablet (Descovy) gabapentin 100 mg capsule 1 cap PO TID 05/15/21 05/27/21 glipizide 5 mg tablet 2 tab PO BID 05/15/21 05/27/21 insulin glargine 100 unit/mL (3 16 unit subcut DAILY 05/15/21 05/27/21 mL) subcutaneous pen (Lantus Solostar U-100 Insulin) metformin 500 mg tablet 2 tab PO BID 05/15/21 05/27/21 nystatin 100,000 unit/gram topical 1 appl topical TID PRN itch 05/15/21 05/27/21 cream Previous Rx's ?Medication ?Instructions ?Recorded ibuprofen 600 mg tablet 600 mg PO Q8H PRN fever or pain 05/17/21 #30 tabs bisacodyl 5 mg tablet,delayed 5 mg PO .COMPLEX 1 day #2 tabs 05/21/21 release (Dulcolax (bisacodyl)) amoxicillin 500 mg-potassium 1 tab PO Q8H #30 tabs 05/27/21 clavulanate 125 mg tablet oxycodone 5 mg tablet 5 mg PO Q6H PRN pain #15 tabs 05/27/21 diphenhydramine HCl 25 mg capsule 25 mg PO BEDTIME #10 caps 01/15/22 (Benadryl) fluticasone propionate 50 1 spray intranasal DAILY #16 grams 01/15/22 mcg/actuation nasal spray,suspension (Flonase Allergy Relief) ondansetron 4 mg disintegrating 4 mg PO Q6-8H PRN nausea and 05/08/23 tablet vomiting #7 tabs omeprazole 40 mg capsule,delayed 40 mg PO DAILY #30 caps 02/24/24 release ondansetron 4 mg disintegrating 4 mg PO Q6H PRN nausea and 02/24/24 tablet vomiting #14 tabs naproxen 500 mg tablet (Naprosyn) 500 mg PO BID PRN pain #20 tabs 05/11/24 tramadol 50 mg tablet 50 mg PO Q6H PRN pain #20 tabs 05/13/24 ondansetron 4 mg disintegrating 4 mg PO Q6H PRN nausea and 05/20/24 tablet vomiting #10 tabs tramadol 50 mg tablet 50 mg PO Q8H PRN pain #14 tabs 05/20/24 amoxicillin 875 mg-potassium 1 tab PO BID #20 tabs 05/26/24 clavulanate 125 mg tablet gabapentin 300 mg capsule 300 mg PO BEDTIME #30 caps 05/26/24 prednisone 20 mg tablet 40 mg (2 x 20 mg) PO DAILY #10 tabs 05/26/24 acetaminophen 650 mg 650 mg PO Q8H PRN pain #30 tabs 09/13/24 tablet,extended release (Tylenol 8 Hour) hydrocortisone 1 % topical cream 1 appl topical TID PRN allergic 09/13/24 (Cortisone (hydrocortisone)) reaction 2 weeks #28.35 grams lidocaine 4 % topical patch 1 patch topical DAILY PRN pain #30 09/13/24 (AsperFlex (lidocaine)) ea loratadine 10 mg tablet (Claritin) 10 mg PO DAILY #30 tabs 09/13/24 diclofenac sodium 1 % topical gel 4 g topical QID PRN pain #100 grams 09/21/24 (Voltaren Arthritis Pain) naproxen 375 mg tablet 375 mg PO BID PRN pain #20 tabs 10/25/24 Allergies Allergy/AdvReac Type Severity Reaction Status Date / Time No Known Allergies Allergy Verified 12/11/24 19:48 Review of Systems Review of Systems: Yes all other systems are reviewed and are negative Constitutional: Constitutional: Reports fatigue, Reports fever(s) and Reports malaise Cardiovascular: Cardiovascular: Denies chest pain Respiratory: Respiratory: Reports cough and Denies wheezing Gastrointestinal: Gastrointestinal: Denies abdominal pain, Reports diarrhea, Reports nausea and Reports vomiting Integumentary/Breasts: Skin/Breast: Reports erythema Endocrine: Endocrine: Reports fatigue Allergic/Immunologic: Allergic/Immunologic: Denies wheezing PMFSH Past Medical History Attestation statement: The following information was validated with the patient. Medical History (Updated 12/12/24 @ 01:35 by SEGUN Min) Nicotine dependence, cigarettes, uncomplicated Homeless Diabetes Surgical History History of laparoscopic cholecystectomy (~2020) History of incisional hernia repair (~2014) History of umbilical hernia repair (~2008) History of appendectomy Social History Social History Household Members: None Housing Other:: patient states homeless Do you presently have visiting nurse or other home services: No Alcohol intake: never Patient Tobacco Use Status: Current everyday Tobacco user Tobacco use type: Cigarette Cigarette Packs Per Day: 1 Cigarettes Per Day: 20.0 Years Smoked: 30 Smoked in Last 30 Days: Yes Use of substances other than those prescribed or required for medical reasons: Yes Substance Use Type: Marijuana Advance Directives: No Advance Directives Information Provided: No Do you have a plan to hurt others: No Plan service: No Current occupational status: unemployed Physical Exam ED Vital Signs: Vital Signs - 24 hr 12/11/24 19:42 12/11/24 19:50 12/11/24 22:19 Temperature 103.8 F H 103.8 F H 99.9 F Pulse Rate 120 H 120 H 109 H Respiratory Rate 18 30 H 24 H Blood Pressure 115/60 115/60 106/58 L Pulse Oximetry 96 96 95 Oxygen Delivery Method Room Air Room Air Room Air 12/11/24 23:10 12/11/24 23:26 12/11/24 23:57 Temperature 99.3 F 98.8 F Pulse Rate 107 H Respiratory Rate 14 Blood Pressure 121/69 133/63 105/60 Pulse Oximetry 94 Oxygen Delivery Method Room Air BMI result Body Mass Index 33.3 Const Other: Awake appears older than stated age Orientation/consciousness: patient oriented x3 Resp Other: Faint crackles right base posterior fabian Effort & Inspection: normal respiratory effort Cardio Other: Normal peripheral perfusion Skin Other: Multiple skin lesions over the buttock, some scabbed over, appears to be MRSA, the skin over the lower exterior of your buttock cheek is warm, thickened, erythematous, no central fluctuance, no discrete fluid collection, appears to be cellulitic Neuro General: patient oriented x3, no focal motor deficits and CN's II-XI intact bilaterally Psych Other: Hostile belligerent Course Reevaluation(s) Reevaluation #1: At 8:35 p.m. on December 11 a sepsis focused exam was performed, blood cultures including lactic acid along with screening labs were obtained, starting empiric antibiotics with weight based IV fluid therapy Tylenol given Time: 20:35 Medications Administered Discontinued Medications Generic Name Dose Route Start Last Admin Trade Name Freq PRN Reason Stop Dose Admin Acetaminophen 650 mg 12/11/24 20:06 12/11/24 20:10 Acetaminophen 325 Mg Tablet PO 12/11/24 20:07 650 mg ONCE ONE Administration Ceftriaxone Sodium 2 gm 12/11/24 20:47 12/11/24 20:57 Ceftriaxone Sodium 2 Gm Vial IVPUSH 12/11/24 20:48 2 gm ONCE ONE Administration Sodium Chloride 2,721 mls @ 2,721 mls/hr 12/11/24 20:35 12/11/24 23:10 Ns 30 ml/kg infuse over 1 hr (2721 ml) 12/11/24 21:34 Infused IV Infusion .Q1H STA Azithromycin 500 mg/ Sodium 250 mls @ 125 mls/hr 12/11/24 23:04 12/12/24 00:21 Chloride IV 12/12/24 01:03 125 mls/hr ONCE ONE Administration Morphine Sulfate 4 mg 12/11/24 22:06 12/11/24 22:20 Morphine Sulfate 4 Mg/Ml Cartridge IVPUSH 12/11/24 22:07 4 mg ONCE ONE Administration Protocol Medical Decision Making Medical Decision Making MDM Narrative: 59-year-old male with a history of tobacco abuse, HIV unclear if on HAART, diabetes, housing and security who presents with flu-like symptoms. Patient states he has been having nausea vomiting diarrhea, body aches and a fever since yesterday. He also complains of tenderness along the left lower buttock cheek. Denies active drainage from the site. Denies purulent drainage, rectal pain or blood from the rectum. Denies abdominal pain. Denies sick contacts with same symptoms. Denies recent hospitalization, use of antibiotics or travel. Denies cough cold symptoms. Problem: Diabetes, HIV that appears to be untreated, housing and security History: Per patient I have considered the following differential diagnoses: Sepsis, cellulitis, purulent cellulitis, UTI, viral syndrome, pneumonia, bronchitis Plan: Patient is septic, he meets criteria, in addition to screening labs, adding blood cultures, lactic, viral panel, UTI, chest x-ray screening for a source. I did view his left buttock, he has cellulitis, there was no evidence of abscess per my bedside ultrasound there was no discrete fluid collection. He has received ceftriaxone thus far. We will be adding additional coverage in the way of vancomycin. We will await for other sources, he may require additional antibiotic therapy. I have independently reviewed the following tests: Labs: Leukocytosis of 27 with left shift, not anemic, no electrolyte abnormality, lactic 1.2, viral panel negative, urine yet to be detect Chest x-ray:Findings: New pulmonary opacities are nonspecific within interstitial predominance as can be seen with pulmonary edema and pneumonitis. Low lung volumes with mild atelectasis of the partial obscuration of the lung bases. No definite pneumothorax or pleural effusion. Imaged mediastinum appears unchanged. Degenerative changes include imaged AC joints. IMPRESSION: Low lung volumes with mild interstitial opacities as can be seen with pulmonary edema and pneumonitis. Adding coverage with azithromycin Lab Data 12/11/24 20:02 12/11/24 20:02 Labs: Lab Results 12/11/24 12/11/24 Range/Units 20:02 22:01 WBC 27.1 H (4.8-10.8) X10*3/uL RBC 4.30 L (4.60-5.80) X10*6/uL Hgb 14.0 (14.0-18.0) g/dl Hct 41.4 L (42.0-52.0) % MCV 96.3 (80.0-98.0) fL MCH 32.6 (27.0-33.0) pg MCHC 33.8 (31.0-36.0) g/dl RDW 12.5 (11.0-16.0) % Plt Count 223 (160-400) X10*3/uL MPV 9.5 (9.4-12.4) fL Immature Gran % (Auto) Cancelled Neut % (Auto) Cancelled Lymph % (Auto) Cancelled [place] % (Auto) Cancelled Eos % (Auto) Cancelled Baso % (Auto) Cancelled Lymph # (Auto) Cancelled [place] # (Auto) Cancelled Eos # (Auto) Cancelled Baso # (Auto) Cancelled Abs Immat Gran (auto) Cancelled Absolute Neuts (auto) Cancelled Absolute Nucleated RBC 0.000 (0.0-0.012) X10*3/uL Nucleated RBC % (auto) 0.0 (0.0-0.2) /100WBC Neutrophils % (Manual) 84 H (45-73) % Band Neutrophils % 8 H (3-5) % Lymphocytes % (Manual) 4 L (20-40) % Monocytes % (Manual) 4 (2-11) % Abs Neuts (Manual) 24.9 H (2.0-8.3) X10*3/uL Lymphocytes # (Manual) 1.1 L (1.2-4.9) X10*3/uL Monocytes # (Manual) 1.1 (0.1-1.2) X10*3/uL Platelet Estimate NORMAL (NORMAL) Plt Morphology Comment NORMAL RBC Morphology NORMAL Smear Tech's Comments MANUAL DIFF Sodium 133 L (135-145) mmol/L Potassium 3.4 (3.3-5.1) mmol/L Chloride 104 (96-108) mmol/L Carbon Dioxide 22 (22-29) mmol/L Anion Gap 10 L (12-20) BUN 16 (9-16) mg/dL Creatinine 0.96 (0.5-1.4) mg/dL Estim Creat Clear Calc 86.8 Estimated GFR > 60 Random Glucose 172 H (60-115) mg/dL Lactic Acid 1.2 (0.5-2.0) mmol/L Calcium 8.3 L D (8.4-10.2) mg/dL Total Bilirubin 0.8 (0.0-1.0) mg/dL AST 19 (5-37) U/L ALT 13 (0-40) U/L Alkaline Phosphatase 58 (39-117) U/L Total Protein 7.0 (6.5-8.0) g/dL Albumin 3.7 (3.5-5.0) g/dL Influenza Type A (PCR) NEGATIVE (Negative) Influenza Type B (PCR) NEGATIVE (Negative) RSV RNA Qual (PCR) NEGATIVE (Negative) SARS-CoV-2 RNA (RT-PCR) NEGATIVE (Negative) Critical Care Time Critical Care Time Critical Care Time: Yes Total Critical Care Time: 30 Attestation: Aspen Nicholas PA-C have personally performed 30 minutes of critical care time not including lines and procedures; sepsis Discharge Plan Discharge Clinical Impression: Sepsis, Pneumonitis, Cellulitis of buttock, left Patient Disposition: Admitted As Inpatient Print Language: [place]ill[place]
[2024-12-11] MEDS: 0.9 % Sodium Chloride 2,721 ML 2721 ML IV (20:57)
[2024-12-11 22:07] LABS: Band Neutrophils Percent 8 % (3-5); Lymphocytes Absolute Manual 1.1 X10*3/uL (1.2-4.9); Lymphocytes Percent Manual 4 % (20-40); Monocytes Absolute Manual 1.1 X10*3/uL (0.1-1.2); Monocytes Percent Manual 4 % (2-11); Neutrophils Absolute Manual 24.9 X10*3/uL (2.0-8.3); Neutrophils Percent Manual 84 % (45-73); RBC Morphology NORMAL
[2024-12-11 22:19] VITALS: BP 106/58; PULSE 109; RESP 24; TEMP 37.7; O2SAT 95
[2024-12-11 23:10] VITALS: BP 121/69; TEMP 37.4
[2024-12-11 23:26] VITALS: BP 133/63
[2024-12-11 23:57] VITALS: BP 105/60; PULSE 107; RESP 14; TEMP 37.1; O2SAT 94
[2024-12-12] VITALS (7 sets, daily range): BP systolic 105–138; BP diastolic 55–71; PULSE 90–114; RESP 16–22; TEMP 36.3–38.6; O2SAT 93–97; BMI 32.5
--- NOTE | 2024-12-12 02:11 | PM.IMHP ---
History of Present Illness Date of Service: 12/12/24 Attending physician on admission: Kashif Fowler Chief Complaint: Nausea Patient is a 59-year-old male with past medical history of diabetes insulin-dependent, nicotine dependence, HIV infection on HAART therapy, hyperlipidemia, vitamin-D deficiency, allergic rhinitis, GERD, chronic pain presents to the emergency room with persistent weakness, nausea and vomiting with body aches and fever since last evening. Patient follows with outpatient clinic in [place] and has been taking his meds as ordered and is compliant with his HIV therapy. Patient denies any recent exposure to anyone else that is been ill. Patient lives on the streets and does not use shelters. Patient currently denies any productive cough, abdominal pain, diarrhea or open wounds. Patient states he shaves his body head-to-toe often and also picks at his skin especially in the buttocks and lower back area. Patient states he has a cyst that has been a problem but upon examination this area is closed and there is some underlying tissue changes that are palpable towards the groin area. There is no lymphadenopathy. Patient has a leukocytosis and fever on admission. Lactic acid is normal. Patient was started on ceftriaxone, azithromycin for evidence of possible pneumonia versus pneumonitis/pulmonary edema. BNP is pending. Patient also started on vancomycin for possible underlying skin infection. CT scan of the abdomen and pelvis has been ordered for further review. Patient is currently on IV fluids with no further nausea or vomiting. Patient generalized feelings of severe weakness and patient is ?scared?. Patient was able to ambulate to the bathroom with the nurse as he was complaining he has been trying to urinate frequently and sometimes is unable to produce urine. Patient denies any history of prostate issues. Bladder scans will now be ordered Q shift and if greater than 250 provider will be notified. Patient will do straight cath but wants to avoid this so is currently attempting to void in the bathroom. UA is pending. Blood cultures x2 were drawn and are pending. Review of Systems Review of Systems: Patient denies any chest pain, shortness of breath at rest or with exertion. Patient is reporting generalized weakness with chronic pain. Patient currently denies any nausea or vomiting or abdominal pain. Patient is not having any diarrhea. Yes all other systems are reviewed and are negative [facility] Medical History (Updated 12/12/24 @ 02:49 by ANU Robert) Hypertension Hyperlipidemia HIV (human immunodeficiency virus infection) Nicotine dependence, cigarettes, uncomplicated Homeless Diabetes Cognitive capacity: Currently alert and orientated x3 Functional capacity: independent ambulation Surgical History History of laparoscopic cholecystectomy (~2020) History of incisional hernia repair (~2014) History of umbilical hernia repair (~2008) History of appendectomy Social History Household Members: None Housing Other:: patient states homeless Do you presently have visiting nurse or other home services: No Alcohol intake: never Patient Tobacco Use Status: Current everyday Tobacco user Tobacco use type: Cigarette Cigarette Packs Per Day: 1 Cigarettes Per Day: 20.0 Years Smoked: 30 Smoked in Last 30 Days: Yes Use of substances other than those prescribed or required for medical reasons: Yes Substance Use Type: Marijuana Advance Directives: No Advance Directives Information Provided: No Do you have a plan to hurt others: No Plan service: No Current occupational status: unemployed Ebola Risk: Travel/Contact With Anyone From Affected Area/s: No Has Patient Experienced Ebola Symptoms: No Meds Allergies Allergy/AdvReac Type Severity Reaction Status Date / Time No Known Allergies Allergy Verified 12/11/24 19:48 Active Medications: Current Medications Acetaminophen (Acetaminophen 325 Mg Tablet) 650 mg PO Q6H PRN PRN Reason: Pain, Mild 1-3,fever,headache Albuterol/Ipratropium (Albuterol/Iprat 2.5/0.5mg 3 Ml Ampul.Neb) 3 ml INHALE Q4H PRN PRN Reason: Shortness of Breath/Wheezing Calcium Carbonate (Calcium Carbonate 750 Mg Tab.Chew) 750 mg PO Q4H PRN PRN Reason: Heartburn Ceftriaxone Sodium (Ceftriaxone Sodium 1 Gm Vial) 1 gm IVPUSH Q24H ANU Enoxaparin Sodium (Enoxaparin Sodium 40 Mg/0.4 Ml Syringe) 40 mg SUBCUT BEDTIME ANU Azithromycin 500 mg/ Sodium (Chloride) 250 mls @ 125 mls/hr IV Q24H ANU Magnesium Hydroxide (Milk Of Magnesia 30 Ml Oral.Susp) 30 ml PO DAILY PRN PRN Reason: Constipation Melatonin (Melatonin 3 Mg Tablet) 6 mg PO BEDTIME PRN PRN Reason: Insomnia Pharmacy Consult (Consult Rx Vancomycin Dosing) 1 each MISCELLANE DAILY PRN PRN Reason: Consult order Polyethylene Glycol (Polyethylene Glycol 3350 17 Gm Powd.Pack) 17 gm PO DAILY PRN PRN Reason: Constipation Senna (Sennosides 8.6 Mg Tablet) 17.2 mg PO BEDTIME ANU Sodium Chloride (0.9 % Sodium Chloride Flush 3 Ml Syringe) 3 ml IVFLUSH QSHIFT ANU Home Medications ?Medication ?Instructions ?Recorded ?Confirmed ?Last Taken ?Type atorvastatin 20 mg tablet 1 tab PO BEDTIME 05/15/21 05/27/21 Unknown History baclofen 10 mg tablet 1 tab PO TID PRN muscle spasm 05/15/21 05/27/21 Unknown History cholecalciferol (vitamin D3) 50 1 cap PO DAILY 05/15/21 05/27/21 Unknown History mcg (2,000 unit) capsule dolutegravir 50 mg tablet (Tivicay) 1 tab PO DAILY 05/15/21 05/27/21 Unknown History emtricitabine 200 mg-tenofovir 1 tab PO DAILY 05/15/21 05/27/21 Unknown History alafenamide fumarate 25 mg tablet (Descovy) gabapentin 100 mg capsule 1 cap PO TID 05/15/21 05/27/21 Unknown History glipizide 5 mg tablet 2 tab PO BID 05/15/21 05/27/21 Unknown History insulin glargine 100 unit/mL (3 16 unit subcut DAILY 05/15/21 05/27/21 Unknown History mL) subcutaneous pen (Lantus Solostar U-100 Insulin) metformin 500 mg tablet 2 tab PO BID 05/15/21 05/27/21 Unknown History nystatin 100,000 unit/gram topical 1 appl topical TID PRN itch 05/15/21 05/27/21 Unknown History cream Physical Exam Vital Signs and Narrative: Vital Signs: Last Vital Signs Temp 98.8 F 12/11/24 23:57 Pulse 107 H 12/11/24 23:57 Resp 14 12/11/24 23:57 BP 105/60 12/11/24 23:57 Pulse Ox 94 12/11/24 23:57 O2 Del Method Room Air 12/11/24 23:57 BMI result Body Mass Index 33.3 Alert and orientated X3, able to give good history. Neuro: CN II-X11 intact, no deficits, visual acuity intact EYES: PERRLA, EOM intact, sclerae nonicteric, conjunctiva pink ENT: hearing intact, no issues with swallowing, uvula midline, lips moist, nares patent no epistaxis Cardiac: S1 S2 RRR, no murmur, no JVD, no edema in Lower ext Pulmonary: lungs diminished bilaterally Abdominal: BS active in all 4 quadrants, no guarding, tenderness, rebounding, mild distention MSK: strength 4/5 upper and lower extremities : no CVA tenderness Extremities: no edema in lower extremities, PT and DP pulses palpable +2 Psych: mood anxious, judgement and insight good Skin: Raised closed area along left lateral buttocks down into the groin with palpable underlying tissue but no open wounds or drainage noted. Patient has multiple pock barber or scarring from constant picking at his skin in the buttocks area in the lower back. Results Labs 12/11/24 20:02 12/11/24 20:02 Labs: Laboratory Results - last 24 hr 12/11/24 12/11/24 20:02 22:01 MCV 96.3 MCH 32.6 MCHC 33.8 RDW 12.5 Plt Count 223 MPV 9.5 Immature Gran % (Auto) Cancelled Neut % (Auto) Cancelled Lymph % (Auto) Cancelled Andrew % (Auto) Cancelled Eos % (Auto) Cancelled Baso % (Auto) Cancelled Lymph # (Auto) Cancelled Andrew # (Auto) Cancelled Eos # (Auto) Cancelled Baso # (Auto) Cancelled Abs Immat Gran (auto) Cancelled Absolute Neuts (auto) Cancelled Absolute Nucleated RBC 0.000 Nucleated RBC % (auto) 0.0 Neutrophils % (Manual) 84 H Band Neutrophils % 8 H Lymphocytes % (Manual) 4 L Monocytes % (Manual) 4 Abs Neuts (Manual) 24.9 H Lymphocytes # (Manual) 1.1 L Monocytes # (Manual) 1.1 Platelet Estimate NORMAL Plt Morphology Comment NORMAL RBC Morphology NORMAL Smear Tech's Comments MANUAL DIFF Anion Gap 10 L Estim Creat Clear Calc 86.8 Estimated GFR > 60 Random Glucose 172 H Lactic Acid 1.2 Calcium 8.3 L D Total Bilirubin 0.8 AST 19 ALT 13 Alkaline Phosphatase 58 Total Protein 7.0 Albumin 3.7 Influenza Type A (PCR) NEGATIVE Influenza Type B (PCR) NEGATIVE RSV RNA Qual (PCR) NEGATIVE SARS-CoV-2 RNA (RT-PCR) NEGATIVE ECG Attestation: I personally reviewed and interpreted this ECG as follows: Prior ECG tracings: not available for review Imaging Radiologist's Impressions: CXR Findings: New pulmonary opacities are nonspecific within interstitial predominance as can be seen with pulmonary edema and pneumonitis. Low lung volumes with mild atelectasis of the partial obscuration of the lung bases. No definite pneumothorax or pleural effusion. Imaged mediastinum appears unchanged. Degenerative changes include imaged AC joints. IMPRESSION: Low lung volumes with mild interstitial opacities as can be seen with pulmonary edema and pneumonitis. Assessment and Plan (1) Sepsis: Qualifiers: Sepsis acute organ dysfunction status: unspecified Sepsis type: sepsis due to unspecified organism Qualified Code(s): A41.9 - Sepsis, unspecified organism Status: Acute Plan Patient is a 59-year-old male with past medical history of diabetes insulin-dependent, nicotine dependence, HIV infection on HAART therapy, hyperlipidemia, vitamin-D deficiency, allergic rhinitis, GERD, chronic pain being admitted with episodes of sepsis and suspected pneumonia with underlying skin manifestation, CT of the abdomen and pelvis is pending Sepsis -Patient is started on ceftriaxone, azithromycin and vancomycin for suspected pneumonia and possible left buttock cyst with infection/ cellulitis -Patient received IV fluids per resuscitation protocol -CT of the abdomen and pelvis is pending to further investigage left lump in buttocks -Lactic acid normal, leukocytosis with bandemia present, max temp 103.8 and is now 98.8, patient mildly tachycardic but no hypoxia -UA pending -BC X2 pending PNA -Patient currently on room air -Continue ceftriaxone azithromycin -BNP is pending, if abnormal consider echocardiogram has pulmonary edema suspected on chest x-ray -Duo nebs p.r.n. -Supportive care -Viral studies all negative Left buttocks closed cyst/ cellulitis -Patient has chronic skin changes in this -CT of the abdomen and pelvis pending -Consider ultrasound if needed -Patient is currently on vancomycin, wound is closed, unclear if I and D will be needed Hyponatremia -Sodium 133 -Patient continues on 0.9 normal saline at 100 per hour -Repeat sodium in the a.m. Hx of HIV -Patient has been compliant with his HAART therapy -Will check HIV viral load Urinary Retention -CT ABD PELVIS pending -Will check PSA -Bladder scan Q shift -UA pending Diabetes -Sliding scale insulin -Diabetic diet Homelessness -Case management/social work consulted -Patient refuses to use shelters as they are only for drug users DVT prophylaxis: Lovenox PPI prophylaxis: Protonix Med rec pending Full code status Quality Stroke Does the patient have a stroke diagnosis?: No Reason for No Anti-thrombotic by Day Two: N/A - Med Ordered VTE Prior VTE?: No VTE Risk Level:: Medical - moderate - high VTE Device Contraindication: N/A - Device Ordered VTE Drug Contraindication: N/A - Med Ordered
--- NOTE | 2024-12-12 02:26 | PC.NURSE ---
RN called pharmacy because there were now 2 orders of vanco and the first one ( 1.5g) was already late to administer. pharmacy stated to not give the 1.5g since it was already d/c'd and that he only really needs the 2g dose. RN to return the 1.5g vial and will administer the 2g dose.
[2024-12-12] MEDS: vancomycin/NS 2,000 MG/500 ML PLAST..BAG 250 MG IV (02:42)
[2024-12-12] MEDS: iohexoL 350 MG/ML 100 ML INFUS..BTL 85 ML IV (03:22)
--- NOTE | 2024-12-12 05:01 | HO.SKINPHOTO ---
Location: left buttock Category: cyst? Stage: Length: Width: Depth: cm Location: Category: Stage: Length: Width: Depth: cm Location: Category: Stage: Length: Width: Depth: cm Location: Category: Stage: Length: Width: Depth: cm Location: Category: Stage: Length: Width: Depth: cm Location: Category: Stage: Length: Width: Depth: cm
[2024-12-12 07:29] LABS: Glucose, Whole Blood 90 mg/dL (60-115)
--- NOTE | 2024-12-12 07:30 | PHA.PROG ---
Admission Date/Time: December 12, 2024 01:39 Indication: Skin Weight in k.5 kg Serum Creatinine - Last 168 Hours 12/11/24 20:02 Creatinine 0.96 Estimated CrCl and GFR - Last 168 Hours 12/11/24 20:02 Estim Creat Clear Calc 86.8 Estimated GFR > 60 Vancomycin Loading Dose: 2,000 mg Current Vancomycin Dosing Regimen: 1,000mg q12h Vancomycin Monitoring using AUC goal of 400 - 600 range with trough as surrogate marker: 494, predicted trough 15.8 Date and Time for next Vancomycin Level to be drawn: 12/13 @1300 Pharmacist Comments on Vancomycin Plan: Vancomycin dosing will take advantage of [employer] as a clinical decision support tool that uses Bayesian modeling to calculate individual patient's pharmacokinetic parameters and forecast the patient's drug concentration time course with the target goal AUC 24 range of 400 - 600 mg/L/hr.
[2024-12-12 08:37] LABS: Hematocrit 38.1 % (42.0-52.0); Hemoglobin 12.8 g/dl (14.0-18.0); Imm Gran Abs Auto 0.87 X10*3/uL (0.00-0.03); Imm Gran Pct Auto 3.5 % (0.0-0.4); Lymphocytes Absolute Auto 0.4 X10*3/uL (1.2-4.9); MANUAL DIFF FLAG SCAN; Mean Corpuscular HGB Conc 33.6 g/dl (31.0-36.0); Mean Corpuscular Hemoglobin 32.2 pg (27.0-33.0); Mean Corpuscular Volume 95.7 fL (80.0-98.0); NRBC Abs Auto 0.000 X10*3/uL (0.0-0.012); NRBC Pct Auto 0.0 /100WBC (0.0-0.2); Platelet Count 200 X10*3/uL (160-400); Red Blood Count 3.98 X10*6/uL (4.60-5.80); SCAN SMEAR FLAG 1; White Blood Count 25.2 X10*3/uL (4.8-10.8)
[2024-12-12 09:06] LABS: Alanine Aminotransferase 10 U/L (0-40); Albumin Level 3.0 g/dL (3.5-5.0); Alkaline Phosphatase 55 U/L (39-117); Anion Gap 9 (12-20); Aspartate Amino Transferase 21 U/L (5-37); Blood Urea Nitrogen 12 mg/dL (9-16); Calcium 7.5 mg/dL (8.4-10.2); Carbon Dioxide 21 mmol/L (22-29); Chloride 108 mmol/L (96-108); Creatinine Clr Calc Pharmacy 99.2; Estimated Glomerular Filt Rate > 60; Magnesium 1.2 mg/dL (1.6-2.6); Potassium 3.3 mmol/L (3.3-5.1); Sodium 135 mmol/L (135-145); Total Protein 5.7 g/dL (6.5-8.0)
[2024-12-12] MEDS: Magnesium Sulfate/H2O 2 GM/50 ML PIGGYBACK IV ×2 (09:24→13:19)
[2024-12-12 09:33] LABS: Hemoglobin A1C 96.3233 umol/L; Total Hemoglobin (HGBA1C) 3377.7724 umol/L
[2024-12-12 10:59] LABS: Glucose, Whole Blood 115 mg/dL (60-115)
--- NOTE | 2024-12-12 11:00 | P.PNIM_ITS ---
Subjective Subjective Date of Service: 12/12/24 Interval History: f/u on buttock cyst, cellulitiis Hiv, pna feels weak, no fever Physical Exam 2 Vital Signs: Vital Signs: Last Vital Signs Temp 99.4 F 12/12/24 07:38 Pulse 100 12/12/24 07:38 Resp 16 12/12/24 07:38 BP 111/55 L 12/12/24 07:38 Pulse Ox 95 12/12/24 07:38 O2 Del Method Room Air 12/12/24 07:38 BMI result Body Mass Index 32.5 Const: Other: General: AO X 3, no acute distress Resp: CTA bilateral CVS: S1,S2,RRR GI: +BS, NT, no distention Skin: No rash, Raised closed area along left lateral buttocks down into the groin with palpable underlying tissue but no open wounds or drainage noted Neuro: motor grossly intact Psych: appropriate affect Objective Data Active Medications Acetaminophen (Acetaminophen 325 Mg Tablet) 650 mg PO Q6H PRN PRN Reason: Pain, Mild 1-3,fever,headache Last Admin: 12/12/24 02:52 Dose: 650 mg Documented By: DAVE Albuterol/Ipratropium (Albuterol/Iprat 2.5/0.5mg 3 Ml Ampul.Neb) 3 ml INHALE Q4H PRN PRN Reason: Shortness of Breath/Wheezing Calcium Carbonate (Calcium Carbonate 750 Mg Tab.Chew) 750 mg PO Q4H PRN PRN Reason: Heartburn Ceftriaxone Sodium (Ceftriaxone Sodium 1 Gm Vial) 1 gm IVPUSH BEDTIME ANU Dextrose (Dextrose 50 % 25 Gm/50 Ml Syringe) 25 gm IVPUSH Q15M PRN; Protocol PRN Reason: per Hypoglycemia Standing Ord. Enoxaparin Sodium (Enoxaparin Sodium 40 Mg/0.4 Ml Syringe) 40 mg SUBCUT BEDTIME ANU Last Admin: 12/12/24 02:42 Dose: 40 mg Documented By: DAVE Glucose (Glucose Gel 15 Gm Gel..Gram.) 15 gm PO Q15M PRN; Protocol PRN Reason: per Hypoglycemia Standing Ord. Azithromycin 500 mg/ Sodium (Chloride) 250 mls @ 125 mls/hr IV BEDTIME ANU Vancomycin HCl 1,000 mg/ (Sodium Chloride) 270 mls @ 270 mls/hr IV Q12H ANU Magnesium Sulfate (Magnesium Sulfate/H2o) 2 gm in 50 mls @ 25 mls/hr IV Q4H [facility] Stop: 12/12/24 15:14 Last Admin: 12/12/24 09:24 Dose: 25 mls/hr Documented By: PACO Insulin Human Lispro (Insulin Lispro 100 Unit/Ml 3 Ml Vial) 0 unit SUBCUT QIDACHS [facility]; Protocol Last Admin: 12/12/24 08:10 Dose: Not Given Documented By: PACO Non-Admin Reason: No Insulin Coverage Magnesium Hydroxide (Milk Of Magnesia 30 Ml Oral.Susp) 30 ml PO DAILY PRN PRN Reason: Constipation Melatonin (Melatonin 3 Mg Tablet) 6 mg PO BEDTIME PRN PRN Reason: Insomnia Pharmacy Consult (Consult Rx Vancomycin Dosing) 1 each MISCELLANE DAILY PRN PRN Reason: Consult order Polyethylene Glycol (Polyethylene Glycol 3350 17 Gm Powd.Pack) 17 gm PO DAILY PRN PRN Reason: Constipation Senna (Sennosides 8.6 Mg Tablet) 17.2 mg PO BEDTIME [facility] Sodium Chloride (0.9 % Sodium Chloride Flush 3 Ml Syringe) 3 ml IVFLUSH QSHIFT [facility] Last Admin: 12/12/24 08:14 Dose: Not Given Documented By: PACO Non-Admin Reason: IV Running Labs 12/12/24 08:23 12/12/24 08:23 Labs: Laboratory Results - last 24 hr 12/11/24 12/11/24 12/12/24 20:02 22:01 07:22 MCV 96.3 MCH 32.6 MCHC 33.8 RDW 12.5 Plt Count 223 MPV 9.5 Immature Gran % (Auto) Cancelled Neut % (Auto) Cancelled Lymph % (Auto) Cancelled [place] % (Auto) Cancelled Eos % (Auto) Cancelled Baso % (Auto) Cancelled Lymph # (Auto) Cancelled [place] # (Auto) Cancelled Eos # (Auto) Cancelled Baso # (Auto) Cancelled Abs Immat Gran (auto) Cancelled Absolute Neuts (auto) Cancelled Absolute Nucleated RBC 0.000 Nucleated RBC % (auto) 0.0 Neutrophils % (Manual) 84 H Band Neutrophils % 8 H Lymphocytes % (Manual) 4 L Monocytes % (Manual) 4 Abs Neuts (Manual) 24.9 H Lymphocytes # (Manual) 1.1 L Monocytes # (Manual) 1.1 Platelet Estimate NORMAL Plt Morphology Comment NORMAL RBC Morphology NORMAL Smear Tech's Comments MANUAL DIFF Anion Gap 10 L Estim Creat Clear Calc 86.8 Estimated GFR > 60 POC Glucose 90 Random Glucose 172 H Estimat Average Glucose Hemoglobin A1c % Lactic Acid 1.2 Calcium 8.3 L D Magnesium Total Bilirubin 0.8 AST 19 ALT 13 Alkaline Phosphatase 58 Total Protein 7.0 Albumin 3.7 Influenza Type A (PCR) NEGATIVE Influenza Type B (PCR) NEGATIVE RSV RNA Qual (PCR) NEGATIVE SARS-CoV-2 RNA (RT-PCR) NEGATIVE 12/12/24 12/12/24 08:23 10:56 MCV 95.7 MCH 32.2 MCHC 33.6 RDW 12.6 Plt Count 200 MPV 9.2 L Immature Gran % (Auto) 3.5 H Neut % (Auto) 88.7 H Lymph % (Auto) 1.7 L Sheridan % (Auto) 5.6 Eos % (Auto) 0.3 Baso % (Auto) 0.2 Lymph # (Auto) 0.4 L [place] # (Auto) 1.4 H Eos # (Auto) 0.1 Baso # (Auto) 0.1 Abs Immat Gran (auto) 0.87 H Absolute Neuts (auto) 22.3 H Absolute Nucleated RBC 0.000 Nucleated RBC % (auto) 0.0 Neutrophils % (Manual) Band Neutrophils % Lymphocytes % (Manual) Monocytes % (Manual) Abs Neuts (Manual) Lymphocytes # (Manual) Monocytes # (Manual) Platelet Estimate Plt Morphology Comment RBC Morphology Smear Tech's Comments VERIFIED Anion Gap 9 L Estim Creat Clear Calc 99.2 Estimated GFR > 60 POC Glucose 115 Random Glucose 104 Estimat Average Glucose 91 Hemoglobin A1c % 4.8 Lactic Acid Calcium 7.5 L D Magnesium 1.2 L* Total Bilirubin 0.9 AST 21 ALT 10 Alkaline Phosphatase 55 Total Protein 5.7 L Albumin 3.0 L Influenza Type A (PCR) Influenza Type B (PCR) RSV RNA Qual (PCR) SARS-CoV-2 RNA (RT-PCR) Assessment and Plan (1) Sepsis: Status: Acute (2) Cellulitis of buttock, left: Status: Acute (3) HIV (human immunodeficiency virus infection): Status: Acute Plan Patient is a 59-year-old male with past medical history of diabetes insulin-dependent, nicotine dependence, HIV infection on HAART therapy, hyperlipidemia, vitamin-D deficiency, allergic rhinitis, GERD, chronic pain being admitted with episodes of sepsis and suspected pneumonia with underlying skin manifestation, CT of the abdomen and pelvis is pending Sepsis d/t buttock cyst and possible PNA, fever in HIV, CT show no collection but evidence of cellulitis continue Vanco, azithro and ceftriaxoone follow culture blood culture pending ID consult pending Surgery consult Hyponatremia, 135 today Hx of HIV Patient has been compliant with his HAART therapy ID consult Urinary Retention Diabetes Sliding scale insulin Diabetic diet Homelessness Case management/social work consulted Patient refuses to use shelters as they are only for drug users DVT prophylaxis: Lovenox PPI prophylaxis: Protonix Med rec pending Full code status Quality Stroke Does the patient have a stroke diagnosis?: No Reason for No Anti-thrombotic by Day Two: N/A - Med Ordered VTE Prior VTE?: No VTE Risk Level:: Medical - moderate - high VTE Device Contraindication: N/A - Device Ordered VTE Drug Contraindication: N/A - Med Ordered
[2024-12-12 11:26] LABS: Appearance Urine Clear; Glucose Urine UA Negative (Negative); PH 5.5 (5.0-9.0); Specific Gravity - Urine >= 1.030 (1.005-1.025); UMIC TRIGGER UACC YES
--- NOTE | 2024-12-12 12:01 | P.CONGS_ITS ---
History of Present Illness Consult details Consult date: 12/12/24 <Jonny Madrigal PA-C - Last Filed: 12/12/24 13:34> Requesting physician: Ryan Manzano <Jonny Madrigal PA-C - Last Filed: 12/12/24 13:34> Narrative: patient past medical history of diabetes insulin-dependent, nicotine dependence, HIV infection on HAART therapy, hyperlipidemia, vitamin-D deficiency, allergic rhinitis, GERD, chronic pain presents to the emergency room with persistent weakness, nausea and vomiting with body aches and fever since last evening. States that he began having pain in his buttock about a week ago, now cannot sit at all. He feels verry tired, complains of subjective fever. He endorses chronic picking of the low back/buttock area. patient met sepsis criteria in ED, was started on ceftriaxone, azithromycin and vancomycin for suspected pneumonia and possible left buttock cyst with infection/ cellulitis. Had a CT scan showing evidence of cellulitis, without fluid collection. patient was admitted for further management <Jonny Madrigal PA-C - Last Filed: 12/12/24 13:34> Review of Systems 2 Review of Systems: Yes all other systems are reviewed and are negative < Jonny Madrigal PA-C - Last Filed: 12/12/24 13:34> [facility] Past Medical History Medical History: Medical History Hypertension Hyperlipidemia HIV (human immunodeficiency virus infection) Nicotine dependence, cigarettes, uncomplicated Homeless Diabetes <Jonny Madrigal PA-C - Last Filed: 12/12/24 13:34> Surgical History Surgical History: Surgical History History of laparoscopic cholecystectomy (~2020) History of incisional hernia repair (~2014) History of umbilical hernia repair (~2008) History of appendectomy <Jonny Madrigal PA-C - Last Filed: 12/12/24 13:34> Social History Social History: Social History Household Members: Other Housing: Homeless Housing Other:: patient states homeless Do you presently have visiting nurse or other home services: No Alcohol intake: never Patient Tobacco Use Status: Current everyday Tobacco user Tobacco use type: Cigarette Cigarette Packs Per Day: 1 Cigarettes Per Day: 20.0 Years Smoked: 30 Smoked in Last 30 Days: Yes Patient Interested in Nicotine Replacement: Yes Patient Given Instructions on How to Stop Smoking: No Second Hand Smoke Exposure: No Use of substances other than those prescribed or required for medical reasons: Yes Substance Use Type: Marijuana Currently Displaying Signs/Symptoms of Drug Intoxication Withdrawal: No Have you been hit, kicked, punched, or otherwise hurt by someone within the past year? If so, by whom?: No Do you feel safe in your current relationship?: No Current Relationship Is there a partner from a previous relationship who is making you feel unsafe now?: No Are you made to feel afraid or neglected: No Advance Directives: No Advance Directives Information Provided: No Do you have a plan to hurt others: No Plan Recently lost weight without trying: No How much weight loss: Not applicable Eating poorly because of decreased appetite: No Nutrition screen score: 0 Nutrition Risks: No Nutritional Risk Poor oral hygiene: Yes service: No Current occupational status: unemployed <Jonny Madrigal PA-C - Last Filed: 12/12/24 13:34> Travel History Ebola Risk: Travel/Contact With Anyone From Affected Area/s: No <Jonny Madrigal PA-C - Last Filed: 12/12/24 13:34> Has Patient Experienced Ebola Symptoms: No <Jonny Madrigal PA-C - Last Filed: 12/12/24 13:34> Meds Allergies/Adverse reactions: Allergies Allergy/AdvReac Type Severity Reaction Status Date / Time No Known Allergies Allergy Verified 12/11/24 19:48 <Jonny Madrigal PA-C - Last Filed: 12/12/24 13:34> Active Medications: Current Medications Acetaminophen (Acetaminophen 325 Mg Tablet) 650 mg PO Q6H PRN PRN Reason: Pain, Mild 1-3,fever,headache Last Admin: 12/12/24 02:52 Dose: 650 mg Albuterol/Ipratropium (Albuterol/Iprat 2.5/0.5mg 3 Ml Ampul.Neb) 3 ml INHALE Q4H PRN PRN Reason: Shortness of Breath/Wheezing Calcium Carbonate (Calcium Carbonate 750 Mg Tab.Chew) 750 mg PO Q4H PRN PRN Reason: Heartburn Ceftriaxone Sodium (Ceftriaxone Sodium 1 Gm Vial) 1 gm IVPUSH BEDTIME [facility] Dextrose (Dextrose 50 % 25 Gm/50 Ml Syringe) 25 gm IVPUSH Q15M PRN; Protocol PRN Reason: per Hypoglycemia Standing Ord. Enoxaparin Sodium (Enoxaparin Sodium 40 Mg/0.4 Ml Syringe) 40 mg SUBCUT BEDTIME [facility] Last Admin: 12/12/24 02:42 Dose: 40 mg Glucose (Glucose Gel 15 Gm Gel..Gram.) 15 gm PO Q15M PRN; Protocol PRN Reason: per Hypoglycemia Standing Ord. Azithromycin 500 mg/ Sodium (Chloride) 250 mls @ 125 mls/hr IV BEDTIME [facility] Vancomycin HCl 1,000 mg/ (Sodium Chloride) 270 mls @ 270 mls/hr IV Q12H [facility] Magnesium Sulfate (Magnesium Sulfate/H2o) 2 gm in 50 mls @ 25 mls/hr IV Q4H [facility] Stop: 12/12/24 15:14 Last Infusion: 12/12/24 11:33 Dose: Infused Insulin Human Lispro (Insulin Lispro 100 Unit/Ml 3 Ml Vial) 0 unit SUBCUT QIDACHS [facility]; Protocol Last Admin: 12/12/24 11:33 Dose: Not Given Magnesium Hydroxide (Milk Of Magnesia 30 Ml Oral.Susp) 30 ml PO DAILY PRN PRN Reason: Constipation Melatonin (Melatonin 3 Mg Tablet) 6 mg PO BEDTIME PRN PRN Reason: Insomnia Pharmacy Consult (Consult Rx Vancomycin Dosing) 1 each MISCELLANE DAILY PRN PRN Reason: Consult order Polyethylene Glycol (Polyethylene Glycol 3350 17 Gm Powd.Pack) 17 gm PO DAILY PRN PRN Reason: Constipation Senna (Sennosides 8.6 Mg Tablet) 17.2 mg PO BEDTIME [facility] Sodium Chloride (0.9 % Sodium Chloride Flush 3 Ml Syringe) 3 ml IVFLUSH QSHIFT [facility] Last Admin: 12/12/24 08:14 Dose: Not Given <Jonny Madrigal PA-C - Last Filed: 12/12/24 13:34> Home medications: Home Medications ?Medication ?Instructions ?Recorded ?Confirmed ?Last Taken ?Type atorvastatin 20 mg tablet 20 mg PO BEDTIME 05/15/21 Unknown History insulin glargine 100 unit/mL (3 20 unit subcut DAILY 1 07/16/20 12/12/24 Unknown History mL) subcutaneous pen (Lantus Solostar U-100 Insulin) metformin 500 mg tablet 1,000 mg PO BID 05/15/2101/29 Unknown History bictegravir 50 mg-emtricitabine 1 tab PO DAILY 5 12/12/24 Unknown History 200 mg-tenofovir alafenam 25 mg tablet (Biktarvy) calcium 600 mg (as 1 tab PO DAILY 12/12/24 07/0 01/29 Unknown History carbonate)-vitamin D3 10 mcg (400 unit) tablet selenium sulfide 2.5 % lotion 1 appl topical DAILY 01/2912/12/24 Unknown History <Jonny Madrigal PA-C - Last Filed: 12/12/24 13:34> Physical Exam 2 Vital Signs: Vital Signs: Last Vital Signs Temp 99.4 F 12/12/24 07:38 Pulse 100 12/12/24 07:38 Resp 16 12/12/24 07:38 BP 111/55 L 12/12/24 07:38 Pulse Ox 95 12/12/24 07:38 O2 Del Method Room Air 12/12/24 07:38 BMI result Body Mass Index 32.5 <JEFRY Eddy Last Filed: 12/12/24 13:34> Const: General: no acute distress and lethargic <Jonny Madrigal PA-C - Last Filed: 12/12/24 13:34> Orientation/consciousness: patient oriented x3 and lethargic <Jonny Madrigal PA-C - Last Filed: 12/12/24 13:34> Resp: Effort & Inspection: normal respiratory effort and able to speak in complete sentences <JEFRY Eddy Last Filed: 12/12/24 13:34> Skin: Other: left buttock: 8x8 cm area of erythema on the left buttock, indurated, warm. tender to the touch. no palpable fluid collection. evidence of chronic picking throughout the lower back, buttock and proximal lower extremities. <JEFRY Eddy Last Filed: 12/12/24 13:34> Neuro: General: patient oriented x3 <JEFRY Eddy Last Filed: 12/12/24 13:34> Results Labs Result diagrams: 12/14/24 06:11 12/14/24 06:11 <Jonny Madrigal PA-C - Last Filed: 12/12/24 13:34> Labs: Abnormal lab results 12/11/24 12/12/24 12/12/24 Range/Units 20:02 08:23 10:50 WBC 27.1 H 25.2 H (4.8-10.8) X10*3/uL RBC 4.30 L 3.98 L (4.60-5.80) X10*6/uL Hgb 12.8 L (14.0-18.0) g/dl Hct 41.4 L 38.1 L (42.0-52.0) % MPV 9.2 L (9.4-12.4) fL Immature Gran % (Auto) 3.5 H (0.0-0.4) % Neut % (Auto) 88.7 H (45-73) % Lymph % (Auto) 1.7 L (20-40) % Lymph # (Auto) 0.4 L (1.2-4.9) X10*3/uL [place] # (Auto) 1.4 H (0.1-1.2) X10*3/uL Abs Immat Gran (auto) 0.87 H (0.00-0.03) X10*3/uL Absolute Neuts (auto) 22.3 H (2.0-8.3) x10*3/uL Neutrophils % (Manual) 84 H (45-73) % Band Neutrophils % 8 H (3-5) % Lymphocytes % (Manual) 4 L (20-40) % Abs Neuts (Manual) 24.9 H (2.0-8.3) X10*3/uL Lymphocytes # (Manual) 1.1 L (1.2-4.9) X10*3/uL Sodium 133 L (135-145) mmol/L Carbon Dioxide 21 L (22-29) mmol/L Anion Gap 10 L 9 L (12-20) Random Glucose 172 H (60-115) mg/dL Calcium 8.3 L D 7.5 L D (8.4-10.2) mg/dL Magnesium 1.2 L* (1.6-2.6) mg/dL Total Protein 5.7 L (6.5-8.0) g/dL Albumin 3.0 L (3.5-5.0) g/dL Ur Specific [place]ulu >= 1.030 H (1.005-1.025) Urine Blood Small (1+) H (Negative) Short CBC 12/11/24 12/12/24 Range/Units 20:02 08:23 WBC 27.1 H 25.2 H (4.8-10.8) X10*3/uL Hgb 14.0 12.8 L (14.0-18.0) g/dl Hct 41.4 L 38.1 L (42.0-52.0) % Plt Count 223 200 (160-400) X10*3/uL BMP 12/11/24 12/12/24 20:02 08:23 Sodium 133 L 135 Potassium 3.4 3.3 Chloride 104 108 Carbon Dioxide 22 21 L BUN 16 12 Creatinine 0.96 0.83 Calcium 8.3 L D 7.5 L D Liver Function 12/11/24 12/12/24 Range/Units 20:02 08:23 Total Bilirubin 0.8 0.9 (0.0-1.0) mg/dL AST 19 21 (5-37) U/L ALT 13 10 (0-40) U/L Alkaline Phosphatase 58 55 (39-117) U/L Albumin 3.7 3.0 L (3.5-5.0) g/dL Urine 12/12/24 Range/Units 10:50 Urine Color Yellow Urine Appearance Clear Urine pH 5.5 (5.0-9.0) Ur Specific Lulu >= 1.030 H (1.005-1.025) Urine Protein Trace (Neg-Trace) mg/dL Urine Glucose (UA) Negative (Negative) mg/dL All other labs normal. <Jonny Madrigal PA-C - Last Filed: 12/12/24 13:34> Assessment and Plan (1) Cellulitis of buttock, left: Status: Acute <Jonny Madrigal PA-C - Last Filed: 12/12/24 13:34> Pt seen and agree with above - pt with marked cellulitic changes of upper thigh to buttok area but no abscess - ct reviewed. would agree to cont with iz antibiotics and monitor. Cellulitis can sometimes in the process of resolving creep back and then there is a residual pocket of inflammatory tissue that can liquify and may need to be opened or debrided so we will keep an eye on this. <Trang Lee MD - Last Filed: 12/14/24 13:25> (2) HIV (human immunodeficiency virus infection): Status: Acute <Jonny Madrigal PA-C - Last Filed: 12/12/24 13:34> 59 year old male with a past medical history of diabetes insulin- dependent, nicotine dependence, HIV infection on HAART therapy, hyperlipidemia, vitamin-D deficiency, allergic rhinitis, GERD, chronic pain seen in consult for left buttock cellulitis. Patient reports significant pain in the left buttock, unable to sit. I reviewed the CT showing left buttock inflammatory changes without evidence of fluid collection. On exam there is an approxiamtely 8x8 area of erthyma, moderate induration, warmth and very tender to the touch. I was unable to palpate or visualize a fluid collectionHe was started on IV ceftriaxone, azithromycin and vancomycin. Currently there is no inidication for surgical intervention or I&D. Would recommend continuing Abx per ID recommendation and avoid putting pressure on the wound as tolerated. We will continue to follow throughout his admission for evidence of a fluid collection formation or other changes that may require surgical intervention. <Jonny Madrigal PA-C - Last Filed: 12/12/24 13:34> Procedures Date of Service Date of Service: 12/12/24 <Jonny Madrigal PA-C - Last Filed: 12/12/24 13:34> 12/14/24 <Trang Lee MD - Last Filed: 12/14/24 13:25>
[2024-12-12] MEDS: 0.9 % Sodium Chloride Flush 3 ML SYRINGE IVFLUSH ×2 (15:17→21:13)
--- NOTE | 2024-12-12 15:33 | PHA.MEDREC ---
Addendum entered by Viola Munguia RPh 12/12/24 16:47: [facility] reviewed Original Note: Pharmacy Consult ? Medication Reconciliation Pharmacy has completed the medication reconciliation. Patient is a poor historian and didn't want to speak to my pharmacist Eddie. Spoke to Judy from [facility] pharmacy to confirmed most resent fills. Utilized claims to confirm med list. med list
[2024-12-12 16:33] LABS: Glucose, Whole Blood 96 mg/dL (60-115)
[2024-12-12 20:41] LABS: Glucose, Whole Blood 132 mg/dL (60-115)
[2024-12-12] MEDS: Nicotine 21 MG PATCH.TD24 TRANSDERMA (21:11)
[2024-12-13 03:59] VITALS: BP 142/61; PULSE 89; RESP 18; TEMP 36.7; O2SAT 97
--- NOTE | 2024-12-13 06:11 | PC.NURSE ---
patient reports feeling very weak overnight. VSS, accompanied to bathroom for safety. He reports diarrhea overnight.
[2024-12-13 07:16] LABS: Hematocrit 36.8 % (42.0-52.0); Hemoglobin 12.6 g/dl (14.0-18.0); Mean Corpuscular HGB Conc 34.2 g/dl (31.0-36.0); Mean Corpuscular Hemoglobin 32.2 pg (27.0-33.0); Mean Corpuscular Volume 94.1 fL (80.0-98.0); NRBC Abs Auto 0.000 X10*3/uL (0.0-0.012); NRBC Pct Auto 0.0 /100WBC (0.0-0.2); Platelet Count 196 X10*3/uL (160-400); Red Blood Count 3.91 X10*6/uL (4.60-5.80); White Blood Count 18.1 X10*3/uL (4.8-10.8)
[2024-12-13 07:26] LABS: Glucose, Whole Blood 139 mg/dL (60-115)
[2024-12-13 07:34] LABS: B Type Natriuretic Peptide 84 pg/mL (<100)
[2024-12-13 07:35] LABS: Anion Gap 9 (12-20); Blood Urea Nitrogen 9 mg/dL (9-16); Calcium 8.0 mg/dL (8.4-10.2); Carbon Dioxide 22 mmol/L (22-29); Chloride 108 mmol/L (96-108); Creatinine Clr Calc Pharmacy 112.7; Estimated Glomerular Filt Rate > 60; Magnesium 2.0 mg/dL (1.6-2.6); Potassium 3.5 mmol/L (3.3-5.1); Sodium 135 mmol/L (135-145)
[2024-12-13] MEDS: 0.9 % Sodium Chloride Flush 3 ML SYRINGE IVFLUSH ×3 (07:45→23:09)
[2024-12-13 07:49] VITALS: BP 123/58; PULSE 81; RESP 17; TEMP 36.8; O2SAT 97
[2024-12-13 07:49] LABS: Thyroid Stimulating Hormone 1.26 uIU/mL (0.32-4.0)
--- NOTE | 2024-12-13 10:37 | P.PNIM_ITS ---
Subjective Subjective Date of Service: 12/13/24 Interval History: f/u on buttock cyst, cellulitiis Hiv, pna still have pain and thinks the cyst is bigger Physical Exam 2 Vital Signs: Vital Signs: Last Vital Signs Temp 98.3 F 12/13/24 07:49 Pulse 81 12/13/24 07:49 Resp 17 12/13/24 07:49 BP 123/58 L 12/13/24 07:49 Pulse Ox 97 12/13/24 07:49 O2 Del Method Room Air 12/13/24 07:49 BMI result Body Mass Index 32.5 Const: Other: General: AO X 3, no acute distress Resp: CTA bilateral CVS: S1,S2,RRR GI: +BS, NT, no distention Skin: No rash, Raised closed area along left lateral buttocks down into the groin with palpable underlying tissue but no open wounds or drainage noted Neuro: motor grossly intact Psych: appropriate affect Objective Data Active Medications Acetaminophen (Acetaminophen 325 Mg Tablet) 650 mg PO Q6H PRN PRN Reason: Pain, Mild 1-3,fever,headache Last Admin: 12/13/24 07:44 Dose: 650 mg Documented By: ISHMAEL Albuterol/Ipratropium (Albuterol/Iprat 2.5/0.5mg 3 Ml Ampul.Neb) 3 ml INHALE Q4H PRN PRN Reason: Shortness of Breath/Wheezing Calcium Carbonate (Calcium Carbonate 750 Mg Tab.Chew) 750 mg PO Q4H PRN PRN Reason: Heartburn Ceftriaxone Sodium (Ceftriaxone Sodium 1 Gm Vial) 1 gm IVPUSH BEDTIME [facility] Last Admin: 12/12/24 21:12 Dose: 1 gm Documented By: ADITHYA Dextrose (Dextrose 50 % 25 Gm/50 Ml Syringe) 25 gm IVPUSH Q15M PRN; Protocol PRN Reason: per Hypoglycemia Standing Ord. Enoxaparin Sodium (Enoxaparin Sodium 40 Mg/0.4 Ml Syringe) 40 mg SUBCUT BEDTIME [facility] Last Admin: 12/12/24 21:12 Dose: 40 mg Documented By: ADITHYA Glucose (Glucose Gel 15 Gm Gel..Gram.) 15 gm PO Q15M PRN; Protocol PRN Reason: per Hypoglycemia Standing Ord. Azithromycin 500 mg/ Sodium (Chloride) 250 mls @ 125 mls/hr IV BEDTIME [facility] Last Infusion: 12/12/24 23:32 Dose: Infused Documented By: ADITHYA Vancomycin HCl 1,000 mg/ (Sodium Chloride) 270 mls @ 270 mls/hr IV Q12H [facility] Last Infusion: 12/13/24 05:08 Dose: Infused Documented By: CHANO Insulin Human Lispro (Insulin Lispro 100 Unit/Ml 3 Ml Vial) 0 unit SUBCUT QIDACHS [facility]; Protocol Last Admin: 12/13/24 07:38 Dose: Not Given Documented By: ISHMAEL Non-Admin Reason: No Insulin Coverage Magnesium Hydroxide (Milk Of Magnesia 30 Ml Oral.Susp) 30 ml PO DAILY PRN PRN Reason: Constipation Melatonin (Melatonin 3 Mg Tablet) 6 mg PO BEDTIME PRN PRN Reason: Insomnia Last Admin: 12/12/24 21:12 Dose: 6 mg Documented By: ADITHYA Pharmacy Consult (Consult Rx Vancomycin Dosing) 1 each MISCELLANE DAILY PRN PRN Reason: Consult order Polyethylene Glycol (Polyethylene Glycol 3350 17 Gm Powd.Pack) 17 gm PO DAILY PRN PRN Reason: Constipation Senna (Sennosides 8.6 Mg Tablet) 17.2 mg PO BEDTIME [facility] Last Admin: 12/12/24 21:13 Dose: Not Given Documented By: ADITHYA Non-Admin Reason: Patient Refused Sodium Chloride (0.9 % Sodium Chloride Flush 3 Ml Syringe) 3 ml IVFLUSH QSHIFT [facility] Last Admin: 12/13/24 07:45 Dose: 3 ml Documented By: ISHMAEL Labs 12/13/24 06:33 12/13/24 06:33 Labs: Laboratory Results - last 24 hr 12/12/24 12/12/24 12/12/24 10:50 10:56 16:24 MCV MCH MCHC RDW Plt Count MPV Absolute Nucleated RBC Nucleated RBC % (auto) Anion Gap Estim Creat Clear Calc Estimated GFR POC Glucose 115 96 Random Glucose Calcium Magnesium B-Natriuretic Peptide TSH Urine Color Yellow Urine Appearance Clear Urine pH 5.5 Ur Specific [place] >= 1.030 H Urine Protein Trace Urine Glucose (UA) Negative Urine Ketones Negative Urine Blood Small (1+) H Urine Nitrite Negative Ur Leukocyte Esterase Negative Urine RBC 0-2 Urine WBC 0-5 Ur Squamous Epith Cells 3-5 Urine Bacteria None Seen Hyaline Casts 0-2 07/08/25 07/09/25 07/09/25 20:14 06:33 07:21 MCV 94.1 MCH 32.2 MCHC 34.2 RDW 12.7 Plt Count 196 MPV 9.6 Absolute Nucleated RBC 0.000 Nucleated RBC % (auto) 0.0 Anion Gap 9 L Estim Creat Clear Calc 112.7 Estimated GFR > 60 POC Glucose 132 H 139 H Random Glucose 105 Calcium 8.0 L D Magnesium 2.0 B-Natriuretic Peptide 84 TSH 1.26 Urine Color Urine Appearance Urine pH Ur Specific [place] Urine Protein Urine Glucose (UA) Urine Ketones Urine Blood Urine Nitrite Ur Leukocyte Esterase Urine RBC Urine WBC Ur Squamous Epith Cells Urine Bacteria Hyaline Casts Microbiology Microbiology Results: Microbiology 12/11/24 20:13 Blood Culture - Preliminary Blood - Venous No growth after 24 hours. 12/11/24 20:02 Blood Culture - Preliminary Blood - Venous No growth after 24 hours. Assessment and Plan (1) Sepsis: Status: Acute (2) Cellulitis of buttock, left: Status: Acute (3) HIV (human immunodeficiency virus infection): Status: Acute Plan Patient is a 59-year-old male with past medical history of diabetes insulin-dependent, nicotine dependence, HIV infection on HAART therapy, hyperlipidemia, vitamin-D deficiency, allergic rhinitis, GERD, chronic pain being admitted with episodes of sepsis and suspected pneumonia with underlying skin manifestation, CT of the abdomen and pelvis is pending Sepsis d/t buttock cyst and possible PNA, fever in HIV, CT show no collection but evidence of cellulitis continue Vanco, azithro and ceftriaxoone follow culture blood culture pending ID consult pending Surgery consult Hyponatremia, 135 today Hx of HIV Patient has been compliant with his HAART therapy ID consult Urinary Retention Diabetes Sliding scale insulin Diabetic diet Homelessness Case management/social work consulted Patient refuses to use shelters as they are only for drug users DVT prophylaxis: Lovenox PPI prophylaxis: Protonix Med rec pending Full code status Quality Stroke Does the patient have a stroke diagnosis?: No Reason for No Anti-thrombotic by Day Two: N/A - Med Ordered VTE Prior VTE?: No VTE Risk Level:: Medical - moderate - high VTE Device Contraindication: N/A - Device Ordered VTE Drug Contraindication: N/A - Med Ordered
--- NOTE | 2024-12-13 11:05 | MHC.CM.PN ---
Male 59 dx PNA, Cellulitis He reports he has been homeless for 5 years. He lives on the steps of a home on the [address] of [address] [facility] [address] [facility]. He is independent with all functional mobility. PCP Dr Aminata Garcia Declined the offer to document a HCP. He is being medically treated at this time. Patient is being followed by surgery. DP Likely return to [facility] via [facility] Shuttle vs [facility]. CM will follow for a change in discharge needs. The DP will be adjusted prn.
[2024-12-13 11:20] LABS: Glucose, Whole Blood 149 mg/dL (60-115)
--- NOTE | 2024-12-13 11:42 | P.PNGS_ITS ---
Subjective Subjective Date of Service: 12/13/24 <Jonny Madrigal PA-C - Last Filed: 12/13/24 11:51> 12/14/24 <Trang Lee MD - Last Filed: 12/14/24 14:57> Interval history: continues to have pain, some improvemtn but still has trouble sitting. he does endorse some pain in his scrotum. Denies pain with urination, states he has has frequent urination and erections at home for a long time. denies fever or chills. feels like he has more energy. <Jonny Madrigal PA-C - Last Filed: 12/13/24 11:51> Physical Exam 2 Vital Signs: Vital Signs: Last Vital Signs Temp 98.3 F 12/13/24 07:49 Pulse 81 12/13/24 07:49 Resp 17 12/13/24 07:49 BP 123/58 L 12/13/24 07:49 Pulse Ox 97 12/13/24 07:49 O2 Del Method Room Air 12/13/24 07:49 BMI result Body Mass Index 32.5 <Jonny Madrigal PA-C - Last Filed: 12/13/24 11:51> Const: General: no acute distress; No comfortable (uncomfortable when sitting ) <JEFRY Eddy Last Filed: 12/13/24 11:51> Orientation/consciousness: patient oriented x3 <JEFRY Eddy Last Filed: 12/13/24 11:51> Resp: Effort & Inspection: normal respiratory effort and able to speak in complete sentences <Jonny Madrigal PA-C - Last Filed: 12/13/24 11:51> GI: Other: left buttock: imrpovement in erythema, warmth and induration. the area appears much softer today. Remains tender to palpation. Unable to appreciate a fluid collection. <JEFRY Eddy Last Filed: 12/13/24 11:51> : Scrotum: scrotal swelling (mild) bilateral <JEFRY Eddy Last Filed: 12/13/24 11:51> Neuro: General: patient oriented x3 <JEFRY Eddy Last Filed: 12/13/24 11:51> Objective Data Active Medications Acetaminophen (Acetaminophen 325 Mg Tablet) 650 mg PO Q6H PRN PRN Reason: Pain, Mild 1-3,fever,headache Last Admin: 12/13/24 07:44 Dose: 650 mg Documented By: ISHMAEL Albuterol/Ipratropium (Albuterol/Iprat 2.5/0.5mg 3 Ml Ampul.Neb) 3 ml INHALE Q4H PRN PRN Reason: Shortness of Breath/Wheezing Calcium Carbonate (Calcium Carbonate 750 Mg Tab.Chew) 750 mg PO Q4H PRN PRN Reason: Heartburn Ceftriaxone Sodium (Ceftriaxone Sodium 1 Gm Vial) 1 gm IVPUSH BEDTIME ANU Last Admin: 12/12/24 21:12 Dose: 1 gm Documented By: ADITHYA Dextrose (Dextrose 50 % 25 Gm/50 Ml Syringe) 25 gm IVPUSH Q15M PRN; Protocol PRN Reason: per Hypoglycemia Standing Ord. Enoxaparin Sodium (Enoxaparin Sodium 40 Mg/0.4 Ml Syringe) 40 mg SUBCUT BEDTIME [facility] Last Admin: 12/12/24 21:12 Dose: 40 mg Documented By: ADITHYA Glucose (Glucose Gel 15 Gm Gel..Gram.) 15 gm PO Q15M PRN; Protocol PRN Reason: per Hypoglycemia Standing Ord. Azithromycin 500 mg/ Sodium (Chloride) 250 mls @ 125 mls/hr IV BEDTIME [facility] Last Infusion: 12/12/24 23:32 Dose: Infused Documented By: ADITHYA Vancomycin HCl 1,000 mg/ (Sodium Chloride) 270 mls @ 270 mls/hr IV Q12H [facility] Last Infusion: 12/13/24 05:08 Dose: Infused Documented By: CHANO Insulin Human Lispro (Insulin Lispro 100 Unit/Ml 3 Ml Vial) 0 unit SUBCUT QIDACHS [facility]; Protocol Last Admin: 12/13/24 11:30 Dose: Not Given Documented By: ISHMAEL Non-Admin Reason: No Insulin Coverage Magnesium Hydroxide (Milk Of Magnesia 30 Ml Oral.Susp) 30 ml PO DAILY PRN PRN Reason: Constipation Melatonin (Melatonin 3 Mg Tablet) 6 mg PO BEDTIME PRN PRN Reason: Insomnia Last Admin: 12/12/24 21:12 Dose: 6 mg Documented By: ADITHYA Pharmacy Consult (Consult Rx Vancomycin Dosing) 1 each MISCELLANE DAILY PRN PRN Reason: Consult order Polyethylene Glycol (Polyethylene Glycol 3350 17 Gm Powd.Pack) 17 gm PO DAILY PRN PRN Reason: Constipation Senna (Sennosides 8.6 Mg Tablet) 17.2 mg PO BEDTIME [facility] Last Admin: 12/12/24 21:13 Dose: Not Given Documented By: ADITHYA Non-Admin Reason: Patient Refused Sodium Chloride (0.9 % Sodium Chloride Flush 3 Ml Syringe) 3 ml IVFLUSH QSHIFT [facility] Last Admin: 12/13/24 07:45 Dose: 3 ml Documented By: ISHMAEL <Jonny Madrigal PA-C - Last Filed: 12/13/24 11:51> Labs CBC & Chem 7: 12/14/24 06:11 12/14/24 06:11 <Jonny Madrigal PA-C - Last Filed: 12/13/24 11:51> Labs: Laboratory Results - last 24 hr 12/12/24 12/12/24 12/12/24 10:50 16:24 20:14 MCV MCH MCHC RDW Plt Count MPV Absolute Nucleated RBC Nucleated RBC % (auto) Anion Gap Estim Creat Clear Calc Estimated GFR POC Glucose 96 132 H Random Glucose Calcium Magnesium B-Natriuretic Peptide TSH Urine RBC 0-2 Urine WBC 0-5 Ur Squamous Epith Cells 3-5 Urine Bacteria None Seen Hyaline Casts 0-2 12/13/24 12/13/24 12/13/24 06:33 07:21 11:16 MCV 94.1 MCH 32.2 MCHC 34.2 RDW 12.7 Plt Count 196 MPV 9.6 Absolute Nucleated RBC 0.000 Nucleated RBC % (auto) 0.0 Anion Gap 9 L Estim Creat Clear Calc 112.7 Estimated GFR > 60 POC Glucose 139 H 149 H Random Glucose 105 Calcium 8.0 L D Magnesium 2.0 B-Natriuretic Peptide 84 TSH 1.26 Urine RBC Urine WBC Ur Squamous Epith Cells Urine Bacteria Hyaline Casts <Jonny Madrigal PA-C - Last Filed: 12/13/24 11:51> Microbiology Microbiology Results: Microbiology 12/11/24 20:13 Blood Culture - Preliminary Blood - Venous No growth after 24 hours. 12/11/24 20:02 Blood Culture - Preliminary Blood - Venous No growth after 24 hours. <Jonny Madrigal PA-C - Last Filed: 12/13/24 11:51> Procedures Date of Service Date of Service: 12/13/24 <Jonny Madrigal PA-C - Last Filed: 12/13/24 11:51> 12/14/24 <Trang Lee MD - Last Filed: 12/14/24 14:57> Progress Note: A&P Assessment and plan (1) Cellulitis of buttock, left: Status: Acute <Jonny Madrigal PA-C - Last Filed: 12/13/24 11:51> Assessment and Plan: 59 year old male with a past medical history of diabetes insulin- dependent, nicotine dependence, HIV infection on HAART therapy, hyperlipidemia, vitamin-D deficiency, allergic rhinitis, GERD, chronic pain being followed by surgery for left buttock cellulitis. The patient appears imrpoved today. he is no longer lethargic, he subjectively has more energy. patient continues to have pain and difficulty sitting. Endorsing some pain in the scrotum, complains of frequent urination and erections that have been present prior to this admission. i recommended he follow up with urology as a outpt. On exam the area is less indurated, and erthematous. Remains painful to the touch however i cannot appreciate a fluid collection that requires draining. I reassured him that there is nothing to be drained however that patient is adiment that it should be drained. Continue IV abx will continue to follow. <Jonny Madrigal PA-C - Last Filed: 12/13/24 11:51> Time Spent With Patient Time: Total time managing care of this patient today ____ minutes. <Jonny Madrigal PA-C - Last Filed: 12/13/24 11:51> Quality Stroke Does the patient have a stroke diagnosis?: No <Jonny Madrigal PA-C - Last Filed: 12/13/24 11:51> Reason for No Anti-thrombotic by Day Two: N/A - Med Ordered <Jonny Madrigal PA-C - Last Filed: 12/13/24 11:51> VTE Prior VTE?: No <Jonny Madrigal PA-C - Last Filed: 12/13/24 11:51> VTE Risk Level:: Medical - moderate - high <Jonny Madrigal PA-C - Last Filed: 12/13/24 11:51> VTE Device Contraindication: N/A - Device Ordered <Jonny Madrigal PA-C - Last Filed: 12/13/24 11:51> VTE Drug Contraindication: N/A - Med Ordered <Jonny Madrigal PA-C - Last Filed: 12/13/24 11:51>
--- NOTE | 2024-12-13 13:59 | HE.PHANOTE ---
RE: VANCO DOSING Trough came back as 7.3 mg/L, renal function is stable. Dose is increased to 1250 mg q8h, next trough is scheduled for 12/14/24 @1300.
[2024-12-13 14:28] LABS: HIV RNA PCR Qn Copies NOT DETECTED copies/mL (NOT DETECTED); HIV RNA PCR Qn Log Copies NOT DETECTED (NOT DETECTED)
--- NOTE | 2024-12-13 14:34 | HO.WOUND ---
Wound Consult: Initial 59yr old? male admitted to [facility] on 12/12/24 - See progress notes and H&P for detailed history.? Wound consult placed for Left Buttock wound.? Patient agreeable to assessment and photo documentation.? Patient reports it remains painful and tender. He reports he is constantly itching the area - will TT provider to consider topical steroid cream to aid in itch relief. He reports there was a large bubble to the site - he was shown a picture and was educated that the site is not longer enlarged but flat - there is an open wound noted but remains clean. there is swelling and induction at 6 o'clock bullard not correlate to wound site however - was seen and assessed by general surgery no surgical intervention needed at this time. There is red pink erythema noted along with warmth and some mild swelling. This appears improved based on photo review however patient is not able to report as he is not able to observe the area and he reports there was been no decrease in pain. The site was covered with a foam dressing in an effort to allow for moist wound healing and should also help with comfort to open wound. Left Buttock Etiology: ?Open abrasion?Present on Admission Measurements: 1cm x 1cm x 0.1cm Wound Bed: red pink moist wound bed Drainage / Odor: scant drainage noted on bed linen Edges: ? irregular Aminata wound: dry desquamation noted - red pink erythema, and warmth noted, induration noted at 6 o 'clock does not appear in relation to wound bed. No swelling or induration noted to left groin - patient reports swelling to scrotum but not able to appreciate swelling when observed. Provider to assess. Pain: pain reported Goals of Treatment: ? Off load pressure - topical treatment with anti itch cream and moist wound healing with foam dressing. Provider to assess for swelling to scrotum. Recommendations: 1. Turn and Reposition every 2 hours and as needed for patient comfort.? Use pillows or wedges to support off loading positions. 2. Off Load all bony prominences with use of pillows and heel boots if needed.? Apply Preventative foams where needed. ? 3. Monitor for incontinence and moisture control, use barrier creams when needed for prevention and treatment. 4. Provide adequate and supplemental nutrition.? 5. Order low air loss mattress. 6. When applicable maintain blood glucose levels per Providers order. Left Buttock - Cleanse with NS moist gauze, pat dry. Apply skin prep to periwound. Cover wound bed with foam dressing. Change every 3 days and PRN for soiling. Re-consult wound care Nurse for wound deterioration or wound changes.
[2024-12-13 15:12] VITALS: BP 124/60; PULSE 86; RESP 17; TEMP 37.7; O2SAT 98
[2024-12-13 16:21] LABS: Glucose, Whole Blood 106 mg/dL (60-115)
--- NOTE | 2024-12-13 17:08 | W.PM.IDCN ---
History of Present Illness Data of Consult Service Date: 12/13/24 [facility] Care Provider: Aminata Jung, HPI He presents with pain in left scrotal area and swelling. He has fever and chills. He is taking HAART,believe Biktarvy and will check with health center. He has no respiratory symptoms or cough or sputum production. [facility] Past Medical History Medical History Hypertension Hyperlipidemia HIV (human immunodeficiency virus infection) Nicotine dependence, cigarettes, uncomplicated Homeless Diabetes Family History Family history: reviewed and not pertinent Surgical History Surgical History History of laparoscopic cholecystectomy (~2020) History of incisional hernia repair (~2014) History of umbilical hernia repair (~2008) History of appendectomy Social History Social History Household Members: Other Housing: Homeless Housing Other:: patient states homeless Do you presently have visiting nurse or other home services: No Alcohol intake: never Patient Tobacco Use Status: Current everyday Tobacco user Tobacco use type: Cigarette Cigarette Packs Per Day: 1 Cigarettes Per Day: 20.0 Years Smoked: 30 Smoked in Last 30 Days: Yes Patient Interested in Nicotine Replacement: Yes Patient Given Instructions on How to Stop Smoking: No Second Hand Smoke Exposure: No Use of substances other than those prescribed or required for medical reasons: Yes Substance Use Type: Marijuana Currently Displaying Signs/Symptoms of Drug Intoxication Withdrawal: No Have you been hit, kicked, punched, or otherwise hurt by someone within the past year? If so, by whom?: No Do you feel safe in your current relationship?: No Current Relationship Is there a partner from a previous relationship who is making you feel unsafe now?: No Are you made to feel afraid or neglected: No Advance Directives: No Advance Directives Information Provided: No Do you have a plan to hurt others: No Plan Recently lost weight without trying: No How much weight loss: Not applicable Eating poorly because of decreased appetite: No Nutrition screen score: 0 Nutrition Risks: No Nutritional Risk Poor oral hygiene: Yes service: No Current occupational status: unemployed Travel History Ebola Risk: Travel/Contact With Anyone From Affected Area/s: No Has Patient Experienced Ebola Symptoms: No Meds Allergies Allergy/AdvReac Type Severity Reaction Status Date / Time No Known Allergies Allergy Verified 12/11/24 19:48 Active Medications: Current Medications Acetaminophen (Acetaminophen 325 Mg Tablet) 650 mg PO Q6H PRN PRN Reason: Pain, Mild 1-3,fever,headache Last Admin: 12/13/24 14:51 Dose: 650 mg Albuterol/Ipratropium (Albuterol/Iprat 2.5/0.5mg 3 Ml Ampul.Neb) 3 ml INHALE Q4H PRN PRN Reason: Shortness of Breath/Wheezing Calcium Carbonate (Calcium Carbonate 750 Mg Tab.Chew) 750 mg PO Q4H PRN PRN Reason: Heartburn Dextrose (Dextrose 50 % 25 Gm/50 Ml Syringe) 25 gm IVPUSH Q15M PRN; Protocol PRN Reason: per Hypoglycemia Standing Ord. Enoxaparin Sodium (Enoxaparin Sodium 40 Mg/0.4 Ml Syringe) 40 mg SUBCUT BEDTIME [facility] Last Admin: 12/12/24 21:12 Dose: 40 mg Glucose (Glucose Gel 15 Gm Gel..Gram.) 15 gm PO Q15M PRN; Protocol PRN Reason: per Hypoglycemia Standing Ord. Vancomycin HCl 1,250 mg/ (Sodium Chloride) 250 mls @ 166.667 mls/hr IV Q8H [facility] Last Infusion: 12/13/24 16:37 Dose: Infused Insulin Human Lispro (Insulin Lispro 100 Unit/Ml 3 Ml Vial) 0 unit SUBCUT QIDACHS [facility]; Protocol Last Admin: 12/13/24 16:25 Dose: Not Given Magnesium Hydroxide (Milk Of Magnesia 30 Ml Oral.Susp) 30 ml PO DAILY PRN PRN Reason: Constipation Melatonin (Melatonin 3 Mg Tablet) 6 mg PO BEDTIME PRN PRN Reason: Insomnia Last Admin: 12/12/24 21:12 Dose: 6 mg Pharmacy Consult (Consult Rx Vancomycin Dosing) 1 each MISCELLANE DAILY PRN PRN Reason: Consult order Polyethylene Glycol (Polyethylene Glycol 3350 17 Gm Powd.Pack) 17 gm PO DAILY PRN PRN Reason: Constipation Senna (Sennosides 8.6 Mg Tablet) 17.2 mg PO BEDTIME ANU Last Admin: 12/12/24 21:13 Dose: Not Given Sodium Chloride (0.9 % Sodium Chloride Flush 3 Ml Syringe) 3 ml IVFLUSH QSHIFT [facility] Last Admin: 12/13/24 14:55 Dose: 3 ml Home Medications ?Medication ?Instructions ?Recorded ?Confirmed ?Last Taken ?Type atorvastatin 20 mg tablet 20 mg PO BEDTIME 05/15/21 12/12/24 Unknown History insulin glargine 100 unit/mL (3 20 unit subcut DAILY 05/15/21 12/12/24 Unknown History mL) subcutaneous pen (Lantus Solostar U-100 Insulin) metformin 500 mg tablet 1,000 mg PO BID 05/15/21 12/12/24 Unknown History bictegravir 50 mg-emtricitabine 1 tab PO DAILY 12/12/24 12/12/24 Unknown History 200 mg-tenofovir alafenam 25 mg tablet (Biktarvy) calcium 600 mg (as 1 tab PO DAILY 12/12/24 12/12/24 Unknown History carbonate)-vitamin D3 10 mcg (400 unit) tablet selenium sulfide 2.5 % lotion 1 appl topical DAILY 12/12/24 12/12/24 Unknown History Physical Exam Vital Signs: Vital Signs: Last Vital Signs Temp 100 F 12/13/24 15:12 Pulse 86 12/13/24 15:12 Resp 17 12/13/24 15:12 BP 124/60 12/13/24 15:12 Pulse Ox 98 12/13/24 15:12 O2 Del Method Room Air 12/13/24 15:12 BMI result Body Mass Index 32.5 Const: General: cooperative HEENT: Head: Yes normal to inspection Face and sinus: Yes normal facial exam Mouth: Normal oral and palatal mucosa present Teeth and gingiva: dentition normal Eyes: General: appearance normal, both eyes and all related structures Pupils: Equal, round and reactive pupils present Resp: Effort & Inspection: normal respiratory effort Cardio: Rate: regular rate Rhythm: regular rhythm GI: Palpation (GI): Soft to palpation and nontender : Other: swelling left testicle ,erythema gluteal cleft General: Yes no CVA tenderness Back/Spine/Pelvis: Back: no CVA tenderness Skin: General skin exam: no rashes or lesions noted Neuro: General: moves all extremities Cranial nerves: Yes Equal, round and reactive pupils present Extrem: General: Yes normal to inspection Psych: Appearance: grossly normal Results Labs 12/13/24 06:33 12/13/24 06:33 Labs: Short CBC 12/13/24 Range/Units 06:33 WBC 18.1 H (4.8-10.8) X10*3/uL Hgb 12.6 L (14.0-18.0) g/dl Hct 36.8 L (42.0-52.0) % Plt Count 196 (160-400) X10*3/uL BMP 12/13/24 06:33 Sodium 135 Potassium 3.5 Chloride 108 Carbon Dioxide 22 BUN 9 Creatinine 0.73 Calcium 8.0 L D Microbiology Microbiology Results: Microbiology 12/11/24 20:13 Blood - Venous Blood Culture - Preliminary No growth after 24 hours. 12/11/24 20:02 Blood - Venous Blood Culture - Preliminary No growth after 24 hours. Assessment and Plan (1) Cellulitis of buttock, left: Status: Acute (2) HIV (human immunodeficiency virus infection): Status: Acute Plan He has cellulitis and possible early abscess buttocks,but nothing drainable per Surgery. He has possible gram negative and anerobes. There is no evidence clinically of pneumonia with no sputum,no hypoxia. Stop Ceftriaxone and atypical coverage. Add Zosyn to Vancomycin Urology eval if no improvement continues. Add back HAART. Possible Augmentin and Doxcycline on discharge.
[2024-12-13 19:51] VITALS: BP 136/65; PULSE 77; RESP 18; TEMP 37.6; O2SAT 97
[2024-12-13 20:45] LABS: Glucose, Whole Blood 127 mg/dL (60-115)
[2024-12-14 04:00] VITALS: BP 133/61; PULSE 81; RESP 20; TEMP 37.3; O2SAT 98
[2024-12-14 06:30] LABS: Hematocrit 36.2 % (42.0-52.0); Hemoglobin 12.5 g/dl (14.0-18.0); Mean Corpuscular HGB Conc 34.5 g/dl (31.0-36.0); Mean Corpuscular Hemoglobin 32.5 pg (27.0-33.0); Mean Corpuscular Volume 94.0 fL (80.0-98.0); NRBC Abs Auto 0.000 X10*3/uL (0.0-0.012); NRBC Pct Auto 0.0 /100WBC (0.0-0.2); Platelet Count 193 X10*3/uL (160-400); Red Blood Count 3.85 X10*6/uL (4.60-5.80); White Blood Count 12.5 X10*3/uL (4.8-10.8)
[2024-12-14 06:43] LABS: Creatinine Clr Calc Pharmacy 114.3; Estimated Glomerular Filt Rate > 60; Magnesium 1.7 mg/dL (1.6-2.6)
[2024-12-14 07:24] LABS: Glucose, Whole Blood 124 mg/dL (60-115)
[2024-12-14 08:00] VITALS: BP 145/67; PULSE 83; RESP 18; TEMP 36.9; O2SAT 96
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
--- NOTE | 2024-12-14 09:11 | HO.PM.IMPN ---
Subjective Subjective Date of Service: 12/14/24 Interval History: f/u on buttock cyst, cellulitiis Hiv, pna still have pain and thinks the cyst is bigger Physical Exam Vital Signs: Vital Signs: Last Vital Signs Temp 98.5 F 12/14/24 08:00 Pulse 83 12/14/24 08:00 Resp 18 12/14/24 08:00 BP 145/67 H 12/14/24 08:00 Pulse Ox 96 12/14/24 08:00 O2 Del Method Room Air 12/14/24 08:00 BMI result Body Mass Index 32.5 Const: Other: General: AO X 3, no acute distress Resp: CTA bilateral CVS: S1,S2,RRR GI: +BS, NT, no distention Skin: No rash, Raised closed area along left lateral buttocks down into the groin with palpable underlying tissue but no open wounds or drainage noted Neuro: motor grossly intact Psych: appropriate affect Objective Data Active Medications Acetaminophen (Acetaminophen 325 Mg Tablet) 650 mg PO Q6H PRN PRN Reason: Pain, Mild 1-3,fever,headache Last Admin: 12/13/24 14:51 Dose: 650 mg Documented By: ISHMAEL Albuterol/Ipratropium (Albuterol/Iprat 2.5/0.5mg 3 Ml Ampul.Neb) 3 ml INHALE Q4H PRN PRN Reason: Shortness of Breath/Wheezing Calcium Carbonate (Calcium Carbonate 750 Mg Tab.Chew) 750 mg PO Q4H PRN PRN Reason: Heartburn Dextrose (Dextrose 50 % 25 Gm/50 Ml Syringe) 25 gm IVPUSH Q15M PRN; Protocol PRN Reason: per Hypoglycemia Standing Ord. Enoxaparin Sodium (Enoxaparin Sodium 40 Mg/0.4 Ml Syringe) 40 mg SUBCUT BEDTIME ANU Last Admin: 12/13/24 20:50 Dose: 40 mg Documented By: SPENCER Glucose (Glucose Gel 15 Gm Gel..Gram.) 15 gm PO Q15M PRN; Protocol PRN Reason: per Hypoglycemia Standing Ord. Vancomycin HCl 1,250 mg/ (Sodium Chloride) 250 mls @ 166.667 mls/hr IV Q8H ANU Last Infusion: 12/14/24 08:18 Dose: Infused Documented By: ROSALINA Piperacillin Sod/Tazobactam (Sod 3.375 gm/ Sodium Chloride) 50 mls @ 100 mls/hr IV Q6H [facility] Last Infusion: 12/14/24 06:31 Dose: Infused Documented By: SPENCER Insulin Human Lispro (Insulin Lispro 100 Unit/Ml 3 Ml Vial) 0 unit SUBCUT QIDACHS [facility]; Protocol Last Admin: 12/14/24 07:26 Dose: Not Given Documented By: ROSALINA Non-Admin Reason: No Insulin Coverage Magnesium Hydroxide (Milk Of Magnesia 30 Ml Oral.Susp) 30 ml PO DAILY PRN PRN Reason: Constipation Melatonin (Melatonin 3 Mg Tablet) 6 mg PO BEDTIME PRN PRN Reason: Insomnia Last Admin: 12/12/24 21:12 Dose: 6 mg Documented By: ADITHYA Pharmacy Consult (Consult Rx Vancomycin Dosing) 1 each MISCELLANE DAILY PRN PRN Reason: Consult order Polyethylene Glycol (Polyethylene Glycol 3350 17 Gm Powd.Pack) 17 gm PO DAILY PRN PRN Reason: Constipation Senna (Sennosides 8.6 Mg Tablet) 17.2 mg PO BEDTIME [facility] Last Admin: 12/13/24 20:50 Dose: 17.2 mg Documented By: SPENCER Sodium Chloride (0.9 % Sodium Chloride Flush 3 Ml Syringe) 3 ml IVFLUSH QSHIFT [facility] Last Admin: 12/14/24 08:57 Dose: Not Given Documented By: ROSALINA Non-Admin Reason: Previously Administered Labs 12/15/24 05:38 12/15/24 05:38 Labs: Laboratory Results - last 24 hr 12/12/24 12/13/24 12/13/24 08:23 11:16 13:22 MCV MCH MCHC RDW Plt Count MPV Absolute Nucleated RBC Nucleated RBC % (auto) Estim Creat Clear Calc Estimated GFR POC Glucose 149 H Magnesium Random Vancomycin 7.3 L HIV-1 RNA copies/mL NOT DETECTED HIV-1 RNA logcopies/mL NOT DETECTED 12/13/24 12/13/24 12/14/24 16:18 20:42 06:11 MCV 94.0 MCH 32.5 MCHC 34.5 RDW 12.5 Plt Count 193 MPV 9.7 Absolute Nucleated RBC 0.000 Nucleated RBC % (auto) 0.0 Estim Creat Clear Calc 114.3 Estimated GFR > 60 POC Glucose 106 127 H Magnesium 1.7 Random Vancomycin HIV-1 RNA copies/mL HIV-1 RNA logcopies/mL 12/14/24 07:21 MCV MCH MCHC RDW Plt Count MPV Absolute Nucleated RBC Nucleated RBC % (auto) Estim Creat Clear Calc Estimated GFR POC Glucose 124 H Magnesium Random Vancomycin HIV-1 RNA copies/mL HIV-1 RNA logcopies/mL Microbiology Microbiology Results: Microbiology 12/11/24 20:13 Blood Culture - Preliminary Blood - Venous No growth after 48 hours. 12/11/24 20:02 Blood Culture - Preliminary Blood - Venous No growth after 48 hours. Assessment and Plan (1) Sepsis: Status: Acute (2) Cellulitis of buttock, left: Status: Acute (3) HIV (human immunodeficiency virus infection): Status: Acute Plan Patient is a 59-year-old male with past medical history of diabetes insulin-dependent, nicotine dependence, HIV infection on HAART therapy, hyperlipidemia, vitamin-D deficiency, allergic rhinitis, GERD, chronic pain being admitted with episodes of sepsis and suspected pneumonia with underlying skin manifestation, CT of the abdomen and pelvis is pending Sepsis d/t buttock cellulitis vs early abscess but no drainable collection, no clinical evidence of PNA, WBC continues to trend down He has been Vanco, azithro and ceftriaxoone, ID rec changing to Zosyn, Vanco and Augmentin and Doxy at dc culture so far negative surgery following Hyponatremia, 135 today Hx of HIV restart Biktarvy ?Urinary Retention he is voiding fine Diabetes, BS on low side holding insulin restart metformin Sliding scale insulin Diabetic diet Homelessness Case management/social work consulted Patient refuses to use shelters as they are only for drug users DVT prophylaxis: Lovenox PPI prophylaxis: Protonix Med rec pending Full code status Quality Stroke Does the patient have a stroke diagnosis?: No Reason for No Anti-thrombotic by Day Two: N/A - Med Ordered VTE Prior VTE?: No VTE Risk Level:: Medical - moderate - high VTE Device Contraindication: N/A - Device Ordered VTE Drug Contraindication: N/A - Med Ordered
[2024-12-14] MEDS: Nicotine 14 MG PATCH.TD24 TRANSDERMA (09:35)
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
[2024-12-14] MEDS: Bictegrav/Emtricit/Tenofov Ala TABLET 1 TAB PO (10:58)
[2024-12-14] MEDS: Calcium + Vitamin D 250 MG TABLET 500 MG PO (10:58)
[2024-12-14 11:32] LABS: Glucose, Whole Blood 143 mg/dL (60-115)
--- NOTE | 2024-12-14 13:12 | P.CDIM_ITS ---
PROVIDER RESPONSE TEXT: To clarify, the appropriate diagnosis supported by the clinical indicators: Hypomagnesemia: resolved QUERY TEXT: PHYSICIAN'S DOCUMENTATION REQUEST Date of Query: 12/13/2024 11:02 AM EDT Patient Name: Rambo Richardson Admit Date: 12/12/2024 Dear Ryan Manzano MD, A review of the medical record indicates additional documentation may be needed. Please review below and update the documentation accordingly. Clinical Indicators: LABS: magnesium 1.2 L 2.0 IV Magnesium Sulfate Based on the above, is there a diagnosis that correlates with these lab findings: Hypomagnesemia resolved, possible, probable etc. Labs indicate a diagnosis of (please specify) Other (explain) Clinically unable to determine (explain) Thank you, Daphney Short, CCS, CDIS Use of terms such as suspected, likely, concern for, or probable (associated with a specific diagnosis that is being evaluated, monitored, or treated as if it exists) are acceptable and can be coded in the inpatient setting, when documented at the time of discharge. Please use your independent medical judgment in providing your response. THIS QUERY IS PART OF THE PERMANENT MEDICAL RECORD
--- NOTE | 2024-12-14 13:45 | HE.PHANOTE ---
Re: Vanco Renal function improving. Trough returned at 13.3, pt is therapeutic. Continue current dose of 1,250 mg q8h with predicted AUC 497, predicted trough 13.3kg. Next trough 12/15 @ 1300.
--- NOTE | 2024-12-14 14:36 | PM.PNGS ---
Subjective Subjective Date of Service: 12/14/24 Interval history: patient feeling better, less pain. Able to ambulate around the floor. More comfortable sitting. Wants to have it opened Physical Exam Vital Signs: Vital Signs: Last Vital Signs Temp 98.5 F 12/14/24 08:00 Pulse 83 12/14/24 08:00 Resp 18 12/14/24 08:00 BP 145/67 H 12/14/24 08:00 Pulse Ox 96 12/14/24 08:00 O2 Del Method Room Air 12/14/24 08:00 BMI result Body Mass Index 32.5 Const: General: comfortable and no acute distress Orientation/consciousness: patient oriented x3 Resp: Effort & Inspection: normal respiratory effort and able to speak in complete sentences GI: Other: left buttock: imrpovement in erythema, warmth and induration. the area appears much softer today. Remains tender to palpation. Unable to appreciate a fluid collection. Neuro: General: patient oriented x3 Objective Data Active Medications Acetaminophen (Acetaminophen 325 Mg Tablet) 650 mg PO Q6H PRN PRN Reason: Pain, Mild 1-3,fever,headache Last Admin: 12/14/24 10:59 Dose: 650 mg Documented By: ROSALINA Albuterol/Ipratropium (Albuterol/Iprat 2.5/0.5mg 3 Ml Ampul.Neb) 3 ml INHALE Q4H PRN PRN Reason: Shortness of Breath/Wheezing Atorvastatin Calcium (Atorvastatin Calcium 20 Mg Tablet) 20 mg PO BEDTIME [facility] Bictegravir/Emtricitabine/Tenofovir (Bictegrav/Emtricit/Tenofov Ala Tablet) 1 tab PO DAILY [facility] Last Admin: 12/14/24 10:58 Dose: 1 tab Documented By: ROSALINA Calcium Carbonate (Calcium Carbonate 750 Mg Tab.Chew) 750 mg PO Q4H PRN PRN Reason: Heartburn Calcium Carbonate/Cholecalciferol (Calcium + Vitamin D 250 Mg Tablet) 500 mg PO DAILY [facility] Last Admin: 12/14/24 10:58 Dose: 500 mg Documented By: ROSALINA Dextrose (Dextrose 50 % 25 Gm/50 Ml Syringe) 25 gm IVPUSH Q15M PRN; Protocol PRN Reason: per Hypoglycemia Standing Ord. Enoxaparin Sodium (Enoxaparin Sodium 40 Mg/0.4 Ml Syringe) 40 mg SUBCUT BEDTIME [facility] Last Admin: 12/13/24 20:50 Dose: 40 mg Documented By: SPENCER Glucose (Glucose Gel 15 Gm Gel..Gram.) 15 gm PO Q15M PRN; Protocol PRN Reason: per Hypoglycemia Standing Ord. Vancomycin HCl 1,250 mg/ (Sodium Chloride) 250 mls @ 166.667 mls/hr IV Q8H [facility] Last Infusion: 12/14/24 08:18 Dose: Infused Documented By: ROSALINA Piperacillin Sod/Tazobactam (Sod 3.375 gm/ Sodium Chloride) 50 mls @ 100 mls/hr IV Q6H [facility] Last Infusion: 12/14/24 13:12 Dose: Infused Documented By: ROSALINA Insulin Human Lispro (Insulin Lispro 100 Unit/Ml 3 Ml Vial) 0 unit SUBCUT QIDACHS [facility]; Protocol Last Admin: 12/14/24 11:40 Dose: Not Given Documented By: ROSALINA Non-Admin Reason: No Insulin Coverage Magnesium Hydroxide (Milk Of Magnesia 30 Ml Oral.Susp) 30 ml PO DAILY PRN PRN Reason: Constipation Melatonin (Melatonin 3 Mg Tablet) 6 mg PO BEDTIME PRN PRN Reason: Insomnia Last Admin: 12/12/24 21:12 Dose: 6 mg Documented By: ADITHYA Nicotine (Nicotine 14 Mg Patch.Td24) 14 mg TRANSDERMA DAILY [facility] Last Admin: 12/14/24 09:35 Dose: 14 mg Documented By: ROSALINA Nicotine Polacrilex (Nicotine Polacrilex 2 Mg Gum) 2 mg BUCCAL Q2H PRN PRN Reason: Nicotine Cravings Last Admin: 12/14/24 10:59 Dose: 2 mg Documented By: ROSALINA Pharmacy Consult (Consult Rx Vancomycin Dosing) 1 each MISCELLANE DAILY PRN PRN Reason: Consult order Polyethylene Glycol (Polyethylene Glycol 3350 17 Gm Powd.Pack) 17 gm PO DAILY PRN PRN Reason: Constipation Senna (Sennosides 8.6 Mg Tablet) 17.2 mg PO BEDTIME [facility] Last Admin: 12/13/24 20:50 Dose: 17.2 mg Documented By: SPENCER Sodium Chloride (0.9 % Sodium Chloride Flush 3 Ml Syringe) 3 ml IVFLUSH QSHIFT [facility] Last Admin: 12/14/24 08:57 Dose: Not Given Documented By: ROSALINA Non-Admin Reason: Previously Administered Labs 12/14/24 06:11 12/14/24 06:11 Labs: Laboratory Results - last 24 hr 12/13/24 12/13/24 12/14/24 16:18 20:42 06:11 MCV 94.0 MCH 32.5 MCHC 34.5 RDW 12.5 Plt Count 193 MPV 9.7 Absolute Nucleated RBC 0.000 Nucleated RBC % (auto) 0.0 Estim Creat Clear Calc 114.3 Estimated GFR > 60 POC Glucose 106 127 H Magnesium 1.7 Random Vancomycin 12/14/24 12/14/24 12/14/24 07:21 11:24 13:12 MCV MCH MCHC RDW Plt Count MPV Absolute Nucleated RBC Nucleated RBC % (auto) Estim Creat Clear Calc Estimated GFR POC Glucose 124 H 143 H Magnesium Random Vancomycin 13.3 L Microbiology Microbiology Results: Microbiology 12/11/24 20:13 Blood Culture - Preliminary Blood - Venous No growth after 48 hours. 12/11/24 20:02 Blood Culture - Preliminary Blood - Venous No growth after 48 hours. Procedures Date of Service Date of Service: 12/14/24 Progress Note: A&P Assessment and plan (1) Cellulitis of buttock, left: Status: Acute Plan 59 year old male admitted for management of left buttock cellulitis. patient continues to improve, tolerating ambulation and sitting on the affected area more today. Pain in decreased. On exam there is no fluid collection requiring drainage. The induration is improving, a small area extending towards the scrotum remains firm. There are no open areas and no evidence of necrosis. No indication for surgical intervention. Would continue with IV abx, general hygine. General surgery will sign off. Thank you for including our service in the care of this patient. Please reconsult as needed. Time Spent With Patient Time: Total time managing care of this patient today ____ minutes. Quality Stroke Does the patient have a stroke diagnosis?: No Reason for No Anti-thrombotic by Day Two: N/A - Med Ordered VTE Prior VTE?: No VTE Risk Level:: Medical - moderate - high VTE Device Contraindication: N/A - Device Ordered VTE Drug Contraindication: N/A - Med Ordered
[2024-12-14 16:04] VITALS: BP 166/77; PULSE 71; RESP 18; TEMP 37.1; O2SAT 98
[2024-12-14 16:15] LABS: Glucose, Whole Blood 118 mg/dL (60-115)
[2024-12-14 19:06] VITALS: BP 156/72; PULSE 76; RESP 16; TEMP 37.1; O2SAT 99
[2024-12-14 20:32] LABS: Glucose, Whole Blood 161 mg/dL (60-115)
[2024-12-14] MEDS: 0.9 % Sodium Chloride Flush 3 ML SYRINGE IVFLUSH (23:17)
[2024-12-15 03:42] VITALS: BP 157/74; PULSE 74; RESP 18; TEMP 37.2; O2SAT 97
[2024-12-15 06:14] LABS: Hematocrit 36.0 % (42.0-52.0); Hemoglobin 12.4 g/dl (14.0-18.0); Mean Corpuscular HGB Conc 34.4 g/dl (31.0-36.0); Mean Corpuscular Hemoglobin 31.9 pg (27.0-33.0); Mean Corpuscular Volume 92.5 fL (80.0-98.0); NRBC Abs Auto 0.000 X10*3/uL (0.0-0.012); NRBC Pct Auto 0.0 /100WBC (0.0-0.2); Platelet Count 228 X10*3/uL (160-400); Red Blood Count 3.89 X10*6/uL (4.60-5.80); White Blood Count 9.2 X10*3/uL (4.8-10.8)
[2024-12-15 06:42] LABS: Creatinine Clr Calc Pharmacy 94.6; Estimated Glomerular Filt Rate > 60; Magnesium 1.6 mg/dL (1.6-2.6)
[2024-12-15] MEDS: 0.9 % Sodium Chloride Flush 3 ML SYRINGE IVFLUSH (07:02)
[2024-12-15 07:30] LABS: Glucose, Whole Blood 115 mg/dL (60-115)
[2024-12-15 07:39] VITALS: BP 145/70; PULSE 73; RESP 18; TEMP 36.9; O2SAT 100
[2024-12-15] MEDS: Bictegrav/Emtricit/Tenofov Ala TABLET 1 TAB PO (08:11)
[2024-12-15] MEDS: Calcium + Vitamin D 250 MG TABLET 500 MG PO (08:12)
[2024-12-15] MEDS: Nicotine 14 MG PATCH.TD24 TRANSDERMA (08:13)
--- NOTE | 2024-12-15 09:32 | P.DS_ITS ---
DS: Providers Provider Date of Service: 12/15/24 Date of admission: 12/12/24 01:39 Date of discharge: 12/15/24 Primary care physician: Aminata Jung DO Consults: 12/12/24 11:37 Consult to General Surgery Routine Consulting Provider: [facility] Reason for consultation: buttock cellulitis ? abscess Consult to Infectious Diseases Routine Consulting Provider: [facility] Reason for consultation: HIV 12/13/24 02:44 Consult to Wound Care Routine Reason for consultation: wound left buttock Has provider been notified: Yes DS: Diagnosis Discharge Diagnosis (1) Sepsis: Status: Acute (2) Cellulitis of buttock, left: Status: Acute (3) HIV (human immunodeficiency virus infection): Status: Acute DS: Summary Hospital Course Hospital Course: admission hpi Chief Complaint: Nausea Patient is a 59-year-old male with past medical history of diabetes insulin-dependent, nicotine dependence, HIV infection on HAART therapy, hyperlipidemia, vitamin-D deficiency, allergic rhinitis, GERD, chronic pain presents to the emergency room with persistent weakness, nausea and vomiting with body aches and fever since last evening. Patient follows with outpatient clinic in [place] and has been taking his meds as ordered and is compliant with his HIV therapy. Patient denies any recent exposure to anyone else that is been ill. Patient lives on the streets and does not use shelters. Patient currently denies any productive cough, abdominal pain, diarrhea or open wounds. Patient states he shaves his body head-to-toe often and also picks at his skin especially in the buttocks and lower back area. Patient states he has a cyst that has been a problem but upon examination this area is closed and there is some underlying tissue changes that are palpable towards the groin area. There is no lymphadenopathy. Patient has a leukocytosis and fever on admission. Lactic acid is normal. Patient was started on ceftriaxone, azithromycin for evidence of possible pneumonia versus pneumonitis/pulmonary edema. BNP is pending. Patient also started on vancomycin for possible underlying skin infection. CT scan of the abdomen and pelvis has been ordered for further review. Patient is currently on IV fluids with no further nausea or vomiting. Patient generalized feelings of severe weakness and patient is ?scared?. Patient was able to ambulate to the bathroom with the nurse as he was complaining he has been trying to urinate frequently and sometimes is unable to produce urine. Patient denies any history of prostate issues. Bladder scans will now be ordered Q shift and if greater than 250 provider will be notified. Patient will do straight cath but wants to avoid this so is currently attempting to void in the bathroom. UA is pending. Blood cultures x2 were drawn and are pending. Hospital course: Patient is a 59-year-old male with past medical history of diabetes insulin-dependent, nicotine dependence, HIV infection on HAART therapy, hyperlipidemia, vitamin-D deficiency, allergic rhinitis, GERD, chronic pain admitted with episodes of sepsis due to left gluteal area cellulitis and ? pneumonitis, he did not have any respiratory symptoms. A CT of abdomen and pelvis showed Extensive subcutaneous fat stranding in the medial left gluteal region, edema or cellulitic change. No drainable or organized fluid collection identified. He was treated initially with Vancomycin, Ceftriaxone and Zithromax. Initial WBC of 27K has trended down to normal at 9K presently. He was seen by surgery and had no drainable abscess and they advise Abx. He was seen by ID also and antibiotics was modified to Vanco and Zosyn for 2 days and ID further advised to discharge with Augmentin and Doxycylin for 1 more week. As for concern of pneumonia or pneumonitis, patient did not have any clinical e videnc of pneumonia or pneumonititis. HypOnatremia, resolved Hx of HIV continue Biktarvy Diabetes, BS mostly normal, Hemoglobin A1 C 4.8, so I don't think he needs treatment for diabetes Fasting blood sugar this morning is 115 Time Attestation Discharge Coordination Time (in mins): 40 Quality: Safe Use of Opioids Does Pt have an Active Cancer Diagnosis on the Problem List?: No Quality: Stroke Does the patient have a stroke diagnosis?: No Physical Exam Vital Signs: Vital Signs: Last Vital Signs Temp 98.4 F 12/15/24 07:39 Pulse 73 12/15/24 07:39 Resp 18 12/15/24 07:39 BP 145/70 H 12/15/24 07:39 Pulse Ox 100 12/15/24 07:39 O2 Del Method Room Air 12/15/24 07:39 BMI result Body Mass Index 32.5 Const: Other: General: AO X 3, no acute distress Resp: CTA bilateral CVS: S1,S2,RRR GI: +BS, NT, no distention Skin: no palpable abscess, in buttock area, Neuro: motor grossly intact Psych: appropriate affect DS: Data Data Completed and Pending Completed studies during hospitalization [Text1]: Procedures Resection of Gallbladder, Percutaneous Endoscopic Approach (05/15/21) Labs on day of discharge: Laboratory Results - last 24 hr 12/14/24 12/14/24 12/14/24 11:24 13:12 16:11 WBC RBC Hgb Hct MCV MCH MCHC RDW Plt Count MPV Absolute Nucleated RBC Nucleated RBC % (auto) Creatinine Estim Creat Clear Calc Estimated GFR POC Glucose 143 H 118 H Magnesium Random Vancomycin 13.3 L 12/14/24 12/15/24 12/15/24 20:29 05:38 07:26 WBC 9.2 RBC 3.89 L Hgb 12.4 L Hct 36.0 L MCV 92.5 MCH 31.9 MCHC 34.4 RDW 12.3 Plt Count 228 MPV 9.8 Absolute Nucleated RBC 0.000 Nucleated RBC % (auto) 0.0 Creatinine 0.87 Estim Creat Clear Calc 94.6 Estimated GFR > 60 POC Glucose 161 H 115 Magnesium 1.6 Random Vancomycin Preliminary micro results at discharge 12/11/24 20:13 Blood Culture - Preliminary Blood - Venous No growth after 48 hours. 12/11/24 20:02 Blood Culture - Preliminary Blood - Venous No growth after 48 hours. Discharge Plan Discharge Anticipated Discharge Date/Time: 12/15/24 09:29 Patient Disposition: Home, Self-Care Discharge Diagnosis: Cellulitis of Buttock area Referrals: Aminata Jung DO [Primary Care Provider, Internal Medicine] - 1 Week Discharge Medications: New amoxicillin-pot clavulanate 875-125 mg Tablet 1 tab PO Q12H Qty: 13 0RF doxycycline monohydrate 100 mg Capsule 100 mg PO Q12H Qty: 13 0RF Continued metformin 500 mg tablet 1,000 mg PO BID atorvastatin 20 mg tablet 20 mg PO BEDTIME insulin glargine [Lantus Solostar U-100 Insulin] 100 unit/mL (3 mL) insulin pen 20 unit subcut DAILY calcium carbonate-vitamin D3 600 mg-10 mcg (400 unit) tablet 1 tab PO DAILY selenium sulfide 2.5 % lotion 1 appl topical DAILY Biktarvy 50-200-25 mg tablet 1 tab PO DAILY diclofenac sodium [Voltaren Arthritis Pain] 1 % gel 4 g topical QID PRN (Reason: pain) Qty: 100 0RF Rx Instructions: apply to single knee, ankle, foot; for foot includes sole/toes/top of foot Discharge Orders: Discharge Order (Routine); Ordered 12/15/24 Ordered By: Ryan Manzano Diet: Diabetic diet Activity on Discharge: As tolerated Stand Alone Forms: Patient Portal Discharge page Print Language: Indonesian Care Plan Goals: recovery from buttock cellulitis Health Concerns: buttock cellulitis Plan of Treatment: take Augmentin and doxycyline as recommended and follow up with your Doctor in a week Assessment: see above
[2024-12-15 10:32] LABS: Hemoglobin A1C 96.5929 umol/L; Total Hemoglobin (HGBA1C) 3307.3219 umol/L
[2024-12-15 11:32] LABS: Glucose, Whole Blood 165 mg/dL (60-115)
--- NOTE | 2024-12-15 11:40 | MHC.CM.PN ---
Patient is cleared to discharge today. An early lunch has been ordered. He will transport via [facility] @ discharge.
[2024-12-15 12:28] VITALS: BP 167/55; PULSE 68; RESP 20; TEMP 36.6; O2SAT 99
--- NOTE | 2024-12-15 12:30 | PC.NURSE ---
Dr. Manzano aware of patient's discharge vital signs. Patient asymptomatic. Okayed for discharge.
== END 2024-12-15 12:32 | disposition home or self-care (01) | DRG 720 ==
LOC: HO.ED 12-12 01:35 → HO.EDOVER 12-12 02:40 → HO.S3 12-12 03:47
PROVIDERS: Nurse Practitioner Family; Physician Assistant Medical; Admitting Provider Internal Medicine; Emergency Provider Emergency Medicine; PCP Family Medicine; Visit Provider Internal Medicine
DX: A41.9 Sepsis, unspecified organism (principal); J18.9 Pneumonia, unspecified organism; E87.1 Hypo-osmolality and hyponatremia; L03.317 Cellulitis of buttock; E11.9 Type 2 diabetes mellitus without complications; E83.42 Hypomagnesemia; F17.210 Nicotine dependence, cigarettes, uncomplicated; R33.9 Retention of urine, unspecified; Z21 Asymptomatic human immunodeficiency virus [HIV] infection status; Z71.6 Tobacco abuse counseling; Z20.822 Contact with and (suspected) exposure to COVID-19; Z59.02 Unsheltered homelessness; Z79.84 Long term (current) use of oral hypoglycemic drugs; Z79.899 Other long term (current) drug therapy
CPT/HCPCS: 36415; 71045; 74177; 80048; 80053; 80202; 81001; 82565; 82947; 83036; 83605; 83735; 83880; 84443; 85007; 85025; 85027; 87040; 87536; 87637; 99285; J0456; J0696; J1650; J2270; J2405; J2470; J2543; J3373; J3374; J3475; Q9967

== ENCOUNTER → 2024-12-11 19:43 | Outpatient (BNV) | payer MEDICAID, SELFPAY | PROVIDERS: PCP Family Medicine; Visit Provider Radiology Neuroradiology | DX: R91.8 Other nonspecific abnormal finding of lung field (principal) | CPT/HCPCS: 71045 ==

== ENCOUNTER 2024-12-12 01:39 | Outpatient (BNV) | payer MEDICAID, SELFPAY | END 2024-12-12 02:14 | PROVIDERS: Admitting Provider Internal Medicine; Emergency Provider Emergency Medicine; PCP Family Medicine; Visit Provider General Practice | DX: L98.8 Other specified disorders of the skin and subcutaneous tissue (principal) | CPT/HCPCS: 74177 ==

== ENCOUNTER → 2024-12-12 01:39 | Outpatient (BNV) | payer MEDICAID, SELFPAY | PROVIDERS: Admitting Provider Internal Medicine; Emergency Provider Emergency Medicine; PCP Family Medicine; Visit Provider Nurse Practitioner Family | DX: A41.9 Sepsis, unspecified organism (principal); L03.317 Cellulitis of buttock; Z21 Asymptomatic human immunodeficiency virus [HIV] infection status | CPT/HCPCS: 99232 ==

== ENCOUNTER → 2024-12-12 01:39 | Outpatient (BNV) | payer MEDICAID, SELFPAY | PROVIDERS: Admitting Provider Internal Medicine; Emergency Provider Emergency Medicine; PCP Family Medicine | DX: L03.317 Cellulitis of buttock (principal); Z21 Asymptomatic human immunodeficiency virus [HIV] infection status | CPT/HCPCS: 99222 ==

== ENCOUNTER → 2024-12-12 01:39 | Outpatient (BNV) | payer MEDICAID, SELFPAY | PROVIDERS: Admitting Provider Internal Medicine; Emergency Provider Emergency Medicine; PCP Family Medicine; Visit Provider Internal Medicine | DX: L03.317 Cellulitis of buttock (principal); Z21 Asymptomatic human immunodeficiency virus [HIV] infection status | CPT/HCPCS: 99222 ==

== ENCOUNTER 2024-12-16 08:08 | Emergency (ER) | payer MEDICAID, SELFPAY ==
--- OUTSIDE RECORDS SUMMARY | 2024-05-12 06:40 | XMS_ITS | Continuity of Care Document ---
Author Organization [facility] Address 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 Name Role Phone Jennifer Williamson DOd Unavailable Unavailable Allergies, Adverse Reactions, Alerts Substance Reaction Status Criticality No Known Allergies Active No Inform ation Medications Medication Instructions Dosage Effective Dates (start - stop) Status Comments fluticasone propionate 50 mcg/actuation nasal spray,suspension inhale 2 spray by intranasal route every day in each nostril 100 MCG - Active Medrol (Ignacio) 4 mg tablets in a dose pack As per package instructions - Active valsartan 320 mg tablet - Active valsartan 160 mg tablet - Active fluticasone propionate 50 mcg/actuation nasal spray,suspension inhale 2 spray by intranasal route every day in each nostril 100 MCG - No Longer Active azelastine 137 mcg (0.1 %) nasal spray aerosol spray 2 spray by intranasal route 2 times every day in each nostril - No Longer Active fluticasone propionate 50 mcg/actuation nasal spray,suspension inhale 2 spray by intranasal route every day in each nostril 100 MCG - No Longer Active Problems Condition Type Effective Dates (start - stop) Clini jovita Status Comments No Known Problems Procedures Procedure Date OV, Estab Pt, Level III Diagnostic Nasal Endoscopy OV, Estab Pt, Level IV Diagnostic Nasal Endoscopy Binocular Microscopy No Service Provided This Day OV, New Pt, Level III Comp Audiometry Threshold Eval Tympanometry No Charge Advance Directives Directive Yes / No Effective Date File Name No Information Encounters Encounter Description Practice Location Reason(s) For Visit Diagnoses Date Provider Providers Copied on Encounter OV, Estab Pt, Level III [facility], [address], [place], [place], [id number], [place] tel:[phone] [facility] sore throat (chief complaint) Nasal congestionPain in throatPostnasal dripChronic rhinitis [address], [place], [place], [id number], [place]. tel:[phone] OV, Estab Pt, Level IV [facility], [address], [place], [place], [id number], [place] tel:[phone] [facility] Ringing in ears (chief complaint) Other specified disorders of Eustachian tube, bilateralChronic rhinitisPulsatile tinnitus, right ear 4 Ort MD Chaudhry. [address], [place], [place], [id number], [place]. tel:[phone] [facility], [address], [place], [place], [id number], [place] tel:[phone] [facility] No Information 3 Michel Emmanuel. [address], [place], [place], [address], [place]. tel:[phone] Referring Provider: Km Garcia, [address], [place], [address] . tel:[phone] OV, New Pt, Level III [facility], [address], [place], [place], [id number], [place] tel:[phone] [facility] Ringing in ears (chief complaint) Stapedial myoclonusOther specified disorders of Eustachian tube, bilateral [address], [place], [place], [address], [place]. tel:[phone] [facility], [address], [place], [place], [id number], [place] tel:[phone] [facility] Unspecified hearing loss, unspecified ear 3 Michel Emmanuel. [address], [place], [place], [id number], [place]. tel:[phone] Referring Provider: Km Williamson DO [place], [address], [place], [address] . tel:[phone] Family History Family Member Type Diagnosis Age At Onset Mother Problem (finding) Alzheimer's Disease Mother Problem (finding) Hyperlipidemia Family H /O Problem (finding) CVA (Stroke) Immunizations Vaccine Date Status Comments Influenza unspecified formulation completed Note: patient only r eported on this date, was given elsewhere ; Source: Source Unspecified Influenza unspecified formulation completed Note: patient only r eported on this date, was given elsewhere ; Source: Source Unspecified Payers Payer name Insurance type Covered democrat ID Authorlisaa fermin(s) [facility] [place], [facility] [place] PPO BL [id number] Social History Type Description Quantity Date Captured Comments Alcohol Use Details 1-4 / week Weekly Caffeine Use Details Tobacco Use Status No Information Smoking Status Never smoker Non-Smoking Tobacco Use Details : No Details Available : No Details Available Sex Male Vital Signs Date / Time: Height Weight BMI Pulse Rate Blood Pressure Temperature Respiratory Rate Body Surface Area Head Circumference Head Circ. Percentile Wt./Scott. Percentile BMI percentile Pulse Ox Inhaled Ox 11:10 AM 71.00 in 97.522 kg (215.00 lbs) 29.9 9 kg/m eter (2) Chief Complaint And Reason For Visit From encounter dated '05/12/2024 10:40'. sore throat (chief complaint). Description: 3 months throat pain and irritation fluctuating tensingseverity. There is increase in postnasal drip and throat clearing. There is no heartburn or voice changesPulsatile tinnitus has improved with fluticasone use Reason For Referral Reason For Referral No Information History Of Present Illness Encounter Date Complaint History Of Prese nt Illness sore throat 3 months throat pain and irritation fluctuating tensing severity. There is increase in postnasal drip and throat clearing. There is no heartburn or voice changesPulsatile tinnitus has improved with fluticasone use Ringing in ears (comments) right pulse TINNonset early 04/29 - pulsing, not correlated c heart beat. typically brief rapid runshx congestion/PND. occasional coughsaw Dr Williamson, rec nasal steroid spray resolved over sev weeksno OM, no otosurgSH: computer work Ringing in ears Ringing in ears The patient pres ents with Ringing in ears in the right ear. It is described as pulsatile. The patient denies dizziness, ear pain, headache or hearing loss. Ringing in ears (comments) fluct uating 'tapping' in the ear RIGHT more than LEFT worsening in intensity and severity; limited effects to hearingThis is occurred off and on for the past 2 months. It worsens with burping. There is no gross hearing changes Functional Status Date Functional Assessmen t No Information Medications Administered Medication Instructions Dosage Effective Dates (start - stop) Status Comments fluticasone propionate 50 mcg/actuation nasal spray,suspension inhale 2 spray by intranasal route every day in each nostril 100 MCG - No Longer Active Instructions Date Instruction Additional Infor bhavnajayant 1. Continue with flu ticasone. Add saline mist once or twice daily. Consider facial steaming 5 minutes twice daily2. Medrol Dosepak to help break the inflammation cycleI do not see any evidence of uncontrolled reflux irritating the throat. If symptoms do not improve see ENT Related to Nasal congestion May use fluticasone nasal steroid spray daily ongoing or as needed when symptoms ariseAdditionally may use azelastine nasal spray twice daily for congestion and postnasal dripFollow-up as needed Related to Pulsatile tinnitus, right ear 1. Trial Nasacort 2 sprays each side of the nose once a day for the next 4 to 6 weeks aim away from the middle2. Focus on sleep/stress3. IF relief is not adequate, f/u with Dr. 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 Patient Care Teams Name Effective Dates (start - stop) Status Members No Information
--- NOTE | ~2024-12-16 | XR_ITS ---
CLINICAL HISTORY: CP 1 view chest x-ray Comparison: CR - XR CHEST 1V - 12/11/24 20:43 EDT Findings: No consolidation or effusion. Normal size heart. No acute fracture. IMPRESSION: 1. No acute findings. This document has been electronically signed by: Suellen Barroso MD on 12/16/2024 09:36:40
[2024-12-16 08:12] VITALS: BP 136/78; BP 202/86; PULSE 101; PULSE 83; RESP 20; TEMP 36.7; O2SAT 97; O2SAT 98; BMI 31.6
--- NOTE | 2024-12-16 08:13 | ED.GENADULT ---
HPI - General Adult General Chief complaint: Nausea/Vomiting/Diarrhea Stated complaint: VOMITING,SEEN T-1 FOR SAME PER EMS Time Seen by Provider: 12/16/24 08:11 Source: patient and RN notes reviewed Mode of arrival: ambulatory Limitations: no limitations History of Present Illness ED Provider: Danielle Matos PA-C HPI narrative: This is a 59-year-old male, with a past medical history of diabetes, HIV infection on HAART therapy, hyperlipidemia, GERD, and chronic pain, who presents emergency department for concerns of nausea, vomiting, body aches for several days. Patient reports that he has pain ?all over?. He has been taking prescribed antibiotics that were given to him yesterday. He states that he took all his medications this morning. Patient reports that he has no buttock pain, states that the region that was being observed several days ago due to recent admission has been improving. He states that he has had multiple episodes of vomiting, which he believes has caused him to have nausea, and generalized weakness and body aches. Of note, patient was recently admitted here at [facility] from December 12 through December 15 due to sepsis, cellulitis of the left buttock, and HIV. Patient initially presented to the emergency department on December 12 due to weakness, nausea, and vomiting with body aches and fevers. He was found to have cellulitis on his buttock. CT scan at that time revealed extensive subcutaneous fat stranding in the medial left gluteal region with no fluid collection identified. He was seen by surgery, and deemed no drainable abscess at that time. He was continued on IV antibiotics. He was also seen by infectious disease. He was discharged with Augmentin and doxycycline yesterday. MD complaint: Nausea, vomiting, body aches Onset (ago): day(s) Pain Consistency: constant Relieving factors: none Exacerbating factors: none Associated symptoms: nausea/vomiting Treatments prior to arrival: none Related Data Home Medications ?Medication ?Instructions ?Recorded ?Confirmed atorvastatin 20 mg tablet 20 mg PO BEDTIME 05/15/21 12/16/24 metformin 500 mg tablet 1,000 mg PO BID 05/15/21 12/16/24 bictegravir 50 mg-emtricitabine 1 tab PO DAILY 12/12/24 12/16/24 200 mg-tenofovir alafenam 25 mg tablet (Biktarvy) calcium 600 mg (as 1 tab PO DAILY 12/12/24 12/16/24 carbonate)-vitamin D3 10 mcg (400 unit) tablet selenium sulfide 2.5 % lotion 1 appl topical DAILY 12/12/24 12/16/24 Previous Rx's ?Medication ?Instructions ?Recorded diclofenac sodium 1 % topical gel 4 g topical QID PRN pain #100 grams 09/21/24 (Voltaren Arthritis Pain) amoxicillin 875 mg-potassium 1 tab PO Q12H #13 tabs 12/15/24 clavulanate 125 mg tablet doxycycline monohydrate 100 mg 100 mg PO Q12H #13 caps 12/15/24 capsule Allergies Allergy/AdvReac Type Severity Reaction Status Date / Time No Known Allergies Allergy Verified 12/16/24 08:17 Review of Systems Review of Systems: Yes all other systems are reviewed and are negative Constitutional: Constitutional: Reports as per [facility] Past Medical History Medical History Hypertension Hyperlipidemia HIV (human immunodeficiency virus infection) Nicotine dependence, cigarettes, uncomplicated Homeless Diabetes Surgical History History of laparoscopic cholecystectomy (~2020) History of incisional hernia repair (~2014) History of umbilical hernia repair (~2008) History of appendectomy Social History Social History Household Members: Other Housing: Homeless Housing Other:: patient states homeless Do you presently have visiting nurse or other home services: No Alcohol intake: never Patient Tobacco Use Status: Current everyday Tobacco user Tobacco use type: Cigarette Cigarette Packs Per Day: 1 Cigarettes Per Day: 20.0 Years Smoked: 30 Smoked in Last 30 Days: Yes Second Hand Smoke Exposure: No Substance Use Type: Marijuana Advance Directives: No Advance Directives Information Provided: Yes service: No Current occupational status: unemployed Physical Exam ED Vital Signs: Vital Signs - 24 hr 12/19/24 22:00 12/20/24 05:42 12/20/24 06:19 Temperature 98 F 7.1 F L 97.1 F Pulse Rate 69 69 69 Respiratory Rate 14 18 18 Blood Pressure 122/56 L 163/79 H 163/79 H Pulse Oximetry 95 99 99 Oxygen Delivery Method Room Air Room Air Room Air 12/20/24 08:04 Temperature 98.2 F Pulse Rate 75 Respiratory Rate 18 Blood Pressure 135/75 Pulse Oximetry Oxygen Delivery Method BMI result Body Mass Index 31.6 Const General: cooperative, comfortable and no acute distress Orientation/consciousness: patient oriented x3 Limitations: no limitations HENMT Head: Yes normal to inspection, Yes normocephalic and Yes atraumatic Ears: hearing grossly normal bilaterally General nose exam: Normal external nose present Face and sinus: Yes normal facial exam Mouth: Normal oral and palatal mucosa present, oropharynx normal and moist mucous membranes Throat: Yes posterior oropharynx normal Eyes General: appearance normal, both eyes and all related structures Eyelids: Yes eyelids normal Conjunctivae: conjunctivae normal Sclerae: sclerae normal Pupils: Equal, round and reactive pupils present EOM: EOMs intact bilaterally Neck Neck: Yes normal visual inspection, Yes full ROM and Yes no lymphadenopathy Lymphatic: no lymphadenopathy noted Chest Chest palpation & inspection: normal inspection of the chest Resp Effort & Inspection: normal respiratory effort and able to speak in complete sentences Auscultation: clear to auscultation bilaterally, no crackles, no rales, no rhonchi and no wheezes Cardio Rate: regular rate Rhythm: regular rhythm Heart sounds: S1 normal heart sound present and S2 normal heart sound present GI Other: Abdomen is soft, nontender, non distended Examined buttock, left buttock with slight area of erythema, no fluctuance Inspection: Yes normal to inspection Skin General skin exam: no rashes or lesions noted Trauma: no lacerations or abrasions Wounds: no wounds Neuro General: patient oriented x3 and moves all extremities Cranial nerves: Yes Equal, round and reactive pupils present Extrem General: Yes normal to inspection Right upper extremity: normal to inspection Left upper extremity: normal to inspection Right lower extremity: normal to inspection Left lower extremity: normal to inspection Course Reevaluation(s) Reevaluation #1: 12/18/24 08:32 JANET Zapata: Physician observation continued, no overnight events reported by nursing. Awaiting physical therapy evaluation. BP elevated, VS stable. Time: 08:32 Reevaluation #2: 12/18/24 11:36 JANET Zapata: Physician observation continued, no overnight events reported by nursing. Seen by Physical therapy, they are recommending short-term rehab. Patient stating he will only go to a short-term rehab in [place]. Case management following for disposition. Reevaluation #3: Time: 18:29 Date: 12/20/24 Provider: SEGUN Jasso Physician observation ended at 07:30AM. Pt d/c TO: [facility], DR MIRANDA ACCEPTING. Medications Administered Discontinued Medications Generic Name Dose Route Start Last Admin Trade Name Freq PRN Reason Stop Dose Admin Amoxicillin/Clavulanate Potassium 875 mg 12/16/24 21:00 12/20/24 07:57 Amoxicillin/Potassium Clav 875 Mg Tablet PO 875 mg BID ANU Administration Atorvastatin Calcium 20 mg 12/16/24 21:00 12/19/24 20:16 Atorvastatin Calcium 20 Mg Tablet PO 20 mg BEDTIME ANU Administration Bictegravir/Emtricitabine/Tenofovir 1 tab 12/16/24 18:30 12/19/24 09:43 Bictegrav/Emtricit/Tenofov Ala Tablet PO 1 tab DAILY ANU Administration Calcium Carbonate/Cholecalciferol 500 mg 12/17/24 09:00 12/20/24 07:57 Calcium + Vitamin D 250 Mg Tablet PO 500 mg DAILY ANU Administration Diphenhydramine HCl 12.5 mg 12/17/24 17:11 12/17/24 17:40 Diphenhydramine Hcl 50 Mg/Ml Vial IVPUSH 12/17/24 17:12 12.5 mg ONCE ONE Administration Doxycycline Monohydrate 100 mg 12/16/24 21:00 12/20/24 07:56 Doxycycline Monohydrate 100 Mg Capsule PO 100 mg BID ANU Administration Sodium Chloride 1,000 mls @ 999 mls/hr 12/16/24 08:21 12/16/24 10:20 Ns IV 12/16/24 09:21 Infused .Q1H1M ONE Infusion Acetaminophen 1,000 mg in 100 mls @ 400 mls/hr 12/16/24 08:21 12/16/24 09:03 Ofirmev IV 12/16/24 08:35 Infused ONCE ONE Infusion Sodium Chloride 1,000 mls @ 999 mls/hr 12/16/24 10:46 12/16/24 12:37 Ns IV 12/16/24 11:46 Infused .Q1H1M ONE Infusion Sodium Chloride 1,000 mls @ 999 mls/hr 12/17/24 17:13 12/17/24 19:27 Ns IVCONT 07/13/25 18:13 Infused .Q1H1M ONE Infusion Metformin HCl 1,000 mg 12/17/24 08:00 12/20/24 07:56 Metformin Hcl 1,000 Mg Tablet PO 1,000 mg BIDWM ANU Administration Metoclopramide HCl 10 mg 12/17/24 17:11 12/17/24 17:40 Metoclopramide Hcl 10 Mg/2 Ml Vial IVPUSH 12/17/24 17:12 10 mg ONCE ONE Administration Nicotine 21 mg 12/17/24 13:01 12/17/24 14:00 Nicotine 21 Mg Patch.Td24 TRANSDERMA 12/17/24 13:02 21 mg ONCE ONE Administration Ondansetron HCl 4 mg 12/16/24 08:41 12/16/24 08:45 Ondansetron Hcl 4 Mg/2 Ml Vial IVPUSH 12/16/24 08:42 4 mg ONCE ONE Administration Ondansetron HCl 4 mg 12/17/24 09:46 12/17/24 09:50 Ondansetron Odt 4 Mg Tab.Rapdis TRANSLINGU 12/17/24 09:47 4 mg ONCE ONE Administration Ondansetron HCl 4 mg 12/18/24 09:25 12/18/24 09:36 Ondansetron Hcl 4 Mg/2 Ml Vial IVPUSH 12/18/24 09:26 4 mg ONCE ONE Administration Ondansetron HCl 4 mg 12/18/24 22:06 12/18/24 22:15 Ondansetron Hcl 4 Mg/2 Ml Vial IVPUSH 12/18/24 22:07 4 mg ONCE ONE Administration Ondansetron HCl 4 mg 12/19/24 12:04 12/19/24 12:07 Ondansetron Hcl 4 Mg/2 Ml Vial IVPUSH 12/19/24 12:05 4 mg ONCE ONE Administration Ondansetron HCl 4 mg 12/19/24 16:47 12/19/24 17:50 Ondansetron Hcl 4 Mg/2 Ml Vial IVPUSH 12/19/24 16:48 4 mg ONCE ONE Administration Medical Decision Making Medical Decision Making MDM Narrative: This is a 59-year-old male, with a past medical history of HIV, hypertension, and hyperlipidemia, who presents emergency department via EMS for evaluation of nausea, vomiting, abdominal pain for the last several days. Patient was recently admitted from December 12 until yesterday. He was discharged on antibiotics to treat for cellulitis of the buttocks. Patient states that he was discharged home, and fell to his symptoms worsened. On arrival, patient hypertensive at 202/86, he does appear to be uncomfortable secondary to body pain. He is not taking any medications to treat his pain this morning. All other vital signs within normal limits. He is afebrile, speaking in full sentences. He is neurologically intact. Differential diagnoses include viral illness, electrolyte derangement, ALEJANDRA, ACS-unlikely. We will repeat blood pressure once patient gets settled. Plan: Labs, EKG, IV fluids, IV Tylenol, UA Course: Patient with leukocytosis at 14.8, likely reactive secondary to vomiting slight hypokalemia 3.2, BUN elevated at 19 and at and 1.38, derangement from his kidney function which is around 0.9. Hyperglycemia at 180, he does have a history of diabetes. Slight elevation in liver transaminase, AST and ALT at 49 and 66, troponin 20.7. EKG revealing no acute ischemic changes however will repeat troponin in 2 hours. Serologies still pending. Chest x-ray unremarkable for any pneumonia. We will continue to closely monitor. Patient re-evaluated, patient is sleeping, resting comfortably. We will continue to monitor pending overall workup today. 1647 - patient has been eating and drinking in the emergency room, with no return of vomiting. Troponin with no delta change. He does have moderate blood and rbc's in his urine, he has no urinary symptoms. CT of the abdomen and pelvis was obtained several days ago, no kidney stones seen on CAT scan. He was complaining about a sore throat, strep was ordered, negative. Patient reports that he is feeling generalized weakness. Given that there was no medical reason to admit him with the medical service at this time, patient would be best served by seeing physical therapy and having case reviewed by case management. We will continue to monitor pending PT Case Management Time: 17:11 Date: 12/17/24 Provider: SEGUN Jasso Patient in physician observation for case management needs. Patient had an episode of nausea this morning and was medicated with Zofran. Patient states that he is unable to heat or drink secondary to nausea and vomiting. We will treat with IV fluids, and benadryl and reglan. Will attempt to PO challenge patient. We did repeat labs, improved since yesterday, leukocytosis has improved to 11.4, kidney function improved. Patient states that he continues to have nausea. Abdomen is soft, nontender, nondistended. Differential Diagnosis Differential Diagnoses: The differential diagnosis associated with the presentation includes See above Lab Data [facility] Lab Attestation statement: I reviewed the patient's lab results. See MDM and course 12/17/24 13:44 12/17/24 13:44 Labs: Lab Results 12/16/24 12/16/24 12/16/24 Range/Units 08:35 10:29 13:30 WBC 14.8 H (4.8-10.8) X10*3/uL RBC 4.39 L (4.60-5.80) X10*6/uL Hgb 14.0 (14.0-18.0) g/dl Hct 40.0 L (42.0-52.0) % MCV 91.1 (80.0-98.0) fL MCH 31.9 (27.0-33.0) pg MCHC 35.0 (31.0-36.0) g/dl RDW 12.2 (11.0-16.0) % Plt Count 300 D (160-400) X10*3/uL MPV 9.3 L (9.4-12.4) fL Immature Gran % (Auto) 2.2 H (0.0-0.4) % Neut % (Auto) 74.4 H (45-73) % Lymph % (Auto) 11.0 L (20-40) % [place] % (Auto) 12.1 H (2-11) % Eos % (Auto) 0.0 (0-4) % Baso % (Auto) 0.3 (0-2) % Lymph # (Auto) 1.6 (1.2-4.9) X10*3/uL [place] # (Auto) 1.8 H (0.1-1.2) X10*3/uL Eos # (Auto) 0.0 (0.0-0.4) X10*3/uL Baso # (Auto) 0.0 (0.0-0.2) X10*3/uL Abs Immat Gran (auto) 0.32 H (0.00-0.03) X10*3/uL Absolute Neuts (auto) 11.0 H (2.0-8.3) x10*3/uL Absolute Nucleated RBC 0.000 (0.0-0.012) X10*3/uL Nucleated RBC % (auto) 0.0 (0.0-0.2) /100WBC Smear Tech's Comments VERIFIED Sodium 140 (135-145) mmol/L Potassium 3.2 L (3.3-5.1) mmol/L Chloride 105 (96-108) mmol/L Carbon Dioxide 24 (22-29) mmol/L Anion Gap 14 (12-20) BUN 19 H (9-16) mg/dL Creatinine 1.38 (0.5-1.4) mg/dL Estim Creat Clear Calc 58.9 Estimated GFR 53 POC Glucose (60-115) mg/dL Random Glucose 180 H (60-115) mg/dL Calcium 9.9 D (8.4-10.2) mg/dL Magnesium 1.6 (1.6-2.6) mg/dL Total Bilirubin 0.8 (0.0-1.0) mg/dL Direct Bilirubin 0.4 (0.0-0.5) mg/dL AST 49 H (5-37) U/L ALT 66 H (0-40) U/L Alkaline Phosphatase 85 (39-117) U/L Total Creatine Kinase 61 (38-174) U/L Troponin I High Sens 20.7 D 25.0 (<3.5-35.0) ng/L Total Protein 7.4 (6.5-8.0) g/dL Albumin 3.6 (3.5-5.0) g/dL Lipase 13 (8-78) U/L Urine Color Urine Appearance Urine pH (5.0-9.0) Ur Specific [place] (1.005-1.025) Urine Protein (Neg-Trace) mg/dL Urine Glucose (UA) (Negative) mg/dL Urine Ketones (Negative) mg/dL Urine Blood (Negative) Urine Nitrite (Negative) Ur Leukocyte Esterase (Negative) Urine RBC (0-2) /HPF Urine WBC (0-5) /HPF Ur Squamous Epith Cells (0-2) /HPF Urine Bacteria (None Seen) Hyaline Casts (0-2) /LPF Influenza Type A (PCR) NEGATIVE (Negative) Influenza Type B (PCR) NEGATIVE (Negative) RSV RNA Qual (PCR) NEGATIVE (Negative) SARS-CoV-2 RNA (RT-PCR) NEGATIVE (Negative) S. pyogenes GrpA STEPHEN Negative (Negative) 12/16/24 12/17/24 12/17/24 Range/Units 13:33 07:12 12:53 WBC (4.8-10.8) X10*3/uL RBC (4.60-5.80) X10*6/uL Hgb (14.0-18.0) g/dl Hct (42.0-52.0) % MCV (80.0-98.0) fL MCH (27.0-33.0) pg MCHC (31.0-36.0) g/dl RDW (11.0-16.0) % Plt Count (160-400) X10*3/uL MPV (9.4-12.4) fL Immature Gran % (Auto) (0.0-0.4) % Neut % (Auto) (45-73) % Lymph % (Auto) (20-40) % [place] % (Auto) (2-11) % Eos % (Auto) (0-4) % Baso % (Auto) (0-2) % Lymph # (Auto) (1.2-4.9) X10*3/uL [place] # (Auto) (0.1-1.2) X10*3/uL Eos # (Auto) (0.0-0.4) X10*3/uL Baso # (Auto) (0.0-0.2) X10*3/uL Abs Immat Gran (auto) (0.00-0.03) X10*3/uL Absolute Neuts (auto) (2.0-8.3) x10*3/uL Absolute Nucleated RBC (0.0-0.012) X10*3/uL Nucleated RBC % (auto) (0.0-0.2) /100WBC Smear Tech's Comments Sodium (135-145) mmol/L Potassium (3.3-5.1) mmol/L Chloride (96-108) mmol/L Carbon Dioxide (22-29) mmol/L Anion Gap (12-20) BUN (9-16) mg/dL Creatinine (0.5-1.4) mg/dL Estim Creat Clear Calc Estimated GFR POC Glucose 144 H 128 H (60-115) mg/dL Random Glucose (60-115) mg/dL Calcium (8.4-10.2) mg/dL Magnesium (1.6-2.6) mg/dL Total Bilirubin (0.0-1.0) mg/dL Direct Bilirubin (0.0-0.5) mg/dL AST (5-37) U/L ALT (0-40) U/L Alkaline Phosphatase (39-117) U/L Total Creatine Kinase (38-174) U/L Troponin I High Sens (<3.5-35.0) ng/L Total Protein (6.5-8.0) g/dL Albumin (3.5-5.0) g/dL Lipase (8-78) U/L Urine Color Yellow Urine Appearance Clear Urine pH 6.0 (5.0-9.0) Ur Specific [place] 1.015 (1.005-1.025) Urine Protein Trace (Neg-Trace) mg/dL Urine Glucose (UA) 100 H (Negative) mg/dL Urine Ketones Trace (Negative) mg/dL Urine Blood Moderate (2+) H (Negative) Urine Nitrite Negative (Negative) Ur Leukocyte Esterase Negative (Negative) Urine RBC 11-20 H (0-2) /HPF Urine WBC 0-5 (0-5) /HPF Ur Squamous Epith Cells 0-2 (0-2) /HPF Urine Bacteria None Seen (None Seen) Hyaline Casts 0-2 (0-2) /LPF Influenza Type A (PCR) (Negative) Influenza Type B (PCR) (Negative) RSV RNA Qual (PCR) (Negative) SARS-CoV-2 RNA (RT-PCR) (Negative) S. pyogenes GrpA STEPHEN (Negative) 12/17/24 12/17/24 12/18/24 Range/Units 13:44 18:35 07:42 WBC 11.4 H (4.8-10.8) X10*3/uL RBC 4.10 L (4.60-5.80) X10*6/uL Hgb 13.2 L (14.0-18.0) g/dl Hct 38.1 L (42.0-52.0) % MCV 92.9 (80.0-98.0) fL MCH 32.2 (27.0-33.0) pg MCHC 34.6 (31.0-36.0) g/dl RDW 12.4 (11.0-16.0) % Plt Count 276 (160-400) X10*3/uL MPV 9.0 L (9.4-12.4) fL Immature Gran % (Auto) 2.3 H (0.0-0.4) % Neut % (Auto) 68.7 (45-73) % Lymph % (Auto) 15.5 L (20-40) % [place] % (Auto) 13.0 H (2-11) % Eos % (Auto) 0.2 (0-4) % Baso % (Auto) 0.3 (0-2) % Lymph # (Auto) 1.8 (1.2-4.9) X10*3/uL [place] # (Auto) 1.5 H (0.1-1.2) X10*3/uL Eos # (Auto) 0.0 (0.0-0.4) X10*3/uL Baso # (Auto) 0.0 (0.0-0.2) X10*3/uL Abs Immat Gran (auto) 0.26 H (0.00-0.03) X10*3/uL Absolute Neuts (auto) 7.8 (2.0-8.3) x10*3/uL Absolute Nucleated RBC 0.000 (0.0-0.012) X10*3/uL Nucleated RBC % (auto) 0.0 (0.0-0.2) /100WBC Smear Tech's Comments Sodium 141 (135-145) mmol/L Potassium 3.5 (3.3-5.1) mmol/L Chloride 106 (96-108) mmol/L Carbon Dioxide 27 (22-29) mmol/L Anion Gap 12 (12-20) BUN 15 (9-16) mg/dL Creatinine 1.22 (0.5-1.4) mg/dL Estim Creat Clear Calc 66.6 Estimated GFR > 60 POC Glucose 165 H 152 H (60-115) mg/dL Random Glucose 133 H (60-115) mg/dL Calcium 9.2 D (8.4-10.2) mg/dL Magnesium (1.6-2.6) mg/dL Total Bilirubin 0.5 (0.0-1.0) mg/dL Direct Bilirubin (0.0-0.5) mg/dL AST 37 (5-37) U/L ALT 54 H (0-40) U/L Alkaline Phosphatase 70 (39-117) U/L Total Creatine Kinase (38-174) U/L Troponin I High Sens (<3.5-35.0) ng/L Total Protein 6.4 L (6.5-8.0) g/dL Albumin 3.2 L (3.5-5.0) g/dL Lipase (8-78) U/L Urine Color Urine Appearance Urine pH (5.0-9.0) Ur Specific [place] (1.005-1.025) Urine Protein (Neg-Trace) mg/dL Urine Glucose (UA) (Negative) mg/dL Urine Ketones (Negative) mg/dL Urine Blood (Negative) Urine Nitrite (Negative) Ur Leukocyte Esterase (Negative) Urine RBC (0-2) /HPF Urine WBC (0-5) /HPF Ur Squamous Epith Cells (0-2) /HPF Urine Bacteria (None Seen) Hyaline Casts (0-2) /LPF Influenza Type A (PCR) (Negative) Influenza Type B (PCR) (Negative) RSV RNA Qual (PCR) (Negative) SARS-CoV-2 RNA (RT-PCR) (Negative) S. pyogenes GrpA STEPHEN (Negative) 12/18/24 12/19/24 12/19/24 Range/Units 19:02 07:32 12:11 WBC (4.8-10.8) X10*3/uL RBC (4.60-5.80) X10*6/uL Hgb (14.0-18.0) g/dl Hct (42.0-52.0) % MCV (80.0-98.0) fL MCH (27.0-33.0) pg MCHC (31.0-36.0) g/dl RDW (11.0-16.0) % Plt Count (160-400) X10*3/uL MPV (9.4-12.4) fL Immature Gran % (Auto) (0.0-0.4) % Neut % (Auto) (45-73) % Lymph % (Auto) (20-40) % [place] % (Auto) (2-11) % Eos % (Auto) (0-4) % Baso % (Auto) (0-2) % Lymph # (Auto) (1.2-4.9) X10*3/uL [place] # (Auto) (0.1-1.2) X10*3/uL Eos # (Auto) (0.0-0.4) X10*3/uL Baso # (Auto) (0.0-0.2) X10*3/uL Abs Immat Gran (auto) (0.00-0.03) X10*3/uL Absolute Neuts (auto) (2.0-8.3) x10*3/uL Absolute Nucleated RBC (0.0-0.012) X10*3/uL Nucleated RBC % (auto) (0.0-0.2) /100WBC Smear Tech's Comments Sodium (135-145) mmol/L Potassium (3.3-5.1) mmol/L Chloride (96-108) mmol/L Carbon Dioxide (22-29) mmol/L Anion Gap (12-20) BUN (9-16) mg/dL Creatinine (0.5-1.4) mg/dL Estim Creat Clear Calc Estimated GFR POC Glucose 153 H 140 H 106 (60-115) mg/dL Random Glucose (60-115) mg/dL Calcium (8.4-10.2) mg/dL Magnesium (1.6-2.6) mg/dL Total Bilirubin (0.0-1.0) mg/dL Direct Bilirubin (0.0-0.5) mg/dL AST (5-37) U/L ALT (0-40) U/L Alkaline Phosphatase (39-117) U/L Total Creatine Kinase (38-174) U/L Troponin I High Sens (<3.5-35.0) ng/L Total Protein (6.5-8.0) g/dL Albumin (3.5-5.0) g/dL Lipase (8-78) U/L Urine Color Urine Appearance Urine pH (5.0-9.0) Ur Specific [place] (1.005-1.025) Urine Protein (Neg-Trace) mg/dL Urine Glucose (UA) (Negative) mg/dL Urine Ketones (Negative) mg/dL Urine Blood (Negative) Urine Nitrite (Negative) Ur Leukocyte Esterase (Negative) Urine RBC (0-2) /HPF Urine WBC (0-5) /HPF Ur Squamous Epith Cells (0-2) /HPF Urine Bacteria (None Seen) Hyaline Casts (0-2) /LPF Influenza Type A (PCR) (Negative) Influenza Type B (PCR) (Negative) RSV RNA Qual (PCR) (Negative) SARS-CoV-2 RNA (RT-PCR) (Negative) S. pyogenes GrpA STEPHEN (Negative) 12/19/24 12/19/24 12/20/24 Range/Units 16:30 21:14 07:48 WBC (4.8-10.8) X10*3/uL RBC (4.60-5.80) X10*6/uL Hgb (14.0-18.0) g/dl Hct (42.0-52.0) % MCV (80.0-98.0) fL MCH (27.0-33.0) pg MCHC (31.0-36.0) g/dl RDW (11.0-16.0) % Plt Count (160-400) X10*3/uL MPV (9.4-12.4) fL Immature Gran % (Auto) (0.0-0.4) % Neut % (Auto) (45-73) % Lymph % (Auto) (20-40) % [place] % (Auto) (2-11) % Eos % (Auto) (0-4) % Baso % (Auto) (0-2) % Lymph # (Auto) (1.2-4.9) X10*3/uL [place] # (Auto) (0.1-1.2) X10*3/uL Eos # (Auto) (0.0-0.4) X10*3/uL Baso # (Auto) (0.0-0.2) X10*3/uL Abs Immat Gran (auto) (0.00-0.03) X10*3/uL Absolute Neuts (auto) (2.0-8.3) x10*3/uL Absolute Nucleated RBC (0.0-0.012) X10*3/uL Nucleated RBC % (auto) (0.0-0.2) /100WBC Smear Tech's Comments Sodium (135-145) mmol/L Potassium (3.3-5.1) mmol/L Chloride (96-108) mmol/L Carbon Dioxide (22-29) mmol/L Anion Gap (12-20) BUN (9-16) mg/dL Creatinine (0.5-1.4) mg/dL Estim Creat Clear Calc Estimated GFR POC Glucose 103 117 H 144 H (60-115) mg/dL Random Glucose (60-115) mg/dL Calcium (8.4-10.2) mg/dL Magnesium (1.6-2.6) mg/dL Total Bilirubin (0.0-1.0) mg/dL Direct Bilirubin (0.0-0.5) mg/dL AST (5-37) U/L ALT (0-40) U/L Alkaline Phosphatase (39-117) U/L Total Creatine Kinase (38-174) U/L Troponin I High Sens (<3.5-35.0) ng/L Total Protein (6.5-8.0) g/dL Albumin (3.5-5.0) g/dL Lipase (8-78) U/L Urine Color Urine Appearance Urine pH (5.0-9.0) Ur Specific [place] (1.005-1.025) Urine Protein (Neg-Trace) mg/dL Urine Glucose (UA) (Negative) mg/dL Urine Ketones (Negative) mg/dL Urine Blood (Negative) Urine Nitrite (Negative) Ur Leukocyte Esterase (Negative) Urine RBC (0-2) /HPF Urine WBC (0-5) /HPF Ur Squamous Epith Cells (0-2) /HPF Urine Bacteria (None Seen) Hyaline Casts (0-2) /LPF Influenza Type A (PCR) (Negative) Influenza Type B (PCR) (Negative) RSV RNA Qual (PCR) (Negative) SARS-CoV-2 RNA (RT-PCR) (Negative) S. pyogenes GrpA STEPHEN (Negative) Independent Interpretation I performed an independent interpretation of an: EKG Interpretation: EKG normal sinus rhythm at a ventricular rate of 79 beats per minute, MD interval 120, QT QTC 380/435, no STEMI. Radiology Impression Discussion of test interpretation with radiology: I have reviewed the radiologist's reading. Radiologist Impression: Findings: No consolidation or effusion. Normal size heart. No acute fracture. IMPRESSION: 1. No acute findings. This document has been electronically signed by: Suellen Barroso MD on 12/16/2024 09:36:40 Dictated By: Suellen Barroso MD Signed By: <Electronically signed by Suellen Barroso MD in OV> Chronic Conditions Patient?s care impacted by: Diabetes Social Determinants Patient?s care significantly limited by Social Determinants of Health including: Inadequate housing Discharge Plan Discharge Clinical Impression: Generalized weakness Nausea & vomiting Qualifiers: Vomiting type: unspecified Qualified Code(s): R11.2 - Nausea with vomiting, unspecified Patient Disposition: Xfer Inpatient Rehab Fac Transfer Details: TO: [facility] ACCEPTING Prescriptions: No Action metformin 500 mg tablet 1,000 mg PO BID atorvastatin 20 mg tablet 20 mg PO BEDTIME calcium carbonate-vitamin D3 600 mg-10 mcg (400 unit) tablet 1 tab PO DAILY selenium sulfide 2.5 % lotion 1 appl topical DAILY Biktarvy 50-200-25 mg tablet 1 tab PO DAILY amoxicillin-pot clavulanate 875-125 mg Tablet 1 tab PO Q12H Qty: 13 0RF doxycycline monohydrate 100 mg Capsule 100 mg PO Q12H Qty: 13 0RF diclofenac sodium [Voltaren Arthritis Pain] 1 % gel 4 g topical QID PRN (Reason: pain) Qty: 100 0RF Rx Instructions: apply to single knee, ankle, foot; for foot includes sole/toes/top of foot Referrals: Ravi Gonzalez [place] [Outside] Aminata Jung DO [Primary Care Provider, Internal Medicine] Interventions: ED Discharge Assessment Last Done: 12/20/24 08:04 Discharge Date/Time: 12/20/24 08:06 Print Language: Bruneian
--- NOTE | 2024-12-16 08:20 | ECG_ITS ---
Test Reason : N/V Blood Pressure : */* mmHG Vent. Rate : 79 BPM Atrial Rate : 79 BPM P-R Int : 120 ms QRS Dur : 88 ms QT Int : 380 ms P-R-T Axes : 48 -33 35 degrees QTcB Int : 435 ms Normal sinus rhythm Possible Left atrial enlargement Left axis deviation Minimal voltage criteria for LVH, may be normal variant ( [place] product ) Abnormal ECG When compared with ECG of 28-Nov-2024 21:54, Nonspecific T wave abnormality no longer evident in Lateral leads Referred By: Danielle Matos Electronically Signed By: Tom Sanders
[2024-12-16 08:42] LABS: Hematocrit 40.0 % (42.0-52.0); Hemoglobin 14.0 g/dl (14.0-18.0); Imm Gran Abs Auto 0.32 X10*3/uL (0.00-0.03); Imm Gran Pct Auto 2.2 % (0.0-0.4); Lymphocytes Absolute Auto 1.6 X10*3/uL (1.2-4.9); MANUAL DIFF FLAG SCAN; Mean Corpuscular HGB Conc 35.0 g/dl (31.0-36.0); Mean Corpuscular Hemoglobin 31.9 pg (27.0-33.0); Mean Corpuscular Volume 91.1 fL (80.0-98.0); NRBC Abs Auto 0.000 X10*3/uL (0.0-0.012); NRBC Pct Auto 0.0 /100WBC (0.0-0.2); Platelet Count 300 X10*3/uL (160-400); Red Blood Count 4.39 X10*6/uL (4.60-5.80); SCAN SMEAR FLAG 1; White Blood Count 14.8 X10*3/uL (4.8-10.8)
--- NOTE | 2024-12-16 09:03 | PC.NURSE ---
pt comes to ED via EMS with reports of N/V and 10/10 abd pain x2 days. Pt first said he was seen here yesterday for the same symptoms. HE then explained that he was admitted here for cellulitis of his buttocks and DCed yesterday feeling OK. He took his abx as prescribed and began vomiting last night. Vomited 200ml of dark vomit in ED> IV established, zofran, tylenol IV given and fluids infusing.
[2024-12-16 09:04] LABS: Troponin-I High Sensitivity 20.7 ng/L (<3.5-35.0)
[2024-12-16 09:05] LABS: Alanine Aminotransferase 66 U/L (0-40); Albumin Level 3.6 g/dL (3.5-5.0); Alkaline Phosphatase 85 U/L (39-117); Anion Gap 14 (12-20); Aspartate Amino Transferase 49 U/L (5-37); Blood Urea Nitrogen 19 mg/dL (9-16); Calcium 9.9 mg/dL (8.4-10.2); Carbon Dioxide 24 mmol/L (22-29); Chloride 105 mmol/L (96-108); Creatinine Clr Calc Pharmacy 58.9; Estimated Glomerular Filt Rate 53; Lipase 13 U/L (8-78); Magnesium 1.6 mg/dL (1.6-2.6); Potassium 3.2 mmol/L (3.3-5.1); Sodium 140 mmol/L (135-145); Total Protein 7.4 g/dL (6.5-8.0)
[2024-12-16 09:43] LABS: Resp Syncy Virus RNA Qual PCR NEGATIVE (Negative); SARS COV2 PCR INHOUSE NEGATIVE (Negative)
[2024-12-16 10:24] VITALS: BP 129/56; PULSE 82; RESP 18; O2SAT 97
[2024-12-16 10:57] LABS: Troponin-I High Sensitivity 25.0 ng/L (<3.5-35.0)
[2024-12-16 13:45] LABS: Appearance Urine Clear; Glucose Urine UA 100 mg/dL (Negative); PH 6.0 (5.0-9.0); Specific Gravity - Urine 1.015 (1.005-1.025); UMIC TRIGGER UACC YES
[2024-12-16 13:52] LABS: IDNOW Serial# 55D5AD1C; Strep A Nucleic Acid Negative (Negative)
[2024-12-16 13:58] VITALS: BP 131/77; PULSE 88; RESP 18; TEMP 37; O2SAT 97
--- NOTE | 2024-12-16 14:25 | PC.NURSE ---
pt has not walked since being in the department. encoraged to walk but pt states he is took weak and refuses. PO challenge - able to keep down apple juice, crackers and water
--- NOTE | 2024-12-16 15:21 | MHC.EDTECH ---
I walked patient back to the stretcher and I asked him if he can put on a mask due to him coughing without covering his mouth and he said NO
--- NOTE | 2024-12-16 17:40 | PC.NURSE ---
pt took walk around department with standby assist. states he feels very weak - gait mostly steady. assisted back to bed. pt sleeping at this time. waiting for PT consult. pharmacy contacted for med-rec
--- NOTE | 2024-12-16 18:17 | PHA.MEDREC ---
Pharmacy Consult ? Medication Reconciliation Pharmacy has completed the medication reconciliation. MED REC COMPLETE USING CLAIMS HISTORY AND DISCHARGE FROM 12/15/24 AT THIS FACILITY.
--- NOTE | 2024-12-16 18:36 | MHC.EDTECH ---
I didn't want to wake patient up for vitals. I gave patient his dinner and he tried a little bit and vomited. 1 assist to bathroom
[2024-12-16 18:47] VITALS: BP 197/82; PULSE 73; RESP 18; TEMP 36.8; O2SAT 94
[2024-12-16] MEDS: Bictegrav/Emtricit/Tenofov Ala TABLET 1 TAB PO (19:49)
[2024-12-16 22:14] VITALS: BP 174/76; PULSE 75; RESP 14; TEMP 36.7; O2SAT 98
[2024-12-17] VITALS (8 sets, daily range): BP systolic 151–198; BP diastolic 52–74; PULSE 67–85; RESP 12–22; TEMP 36.6–36.8; O2SAT 96–98
[2024-12-17 07:18] LABS: Glucose, Whole Blood 144 mg/dL (60-115)
[2024-12-17] MEDS: Calcium + Vitamin D 250 MG TABLET 500 MG PO (08:35)
[2024-12-17] MEDS: Bictegrav/Emtricit/Tenofov Ala TABLET 1 TAB PO (09:01)
[2024-12-17 12:57] LABS: Glucose, Whole Blood 128 mg/dL (60-115)
--- NOTE | 2024-12-17 13:27 | MHC.CM.PN ---
CM RECEIVED ED CM CONSULT AND MET WITH PT AT BEDSIDE IN ED. PT IS HOMELESS AND SLEEPS ON STEPS OF A LOCAL HOME. PT IS FUNCTIONALLY INDEPENDENT AND RIDES A 3 WHEEL BIKE FOR TRANSPORTATION. DECLINES COMPLETING A HCP AND PCP DR. PIÑA AT [facility]. DP: PT WILL BE SEEN BY [facility] IN AM, PT IS UNSURE HE WILL BE AGREEABLE TO REHAB IF RECOMMENDED OR A SENIOR CARE. CM WILL CONTINUE TO FOLLOW FOR A PLAN.
--- NOTE | 2024-12-17 13:43 | PC.NURSE ---
Pt vomiting again, large amount. Danielle CAST aware, will order repeat labs
[2024-12-17 13:49] LABS: MANUAL DIFF FLAG NO
[2024-12-17 13:50] LABS: Hematocrit 38.1 % (42.0-52.0); Hemoglobin 13.2 g/dl (14.0-18.0); Imm Gran Abs Auto 0.26 X10*3/uL (0.00-0.03); Imm Gran Pct Auto 2.3 % (0.0-0.4); Lymphocytes Absolute Auto 1.8 X10*3/uL (1.2-4.9); Mean Corpuscular HGB Conc 34.6 g/dl (31.0-36.0); Mean Corpuscular Hemoglobin 32.2 pg (27.0-33.0); Mean Corpuscular Volume 92.9 fL (80.0-98.0); NRBC Abs Auto 0.000 X10*3/uL (0.0-0.012); NRBC Pct Auto 0.0 /100WBC (0.0-0.2); Platelet Count 276 X10*3/uL (160-400); Red Blood Count 4.10 X10*6/uL (4.60-5.80); White Blood Count 11.4 X10*3/uL (4.8-10.8)
[2024-12-17] MEDS: Nicotine 21 MG PATCH.TD24 TRANSDERMA (14:00)
[2024-12-17 14:03] LABS: Alanine Aminotransferase 54 U/L (0-40); Albumin Level 3.2 g/dL (3.5-5.0); Alkaline Phosphatase 70 U/L (39-117); Anion Gap 12 (12-20); Aspartate Amino Transferase 37 U/L (5-37); Blood Urea Nitrogen 15 mg/dL (9-16); Calcium 9.2 mg/dL (8.4-10.2); Carbon Dioxide 27 mmol/L (22-29); Chloride 106 mmol/L (96-108); Creatinine Clr Calc Pharmacy 66.6; Estimated Glomerular Filt Rate > 60; Potassium 3.5 mmol/L (3.3-5.1); Sodium 141 mmol/L (135-145); Total Protein 6.4 g/dL (6.5-8.0)
--- NOTE | 2024-12-17 17:05 | PC.NURSE ---
Labs WNL, however pt noted with another vomiting episode. Danielle CAST updated and to reassess with medication interventions to be ordered
[2024-12-17 18:45] LABS: Glucose, Whole Blood 165 mg/dL (60-115)
--- NOTE | 2024-12-17 19:56 | PC.NURSE ---
pt ambulated to the bathroom with 1 assist, gait unsteady. assist back to bed.
--- NOTE | 2024-12-17 23:57 | PC.NURSE ---
Alert/oriented, denies pain at this time. Hypertensive, denies headache, vision changes. Patient has recent history of left buttock cellulitis. He still has one area to the left of testicles that is semi firm and swollen but according to patient it is almost completely gone. He has scarring from what he states was poison tien spread over his buttocks. He complains of not being able to eat or drink for a week because he keeps on throwing up and is very weak. He can ambulate and was able to keep his antibiotics down. He did have some dry heaving at 2230. He has been drinking apple juice but nothing solid. No issues voiding in bedside urinal. All safety measures in place.
[2024-12-18] VITALS (7 sets, daily range): BP systolic 164–192; BP diastolic 60–78; PULSE 69–77; RESP 18–20; TEMP 36.5–37.3; O2SAT 97–100
[2024-12-18 07:45] LABS: Glucose, Whole Blood 152 mg/dL (60-115)
--- NOTE | 2024-12-18 08:12 | PC.NURSE ---
Patient is a 59-year-old male with past medical history of diabetes insulin-dependent, nicotine dependence, HIV infection on HAART therapy, hyperlipidemia, vitamin-D deficiency, allergic rhinitis, GERD, chronic pain presents to the emergency room with persistent weakness, nausea and vomiting. Patient follows with outpatient clinic in [place] and has been taking his meds as ordered and is compliant with his HIV therapy. Patient lives on the streets and does not use shelters. Patient alert and oriented. Respirations even and non-labored. Abdomen soft, distended with positive bowel sounds. c/o occas abdominal pain. Positive pedal pulses with no edema.
[2024-12-18] MEDS: Calcium + Vitamin D 250 MG TABLET 500 MG PO (09:12)
[2024-12-18] MEDS: Bictegrav/Emtricit/Tenofov Ala TABLET 1 TAB PO (09:32)
--- NOTE | 2024-12-18 13:41 | MHC.CM.ED ---
Patient remains in ER. Physical therapy eval was attempted x2. Patient did not participate in PT eval. PT eval will be reattempted tomorrow. If patient does not participate in PT eval, patient will have to be d/c'd to the street. Continue to monitor for d/c needs.
[2024-12-18 19:06] LABS: Glucose, Whole Blood 153 mg/dL (60-115)
--- NOTE | 2024-12-18 20:33 | PC.NURSE ---
Addendum entered by Christine Marshall RN 12/18/24 22:54: On reassessment, patient denied further nausea and agreed to take scheduled 21:00 medications. Medications administered with crackers offered to prevent nausea as provider concerned nausea is r/t abx. Addendum entered by Christine Marshall RN 12/18/24 22:17: Provider orders for zofran x1, given as ordered (see MAR). Effectiveness/scheduled HS med administration pending. Patient denies other complaints at this time. Addendum entered by Christine Marshall RN 12/18/24 21:54: Repeat vitals done per Provider, remains hypertensive 180/78, HR 69, spo2 100% on room air. Provider notified of vitals and pt c/o nausea without vomiting. No distress noted. Awaiting orders at this time. Addendum entered by Christine Marshall RN 12/18/24 21:19: 21:12: Provider advised repeat this patient's vitals in 20 minutes and will review. On rounding since mortgage loan underwriter's initial page, this patient was observed x2 resting in bed with eyes closed now positioned on left side. Breathing was observed even and unlabored without distress, RR 16. Original Note: Assumed care of this patient at 19:00. 20:00 hour vitals were obtained showing patient hypertensive 192/70 on manual (correlated on cuff, 191/84 on cuff,). Patient was resistive to this mortgage loan underwriter's assessment, only allowing limited. DP pulses present, +cms. -edema. Denies chest pain or headache though did state I feel woozy , though this pt declined to elaborate and stated to mortgage loan underwriter Shut off those lights when attempted to further assess pt. Emesis bag provided. Bed alarm ensured on and safety measures and call hawk in place. Covering ED provider Cris East was notified. Awaiting orders at this time.
[2024-12-19 05:35] VITALS: BP 167/62; PULSE 74; RESP 17; TEMP 36.7; O2SAT 97
[2024-12-19 07:36] LABS: Glucose, Whole Blood 140 mg/dL (60-115)
[2024-12-19] MEDS: Calcium + Vitamin D 250 MG TABLET 500 MG PO (08:43)
[2024-12-19 09:05] VITALS: BP 167/62; PULSE 74; O2SAT 97
[2024-12-19] MEDS: Bictegrav/Emtricit/Tenofov Ala TABLET 1 TAB PO (09:43)
--- NOTE | 2024-12-19 09:57 | PC.NURSE ---
Pt ambulated in hallway with walker for PT eval; slow, steady gait;pt complains of ongoing nausea; tolerated PO meds and breakd=fast this morning without issue; vss; call hawk within reach; awaiting dispo
--- NOTE | 2024-12-19 10:14 | MHC.CM.ED ---
Addendum entered by Rebecca Jesus 12/19/24 14:00: [facility] [place] is able to offer a bed. Patient accepts. MDS and Level completed. Sent to [facility] and [facility]. Original Note: Patient remains in ER overflow. Physical therapy eval completed. Short term rehab is recommended. Patient only agreeable to STR in [place]. Referral made to [place] [facility]. [facility] does not have a bed. [facility] does not accept [facility]. [facility] and [facility] reviewing. Continue to monitor for d/c needs.
--- NOTE | 2024-12-19 12:09 | PC.NURSE ---
patient actively vomiting - one time dose of zofran ordered/administered. effectiveness pending.
[2024-12-19 12:15] LABS: Glucose, Whole Blood 106 mg/dL (60-115)
[2024-12-19 15:34] VITALS: PULSE 92; RESP 20; TEMP 36.9; O2SAT 97
[2024-12-19 15:40] VITALS: BP 185/71
--- NOTE | 2024-12-19 15:52 | MHC.CM.ED ---
Received notification from Marielle from [facility] that [facility] leveling is complete. Spoke with Suellen at [facility]. Halima prince booked for 12/20 at 8am. Med [facility] with chart. Patient, Vale RN and Radhika GONZALES aware. Continue to monitor for d/c needs.
[2024-12-19 16:36] LABS: Glucose, Whole Blood 103 mg/dL (60-115)
--- NOTE | 2024-12-19 17:57 | PC.NURSE ---
Pt medicated per orders for persistent nausea
[2024-12-19 21:18] LABS: Glucose, Whole Blood 117 mg/dL (60-115)
[2024-12-19 22:00] VITALS: BP 122/56; PULSE 69; RESP 14; TEMP 36.6; O2SAT 95
--- NOTE | 2024-12-20 03:57 | PC.NURSE ---
Patient A&Ox3, denies pain , no c/o nausea at this time. Patient sleeping overnight Safety measures in place , bed alarm on ,call hawk within reach.
[2024-12-20 05:42] VITALS: BP 163/79; PULSE 69; RESP 18; TEMP -13.8; TEMP 7.1; O2SAT 99
[2024-12-20 06:19] VITALS: BP 163/79; PULSE 69; RESP 18; TEMP 36.2; O2SAT 99
[2024-12-20 07:53] LABS: Glucose, Whole Blood 144 mg/dL (60-115)
[2024-12-20] MEDS: Calcium + Vitamin D 250 MG TABLET 500 MG PO (07:57)
[2024-12-20 08:04] VITALS: BP 135/75; PULSE 75; RESP 18; TEMP 36.8
== END 2024-12-20 08:06 ==
PROVIDERS: Physician Assistant Medical; Emergency Provider Emergency Medicine; PCP Family Medicine
DX: R11.2 Nausea with vomiting, unspecified (principal); E87.6 Hypokalemia; D72.829 Elevated white blood cell count, unspecified; R52 Pain, unspecified; B20 Human immunodeficiency virus [HIV] disease; E11.9 Type 2 diabetes mellitus without complications; E78.5 Hyperlipidemia, unspecified; I10 Essential (primary) hypertension; Z79.899 Other long term (current) drug therapy; Z59.10 Inadequate housing, unspecified
CPT/HCPCS: 36415; 71045; 80048; 80053; 80076; 81001; 82550; 82947; 83690; 83735; 84484; 85025; 87637; 87651; 93005; 96361; 96365; 96375; 96376; 97161; 99285; J0131; J1200; J2405; J2765

== ENCOUNTER → 2024-12-16 08:20 | Outpatient (BNV) | payer MEDICAID, SELFPAY | PROVIDERS: Emergency Provider Emergency Medicine; PCP Family Medicine; Visit Provider Radiology Diagnostic Radiology | DX: R07.9 Chest pain, unspecified (principal) | CPT/HCPCS: 71045 ==

== ENCOUNTER → 2024-12-16 08:20 | Outpatient (BNV) | payer MEDICAID, SELFPAY | PROVIDERS: Emergency Provider Emergency Medicine; PCP Family Medicine; Visit Provider Internal Medicine Cardiovascular Disease | DX: I51.7 Cardiomegaly (principal) | CPT/HCPCS: 93010 ==

== ENCOUNTER 2025-02-06 10:29 | Outpatient (REF) | payer MEDICAID, SELFPAY ==
[2025-02-06 13:20] LABS: MANUAL DIFF FLAG NO
[2025-02-06 13:27] LABS: Hematocrit 40.3 % (42.0-52.0); Hemoglobin 13.5 g/dl (14.0-18.0); Imm Gran Abs Auto 0.03 X10*3/uL (0.00-0.03); Imm Gran Pct Auto 0.4 % (0.0-0.4); Lymphocytes Absolute Auto 2.0 X10*3/uL (1.2-4.9); Mean Corpuscular HGB Conc 33.5 g/dl (31.0-36.0); Mean Corpuscular Hemoglobin 33.1 pg (27.0-33.0); Mean Corpuscular Volume 98.8 fL (80.0-98.0); NRBC Abs Auto 0.000 X10*3/uL (0.0-0.012); NRBC Pct Auto 0.0 /100WBC (0.0-0.2); Platelet Count 261 X10*3/uL (160-400); Red Blood Count 4.08 X10*6/uL (4.60-5.80); White Blood Count 8.1 X10*3/uL (4.8-10.8)
[2025-02-06 13:28] LABS: Alanine Aminotransferase 18 U/L (0-40); Albumin Level 4.3 g/dL (3.5-5.0); Alkaline Phosphatase 63 U/L (39-117); Anion Gap 10 (12-20); Aspartate Amino Transferase 24 U/L (5-37); Blood Urea Nitrogen 19 mg/dL (9-16); Calcium 9.1 mg/dL (8.4-10.2); Carbon Dioxide 26 mmol/L (22-29); Chloride 109 mmol/L (96-108); Estimated Glomerular Filt Rate > 60; Potassium 3.7 mmol/L (3.3-5.1); Sodium 141 mmol/L (135-145); Total Protein 7.3 g/dL (6.5-8.0)
[2025-02-07 16:38] LABS: HIV RNA PCR Qn Copies 260 copies/mL (NOT DETECTED); HIV RNA PCR Qn Log Copies 2.41 (NOT DETECTED)
[2025-02-09 17:28] LABS: Absolute CD3 Count 1527 cells/uL (840-3060); Absolute CD8 Count 474 cells/uL (180-1170); Percent CD3 Cells 69 % (57-85); Percent CD8 Cells 21 % (12-42)
== END 2025-02-06 10:30 | disposition home or self-care (01) ==
LOC: HO.HHCL 10:29
PROVIDERS: PCP Family Medicine; Visit Provider Internal Medicine
DX: B20 Human immunodeficiency virus [HIV] disease (principal)
CPT/HCPCS: 36415; 80053; 85025; 86359; 86360; 87536

== ENCOUNTER 2025-04-06 19:21 | Emergency (ER) | payer MEDICAID, SELFPAY ==
--- OUTSIDE RECORDS SUMMARY | 2020-08-29 08:31 | XMS_ITS | Continuity of Care Document ---
Author Organization [facility] Address [address] [place] [phone] Phone Care Team Providers Care Utility Specialist Name Role Phone Nurse RN, Visit Unavailable [...] Diagnoses Date Provider Providers Copied on [facility]counter [facility], [address] [place] [address], [id number], tel:[phone] [facility] Covid vaccine (chief complaint) No Information Nurse Visit. . Referring Provider: Quinton Tran, [address] [place] [address], [id number]. tel:[phone] [facility], [address] [place] [address], [id number], tel:[phone] [facility] covid vaccine (chief complaint) No Information Nurse Visit. . Referring Provider: Quinton Tran, [address] [place], [place] [address] [address] [place] [address], [id number]. tel:[phone] Family History Family Member Type Diagnosis Age [...] alliance party ID Authoriza tion(s) [employer] [id number] CI [id number] [employer] [id number] CI [id number] [employer] [id number] CI [id number] Social History Type Description Quantity Date Captured [...]
[2025-04-06 19:38] VITALS: BP 109/53; PULSE 78; RESP 16; TEMP 36.8; O2SAT 96
[2025-04-06 19:40] VITALS: BP 109/53; BP 124/72; PULSE 78; PULSE 90; RESP 16; TEMP 36.8; O2SAT 96; BMI 31.9
[2025-04-06 20:29] LABS: MANUAL DIFF FLAG NO
[2025-04-06 20:31] LABS: Hematocrit 41.2 % (42.0-52.0); Hemoglobin 13.7 g/dl (14.0-18.0); Imm Gran Abs Auto 0.06 X10*3/uL (0.00-0.03); Imm Gran Pct Auto 0.6 % (0.0-0.4); Lymphocytes Absolute Auto 1.1 X10*3/uL (1.2-4.9); Mean Corpuscular HGB Conc 33.3 g/dl (31.0-36.0); Mean Corpuscular Hemoglobin 32.5 pg (27.0-33.0); Mean Corpuscular Volume 97.6 fL (80.0-98.0); NRBC Abs Auto 0.000 X10*3/uL (0.0-0.012); NRBC Pct Auto 0.0 /100WBC (0.0-0.2); Platelet Count 242 X10*3/uL (160-400); Red Blood Count 4.22 X10*6/uL (4.60-5.80); White Blood Count 10.8 X10*3/uL (4.8-10.8)
[2025-04-06 20:47] LABS: Alanine Aminotransferase 16 U/L (0-40); Albumin Level 4.2 g/dL (3.5-5.0); Alkaline Phosphatase 60 U/L (39-117); Anion Gap 12 (12-20); Aspartate Amino Transferase 26 U/L (5-37); Blood Urea Nitrogen 20 mg/dL (9-16); Calcium 9.6 mg/dL (8.4-10.2); Carbon Dioxide 26 mmol/L (22-29); Chloride 107 mmol/L (96-108); Creatinine Clr Calc Pharmacy 60.0; Estimated Glomerular Filt Rate 54; Magnesium 1.7 mg/dL (1.6-2.6); Potassium 4.0 mmol/L (3.3-5.1); Sodium 141 mmol/L (135-145); Total Protein 7.1 g/dL (6.5-8.0)
--- NOTE | 2025-04-06 21:41 | ED.NAVMDI ---
HPI - Nausea/Vomiting/Diarrhea General Chief complaint: Nausea/Vomiting/Diarrhea Stated complaint: N/V x 2hours, abd pain,weakness Time Seen by Provider: 04/06/25 21:40 Source: patient Mode of arrival: ambulatory Limitations: no limitations History of Present Illness ED Provider: Renee Romero PA-C HPI Narrative: 59 year old M with hx of arthritis presenting to the ED today for evaluation of generalized muscle aches with an onset with lightheadedness 2 hours prior to arrival. Past medical history significant for hypertension, hyperlipidemia, HIV, homelessness and DM. WHile riding his three nick earlier today, he felt acute unwell lightheaded and nausea then vomited 2x, nonbilious and nonbloody. Parked it and called an ambulance. Patient states he did not really eat much today and thinks it probably is because he was out all day and didn't think to eat or drink much and attributes his generalized body soreness to his typical joint arthritis that acts up every now and then especially when it gets cold out. The pain he feels is descibed as no different from my usual arthritis pain?. He has not continued to vomit or feel nauseous just had his bone pain. No falls or trauma. He has voided 2x today. He reports no diarrhea no fevers and no chills no coughing or shortness of breath noted or nasal congestion or sore throat. He has no headaches and denies feeling dizzy. No symptoms right pain or rashes. Patient is reporting that he is quite compliant with all of his medications he takes it seriously and does not skip any of his dosing including his HIV suppressant medication. He is requesting food and drink. Related Data Home Medications ?Medication ?Instructions ?Recorded ?Confirmed atorvastatin 20 mg tablet 20 mg PO BEDTIME 05/15/21 12/16/24 metformin 500 mg tablet 1,000 mg PO BID 05/15/21 12/16/24 bictegravir 50 mg-emtricitabine 1 tab PO DAILY 12/12/24 12/16/24 200 mg-tenofovir alafenam 25 mg tablet (Biktarvy) calcium 600 mg (as 1 tab PO DAILY 12/12/24 12/16/24 carbonate)-vitamin D3 10 mcg (400 unit) tablet selenium sulfide 2.5 % lotion 1 appl topical DAILY 12/12/24 12/16/24 Previous Rx's ?Medication ?Instructions ?Recorded diclofenac sodium 1 % topical gel 4 g topical QID PRN pain #100 grams 09/21/24 (Voltaren Arthritis Pain) amoxicillin 875 mg-potassium 1 tab PO Q12H #13 tabs 12/15/24 clavulanate 125 mg tablet doxycycline monohydrate 100 mg 100 mg PO Q12H #13 caps 12/15/24 capsule ondansetron 4 mg disintegrating 4 mg PO Q8H PRN nausea and 04/09/25 tablet vomiting #6 tabs omeprazole 20 mg capsule,delayed 20 mg PO DAILY 14 days #14 caps 04/11/25 release ondansetron 4 mg disintegrating 4 mg PO Q8H PRN nausea and 04/11/25 tablet vomiting #14 tabs Allergies Allergy/AdvReac Type Severity Reaction Status Date / Time No Known Allergies Allergy Verified 04/11/25 12:54 Review of Systems Review of Systems: Yes all other systems are reviewed and are negative PMFSH Past Medical History Attestation statement: The following information was validated with the patient. Source: old records reviewed and nursing notes reviewed Medical History Hypertension Hyperlipidemia HIV (human immunodeficiency virus infection) Nicotine dependence, cigarettes, uncomplicated Homeless Diabetes Surgical History History of laparoscopic cholecystectomy (~2020) History of incisional hernia repair (~2014) History of umbilical hernia repair (~2008) History of appendectomy Social History Social History Household Members: Other Housing: Homeless Housing Other:: patient states homeless Do you presently have visiting nurse or other home services: No Unable to assess alcohol history related to: Refusing to respond Alcohol intake: never Patient Tobacco Use Status: Current everyday Tobacco user Tobacco use type: Cigarette Cigarette Packs Per Day: 1 Cigarettes Per Day: 20.0 Years Smoked: 30 Smoked in Last 30 Days: No Second Hand Smoke Exposure: No Use of substances other than those prescribed or required for medical reasons: Yes Substance Use Type: Marijuana Substance Use Frequency: Daily Advance Directives: No Advance Directives Information Provided: No Do you have a plan to hurt others: No Plan service: No Current occupational status: unemployed Physical Exam Exam: Exam: General: Appears in no acute distress, appears well nourished body habitus is obese, appears stated age. No septic or ill-appearing. Vitals reviewed normal, PMH/Social and Surgical hx reviewed including allergies and current medications. - reviewed for prior visits here. Head: Normocephalic, no obvious trauma or skin lesions noted. Eyes: EOMI, PERRLA ENMT: dry oral mucosa, no thrush Neck: trachea midline, uvula is midline no trismus Cardiovascular: peripheral perfusion normal, Regular heart rate, regular rate Respiratory: no respiratory distress, lungs clear Abdomen: nondistended, nontender Extremities: warm and moving without difficulty cap refill < 3 secs, distal pulses 2+ Psych: Cooperative Neuro: Alert and oriented. Vital Signs: Vital Signs: Last Vital Signs Temp 0 F L 04/07/25 07:44 Pulse 81 04/07/25 07:44 Resp 16 04/07/25 07:44 BP 145/66 H 04/07/25 07:44 Pulse Ox 98 04/07/25 07:44 O2 Del Method Room Air 04/07/25 07:44 BMI result Body Mass Index 31.9 Medications Administered Discontinued Medications Generic Name Dose Route Start Last Admin Trade Name Freq PRN Reason Stop Dose Admin Acetaminophen 975 mg 04/06/25 22:15 04/06/25 22:29 Acetaminophen 325 Mg Tablet PO 04/06/25 22:16 975 mg ONCE ONE Administration Cyclobenzaprine HCl 5 mg 04/06/25 22:15 04/06/25 22:28 Cyclobenzaprine Hcl 5 Mg Tablet PO 04/06/25 22:16 5 mg ONCE ONE Administration Sodium Chloride 1,000 mls @ 999 mls/hr 04/06/25 22:33 04/07/25 00:31 Ns IV 04/06/25 23:33 Infused .Q1H1M ONE Infusion Ketorolac Tromethamine 15 mg 04/06/25 22:15 04/06/25 22:29 Ketorolac Tromethamine 15 Mg/Ml Vial IVPUSH 04/06/25 22:16 15 mg ONCE ONE Administration Medical Decision Making Medical Decision Making MDM Narrative: Well-appearing 59-year-old male arriving via ambulance today for evaluation of generalized muscle soreness associated with 2 episodes of nausea and vomiting prior to arrival. Upon arrival to the ED he is afebrile showing signs of acute distress or illness. On physical exam he appears mildly dehydrated with dry mucous membranes but there is no skin tenting or severe muscle cramping. He received an RME with basic labs ordered. The episodes of syncope no headache no other infectious symptoms less concerning for influenza and COVID. There is no severe muscle spasms less concerning for rhabdo however CK was checked. Given no injuries no bony tenderness imaging was deferred. Generalized weakness and muscle soreness is limited to extremities only less concerning for central causes and notes cardiac or respiratory symptoms therefore less likely no further workup was done for this. He has little to eat and drink today he is able tolerate p.o. fluids he was given sandwich sandra laya and a coughing able to tolerate and does not have any repeat episodes of vomiting. Given his muscle soreness however and his dry mucous membranes I have ordered of L of IV fluids especially because his BP is a little on the softer side with 109/ 53 and a repeat 103/56. For his pain he was given Tylenol Toradol and a muscle relaxant. He is reporting feeling much improved now. He has safe ride home. No rhabdo or sig metabolic darangement. Return precautions discussed. Differential Diagnosis Differential Diagnoses: The differential diagnosis associated with the presentation includes dehydration physical deconditioning viral illness arthritis flare Admission/Observation Consideration of admission/observation: Escalation of care including admission/observation considered Patient would have been admitted to the hospital had his work up had any findings where hospital admission was appropriate and his clinical presentation warranted hospital admission. Lab Data MDM Lab Attestation statement: I reviewed the patient's lab results. 04/06/25 20:27 04/06/25 20:27 Labs: Lab Results 04/06/25 Range/Units 20:27 WBC 10.8 (4.8-10.8) X10*3/uL RBC 4.22 L (4.60-5.80) X10*6/uL Hgb 13.7 L (14.0-18.0) g/dl Hct 41.2 L (42.0-52.0) % MCV 97.6 (80.0-98.0) fL MCH 32.5 (27.0-33.0) pg MCHC 33.3 (31.0-36.0) g/dl RDW 11.7 (11.0-16.0) % Plt Count 242 (160-400) X10*3/uL MPV 9.8 (9.4-12.4) fL Immature Gran % (Auto) 0.6 H (0.0-0.4) % Neut % (Auto) 79.7 H (45-73) % Lymph % (Auto) 9.9 L (20-40) % Hernando % (Auto) 9.4 (2-11) % Eos % (Auto) 0.2 (0-4) % Baso % (Auto) 0.2 (0-2) % Lymph # (Auto) 1.1 L (1.2-4.9) X10*3/uL Hernando # (Auto) 1.0 (0.1-1.2) X10*3/uL Eos # (Auto) 0.0 (0.0-0.4) X10*3/uL Baso # (Auto) 0.0 (0.0-0.2) X10*3/uL Abs Immat Gran (auto) 0.06 H (0.00-0.03) X10*3/uL Absolute Neuts (auto) 8.6 H (2.0-8.3) x10*3/uL Absolute Nucleated RBC 0.000 (0.0-0.012) X10*3/uL Nucleated RBC % (auto) 0.0 (0.0-0.2) /100WBC Sodium 141 (135-145) mmol/L Potassium 4.0 (3.3-5.1) mmol/L Chloride 107 (96-108) mmol/L Carbon Dioxide 26 (22-29) mmol/L Anion Gap 12 (12-20) BUN 20 H (9-16) mg/dL Creatinine 1.36 (0.5-1.4) mg/dL Estim Creat Clear Calc 60.0 Estimated GFR 54 Random Glucose 65 (60-115) mg/dL Calcium 9.6 (8.4-10.2) mg/dL Magnesium 1.7 (1.6-2.6) mg/dL Total Bilirubin 0.5 (0.0-1.0) mg/dL AST 26 (5-37) U/L ALT 16 (0-40) U/L Alkaline Phosphatase 60 (39-117) U/L Total Creatine Kinase 154 (38-174) U/L Total Protein 7.1 (6.5-8.0) g/dL Albumin 4.2 (3.5-5.0) g/dL Independent Historian Clinical information obtained from an independent historian. History obtained from or confirmed by: EMS Tests considered The following testing was considered but not selected: But is considered imaging have there been any trauma. Prescription Management I considered prescription management with: Pain Medication Chronic Conditions Patient?s care impacted by: Other Social Determinants Patient?s care significantly limited by Social Determinants of Health including: Inadequate housing, Problems related to primary support group and Other Social Determinant of Health Discharge Plan Discharge Clinical Impression: Dehydration, mild, Arthritis, Homelessness Patient Disposition: Home, Self-Care Instructions: Dehydration (DC), Osteoarthritis (ED) Additional Instructions: You were seen in the emergency department today for generalized weakness along with episode nausea or vomiting. On physical exam you were dehydrated. He received IV fluids number also able to show that you can tolerate fluids by mouth along with food. Your labs are reassuring showing no evidence of metabolic/electrolyte imbalance or worsening anemia or evidence for infection. If you start to have moderate to severe signs of dehydration you need to go to the ED for IV fluid replacement. Signs include: decreased to no urinary output, confusion, moderate to severe muscle cramping in extremities, headaches, and lethargy. Drink plenty of fluids. Choose fluids containing water, salt, and sugar, such as diluted fruit juice, soft drinks and broth. You may try mixing the following for oral rehydration: Add 0.5 teaspoon of salt, 0.5 teaspoon of baking soda, and 4 tablespoons of sugar to 1 liter of water. The electrolyte concentrations of fluids used for sweat replacement (eg, Gatorade) are not equivalent. If you develop abdominal pain, fever, bloody stool, or your symptoms are not resolved after 10 days please be re-evaluated. Prescriptions: No Action metformin 500 mg tablet 1,000 mg PO BID atorvastatin 20 mg tablet 20 mg PO BEDTIME calcium carbonate-vitamin D3 600 mg-10 mcg (400 unit) tablet 1 tab PO DAILY selenium sulfide 2.5 % lotion 1 appl topical DAILY Biktarvy 50-200-25 mg tablet 1 tab PO DAILY amoxicillin-pot clavulanate 875-125 mg Tablet 1 tab PO Q12H Qty: 13 0RF doxycycline monohydrate 100 mg Capsule 100 mg PO Q12H Qty: 13 0RF ondansetron 4 mg tablet,disintegrating 4 mg PO Q8H PRN (Reason: nausea and vomiting) Qty: 6 0RF diclofenac sodium [Voltaren Arthritis Pain] 1 % gel 4 g topical QID PRN (Reason: pain) Qty: 100 0RF Rx Instructions: apply to single knee, ankle, foot; for foot includes sole/toes/top of foot ondansetron 4 mg tablet,disintegrating 4 mg PO Q8H PRN (Reason: nausea and vomiting) Qty: 14 0RF omeprazole 20 mg capsule,delayed release(DR/EC) 20 mg PO DAILY 14 Days Qty: 14 0RF Interventions: ED Discharge Assessment Last Done: 04/07/25 07:44 Discharge Date/Time: 04/07/25 07:45 Print Language: Bangladeshi
[2025-04-06 22:20] VITALS: BP 103/56; PULSE 75; RESP 16; TEMP 36.8; O2SAT 96
[2025-04-07 02:10] VITALS: BP 128/59; PULSE 65; TEMP 37; O2SAT 98
[2025-04-07 07:44] VITALS: BP 145/66; PULSE 81; RESP 16; TEMP -17.7; TEMP 0; O2SAT 98
== END 2025-04-07 07:45 | disposition home or self-care (01) ==
PROVIDERS: Physician Assistant Medical; Emergency Provider Emergency Medicine Emergency Medical Services; PCP Family Medicine
DX: E86.0 Dehydration (principal); R42 Dizziness and giddiness; M79.10 Myalgia, unspecified site; M19.90 Unspecified osteoarthritis, unspecified site; Z59.00 Homelessness unspecified
CPT/HCPCS: 36415; 80053; 82550; 83735; 85025; 96361; 96374; 99284; J1885

== ENCOUNTER 2025-04-09 14:24 | Emergency (ER) | payer MEDICAID, SELFPAY ==
--- OUTSIDE RECORDS SUMMARY | 2020-08-29 07:31 | XMS_ITS | Continuity of Care Document ---
Author Organization [facility] Address [address] [place] [phone] Phone Care Team Providers Care Collator Hand Name Role Phone Nurse RN, Visit Unavailable [...] Diagnoses Date Provider Providers Copied on [facility]counter [facility], [address] [place] [address], [id number], tel:[phone] [facility] Covid vaccine (chief complaint) No Information Nurse Visit. . Referring Provider: Quinton Tran, [address] [place] [address], [id number]. tel:[phone] [facility], [address] [place] [address], [id number], tel:[phone] [facility] covid vaccine (chief complaint) No Information Nurse Visit. . Referring Provider: Quinton Tran, [address] [place], [place] [address] [address] [place] [address], [id number]. tel:[phone] Family History Family Member Type Diagnosis Age [...] Record Payers Payer name Insurance type Covered democrat ID Authoriza tion(s) [employer] [id number] CI [id number] [employer] [id number] CI [id number] [employer] [id number] CI [id number] Social History Type Description Quantity Date Captured [...]
[2025-04-09 14:32] VITALS: BP 200/100; PULSE 78; O2SAT 98
[2025-04-09 14:42] VITALS: BP 221/93; PULSE 87; RESP 16; TEMP 36.5; O2SAT 100; BMI 35.2
--- NOTE | 2025-04-09 14:53 | ECG_ITS ---
Test Reason : HTN Blood Pressure : */* mmHG Vent. Rate : 78 BPM Atrial Rate : 78 BPM P-R Int : 118 ms QRS Dur : 84 ms QT Int : 360 ms P-R-T Axes : 62 -51 16 degrees QTcB Int : 410 ms Sinus rhythm with Premature atrial complexes with Aberrant conduction Left anterior fascicular block Abnormal ECG When compared with ECG of 16-Dec-2024 08:29, Aberrant conduction is now Present Referred By: Generic ED Physician Electronically Signed By: Tom Sanders
--- NOTE | 2025-04-09 15:13 | ED_ITS ---
HPI - General Adult General Chief complaint: Nausea/Vomiting/Diarrhea Stated complaint: N/V X2D PER EMS Time Seen by Provider: 04/09/25 15:06 Source: patient, EMS, RN notes reviewed and old records reviewed Mode of arrival: EMS History of Present Illness ED Provider: Benny HPI narrative: Patient is a 59-year-old male with history of HTN, HLD, HIV, smoking, DM currently experiencing homelessness presenting to the emergency department with complaint of nausea and vomiting for the past 2 days. Complains of generalized abdominal pain. Denies diarrhea. Denies fevers. Denies any known sick contacts but states he is homeless. Denies any dysuria, frequency or other urinary symptoms. Denies back or flank pain but does complain of generalized body aches. States he is not currently on any medication for his blood pressure. Does admit to cannabis use and cigarette smoking, denies alcohol or other drug use. Reports emesis has been non-bloody, non-bilious. He denies headache or vision changes. Denies chest pain, palpitations, dyspnea, dizziness or lightheadedness. MD complaint: nausea and vomiting Onset (ago): day(s) Related Data Home Medications ?Medication ?Instructions ?Recorded ?Confirmed atorvastatin 20 mg tablet 20 mg PO BEDTIME 05/15/21 metformin 500 mg tablet 1,000 mg PO BID 05/15/2105/31 bictegravir 50 mg-emtricitabine 1 tab PO DAILY 5 12/16/24 200 mg-tenofovir alafenam 25 mg tablet (Biktarvy) calcium 600 mg (as 1 tab PO DAILY 12/12/2412/05 carbonate)-vitamin D3 10 mcg (400 unit) tablet selenium sulfide 2.5 % lotion 1 appl topical DAILY 01/2912/16/24 Previous Rx's ?Medication ?Instructions ?Recorded diclofenac sodium 1 % topical gel 4 g topical QID PRN pain #100 grams 09/21/24 (Voltaren Arthritis Pain) amoxicillin 875 mg-potassium 1 tab PO Q12H #13 tabs clavulanate 125 mg tablet doxycycline monohydrate 100 mg 100 mg PO Q12H #13 caps 12/15/24 capsule ondansetron 4 mg disintegrating 4 mg PO Q8H PRN nausea and 04/09/25 tablet vomiting #6 tabs Allergies Allergy/AdvReac Type Severity Reaction Status Date / Time No Known Allergies Allergy Verified 04/09/25 14:43 Review of Systems 2 Review of Systems: As per HPI Yes all other systems are reviewed and are negative Constitutional: Constitutional: Reports as per HPI [facility] Past Medical History Medical History Hypertension Hyperlipidemia HIV (human immunodeficiency virus infection) Nicotine dependence, cigarettes, uncomplicated Homeless Diabetes Surgical History History of laparoscopic cholecystectomy (~2020) History of incisional hernia repair (~2014) History of umbilical hernia repair (~2008) History of appendectomy Social History Social History Household Members: Other Housing: Homeless Housing Other:: patient states homeless Do you presently have visiting nurse or other home services: No Alcohol intake: never Patient Tobacco Use Status: Current everyday Tobacco user Tobacco use type: Cigarette Cigarette Packs Per Day: 1 Cigarettes Per Day: 20.0 Years Smoked: 30 Second Hand Smoke Exposure: No Substance Use Type: Marijuana Advance Directives: No Advance Directives Information Provided: Yes service: No Current occupational status: unemployed Physical Exam ED Vital Signs: Vital Signs - 24 hr 04/09/25 14:42 04/09/25 16:23 Temperature 97.7 F Pulse Rate 87 75 Respiratory Rate 16 22 H Blood Pressure 221/93 H 134/70 Pulse Oximetry 100 99 Oxygen Delivery Method Room Air Room Air BMI result Body Mass Index 35.2 Vital signs have been reviewed and appear to be correct. Blood pressure hypertensive. Heart rate normal. Respiratory rate normal. Temperature normal. Oxygen saturation normal. Const General: cooperative, healthy appearing and no acute distress Orientation/consciousness: oriented to person, oriented to place, oriented to time and patient oriented x3 Limitations: no limitations HENMT Head: Yes normocephalic and Yes atraumatic Ears: external ears normal General nose exam: Normal external nose present Face and sinus: Yes face symmetric Mouth: oropharynx normal and moist mucous membranes Throat: Yes uvula midline Eyes Pupils: Equal, round and reactive pupils present Neck Neck: Yes normal visual inspection and Yes supple Resp Effort & Inspection: normal respiratory effort and able to speak in complete sentences Auscultation: clear to auscultation bilaterally Cardio Rate: regular rate Rhythm: regular rhythm Heart sounds: S1 normal heart sound present and S2 normal heart sound present GI Palpation (GI): Soft to palpation and nontender Auscultation: normoactive bowel sounds General: Yes no CVA tenderness Back/Spine/Pelvis Back: no CVA tenderness Skin General skin exam: elasticity normal and turgor normal Neuro General: oriented to person, oriented to place, oriented to time, patient oriented x3, moves all extremities, no focal motor deficits and CN's II-XI intact bilaterally Cranial nerves: Yes Equal, round and reactive pupils present Cognition (Neuro): normal cognition Extrem General: Yes full ROM, Yes no pedal edema and Yes no calf tenderness Psych Mental Status: mental status grossly normal Affect: normal affect Thought process: Normal thought process present Medications Administered Discontinued Medications Generic Name Dose Route Start Last Admin Trade Name Freq PRN Reason Stop Dose Admin Haloperidol Lactate 2.5 mg 04/09/25 15:17 04/09/25 15:33 Haloperidol Lactate 5 Mg/Ml Vial IVPUSH 04/09/25 15:18 2.5 mg ONCE ONE Administration Sodium Chloride 1,000 mls @ 999 mls/hr 04/09/25 15:30 04/09/25 15:34 Ns IV 04/09/25 16:30 999 mls/hr .Q1H1M [facility] Administration Medical Decision Making Medical Decision Making MDM Narrative: Patient is a 59-year-old male with history of HTN, HLD, HIV, smoking, DM currently experiencing homelessness presenting to the emergency department with complaint of nausea and vomiting for the past 2 days. On exam patient is awake, A+Ox3, hypertensive, VS otherwise WNL, afebrile, normal neurological exam without focal deficits, physical exam findings as above. Given reported symptoms and physical exam findings, initial differential includes but is not limited to gastritis, cannabinoid hyperemesis/cyclical vomiting syndrome, GERD, PUD. Less likely ACS but given elevated BP, will check EKG and troponin. EKG shows sinus rhythm with PACs, evidence of LVH. Labs notable for mild leukocytosis, likely reactive, slightly elevated troponin, no significant electrolyte abnormalities. Viral serology negative. BP improved without intervention, feel initial BP may have been erroneously elevated due to movement as patient is rather agitated. He has not vomited while in the emergency department. No delta on repeat troponin. Patient able to tolerate p.o. sandra laya in the emergency department. Feel patient is stable for discharge at this time. Return precautions discussed. Advised follow up with PCP. Patient verbalized understanding of and agreement with plan. Differential Diagnosis Differential Diagnoses: The differential diagnosis associated with the presentation includes as per [facility] Admission/Observation Consideration of admission/observation: Escalation of care including admission/observation considered Patient would have been admitted to the hospital and transferred to appropriate facility had their clinical presentation warranted hospital admission. Lab Data [facility] Lab Attestation statement: I reviewed the patient's lab results. as per [facility] 04/09/25 15:09 04/09/25 15:09 Labs: Lab Results 04/09/25 04/09/25 04/09/25 Range/Units 15:09 16:00 17:06 WBC 13.4 H (4.8-10.8) X10*3/uL RBC 4.99 (4.60-5.80) X10*6/uL Hgb 16.0 (14.0-18.0) g/dl Hct 48.9 (42.0-52.0) % MCV 98.0 (80.0-98.0) fL MCH 32.1 (27.0-33.0) pg MCHC 32.7 (31.0-36.0) g/dl RDW 11.6 (11.0-16.0) % Plt Count 269 (160-400) X10*3/uL MPV 9.3 L (9.4-12.4) fL Immature Gran % (Auto) 0.4 (0.0-0.4) % Neut % (Auto) 89.5 H (45-73) % Lymph % (Auto) 5.3 L (20-40) % [place] % (Auto) 4.4 (2-11) % Eos % (Auto) 0.1 (0-4) % Baso % (Auto) 0.3 (0-2) % Lymph # (Auto) 0.7 L (1.2-4.9) X10*3/uL [place] # (Auto) 0.6 (0.1-1.2) X10*3/uL Eos # (Auto) 0.0 (0.0-0.4) X10*3/uL Baso # (Auto) 0.0 (0.0-0.2) X10*3/uL Abs Immat Gran (auto) 0.06 H (0.00-0.03) X10*3/uL Absolute Neuts (auto) 12.0 H (2.0-8.3) x10*3/uL Absolute Nucleated RBC 0.000 (0.0-0.012) X10*3/uL Nucleated RBC % (auto) 0.0 (0.0-0.2) /100WBC Sodium 139 (135-145) mmol/L Potassium 3.9 (3.3-5.1) mmol/L Chloride 104 (96-108) mmol/L Carbon Dioxide 27 (22-29) mmol/L Anion Gap 12 (12-20) BUN 15 (9-16) mg/dL Creatinine 1.00 (0.5-1.4) mg/dL Estim Creat Clear Calc 91.6 Estimated GFR > 60 Random Glucose 173 H (60-115) mg/dL Calcium 9.5 (8.4-10.2) mg/dL Magnesium 1.7 (1.6-2.6) mg/dL Total Bilirubin 0.6 (0.0-1.0) mg/dL AST 27 (5-37) U/L ALT 21 (0-40) U/L Alkaline Phosphatase 76 (39-117) U/L Total Creatine Kinase 163 (38-174) U/L Troponin I High Sens 7.5 D 9.1 (<3.5-35.0) ng/L Total Protein 8.1 H (6.5-8.0) g/dL Albumin 4.7 (3.5-5.0) g/dL Ethyl Alcohol < 10 mg/dL COVID-19 (MARY) Negative (Negative) COVID-19 Clin Com See Note Influenza Type A (STEPHEN) Negative (Negative) Influenza Type B (STEPHEN) Negative (Negative) Influenza A & B Note See Note Independent Interpretation I performed an independent interpretation of an: EKG (sinus rhythm with PACs, rate 78bpm, normal MT interval and QTc) External Record Review External record reviewed: Inpatient record, Office record and Outpatient record Prescription Management I considered prescription management with: Other Discharge Plan Discharge Clinical Impression: Nausea & vomiting Patient Disposition: Home, Self-Care Instructions: Acute Nausea and Vomiting (DC) Additional Instructions: You were evaluated in the emergency department today for epigastric pain, nausea and vomiting which is most likely due to irritation of the lining of your stomach. Your symptoms improved with medication in the ED. You are being prescribed ondansetron which you can use every 8 hours for nausea. You can also use Mylanta, which is available over the counter, to help manage your symptoms. Avoid spicy or acidic foods. Please follow up with your primary care physician within two days. Return to the emergency department if you experience shortness of breath, worsening or uncontrolled abdominal pain, chest pain, light headedness, faiting, persistent nausea and vomiting, bloody vomit or stools, black, tarry stools, or any other concerning symptoms. Prescriptions: New ondansetron 4 mg tablet,disintegrating 4 mg PO Q8H PRN (Reason: nausea and vomiting) Qty: 6 0RF No Action metformin 500 mg tablet 1,000 mg PO BID atorvastatin 20 mg tablet 20 mg PO BEDTIME calcium carbonate-vitamin D3 600 mg-10 mcg (400 unit) tablet 1 tab PO DAILY selenium sulfide 2.5 % lotion 1 appl topical DAILY Biktarvy 50-200-25 mg tablet 1 tab PO DAILY amoxicillin-pot clavulanate 875-125 mg Tablet 1 tab PO Q12H Qty: 13 0RF doxycycline monohydrate 100 mg Capsule 100 mg PO Q12H Qty: 13 0RF diclofenac sodium [Voltaren Arthritis Pain] 1 % gel 4 g topical QID PRN (Reason: pain) Qty: 100 0RF Rx Instructions: apply to single knee, ankle, foot; for foot includes sole/toes/top of foot Print Language: Malian
[2025-04-09 15:14] LABS: MANUAL DIFF FLAG NO
[2025-04-09 15:16] LABS: Hematocrit 48.9 % (42.0-52.0); Hemoglobin 16.0 g/dl (14.0-18.0); Imm Gran Abs Auto 0.06 X10*3/uL (0.00-0.03); Imm Gran Pct Auto 0.4 % (0.0-0.4); Lymphocytes Absolute Auto 0.7 X10*3/uL (1.2-4.9); Mean Corpuscular HGB Conc 32.7 g/dl (31.0-36.0); Mean Corpuscular Hemoglobin 32.1 pg (27.0-33.0); Mean Corpuscular Volume 98.0 fL (80.0-98.0); NRBC Abs Auto 0.000 X10*3/uL (0.0-0.012); NRBC Pct Auto 0.0 /100WBC (0.0-0.2); Platelet Count 269 X10*3/uL (160-400); Red Blood Count 4.99 X10*6/uL (4.60-5.80); White Blood Count 13.4 X10*3/uL (4.8-10.8)
[2025-04-09 15:27] LABS: COVID-19 Test Negative (Negative); IDNOW Serial# 6674DD1D
[2025-04-09 15:31] LABS: Alanine Aminotransferase 21 U/L (0-40); Albumin Level 4.7 g/dL (3.5-5.0); Alkaline Phosphatase 76 U/L (39-117); Anion Gap 12 (12-20); Aspartate Amino Transferase 27 U/L (5-37); Blood Urea Nitrogen 15 mg/dL (9-16); Calcium 9.5 mg/dL (8.4-10.2); Carbon Dioxide 27 mmol/L (22-29); Chloride 104 mmol/L (96-108); Creatinine Clr Calc Pharmacy 91.6; Estimated Glomerular Filt Rate > 60; IDNOW Serial# 08D9AD1C; Influenza B2 Negative (Negative); Magnesium 1.7 mg/dL (1.6-2.6); Potassium 3.9 mmol/L (3.3-5.1); Sodium 139 mmol/L (135-145); Total Protein 8.1 g/dL (6.5-8.0)
[2025-04-09 15:38] LABS: Troponin-I High Sensitivity 7.5 ng/L (<3.5-35.0)
[2025-04-09 16:23] VITALS: BP 134/70; PULSE 75; RESP 22; O2SAT 99
[2025-04-09 17:32] LABS: Troponin-I High Sensitivity 9.1 ng/L (<3.5-35.0)
[2025-04-09 17:59] VITALS: BP 134/70; PULSE 75; RESP 22; TEMP -17.7; TEMP 0; O2SAT 99
== END 2025-04-09 18:23 | disposition home or self-care (01) ==
PROVIDERS: Registered Nurse Emergency; Emergency Provider Emergency Medicine; PCP Family Medicine
DX: R11.2 Nausea with vomiting, unspecified (principal); R19.7 Diarrhea, unspecified; E11.9 Type 2 diabetes mellitus without complications; Z21 Asymptomatic human immunodeficiency virus [HIV] infection status; Z72.0 Tobacco use; Z59.00 Homelessness unspecified; Z79.899 Other long term (current) drug therapy
CPT/HCPCS: 36415; 80053; 80307; 82550; 83735; 84484; 85025; 87502; 87635; 93005; 96361; 96374; 99282; 99284; 99285; J1630

== ENCOUNTER → 2025-04-09 14:53 | Outpatient (BNV) | payer MEDICAID, SELFPAY | PROVIDERS: Emergency Provider Emergency Medicine; PCP Family Medicine; Visit Provider Internal Medicine Cardiovascular Disease | DX: I49.1 Atrial premature depolarization (principal); I44.4 Left anterior fascicular block | CPT/HCPCS: 93010 ==

== ENCOUNTER 2025-04-09 18:24 | Emergency (ER) | payer MEDICAID, SELFPAY ==
[2025-04-09 18:30] VITALS: BP 158/78; PULSE 98; RESP 18; TEMP 36.8; O2SAT 97; BMI 31.6
--- NOTE | 2025-04-09 18:31 | ED.GENADULT ---
HPI - General Adult General Chief complaint: Nausea/Vomiting/Diarrhea Stated complaint: throwing, weakness Time Seen by Provider: 04/09/25 21:15 Source: patient Limitations: no limitations History of Present Illness ED Provider: Danika Nicholas PA-C HPI narrative: 59-year-old male with a known housing and security, history of HIV, hypertension, hyperlipidemia and diabetes, who presents with nausea vomiting. Patient was assessed in the emergency department just hours ago, he was discharged. He checked right back in after his discharge. The patient admits he does not have a place to go. Related Data Home Medications ?Medication ?Instructions ?Recorded ?Confirmed atorvastatin 20 mg tablet 20 mg PO BEDTIME 05/15/21 12/16/24 metformin 500 mg tablet 1,000 mg PO BID 05/15/21 12/16/24 bictegravir 50 mg-emtricitabine 1 tab PO DAILY 12/12/24 12/16/24 200 mg-tenofovir alafenam 25 mg tablet (Biktarvy) calcium 600 mg (as 1 tab PO DAILY 12/12/24 12/16/24 carbonate)-vitamin D3 10 mcg (400 unit) tablet selenium sulfide 2.5 % lotion 1 appl topical DAILY 12/12/24 12/16/24 Previous Rx's ?Medication ?Instructions ?Recorded diclofenac sodium 1 % topical gel 4 g topical QID PRN pain #100 grams 09/21/24 (Voltaren Arthritis Pain) amoxicillin 875 mg-potassium 1 tab PO Q12H #13 tabs 12/15/24 clavulanate 125 mg tablet doxycycline monohydrate 100 mg 100 mg PO Q12H #13 caps 12/15/24 capsule ondansetron 4 mg disintegrating 4 mg PO Q8H PRN nausea and 04/09/25 tablet vomiting #6 tabs Allergies Allergy/AdvReac Type Severity Reaction Status Date / Time No Known Allergies Allergy Verified 04/09/25 18:31 Review of Systems Review of Systems: Yes all other systems are reviewed and are negative Constitutional: Constitutional: Denies fatigue and Denies fever(s) Cardiovascular: Cardiovascular: Denies chest pain and Denies dyspnea Respiratory: Respiratory: Denies cough and Denies dyspnea Gastrointestinal: Gastrointestinal: Denies abdominal pain, Denies diarrhea, Reports nausea and Denies vomiting Endocrine: Endocrine: Denies fatigue PMF Past Medical History Attestation statement: The following information was validated with the patient. Medical History Hypertension Hyperlipidemia HIV (human immunodeficiency virus infection) Nicotine dependence, cigarettes, uncomplicated Homeless Diabetes Surgical History History of laparoscopic cholecystectomy (~2020) History of incisional hernia repair (~2014) History of umbilical hernia repair (~2008) History of appendectomy Social History Social History Household Members: Other Housing: Homeless Housing Other:: patient states homeless Do you presently have visiting nurse or other home services: No Alcohol intake: never Patient Tobacco Use Status: Current everyday Tobacco user Tobacco use type: Cigarette Cigarette Packs Per Day: 1 Cigarettes Per Day: 20.0 Years Smoked: 30 Second Hand Smoke Exposure: No Substance Use Type: Marijuana Advance Directives: No Advance Directives Information Provided: Yes Do you have a plan to hurt others: No Plan service: No Current occupational status: unemployed Physical Exam ED Vital Signs: Vital Signs - 24 hr 04/09/25 18:30 Temperature 98.3 F Pulse Rate 98 Respiratory Rate 18 Blood Pressure 158/78 H Pulse Oximetry 97 Oxygen Delivery Method Room Air BMI result Body Mass Index 31.6 Const Other: Sleeping easily woken with verbal stimuli Orientation/consciousness: patient oriented x3 Resp Effort & Inspection: normal respiratory effort Cardio Other: Normal peripheral perfusion Skin Other: Warm dry no rash Neuro General: patient oriented x3, gait normal, no focal motor deficits and CN's II-XI intact bilaterally Psych Other: Cooperative at this time Course Course Course Narrative: Rapid medical examination performed in triage by Rochelle Reid PA-C: Patient is a 59 year old assigned male at presenting to the emergency department with nausea and vomiting. Detailed physical exam and review of systems are deferred to the teaching young. Patient placed back in the waiting room pending room availability. Note: Patient was here at 1506 today with complete work up for the same symptoms. Patient was discharged and immediately checked back in. Medical Decision Making Medical Decision Making MDM Narrative: 59-year-old male with a known housing and security, history of HIV, hypertension, hyperlipidemia and diabetes, who presents with nausea vomiting. Patient was assessed in the emergency department just hours ago, he was discharged. He checked right back in after his discharge. The patient admits he does not have a place to go. Problem: Diabetes, HIV, housing and security History: Per patient I have considered the following differential diagnoses: Malingering, secondary gain, viral syndrome, acute intra-abdominal pathology Plan: The patient just had a full assessment, sadly he has been seen in the emergency department multiple times this week. He was just discharged hours ago, and returned immediately back to registration. I explained to the patient that I can not house him in the emergency room, we found a spot where he can sleep overnight, he is asking for food, I also provided him with a list of local shelters. Differential Diagnosis Differential Diagnoses: The differential diagnosis associated with the presentation includes See medical decision-making Admission/Observation Consideration of admission/observation: Escalation of care including admission/observation considered Not applicable Discharge Plan Discharge Clinical Impression: Homeless Patient Disposition: Home, Self-Care Additional Instructions: You were provided with a list of shelters, so you can obtain housing today. Prescriptions: No Action metformin 500 mg tablet 1,000 mg PO BID atorvastatin 20 mg tablet 20 mg PO BEDTIME calcium carbonate-vitamin D3 600 mg-10 mcg (400 unit) tablet 1 tab PO DAILY selenium sulfide 2.5 % lotion 1 appl topical DAILY Biktarvy 50-200-25 mg tablet 1 tab PO DAILY amoxicillin-pot clavulanate 875-125 mg Tablet 1 tab PO Q12H Qty: 13 0RF doxycycline monohydrate 100 mg Capsule 100 mg PO Q12H Qty: 13 0RF ondansetron 4 mg tablet,disintegrating 4 mg PO Q8H PRN (Reason: nausea and vomiting) Qty: 6 0RF diclofenac sodium [Voltaren Arthritis Pain] 1 % gel 4 g topical QID PRN (Reason: pain) Qty: 100 0RF Rx Instructions: apply to single knee, ankle, foot; for foot includes sole/toes/top of foot Print Language: [place]
[2025-04-10 00:37] VITALS: BP 153/65; PULSE 76; RESP 18; TEMP 36.7; O2SAT 96
--- NOTE | 2025-04-10 01:13 | PC.NURSE ---
pt was previously moved to from [facility] as patient will be staying overnight per PA. pt provided with gingerale per his request he did not want diet gingerale although he is diabetic and stated i don't drink none of that shit. pt resting comfortably at this time. nad. will d/c in AM.
[2025-04-10 05:46] VITALS: BP 145/75; PULSE 86; RESP 18; O2SAT 95
[2025-04-10 06:20] VITALS: BP 145/75; PULSE 86; RESP 18; O2SAT 95
[2025-04-10 07:05] VITALS: BP 145/75; PULSE 86; RESP 18; TEMP 36.7; O2SAT 95
== END 2025-04-10 06:30 | disposition home or self-care (01) ==
PROVIDERS: Emergency Provider Emergency Medicine; PCP Family Medicine
DX: R11.2 Nausea with vomiting, unspecified (principal); Z59.00 Homelessness unspecified
CPT/HCPCS: 99282; 99284

== ENCOUNTER 2025-04-11 12:39 | Emergency (ER) | payer MEDICAID, SELFPAY ==
[2025-04-11 12:47] VITALS: BP 186/80; PULSE 74; PULSE 94; RESP 18; TEMP 36.6; O2SAT 100; BMI 31.6
--- NOTE | 2025-04-11 13:04 | PC.NURSE ---
Pt states he does not want blood work or an IV. RN explained risks of not completing full assessment/evaluation, pt verbalizes understanding stating I've been poked and prodded for 3 days, I'm not doing it . aware.
--- NOTE | 2025-04-11 13:05 | ED_ITS ---
[facility] - General Adult General Chief complaint: Nausea/Vomiting/Diarrhea Stated complaint: VOMITING X3 DAYS Time Seen by Provider: 04/11/25 12:57 Source: patient Mode of arrival: ambulatory Limitations: no limitations History of Present Illness ED Provider: Dr. Erickson HPI narrative: This is a 59-year-old male history of hypertension hyperlipidemia, diabetes presented hospital today for nausea vomiting. Patient stated that this has been going on for a couple of days now. He is complaining of body aches as well. No sick contact. Patient stated he does not want any IV labs or IV medication. Related Data Home Medications ?Medication ?Instructions ?Recorded ?Confirmed atorvastatin 20 mg tablet 20 mg PO BEDTIME 05/15/21 metformin 500 mg tablet 1,000 mg PO BID 05/15/2105/31 bictegravir 50 mg-emtricitabine 1 tab PO DAILY 5 12/16/24 200 mg-tenofovir alafenam 25 mg tablet (Biktarvy) calcium 600 mg (as 1 tab PO DAILY 12/12/2412/05 carbonate)-vitamin D3 10 mcg (400 unit) tablet selenium sulfide 2.5 % lotion 1 appl topical DAILY 01/2912/16/24 Previous Rx's ?Medication ?Instructions ?Recorded diclofenac sodium 1 % topical gel 4 g topical QID PRN pain #100 grams 09/21/24 (Voltaren Arthritis Pain) amoxicillin 875 mg-potassium 1 tab PO Q12H #13 tabs clavulanate 125 mg tablet doxycycline monohydrate 100 mg 100 mg PO Q12H #13 caps 12/15/24 capsule ondansetron 4 mg disintegrating 4 mg PO Q8H PRN nausea and 04/09/25 tablet vomiting #6 tabs omeprazole 20 mg capsule,delayed 20 mg PO DAILY 14 day s #14 caps 04/11/25 release ondansetron 4 mg disintegrating 4 mg PO Q8H PRN nausea and 04/11/25 tablet vomiting #14 tabs Allergies Allergy/AdvReac Type Severity Reaction Status Date / Time No Known Allergies Allergy Verified 04/11/25 12:54 Review of Systems 2 Review of Systems: Pertinent review of systems as mentioned in HPI. All other system otherwise negative. REPLACED BY [facility] Past Medical History REPLACED BY [facility] Narrative: Medical history as mentioned in [facility] Medical History Hypertension Hyperlipidemia HIV (human immunodeficiency virus infection) Nicotine dependence, cigarettes, uncomplicated Homeless Diabetes Surgical History History of laparoscopic cholecystectomy (~2020) History of incisional hernia repair (~2014) History of umbilical hernia repair (~2008) History of appendectomy Social History Social History Household Members: Other Housing: Homeless Housing Other:: patient states homeless Do you presently have visiting nurse or other home services: No Unable to assess alcohol history related to: Refusing to respond Alcohol intake: never Patient Tobacco Use Status: Current everyday Tobacco user Tobacco use type: Cigarette Cigarette Packs Per Day: 1 Cigarettes Per Day: 20.0 Years Smoked: 30 Smoked in Last 30 Days: No Second Hand Smoke Exposure: No Use of substances other than those prescribed or required for medical reasons: Yes Substance Use Type: Marijuana Substance Use Frequency: Daily Advance Directives: No Advance Directives Information Provided: No Do you have a plan to hurt others: No Plan service: No Current occupational status: unemployed Physical Exam ED Exam Exam: General: Pleasant, no distress, interacting appropriately Head: Normacephalic, atraumatic ENT: oral mucosa moist, neck supple, no tracheal deviation Cardiovascular: regular rate, regular rhythm, no murmurs, rubbing, gallops Respiratory: CTAB, no wheeze, rales, rhonchi Gastrointestinal: Soft, non distended, non tender, non guarding Neurological: Awake and alert, no facial droop noted Skin: Warm and dry Psychiatric: Appropriate mood and thoughts Vital Signs: Vital Signs - 24 hr 04/11/25 12:47 04/11/25 14:00 Temperature 98 F 98.0 F Pulse Rate 74 93 Respiratory Rate 18 18 Blood Pressure 137/58 L Pulse Oximetry 100 96 Oxygen Delivery Method Room Air Room Air BMI result Body Mass Index 31.6 Medications Administered Discontinued Medications Generic Name Dose Route Start Last Admin Trade Name Freq PRN Reason Stop Dose Admin Acetaminophen 975 mg 04/11/25 15:53 04/11/25 16:12 Acetaminophen 325 Mg Tablet PO 04/11/25 15:54 975 mg ONCE ONE Administration Al Hydroxide/Mg Hydroxide 30 ml 04/11/25 15:53 04/11/25 16:11 Magnesium Hydrox/Alum Hydrox 30 Ml Oral.Susp PO 04/11/25 15:54 30 ml ONCE ONE Administration Ondansetron HCl 4 mg 04/11/25 13:06 04/11/25 13:21 Ondansetron Odt 4 Mg Tab.La RAMOS 04/11/25 13:07 4 mg ONCE ONE Administration Medical Decision Making Medical Decision Making [facility] Narrative: This is a 59-year-old male presents to the ER today for evaluation for evaluation of nausea and vomiting for the past 2 days. We will plan to give patient a dose of p.o. Maalox. P.o. Tylenol. Zofran ODT will be given the patient as per we will plan to reassess patient. I did give patient is sandra laya. He is able to tolerate it so far. We will continue to observe the patient. Patient's CBC is unremarkable no sign of leukocytosis. No sign of significant anemia. Chemistries unremarkable. No sign of electrolyte abnormality. Patient was given Zofran ODT. We will good relief. Patient is able to tolerate sandra laya. I did offer the patient food. However patient states he only wants to eat tuna sandwich. He does not want turkey or ham. Plan to discharge patient at this time. Differential Diagnosis Differential Diagnoses: The differential diagnosis associated with the presentation includes Nausea vomiting, gastritis, gastroenteritis Lab Data [facility] Lab Attestation statement: I reviewed the patient's lab results. 04/11/25 16:20 04/11/25 16:20 Labs: Lab Results 04/11/25 04/11/25 Range/Units 16:20 16:23 WBC 10.8 (4.8-10.8) X10*3/uL RBC 4.58 L (4.60-5.80) X10*6/uL Hgb 14.6 (14.0-18.0) g/dl Hct 44.1 (42.0-52.0) % MCV 96.3 (80.0-98.0) fL MCH 31.9 (27.0-33.0) pg MCHC 33.1 (31.0-36.0) g/dl RDW 11.6 (11.0-16.0) % Plt Count 266 (160-400) X10*3/uL MPV 9.4 (9.4-12.4) fL Immature Gran % (Auto) 0.4 (0.0-0.4) % Neut % (Auto) 74.5 H (45-73) % Lymph % (Auto) 15.7 L (20-40) % [place] % (Auto) 8.4 (2-11) % Eos % (Auto) 0.5 (0-4) % Baso % (Auto) 0.5 (0-2) % Lymph # (Auto) 1.7 (1.2-4.9) X10*3/uL [place] # (Auto) 0.9 (0.1-1.2) X10*3/uL Eos # (Auto) 0.1 (0.0-0.4) X10*3/uL Baso # (Auto) 0.1 (0.0-0.2) X10*3/uL Abs Immat Gran (auto) 0.04 H (0.00-0.03) X10*3/uL Absolute Neuts (auto) 8.0 (2.0-8.3) x10*3/uL Absolute Nucleated RBC 0.000 (0.0-0.012) X10*3/uL Nucleated RBC % (auto) 0.0 (0.0-0.2) /100WBC Sodium 140 (135-145) mmol/L Potassium 4.0 (3.3-5.1) mmol/L Chloride 106 (96-108) mmol/L Carbon Dioxide 27 (22-29) mmol/L Anion Gap 11 L (12-20) BUN 14 (9-16) mg/dL Creatinine 0.99 (0.5-1.4) mg/dL Estim Creat Clear Calc 82.1 Estimated GFR > 60 Random Glucose 73 (60-115) mg/dL Calcium 9.8 (8.4-10.2) mg/dL Magnesium 1.8 (1.6-2.6) mg/dL Ethyl Alcohol < 10 mg/dL Discharge Plan Discharge Clinical Impression: Gastritis Qualifiers: Gastritis type: unspecified gastritis Chronicity: acute Gastritis bleeding: w ithout bleeding Qualified Code(s): K29.00 - Acute gastritis without bleeding Patient Disposition: Home, Self-Care Instructions: Gastritis (ED) Prescriptions: New ondansetron 4 mg tablet,disintegrating 4 mg PO Q8H PRN (Reason: nausea and vomiting) Qty: 14 0RF omeprazole 20 mg capsule,delayed release(DR/EC) 20 mg PO DAILY 14 Days Qty: 14 0RF No Action metformin 500 mg tablet 1,000 mg PO BID atorvastatin 20 mg tablet 20 mg PO BEDTIME calcium carbonate-vitamin D3 600 mg-10 mcg (400 unit) tablet 1 tab PO DAILY selenium sulfide 2.5 % lotion 1 appl topical DAILY Biktarvy 50-200-25 mg tablet 1 tab PO DAILY amoxicillin-pot clavulanate 875-125 mg Tablet 1 tab PO Q12H Qty: 13 0RF doxycycline monohydrate 100 mg Capsule 100 mg PO Q12H Qty: 13 0RF ondansetron 4 mg tablet,disintegrating 4 mg PO Q8H PRN (Reason: nausea and vomiting) Qty: 6 0RF diclofenac sodium [Voltaren Arthritis Pain] 1 % gel 4 g topical QID PRN (Reason: pain) Qty: 100 0RF Rx Instructions: apply to single knee, ankle, foot; for foot includes sole/toes/top of foot Print Language: Latvian
[2025-04-11 14:00] VITALS: BP 137/58; PULSE 93; RESP 18; TEMP 36.7; O2SAT 96
[2025-04-11] MEDS: Magnesium Hydrox/Alum Hydrox 30 ML ORAL.SUSP PO (16:11)
[2025-04-11 16:28] LABS: MANUAL DIFF FLAG NO
[2025-04-11 16:30] LABS: Hematocrit 44.1 % (42.0-52.0); Hemoglobin 14.6 g/dl (14.0-18.0); Imm Gran Abs Auto 0.04 X10*3/uL (0.00-0.03); Imm Gran Pct Auto 0.4 % (0.0-0.4); Lymphocytes Absolute Auto 1.7 X10*3/uL (1.2-4.9); Mean Corpuscular HGB Conc 33.1 g/dl (31.0-36.0); Mean Corpuscular Hemoglobin 31.9 pg (27.0-33.0); Mean Corpuscular Volume 96.3 fL (80.0-98.0); NRBC Abs Auto 0.000 X10*3/uL (0.0-0.012); NRBC Pct Auto 0.0 /100WBC (0.0-0.2); Platelet Count 266 X10*3/uL (160-400); Red Blood Count 4.58 X10*6/uL (4.60-5.80); White Blood Count 10.8 X10*3/uL (4.8-10.8)
[2025-04-11 16:42] LABS: Magnesium 1.8 mg/dL (1.6-2.6)
[2025-04-11 16:44] LABS: Anion Gap 11 (12-20); Blood Urea Nitrogen 14 mg/dL (9-16); Calcium 9.8 mg/dL (8.4-10.2); Carbon Dioxide 27 mmol/L (22-29); Chloride 106 mmol/L (96-108); Creatinine Clr Calc Pharmacy 82.1; Estimated Glomerular Filt Rate > 60; Potassium 4.0 mmol/L (3.3-5.1); Sodium 140 mmol/L (135-145)
--- NOTE | 2025-04-11 18:05 | PC.NURSE ---
Pt refusing to leave ED26 after discharge, stating he needs a meal. Pt given sandwich, cheese stick, and sandra laya. Pt still refusing to leave, claiming we haven't helped him. RN offered IV fluids/medication to further assist pt but pt refused again. MD aware, pt discharged. Security contacted, awaiting arrival.
[2025-04-11 18:20] VITALS: BP 137/58; PULSE 93; RESP 18; TEMP 36.7; O2SAT 96
== END 2025-04-11 18:20 | disposition home or self-care (01) ==
PROVIDERS: Emergency Provider Student in an Organized Health Care Education/Training Program; PCP Family Medicine
DX: K29.00 Acute gastritis without bleeding (principal); R11.2 Nausea with vomiting, unspecified; R19.7 Diarrhea, unspecified; I10 Essential (primary) hypertension; E78.5 Hyperlipidemia, unspecified; E11.9 Type 2 diabetes mellitus without complications
CPT/HCPCS: 36415; 80048; 80307; 83735; 85025; 99283; 99284

== ENCOUNTER 2025-04-17 20:42 | Emergency (ER) | payer MEDICAID, SELFPAY ==
--- OUTSIDE RECORDS SUMMARY | 2020-08-29 07:31 | XMS_ITS | Continuity of Care Document ---
Author Organization [facility] Address [address] [place] [phone] Phone Care Team Providers Care Distributor Of Directories Name Role Phone Nurse RN, Visit Unavailable [...] Diagnoses Date Provider Providers [facility]ied on [facility], [address] [place] [address], [id number], tel:[phone] [facility] Covid vaccine (chief complaint) No Information Nurse Visit. . Referring Provider: Quinton Tran, [address] [place] [address], [id number]. tel:[phone] [facility], [address] [place] [address], [id number], tel:[phone] [facility] covid vaccine (chief complaint) No Information Nurse Visit. . Referring Provider: Quinton Tran, [address] [place], [place] [address] [address] [place] [address], [phone]. tel:[phone] Family History Family Member Type Diagnosis Age [...] Record Payers Payer name Insurance type Covered constitution party ID Authoriza tion(s) [employer] [id number] CI [id number] [employer] [id number] CI [id number] [employer] [id number] CI [id number] Social History Type Description Quantity Date Captured [...]
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
[2025-04-17 20:49] VITALS: BP 128/68; BP 99/52; PULSE 90; PULSE 98; RESP 19; TEMP 37; O2SAT 96; O2SAT 98; BMI 31.6
[2025-04-17 20:56] VITALS: BP 126/62; PULSE 89; RESP 19; TEMP 37; O2SAT 96
--- NOTE | 2025-04-17 21:01 | ECG_ITS ---
Test Reason : light headed Blood Pressure : */* mmHG Vent. Rate : 91 BPM Atrial Rate : 91 BPM P-R Int : 116 ms QRS Dur : 72 ms QT Int : 340 ms P-R-T Axes : 59 -36 26 degrees QTcB Int : 418 ms Normal sinus rhythm Left axis deviation Inferior infarct , age undetermined Abnormal ECG When compared with ECG of 09-Apr-2025 14:59, Aberrant conduction is no longer Present Nonspecific T wave abnormality now evident in Lateral leads Referred By: Generic ED Physician Electronically Signed By: GARRETT AHMADI MD
[2025-04-17 21:13] LABS: MANUAL DIFF FLAG NO
[2025-04-17 21:17] LABS: Hematocrit 39.9 % (42.0-52.0); Hemoglobin 13.1 g/dl (14.0-18.0); Imm Gran Abs Auto 0.03 X10*3/uL (0.00-0.03); Imm Gran Pct Auto 0.3 % (0.0-0.4); Lymphocytes Absolute Auto 2.2 X10*3/uL (1.2-4.9); Mean Corpuscular HGB Conc 32.8 g/dl (31.0-36.0); Mean Corpuscular Hemoglobin 32.4 pg (27.0-33.0); Mean Corpuscular Volume 98.8 fL (80.0-98.0); NRBC Abs Auto 0.000 X10*3/uL (0.0-0.012); NRBC Pct Auto 0.0 /100WBC (0.0-0.2); Platelet Count 241 X10*3/uL (160-400); Red Blood Count 4.04 X10*6/uL (4.60-5.80); White Blood Count 9.3 X10*3/uL (4.8-10.8)
[2025-04-17 21:29] LABS: Alanine Aminotransferase 18 U/L (0-40); Albumin Level 3.9 g/dL (3.5-5.0); Alkaline Phosphatase 63 U/L (39-117); Anion Gap 12 (12-20); Aspartate Amino Transferase 23 U/L (5-37); Blood Urea Nitrogen 18 mg/dL (9-16); Calcium 9.3 mg/dL (8.4-10.2); Carbon Dioxide 25 mmol/L (22-29); Chloride 107 mmol/L (96-108); Creatinine Clr Calc Pharmacy 66.0; Estimated Glomerular Filt Rate > 60; Potassium 4.0 mmol/L (3.3-5.1); Sodium 140 mmol/L (135-145); Total Protein 6.7 g/dL (6.5-8.0)
[2025-04-17 23:29] VITALS: BP 109/61; PULSE 77; RESP 18; TEMP 36.9; O2SAT 98
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
[2025-04-17 23:42] LABS: Appearance Urine Clear; Glucose Urine UA Negative (Negative); PH 6.5 (5.0-9.0); Specific Gravity - Urine 1.020 (1.005-1.025); UMIC TRIGGER UACC YES
[2025-04-18 01:14] VITALS: BP 105/40; PULSE 77; RESP 18; O2SAT 96
[2025-04-18 01:41] VITALS: BP 105/40; PULSE 77; RESP 18; TEMP 36.6; O2SAT 96
== END 2025-04-18 01:54 | disposition home or self-care (01) ==
PROVIDERS: Emergency Provider Emergency Medicine; PCP Family Medicine
DX: M25.552 Pain in left hip (principal); M54.50 Low back pain, unspecified; R42 Dizziness and giddiness; R94.31 Abnormal electrocardiogram [ECG] [EKG]; Z91.81 History of falling; E11.9 Type 2 diabetes mellitus without complications; I10 Essential (primary) hypertension; Z59.00 Homelessness unspecified
CPT/HCPCS: 36415; 72100; 73502; 80053; 81001; 85025; 93005; 99283; 99285

== ENCOUNTER → 2025-04-17 21:01 | Outpatient (BNV) | payer MEDICAID, SELFPAY | PROVIDERS: Emergency Provider Emergency Medicine; PCP Family Medicine; Visit Provider Internal Medicine Cardiovascular Disease | DX: R94.31 Abnormal electrocardiogram [ECG] [EKG] (principal); R42 Dizziness and giddiness | CPT/HCPCS: 93010 ==

== ENCOUNTER → 2025-04-18 | Outpatient (BNV) | payer MEDICAID, SELFPAY | PROVIDERS: Emergency Provider Emergency Medicine; PCP Family Medicine; Visit Provider Radiology Diagnostic Radiology | DX: Z04.3 Encounter for examination and observation following other accident (principal); M16.0 Bilateral primary osteoarthritis of hip | CPT/HCPCS: 72100; 73502 ==

== ENCOUNTER 2025-05-03 03:06 | Emergency (ER) | payer MEDICAID, SELFPAY ==
--- OUTSIDE RECORDS SUMMARY | 2020-08-29 07:31 | XMS_ITS | Continuity of Care Document ---
Author Organization [facility] Address [address] [place] [phone] Phone Care Team Providers Care Assistant General Manager Name Role Phone Nurse RN, Visit Unavailable Unavailable Allergies, Adverse Reactions, Alerts Substance Reaction Status Criticality No Known Allergies Active No Inform ation Procedures Procedure Date Imm Admin Moderna COVID Dose 2 21 SARS-COV-2 2 Dose Vaccine IM Imm Admin Moderna COVID Dose 1 21 SARS-COV-2 2 Dose Vaccine IM Advance Directives Directive Yes / No Effective Date File Name No Information Encounters Encounter Description Practice Location Reason(s) For Visit Diagnoses Date Provider Providers [facility], [address] [place] [address], [id number], tel:[phone] [facility] Covid vaccine (chief complaint) No Information Nurse Visit. . Referring Provider: Quinton Tran, [address] [place] [address], [id number]. tel:[phone] [facility], [address] [place] [address], [id number], tel:[phone] [facility] covid vaccine (chief complaint) No Information Nurse Visit. . Referring Provider: Quinton Tran, [address] [place], [place] [address] [address] [place] [address], [phone]. tel:[phone] Family History Family Member Type Diagnosis Age At Onset No Information Immunizations Vaccine Date Status Comments SARS-COV 2 (COVID-19) Moderna administere d Note: Vaccine Administered by Mj Lowe RN ; Source: New Immunization Record SARS-COV-2 (COVID-19) vaccin e, mRNA, spike protein, LNP, preservative free, 100 mcg/0.5mL dose (Moderna) administered Note: administe red by Daisy Tubbs RN ; Source: New Immunization Record Payers Payer name Insurance type Covered alliance party ID Authoriza tion(s) [employer] [id number] CI [id number] [employer] [id number] CI [id number] [employer] [id number] CI [id number] Social History Type Description Quantity Date Captured Comments Alcohol Use Details Unknown Caffeine Use Details Unknown Tobacco Use Status No Information Smoking Status No Information Sex Male Chief Complaint And Reason For Visit From encounter dated '08/29/2020 12:31'. Covid vaccine (chief complaint) Reason For Referral Reason For Referral No Information Plan Of Treatment Date Type Action Status Goal Influenza vaccine. Due on due Goal Tdap. Due on due Goal Depression screening. Due on due Goal PPD (TST). Due on due Goal Colonoscopy. Due on 021 due Goal FOBT. Due on due Goal Td vaccine. Due on 21 due Goal Sigmoidoscopy. Due on due Goal Hemoglobin A1c. Due on due Goal Hemoglobin A1c. Due on due Goal Sigmoidoscopy. Due on due Goal Lipid panel. Due on 021 due Goal Influenza vaccine. Due on due Goal Tdap. Due on due Goal Depression screening. Due on due Goal PPD (TST). Due on due Goal Colonoscopy. Due on due Goal FOBT. Due on due Goal Td vaccine. Due on due History Of Present Illness Encounter Date Complaint History Of Prese nt Illness Covid vaccine covid vaccine Functional Status Date Functional Assessmen t No Information Instructions Date Instruction Additional Infor mation No Information Assessments Type Assessment Date No Information Patient Care Teams Name Effective Dates (start - stop) Status Members No Information
[2025-05-03 03:16] VITALS: BP 156/74; BP 168/92; PULSE 70; PULSE 72; RESP 18; TEMP 36.4; O2SAT 98; O2SAT 99; BMI 30.8
--- NOTE | 2025-05-03 03:17 | MHC.EDTECH ---
pt refused [facility] nasal swap @[id number]
[2025-05-03 03:26] LABS: Glucose, Whole Blood 87 mg/dL (60-115)
--- NOTE | 2025-05-03 03:28 | ED.GENADULT ---
HPI - General Adult General Chief complaint: General Medical Stated complaint: hip pain Time Seen by Provider: 05/03/25 03:07 Source: patient and EMS Limitations: no limitations History of Present Illness ED Provider: Danika Nicholas PA-C HPI narrative: 59-year-old male with known housing and security, history of HIV, hypertension, hyperlipidemia and diabetes, who presents with chronic bilateral hip pain. Patient states his chronic pain is worse over the past 3 days, he states he can not sleep. Incidentally, the patient began vomiting on route with EMS. Patient initially refusing labs. Patient states ?I am not sick, I am always here,?. Related Data Home Medications ?Medication ?Instructions ?Recorded ?Confirmed atorvastatin 20 mg tablet 20 mg PO BEDTIME 05/15/21 12/16/24 metformin 500 mg tablet 1,000 mg PO BID 05/15/21 12/16/24 bictegravir 50 mg-emtricitabine 1 tab PO DAILY 12/12/24 12/16/24 200 mg-tenofovir alafenam 25 mg tablet (Biktarvy) calcium 600 mg (as 1 tab PO DAILY 12/12/24 12/16/24 carbonate)-vitamin D3 10 mcg (400 unit) tablet selenium sulfide 2.5 % lotion 1 appl topical DAILY 12/12/24 12/16/24 Previous Rx's ?Medication ?Instructions ?Recorded diclofenac sodium 1 % topical gel 4 g topical QID PRN pain #100 grams 09/21/24 (Voltaren Arthritis Pain) amoxicillin 875 mg-potassium 1 tab PO Q12H #13 tabs 12/15/24 clavulanate 125 mg tablet doxycycline monohydrate 100 mg 100 mg PO Q12H #13 caps 12/15/24 capsule ondansetron 4 mg disintegrating 4 mg PO Q8H PRN nausea and 04/09/25 tablet vomiting #6 tabs omeprazole 20 mg capsule,delayed 20 mg PO DAILY 14 days #14 caps 04/11/25 release ondansetron 4 mg disintegrating 4 mg PO Q8H PRN nausea and 04/11/25 tablet vomiting #14 tabs tramadol 50 mg tablet 50 mg PO Q8H PRN severe pain 04/18/25 (scale score 7-10) #10 tabs Allergies Allergy/AdvReac Type Severity Reaction Status Date / Time No Known Allergies Allergy Verified 05/03/25 03:17 Review of Systems Review of Systems: Yes all other systems are reviewed and are negative Constitutional: Constitutional: Denies fatigue and Denies fever(s) Cardiovascular: Cardiovascular: Denies chest pain and Denies dyspnea Respiratory: Respiratory: Denies cough and Denies dyspnea Gastrointestinal: Gastrointestinal: Denies abdominal pain, Reports nausea and Reports vomiting Musculoskeletal: Musculoskeletal: Reports arthralgias and Denies joint swelling Endocrine: Endocrine: Denies fatigue PMFSH Past Medical History Attestation statement: The following information was validated with the patient. Medical History Hypertension Hyperlipidemia HIV (human immunodeficiency virus infection) Nicotine dependence, cigarettes, uncomplicated Homeless Diabetes Surgical History History of laparoscopic cholecystectomy (~2020) History of incisional hernia repair (~2014) History of umbilical hernia repair (~2008) History of appendectomy Social History Social History Household Members: Other Housing: Homeless Housing Other:: patient states homeless Do you presently have visiting nurse or other home services: No Alcohol intake: never Patient Tobacco Use Status: Current everyday Tobacco user Tobacco use type: Cigarette Cigarette Packs Per Day: 1 Cigarettes Per Day: 20.0 Years Smoked: 30 Smoked in Last 30 Days: Yes Second Hand Smoke Exposure: No Use of substances other than those prescribed or required for medical reasons: No Substance Use Type: Marijuana Advance Directives: No Advance Directives Information Provided: Yes Do you have a plan to hurt others: No Plan service: No Current occupational status: unemployed Physical Exam ED Vital Signs: Vital Signs - 24 hr 05/03/25 03:16 Temperature 97.6 F Pulse Rate 70 Respiratory Rate 18 Blood Pressure 156/74 H Pulse Oximetry 99 Oxygen Delivery Method Room Air BMI result Body Mass Index 30.8 Const Other: Alert Orientation/consciousness: patient oriented x3 Resp Effort & Inspection: normal respiratory effort Cardio Other: Normal peripheral perfusion Skin Other: Warm dry no rash Neuro Other: Antalgic gait General: patient oriented x3, no focal motor deficits and CN's II-XI intact bilaterally Psych Other: Uncooperative Medications Administered Discontinued Medications Generic Name Dose Route Start Last Admin Trade Name Freq PRN Reason Stop Dose Admin Diphenhydramine HCl 25 mg 05/03/25 03:10 05/03/25 03:24 Diphenhydramine Hcl 50 Mg/Ml Vial IM 05/03/25 03:11 25 mg ONCE ONE Administration Ketorolac Tromethamine 15 mg 05/03/25 03:09 05/03/25 03:24 Ketorolac Tromethamine 15 Mg/Ml Vial IM 05/03/25 03:10 15 mg ONCE ONE Administration Prochlorperazine Edisylate 10 mg 05/03/25 03:10 05/03/25 03:24 Prochlorperazine Edisylate 10 Mg/2 Ml Vial IM 05/03/25 03:11 10 mg ONCE ONE Administration Medical Decision Making Medical Decision Making [facility] Narrative: 59-year-old male with known housing and security, history of HIV, hypertension, hyperlipidemia and diabetes, who presents with chronic bilateral hip pain. Patient states his chronic pain is worse over the past 3 days, he states he can not sleep. Incidentally, the patient began vomiting on route with EMS. Patient initially refusing labs. Patient states ?I am not sick, I am always here,?. Problem: Housing and security, HIV, diabetes History: Per patient I have considered the following differential diagnoses: Viral syndrome, chronic pain, malingering, secondary gain Plan: My plan is to check a point of care and a viral panel. Giving intramuscular meds for pain and nausea. He has no complaint of belly pain, he initially was refusing any intervention. If his blood sugar is markedly elevated, I will proceed with the additional lab studies and gain IV access. Sadly, the patient is seen often in the emergency room secondary to his housing and security. I have independently reviewed the following tests: Labs: POC 87, viral panel negative Differential Diagnosis Differential Diagnoses: The differential diagnosis associated with the presentation includes See [facility] Admission/Observation Consideration of admission/observation: Escalation of care including admission/observation considered Not applicable Lab Data [facility] Lab Attestation statement: I reviewed the patient's lab results. Labs: Lab Results 05/03/25 Range/Units 03:20 POC Glucose 87 (60-115) mg/dL Influenza Type A (PCR) NEGATIVE (Negative) Influenza Type B (PCR) NEGATIVE (Negative) RSV RNA Qual (PCR) NEGATIVE (Negative) SARS-CoV-2 RNA (RT-PCR) NEGATIVE (Negative) Discharge Plan Discharge Clinical Impression: Homeless, Chronic hip pain Patient Disposition: Home, Self-Care Instructions: Arthralgia (ED) Additional Instructions: Your blood sugar was not elevated, the viral panel was negative. Prescriptions: No Action metformin 500 mg tablet 1,000 mg PO BID atorvastatin 20 mg tablet 20 mg PO BEDTIME calcium carbonate-vitamin D3 600 mg-10 mcg (400 unit) tablet 1 tab PO DAILY selenium sulfide 2.5 % lotion 1 appl topical DAILY Biktarvy 50-200-25 mg tablet 1 tab PO DAILY amoxicillin-pot clavulanate 875-125 mg Tablet 1 tab PO Q12H Qty: 13 0RF doxycycline monohydrate 100 mg Capsule 100 mg PO Q12H Qty: 13 0RF ondansetron 4 mg tablet,disintegrating 4 mg PO Q8H PRN (Reason: nausea and vomiting) Qty: 6 0RF tramadol 50 mg tablet 50 mg PO Q8H PRN (Reason: severe pain (scale score 7-10)) Qty: 10 0RF diclofenac sodium [Voltaren Arthritis Pain] 1 % gel 4 g topical QID PRN (Reason: pain) Qty: 100 0RF Rx Instructions: apply to single knee, ankle, foot; for foot includes sole/toes/top of foot ondansetron 4 mg tablet,disintegrating 4 mg PO Q8H PRN (Reason: nausea and vomiting) Qty: 14 0RF omeprazole 20 mg capsule,delayed release(DR/EC) 20 mg PO DAILY 14 Days Qty: 14 0RF Print Language: Czech
[2025-05-03 04:01] LABS: Resp Syncy Virus RNA Qual PCR NEGATIVE (Negative); SARS COV2 PCR INHOUSE NEGATIVE (Negative)
[2025-05-03 06:43] VITALS: BP 142/76; PULSE 68; RESP 18; TEMP 36.9; O2SAT 97
== END 2025-05-03 06:44 | disposition home or self-care (01) ==
PROVIDERS: Physician Assistant Medical; Emergency Provider Emergency Medicine
DX: G89.29 Other chronic pain (principal); M25.551 Pain in right hip; M25.552 Pain in left hip; I10 Essential (primary) hypertension; E11.9 Type 2 diabetes mellitus without complications; Z21 Asymptomatic human immunodeficiency virus [HIV] infection status; Z59.02 Unsheltered homelessness
CPT/HCPCS: 82947; 87637; 96372; 99284; J0737; J1200; J1885

== ENCOUNTER 2025-05-07 14:43 | Emergency (ER) | payer MEDICAID, SELFPAY ==
[2025-05-07 14:49] VITALS: BP 156/82; PULSE 72; O2SAT 98
[2025-05-07 14:58] VITALS: BP 173/77; PULSE 68; RESP 18; TEMP 36.6; O2SAT 98; BMI 31.6
--- NOTE | 2025-05-07 15:01 | ED.GENADULT ---
HPI - General Adult General Chief complaint: Nausea/Vomiting/Diarrhea Stated complaint: vomiting, pain on hip, leg, Time Seen by Provider: 05/08/25 00:32 Source: patient Limitations: no limitations History of Present Illness ED Provider: Danika Nicholas PA-C HPI narrative: 59-year-old male with known housing and security, history of HIV, hypertension, hyperlipidemia and diabetes, who presents with chronic bilateral hip pain. Related Data Home Medications ?Medication ?Instructions ?Recorded ?Confirmed atorvastatin 20 mg tablet 20 mg PO BEDTIME 05/15/21 12/16/24 metformin 500 mg tablet 1,000 mg PO BID 05/15/21 12/16/24 bictegravir 50 mg-emtricitabine 1 tab PO DAILY 12/12/24 12/16/24 200 mg-tenofovir alafenam 25 mg tablet (Biktarvy) calcium 600 mg (as 1 tab PO DAILY 12/12/24 12/16/24 carbonate)-vitamin D3 10 mcg (400 unit) tablet selenium sulfide 2.5 % lotion 1 appl topical DAILY 12/12/24 12/16/24 Previous Rx's ?Medication ?Instructions ?Recorded diclofenac sodium 1 % topical gel 4 g topical QID PRN pain #100 grams 09/21/24 (Voltaren Arthritis Pain) amoxicillin 875 mg-potassium 1 tab PO Q12H #13 tabs 12/15/24 clavulanate 125 mg tablet doxycycline monohydrate 100 mg 100 mg PO Q12H #13 caps 12/15/24 capsule ondansetron 4 mg disintegrating 4 mg PO Q8H PRN nausea and 04/09/25 tablet vomiting #6 tabs omeprazole 20 mg capsule,delayed 20 mg PO DAILY 14 days #14 caps 04/11/25 release ondansetron 4 mg disintegrating 4 mg PO Q8H PRN nausea and 04/11/25 tablet vomiting #14 tabs tramadol 50 mg tablet 50 mg PO Q8H PRN severe pain 04/18/25 (scale score 7-10) #10 tabs ketorolac 10 mg tablet 10 mg PO Q6H PRN pain #20 tabs 05/08/25 Allergies Allergy/AdvReac Type Severity Reaction Status Date / Time No Known Allergies Allergy Verified 05/07/25 14:59 Review of Systems Review of Systems: Yes all other systems are reviewed and are negative Constitutional: Constitutional: Denies fatigue and Denies fever(s) Cardiovascular: Cardiovascular: Denies chest pain and Denies dyspnea Respiratory: Respiratory: Denies cough and Denies dyspnea Gastrointestinal: Gastrointestinal: Denies abdominal pain, Denies nausea and Denies vomiting Musculoskeletal: Musculoskeletal: Reports arthralgias and Denies joint swelling Endocrine: Endocrine: Denies fatigue PMFSH Past Medical History Attestation statement: The following information was validated with the patient. Medical History Hypertension Hyperlipidemia HIV (human immunodeficiency virus infection) Nicotine dependence, cigarettes, uncomplicated Homeless Diabetes Surgical History History of laparoscopic cholecystectomy (~2020) History of incisional hernia repair (~2014) History of umbilical hernia repair (~2008) History of appendectomy Social History Social History Household Members: Other Housing: Homeless Housing Other:: patient states homeless Do you presently have visiting nurse or other home services: No Alcohol intake: never Patient Tobacco Use Status: Current everyday Tobacco user Tobacco use type: Cigarette Cigarette Packs Per Day: 1 Cigarettes Per Day: 20.0 Years Smoked: 30 Second Hand Smoke Exposure: No Substance Use Type: Marijuana Advance Directives: No Advance Directives Information Provided: Yes Do you have a plan to hurt others: No Plan service: No Current occupational status: unemployed Physical Exam ED Vital Signs: Vital Signs - 24 hr 05/07/25 14:58 05/08/25 00:26 Temperature 98 F 98.1 F Pulse Rate 68 63 Respiratory Rate 18 16 Blood Pressure 173/77 H 143/64 H Pulse Oximetry 98 98 Oxygen Delivery Method Room Air Room Air BMI result Body Mass Index 31.6 Const Other: awake Orientation/consciousness: patient oriented x3 Resp Effort & Inspection: normal respiratory effort Cardio Other: normal peripheral perfusion Skin Other: warm dry no rash Neuro General: patient oriented x3, gait normal, no focal motor deficits and CN's II-XI intact bilaterally Psych Other: cooperative Course Course Course Narrative: This is a rapid medical exam performed by Aida Zapata NP: Additional HPI, ROS, PE not included below will be deferred to primary provider. Patient is a 59y/o M presenting with nausea and vomiting for 2 days, also c/o bilateral hip pain due to chronic arthritis. Plan: labs, viral swabs Medications Administered Discontinued Medications Generic Name Dose Route Start Last Admin Trade Name Jason PRN Reason Stop Dose Admin Acetaminophen 975 mg 05/07/25 23:52 05/07/25 23:53 Acetaminophen 325 Mg Tablet PO 05/07/25 23:53 975 mg ONCE ONE Administration Ondansetron HCl 4 mg 05/07/25 18:39 05/07/25 18:45 Ondansetron Odt 4 Mg Tab.Rapdis TRANSLINGU 05/07/25 18:40 4 mg ONCE ONE Administration Medical Decision Making Medical Decision Making MDM Narrative: 59-year-old male with known housing and security, history of HIV, hypertension, hyperlipidemia and diabetes, who presents with chronic bilateral hip pain. Problem: Housing and security, HIV, diabetes History: Per patient I have considered the following differential diagnoses: Viral syndrome, chronic pain, malingering, secondary gain Plan: screening labs obtained from triage and are unremarkable. Sadly, the patient is seen often in the emergency room secondary to his housing and security. The patient initially complained of nausea vomiting, however he is asking for food and drank, he has already consumed multiple sandwiches. We will treat with Toradol, he will be discharged to the waiting room. I have independently reviewed the following tests: Labs: no leukocytosis, not anemic, no electrolyte abnormality, viral panel negative Differential Diagnosis Differential Diagnoses: The differential diagnosis associated with the presentation includes See MDM Admission/Observation Consideration of admission/observation: Escalation of care including admission/observation considered not applicable Lab Data [facility] Lab Attestation statement: I reviewed the patient's lab results. 05/07/25 16:21 05/07/25 16:21 Labs: Lab Results 05/07/25 Range/Units 16:21 WBC 10.0 (4.8-10.8) X10*3/uL RBC 4.45 L (4.60-5.80) X10*6/uL Hgb 14.4 (14.0-18.0) g/dl Hct 43.8 (42.0-52.0) % MCV 98.4 H (80.0-98.0) fL MCH 32.4 (27.0-33.0) pg MCHC 32.9 (31.0-36.0) g/dl RDW 11.9 (11.0-16.0) % Plt Count 251 (160-400) X10*3/uL MPV 9.6 (9.4-12.4) fL Immature Gran % (Auto) 0.4 (0.0-0.4) % Neut % (Auto) 68.7 (45-73) % Lymph % (Auto) 20.4 (20-40) % Mckenzie % (Auto) 9.6 (2-11) % Eos % (Auto) 0.5 (0-4) % Baso % (Auto) 0.4 (0-2) % Lymph # (Auto) 2.0 (1.2-4.9) X10*3/uL Mckenzie # (Auto) 1.0 (0.1-1.2) X10*3/uL Eos # (Auto) 0.1 (0.0-0.4) X10*3/uL Baso # (Auto) 0.0 (0.0-0.2) X10*3/uL Abs Immat Gran (auto) 0.04 H (0.00-0.03) X10*3/uL Absolute Neuts (auto) 6.8 (2.0-8.3) x10*3/uL Absolute Nucleated RBC 0.000 (0.0-0.012) X10*3/uL Nucleated RBC % (auto) 0.0 (0.0-0.2) /100WBC Sodium 143 (135-145) mmol/L Potassium 4.1 (3.3-5.1) mmol/L Chloride 107 (96-108) mmol/L Carbon Dioxide 31 H (22-29) mmol/L Anion Gap 9 L (12-20) BUN 16 (9-16) mg/dL Creatinine 1.10 (0.5-1.4) mg/dL Estim Creat Clear Calc 73.8 Estimated GFR > 60 Random Glucose 82 (60-115) mg/dL Calcium 9.9 D (8.4-10.2) mg/dL Total Bilirubin 0.7 (0.0-1.0) mg/dL AST 31 (5-37) U/L ALT 26 (0-40) U/L Alkaline Phosphatase 74 (39-117) U/L Total Protein 7.6 (6.5-8.0) g/dL Albumin 4.6 (3.5-5.0) g/dL Lipase 25 (8-78) U/L Influenza Type A (PCR) NEGATIVE (Negative) Influenza Type B (PCR) NEGATIVE (Negative) RSV RNA Qual (PCR) NEGATIVE (Negative) SARS-CoV-2 RNA (RT-PCR) NEGATIVE (Negative) Discharge Plan Discharge Clinical Impression: Homeless Chronic hip pain Qualifiers: Laterality: bilateral Qualified Code(s): M25.551 - Pain in right hip Patient Disposition: Home, Self-Care Instructions: Arthralgia (ED) Additional Instructions: All of your screening labs were normal, you need to follow up with your primary care provider in regard to your ongoing arthritis pain. Use the ketorolac as directed. Prescriptions: New ketorolac 10 mg tablet 10 mg PO Q6H PRN (Reason: pain) Qty: 20 0RF Rx Instructions: maximum total duration of 5 days from all oral, intranasal, or parenteral formulations. Patient received an intramuscular dose of Toradol here in the emergency room No Action metformin 500 mg tablet 1,000 mg PO BID atorvastatin 20 mg tablet 20 mg PO BEDTIME calcium carbonate-vitamin D3 600 mg-10 mcg (400 unit) tablet 1 tab PO DAILY selenium sulfide 2.5 % lotion 1 appl topical DAILY Biktarvy 50-200-25 mg tablet 1 tab PO DAILY amoxicillin-pot clavulanate 875-125 mg Tablet 1 tab PO Q12H Qty: 13 0RF doxycycline monohydrate 100 mg Capsule 100 mg PO Q12H Qty: 13 0RF ondansetron 4 mg tablet,disintegrating 4 mg PO Q8H PRN (Reason: nausea and vomiting) Qty: 6 0RF tramadol 50 mg tablet 50 mg PO Q8H PRN (Reason: severe pain (scale score 7-10)) Qty: 10 0RF diclofenac sodium [Voltaren Arthritis Pain] 1 % gel 4 g topical QID PRN (Reason: pain) Qty: 100 0RF Rx Instructions: apply to single knee, ankle, foot; for foot includes sole/toes/top of foot ondansetron 4 mg tablet,disintegrating 4 mg PO Q8H PRN (Reason: nausea and vomiting) Qty: 14 0RF omeprazole 20 mg capsule,delayed release(DR/EC) 20 mg PO DAILY 14 Days Qty: 14 0RF Print Language: Upper Sorbian
[2025-05-07 16:48] LABS: MANUAL DIFF FLAG NO
[2025-05-07 16:50] LABS: Hematocrit 43.8 % (42.0-52.0); Hemoglobin 14.4 g/dl (14.0-18.0); Imm Gran Abs Auto 0.04 X10*3/uL (0.00-0.03); Imm Gran Pct Auto 0.4 % (0.0-0.4); Lymphocytes Absolute Auto 2.0 X10*3/uL (1.2-4.9); Mean Corpuscular HGB Conc 32.9 g/dl (31.0-36.0); Mean Corpuscular Hemoglobin 32.4 pg (27.0-33.0); Mean Corpuscular Volume 98.4 fL (80.0-98.0); NRBC Abs Auto 0.000 X10*3/uL (0.0-0.012); NRBC Pct Auto 0.0 /100WBC (0.0-0.2); Platelet Count 251 X10*3/uL (160-400); Red Blood Count 4.45 X10*6/uL (4.60-5.80); White Blood Count 10.0 X10*3/uL (4.8-10.8)
[2025-05-07 17:15] LABS: Alanine Aminotransferase 26 U/L (0-40); Albumin Level 4.6 g/dL (3.5-5.0); Alkaline Phosphatase 74 U/L (39-117); Anion Gap 9 (12-20); Aspartate Amino Transferase 31 U/L (5-37); Blood Urea Nitrogen 16 mg/dL (9-16); Calcium 9.9 mg/dL (8.4-10.2); Carbon Dioxide 31 mmol/L (22-29); Chloride 107 mmol/L (96-108); Creatinine Clr Calc Pharmacy 73.8; Estimated Glomerular Filt Rate > 60; Lipase 25 U/L (8-78); Potassium 4.1 mmol/L (3.3-5.1); Sodium 143 mmol/L (135-145); Total Protein 7.6 g/dL (6.5-8.0)
[2025-05-07 17:56] LABS: Resp Syncy Virus RNA Qual PCR NEGATIVE (Negative); SARS COV2 PCR INHOUSE NEGATIVE (Negative)
--- NOTE | 2025-05-07 18:34 | PC.NURSE ---
pt agitated and states he wants food, I informed him that with his n/v we would not recommend food at this time, he states his poc is 77, i offered to check his sugar and he declined and walked back into the mwr, alert, speech clear, steady gait
--- NOTE | 2025-05-07 23:55 | PC.NURSE ---
pt given sandra laya, sandwich in waiting room. given tylenol per request for pain
[2025-05-08 00:26] VITALS: BP 143/64; PULSE 63; RESP 16; TEMP 36.7; O2SAT 98
--- NOTE | 2025-05-08 01:05 | PC.NURSE ---
pt given more food at this time
[2025-05-08 01:21] VITALS: BP 143/64; PULSE 63; RESP 16; TEMP 36.7; O2SAT 98
== END 2025-05-08 01:22 | disposition home or self-care (01) ==
PROVIDERS: Registered Nurse Emergency; Emergency Provider Emergency Medicine
DX: M25.551 Pain in right hip (principal); M25.552 Pain in left hip; I10 Essential (primary) hypertension; E11.9 Type 2 diabetes mellitus without complications; Z21 Asymptomatic human immunodeficiency virus [HIV] infection status; Z59.02 Unsheltered homelessness
CPT/HCPCS: 36415; 80053; 83690; 85025; 87637; 96372; 99283; 99284; J1885